=== PATIENT | female | born 1990 | race Caucasian/White ===

== ENCOUNTER 2022-10-14 07:41 | Outpatient (OUT) | payer MEDICAID, SELFPAY ==
--- NOTE | 2022-10-14 | US_ITS ---
Patient: TABITHA PAPPAS Exam Date: 10/14/2022 : 1990 Gender:F Ordering : KAVON Menjivar . Admission #: [id number] Family : Non-Staff Physician Order #: [id number] CLICK HERE TO VIEW EXAM RADIOLOGY REPORT PROCEDURE: MM TOMOSYNTHESIS DIAGNOSTIC BI, 10/14/2022, 07:43 US BREAST RT LIMITED, 10/14/2022, 08:24 COMPARISON: MG MAMM SCREEN 3D CHANEL CAD, 01/03/2022. INDICATIONS: Right Breast Pain Calculator Name NCI Breast Cancer Risk Assessment Tool 5 Year Breast Cancer Risk Not Applicable. Lifetime Breast Cancer Risk Not Applicable. Personal Breast Cancer No Personal Ovarian Cancer No Treatments None Family Cancers Grandmother-paternal with breast cancer at age 65. LOCATION: [facility] BREAST COMPOSITION: Extremely dense, which lowers the sensitivity of mammography. FINDINGS: DIAGNOSTIC CATEGORY 1--NEGATIVE. Extremely dense parenchymal pattern limits diagnostic sensitivity. No focal mass, architectural distortion or suspicious calcifications. No mammographic or ultrasound abnormality to correspond to the patient's palpable abnormality upper-outer quadrant, right mid breast. RECOMMENDATIONS: CLINICAL EVALUATION. PLEASE NOTE: A NORMAL MAMMOGRAM DOES NOT EXCLUDE THE POSSIBILITY OF BREAST CANCER. A CLINICALLY SUSPICIOUS PALPABLE LUMP SHOULD BE BIOPSIED. Dictated by: Moy Cespedes MD on 10/14/2022 at 08:36 Approved by: Moy Cespedes MD on 10/14/2022 at 08:38
--- NOTE | 2022-10-14 08:30 | MM_ITS ---
Patient: TABITHA PAPPAS Exam Date: 10/14/2022 : 1990 Gender:F Ordering : KAVON Menjivar . Admission #: [id number] Family : Non-Staff Physician Order #: [id number] CLICK HERE TO VIEW EXAM RADIOLOGY REPORT PROCEDURE: MM TOMOSYNTHESIS DIAGNOSTIC BI, 10/14/2022, 07:43 US BREAST RT LIMITED, 10/14/2022, 08:24 COMPARISON: MG MAMM SCREEN 3D CHANEL CAD, 01/03/2022. INDICATIONS: Right Breast Pain Calculator Name NCI Breast Cancer Risk Assessment Tool 5 Year Breast Cancer Risk Not Applicable. Lifetime Breast Cancer Risk Not Applicable. Personal Breast Cancer No Personal Ovarian Cancer No Treatments None Family Cancers Grandmother-paternal with breast cancer at age 65. LOCATION: The [facility] BREAST COMPOSITION: Extremely dense, which lowers the sensitivity of mammography. FINDINGS: DIAGNOSTIC CATEGORY 1--NEGATIVE. Extremely dense parenchymal pattern limits diagnostic sensitivity. No focal mass, architectural distortion or suspicious calcifications. No mammographic or ultrasound abnormality to correspond to the patient's palpable abnormality upper-outer quadrant, right mid breast. RECOMMENDATIONS: CLINICAL EVALUATION. PLEASE NOTE: A NORMAL MAMMOGRAM DOES NOT EXCLUDE THE POSSIBILITY OF BREAST CANCER. A CLINICALLY SUSPICIOUS PALPABLE LUMP SHOULD BE BIOPSIED. Dictated by: Moy Cespedes MD on 10/14/2022 at 08:36 Approved by: Moy Cespedes MD on 10/14/2022 at 08:38
== END 2022-10-14 07:42 | disposition home or self-care (01) ==
LOC: MAMMO 07:44
PROVIDERS: Visit Provider Physician Assistant
DX: N64.4 Mastodynia (principal); N63.11 Unspecified lump in the right breast, upper outer quadrant
CPT/HCPCS: 76642; 77066; G0279

== ENCOUNTER 2022-11-21 20:31 | Outpatient (REF) | payer MEDICAID, SELFPAY ==
[2022-11-24 15:10] LABS: Age Gdln ACOG Testing Note (.); HPV Aptima Negative (Negative); IGP, Aptima HPV, rfx 16/18,45 Note (.)
== END 2022-11-21 20:32 | disposition home or self-care (01) ==
LOC: LAB 20:31
PROVIDERS: Visit Provider Physician Assistant
DX: Z12.4 Encounter for screening for malignant neoplasm of cervix (principal)
CPT/HCPCS: 87624; G0145

== ENCOUNTER 2022-11-24 08:00 | Outpatient (OUT) | payer MEDICAID, SELFPAY ==
--- NOTE | 2022-11-24 08:03 | US_ITS ---
The [address] [address] Patient Name: TABITHA PAPPAS MRN: [id number] date: 1990 Sex: F Assigned Patient Location: US Current Patient Location: US Accession/Order Number: [id number] Exam Date: 11/24/2022 08:10 Report Date: 11/24/2022 09:15 At the request of: SHEFALI VNECES Procedure: US pelvis w/ transvaginal EXAMINATION: US pelvis w/ transvaginal HISTORY: RLQ PAIN , chronic; possibly cystic ovarian syndrome COMPARISON: No relevant comparison available. TECHNIQUE: Transabdominal and/or transvaginal sonographic examination was performed as indicated by examination type. FINDINGS: UTERUS: Prior hysterectomy. RIGHT OVARY: Normal size and appearance. Duplex Doppler demonstrates normal waveform and flow; resistive index 0.7. Ovary size: 2.7 x 1.6 x 1.5 cm LEFT OVARY: Contains a 2.5 x 1.9 x 1.8 cm complex cyst versus mass. Duplex Doppler demonstrates normal waveform and flow; resistive index 0.6. Ovary size: 3.6 x 2.5 x 3.8 cm CUL-DE-SAC: Unremarkable. No significant free fluid. BLADDER: Unremarkable. OTHER: None. US/US pelvis w/ transvaginal IMPRESSION: 1. The left ovary contains a 2.5 cm complex cyst versus mass. Follow-up ultrasound evaluation in 6 weeks is recommended to document regression. 2. No abnormal or suspicious findings on the right to account for patient's symptoms. Electronically authenticated by: ARIEL HERNANDEZ Date: 11/24/2022 09:15
== END 2022-11-24 08:01 | disposition home or self-care (01) ==
LOC: US 08:01
PROVIDERS: Visit Provider Obstetrics & Gynecology
DX: R10.13 Epigastric pain (principal); N83.202 Unspecified ovarian cyst, left side
CPT/HCPCS: 76830; 76856

== ENCOUNTER 2023-01-09 07:57 | Outpatient (OUT) | payer MEDICAID, SELFPAY ==
--- NOTE | 2023-01-09 | US_ITS ---
The [address] [address] Patient Name: TABTIHA PAPPAS MRN: [id number] date: 1990 Sex: F Assigned Patient Location: Current Patient Location: US Accession/Order Number: [id number] Exam Date: 01/09/2023 08:10 Report Date: 01/09/2023 09:13 At the request of: SHEFALI VENCES Procedure: US pelvis w/ transvaginal EXAM: Pelvic ultrasound HISTORY: . RLQ abdominal pain . COMPARISON: None. TECHNIQUE: Transabdominal and transvaginal scanning was performed FINDINGS: Scanning of the pelvis demonstrates uterus to be absent. Right ovary measures 3.7 x 1.6 x 1.4 cm. Color-flow is noted. Resistive index was 0.4. No masses were noted. Follicles were noted. Left ovary was difficult to image due to overlying bowel gas. AP portion of the left ovary was visualized and measured approximately 1.6 x 1.2 x 0.9 cm. No masses were noted. No fluid was noted in the cul-de-sac. US/US pelvis w/ transvaginal IMPRESSION: 1 Limited exam due to multiple bowel loops within the pelvis. 2. Uterus is absent. 3. Right ovary appears normal. 4. Left ovary was difficult to image due to bowel loops. Left ovary was partially visualized and appears grossly unremarkable. Electronically authenticated by: DARNELL RAMOS Date: 01/09/2023 09:13
--- OUTSIDE RECORDS SUMMARY | 2023-02-14 17:42 | XMS_ITS | CCD ---
Author Name Unknown Address [address] [place] [address] Organization [facility] Care Team Providers Care Button Maker And Installer Name Role Phone RU, DR MEEHAN Attending Unavailable RU, DR MEEHAN Admitting Unavailable RU, DR MEEHAN Procedure Practitioner Unavailab le MISC, DR HASKINS Primary Care Unavailable RUSSELK, DR LANDEROS Consulting Unavailable RU, DR MEEHAN Consulting Unavailable NATEPAULINA Coronado Consulting Unavailable RU, DR MEEHAN Attending Unavailable RU, DR MEEHAN Admitting Unavailable RU, DR MEEHAN Attending Unavailable RU, DR MEEHAN Consulting Unavailable RU, DR MEEHAN Admitting Unavailable RU, DR MEEHAN Admitting Unavailable RU, DR MEEHAN Consulting Unavailable RU, DR MEEHAN Attending Unavailable RU, DR MEEHAN Consulting Unavailable RU, DR MEEHAN Admitting Unavailable RU, DR MEEHAN Attending Unavailable RU, DR MEEHAN Attending Unavailable RU, DR MEEHAN Consulting Unavailable RU, DR MEEHAN Admitting Unavailable MISC, DR HASKINS Consulting Unavailable RU, DR MEEHAN Attending Unavailable RU, DR MEEHAN Admitting Unavailable RU, DR MEEHAN Consulting Unavailable RU, DR MEEHAN Admitting Unavailable RU, DR MEEHAN Attending Unavailable AGUBOSIM, HAYLEY Consulting Unavailable GRZEGORZ LINO Consulting Unavailable KITA Cespedes Primary Care Provider KITA Cespedes Attending Provider [phone] MD Rodger Malagon Emergency Provider Unavailable Primary Care Provider UnavailJM Mejias Referring Unavailable PROVIDER, UNKNOWN Attending Unavailable PROVIDER, UNKNOWN Admitting Unavailable KTIA Cespedes Primary Care Provider KITA Ryan Emergency Provider [phone] Alireza Noland Unavailable DO Jose Perez Attending Provider [phone] DO Lavinia Flores Emergency Provider [phone] [place], MICA PARTS SPRAYER Venus S Primary Care Provider DO Jose Perez Attending Provider [phone] [place], MICA PARTS SPRAYER Venus S Attending Provider West, MICA PARTS SPRAYER Venus S Primary Care Provider [phone] SCOTT MCINTOSH Attending Unavailable [place], MICA PARTS SPRAYER Venus S Primary Care Provider West, MICA PARTS SPRAYER Venus S Attending Provider MD Kane Crouch Emergency Provider [phone] [place], Venus S Primary Care Unavailable Lavinia Flores Admitting Unavailable Lavinia Flores Attending Unavailable Kane Crouch Admitting Unavailable Kane Crouch Attending Unavailable West, Venus S Primary Care Unavailable Rodger Malagon Admitting Unavailable Manas, Rodger Noriega Attending Unavailable West, Venus S Primary Care Unavailable Turner Hendrickson Admitting Unavailable Turner Hendrickson Attending Unavailable West, Venus S Primary Care Unavailable Gerald Ryan Attending Unavailable Shelby, Gerald Admitting Unavailable West, Venus S Primary Care Unavailable Jose Perez Admitting Unavailable Jose Perez Attending Unavailable West, Venus S Primary Care Unavailable West, Venus S Attending Unavailable West, Venus S Admitting Unavailable West, Venus S Primary Care Unavailable West, Venus S Attending Unavailable West, Venus S Admitting Unavailable West, Venus S Primary Care Unavailable Gerald Ryan Admitting Unavailable Gerald Ryan Attending Unavailable West, Venus S Primary Care Unavailable West DONKEY RIDE OPERATOR, Venus Primary Care Provider WEST, VENUS Primary Care Unavailable ABHYANKAR, IZAIAH Attending Unavailable WEST, VENUS Primary Care Unavailable ABHYANKAR, IZAIAH Referring Unavailable WEST, VENUS Primary Care Unavailable ABHYANKAR, IZAIAH Attending Unavailable WEST, VENUS Referring Unavailable VENUS CESPEDES Primary Care Unavailable Allergies Allergy Classification Reported Allergen(s) Allergy Type Date of Onset Reaction(s) Facility (1 source) Povidone-Iodine Drug Allergy 01-03-2020 [facility] Repository Medications Current Medications Medication Drug Class(es) Dates Sig (Normalized) Sig (Original) 0.4 ml adalimumab 100 mg/ml auto-injector (6 sources) Tumor Necrosis Factor Leatha Start: 06-25-2022 Adalimumab (Humira(Cf) Pen) 40 mg/0.4 mL pen injector kit Active MG SUBCUT June 24, 2022 11:00pm [id number] 200 actuat albuterol 0.09 mg/actuat metered dose inhaler (6 sources) beta2-Adrenergic Agonist Start: 06-25-2022 Albuterol Sulfate Active 2 INH INHALATION Q6H 8 June 24, 2022 11:00pm administer with spacer benzonatate 200 mg oral capsule (14 sources) Non-narcotic Antitussive Start: 06-25-2022 take 200 mg by mouth three times daily Benzonatate Active 200 MG PO Three times daily June 24, 2022 11:00pm Start: 01-24-2017 End: 09-12-2017 take 2 capsules by mouth three times daily Benzonatate (Tessalon Perles) 100 mg capsule Discontinued 200 MG PO Three times daily January 24, 2017 12:00am September 12, 2017 1:17pm cholecalciferol 0.05 mg oral tablet (2 sources) Vitamin D Start: 01-24-2022 Cholecalciferol (Vitamin D3) 50 MCG (1999 UT) TABS cyclobenzaprine hydrochloride 10 mg oral tablet (6 sources) Muscle Relaxant Start: 08-05-2022 take 10 mg by mouth three times daily Cyclobenzaprine Active 10 MG PO Three times daily August 04, 2022 11:00pm doxycycline hyclate 100 mg oral tablet (6 sources) Tetracycline-class Drug Start: 06-25-2022 take 100 mg by mouth twice daily Doxycycline Hyclate Active 100 MG PO Twice daily June 24, 2022 11:00pm hydrOXYzine hydrochloride 25 mg oral tablet (2 sources) Antihistamine Start: 02-10-2022 hydrOXYzine (ATARAX) 25 MG tablet lidocaine 0.05 mg/mg medicated patch (6 sources) Antiarrhythmic, Amide Local Anesthetic Start: 08-05-2022 apply 1 dose topically once daily Lidocaine (Lidoderm) 5 % adhesive patch,medicated Active 2 PATCH TOPICAL Daily August 04, 2022 11:00pm leave on most painful area for up to 12 hrs methylPREDNISolone 4 mg oral tablet (3 sources) Corticosteroid Start: 08-12-2022 Start: 02-11-2022 methylPREDNISo lone (MEDROL) 4 MG tablet naproxen 500 mg oral tablet (20 sources) Nonsteroidal Anti-inflammatory Drug Start: 08-05-2022 take 1 tablet by mouth twice daily Naproxen (Naprosyn) 500 mg tablet Active 500 MG PO Twice daily August 04, 2022 11:00pm Start: 09-12-2017 End: 05-11-2018 take 500 mg by mouth twice daily at mealtime Naproxen Discontinued 500 MG PO Twice daily September 11, 2017 11:00pm May 11, 2018 11:08am administer with food or milk Start: 01-04-2017 End: 01-24-2017 take 1 tablet by mouth every twelve hours at mealtime Naproxen (Naprosyn) 500 mg tablet Discontinued 500 MG PO Q12H January 04, 2017 12:00am January 24, 2017 3:03pm administer with food or milk Completed/Discontinued Medications Medication Drug Class(es) Dates Sig (Normalized) Sig (Original) amoxicillin 500 mg oral tablet (15 sources) Penicillin-class Antibacterial Start: 01-25-2022 End: 06-25-2022 take 500 mg by mouth three times daily Amoxicillin Discontinued 500 MG PO Three times daily January 25, 2022 12:00am June 25, 2022 2:40pm Start: 05-11-2018 End: 05-21-2018 take 500 mg by mouth three times daily Amoxicillin Discontinued 500 MG PO Three times daily 26 12May 10, 2018 11:00pm May 20, 2018 11:02pm azithromycin 250 mg oral tablet (8 sources) Macrolide Antimicrobial Start: 01-24-2017 End: 09-12-2017 take 2 tablets by mouth once daily, then take 1 tablet by mouth once daily Azithromycin (Zithromax) 250 mg tablet Discontinued 500 MG PO Daily January 24, 2017 12:00am September 12, 2017 1:17pm 500mg on first day, 250mg daily for four days. enteric contrast (will be provided with radiology test) (3 sources) Start: 01-12-2023 enteric contrast (will be provided with radiology test) Indications: Lymphadenopathy For CT CHESTABD/PEL W IVCON Routine order Administer, As Directed One Time Only, via Oral, Rectal, both Oral and Rectal, Enteric Tube, Stoma or Indwelling Catheter, Enteric Contrast as designated per enteric contrast guidelines 1 Each 0 01/12/2023 Active Comment on above: For CT CHESTABD/PEL W IVCON Routine order Administer, As Directed One Time Only, via Oral, Rectal, both Oral and Rectal, Enteric Tube, Stoma or Indwelling Catheter, Enteric Contrast as designated per enteric contrast guidelines fluconazole 150 mg oral tablet (6 sources) Azole Antifungal Start: 02-05-2022 End: 06-25-2022 take 1 tablet by mouth once Fluconazole (Diflucan) 150 mg tablet Discontinued 150 MG PO Once February 05, 2022 12:00am June 25, 2022 2:40pm ibuprofen 600 mg oral tablet (15 sources) Nonsteroidal Anti-inflammatory Drug Start: 01-25-2022 End: 06-25-2022 Ibuprofen Discontinued 600 MG PO Every 6 hours January 25, 2022 12:00am June 25, 2022 2:40pm do not exceed 4 doses in a 24 hour period Start: 05-11-2018 End: 05-21-2018 take 600 mg by mouth every eight hours Ibuprofen Discontinued 600 MG PO Q8H 16 12May 10, 2018 11:00pm May 20, 2018 11:02pm iv contrast (will be provide d with radiology test) (3 sources) Start: 01-12-2023 iv contrast (w ill be provided with radiology test) Indications: Lymphadenopathy CT Chest ABD/PEL-Inject, intravenously, once for 1 dose.No IV access, insert saline lock prior to the beginning of sedation, infusion, injection of imaging exam. Discontinue saline lock post exam. If Pt. has a central line or IVAD, may access for administration according to line specific nursing protocol. Once exam is complete flush line and de-access according to line specific nursing protocol in the CT contrast administration guidelines link. 1 Each 0 01/12/2023 Active Comment on above: CT Chest ABD/PEL-Inj ect, intravenously, once for 1 dose.No IV access, insert saline lock prior to the beginning of sedation, infusion, injection of imaging exam. Discontinue saline lock post exam. If Pt. has a central line or IVAD, may access for administration according to line specific nursing protocol. Once exam is complete flush line and de-access according to line specific nursing protocol in the CT contrast administration guidelines link. 1 ml ixekizumab 80 mg/ml auto-injector (4 sources) Interleukin-17A Antagonist Start: 01-05-2023 TALTZ AUTOINJECTOR 80 mg/mL pen LORazepam 1 mg oral tablet (2 sources) Benzodiazepine Start: 02-11-2022 End: 02-11-2022 take 1 tablet by mouth once, then take 1 tablet by mouth every hour LORazepam (Ativan) 1 MG tablet Indications: Caries Take 1 Tablet by mouth 1 (one) time for 1 dose. Take one tablet one hour prior to oral surgery procedure 1 Tablet 0 02/11/2022 02/11/2022 methocarbamol 750 mg oral tablet (8 sources) Muscle Relaxant Start: 09-12-2017 End: 05-11-2018 take 1 tablet by mouth four times daily Methocarbamol (Robaxin-750) 750 mg Tablet Discontinued 750 MG PO Four times daily September 11, 2017 11:00pm May 11, 2018 11:08am predniSONE 20 mg oral tablet (16 sources) Start: 01-31-2017 End: 02-05-2017 take 40 mg by mouth once daily at mealtime Prednisone Discontinued 40 MG PO Daily 10 January 31, 2017 12:00am February 05, 2017 12:03am administer with food or milk Start: 01-04-2017 End: 01-09-2017 take 60 mg by mouth once daily at mealtime Prednisone Discontinued 60 MG PO daily 15 January 04, 2017 12:00am January 09, 2017 12:03am administer with food or milk tiZANidine 4 mg oral capsule (8 sources) Central alpha-2 Adrenergic Agonist Start: 09-12-2017 End: 05-11-2018 Tizanidine (Zanaflex) 4 mg capsule Discontinued 4 MG PO every 6 to 8 hours September 11, 2017 11:00pm May 11, 2018 11:08am do not exceed 3 doses per 24 hrs Problems Active Problems Problem Classification Problem Date Documented Da te Episodic/Chronic Abdominal pain (8 sources) Pelvic and perineal pain; Translations: [Nonspecific abdominal pain] Onset: 01-03-2020 Episodic Acute bronchitis (8 sources) Acute bronchitis; Translations: [Acute bronchitis, unspecified] 01-31-2017 Episodic Cancer of cervix (4 sources) High grade squamous intraepithelial lesion on cytologic smear of cervix (HGSIL); Translations: [HGSIL ON CYTOLOGIC SMEAR OF CERVIX] Onset: 10-21-2020 Episodic Chronic obstructive pulmonary disease and bronchiectasis (2 sources) Pulmonary emphysema; Translations: [Emphysema, unspecified] 02-02-2023 Chronic Disorders of teeth and jaw (3 sources) Dental caries; Translations: [Dental caries, unspecified] Onset: 02-11-2022 Episodic Endometriosis (1 source) Endometriosis of uterus; Translations: [ENDOMETRIOSIS OF UTERUS] Onset: 04-27-2020 Chronic Gastrointestinal hemorrhage (1 source) Hemorrhage of rectum and anus; Translations: [Hemorrhage of rectum and anus] Episodic Headache; including migraine (1 source) Migraine; Translations: [Migraine] Chronic Lymphadenitis (2 sources) Generalized enlarged lymph nodes; Translations: [Localized enlarged lymph nodes] Onset: 01-26-2023 Episodic Menstrual disorders (8 sources) Excessive and frequent menstruation with regular cycle; Translations: [Dysmenorrhea] Onset: 03-20-2020 Chronic Mycoses (6 sources) Mycosis; Translations: [Candidiasis, unspecified] 02-05-2022 Episodic Nonspecific chest pain (7 sources) Atypical chest pain; Translations: [Other chest pain] Onset: 09-18-2022 09-18-2022 Episodic Other endocrine disorders (1 source) Polycystic ovarian syndrome; Translations: [POLYCYSTIC OVARIAN SYNDROME] Onset: 04-27-2020 Chronic Other female genital disorders (1 source) Dyspareunia; Translations: [Dyspareunia] Chronic Other female genital disorders (1 source) Leukorrhea; Translations: [leukorrhea] Episodic Other gastrointestinal disorders (1 source) Slow transit constipation; Translations: [Constipation, slow transit] Episodic Other upper respiratory infections (7 sources) Pharyngitis; Translations: [Acute pharyngitis, unspecified] 01-25-2022 Episodic Otitis media and related conditions (8 sources) Otitis media; Translations: [Otitis media, unspecified, unspecified ear] 01-24-2017 Episodic Residual codes; unclassified (1 source) Body mass index 20-24 - normal; Translations: [Body mass index (BMI) 22.0-22.9, adult] Episodic Residual codes; unclassified (1 source) Body mass index (BMI) 22.0-22.9, adult; Translations: [Body mass index (BMI) 22.0-22.9, adult] Onset: 02-11-2022 Episodic Sprains and strains (14 sources) Shoulder strain; Translations: [Strain of unspecified muscle, fascia and tendon at shoulder and upper arm level, left arm, initial encounter] 01-04-2017 Episodic Substance-related disorders (1 source) Nicotine dependence, cigarettes, uncomplicated; Translations: [NICOTINE DEPEND CIGARETTES UNCOMP] Onset: 04-27-2020 Chronic Unclassified (1 source) CONTACT W/AND (SUSP) EXPOS COVID-19; Translations: [CONTACT W/AND (SUSP) EXPOS COVID-19] Onset: 04-27-2020 Unclassified (1 source) Strain of muscle, fascia and tendon at neck level, initial encounter; Translations: [Strain of muscle, fascia and tendon at neck level, initial encounter] Onset: 09-27-2022 Unclassified (1 source) Cough, unspecified; Translations: [Cough, unspecified] Onset: 01-26-2022 Viral infection (6 sources) Viral exanthem; Translations: [Unspecified viral infection characterized by skin and mucous membrane lesions] 02-05-2022 Episodic Past or Other Problems Problem Classification Problem Date Documented Date Episodic/Chronic Contraceptive and procreative management (1 source) Tubal ligation status; Translations: [TUBAL LIGATION STATUS] Onset: 04-27-2020 Episodic Immunizations and screening for infectious disease (4 sources) Contact with and (suspected) exposure to other viral communicable diseases; Translations: [CONTCT EXPS OTH VIRL COMMUNICABL DZ] Onset: 12-28-2019 Episodic Other and delivery including normal (3 sources) Vaginal delivery; Translations: [Encounter for full-term uncomplicated delivery] Onset: 05-06-2011 05-06-2011 Episodic Other skin disorders (1 source) Rash and other nonspecific skin eruption; Translations: [Rash and other nonspecific skin eruption] Onset: 02-05-2022 Episodic Residual codes; unclassified (3 sources) History of laparoscopy; Translations: [Other specified postprocedural states] Onset: 05-06-2011 05-06-2011 Episodic Spondylosis; intervertebral disc disorders; other back problems (1 source) Cervicalgia; Translations: [Cervicalgia] Onset: 08-05-2022 Episodic Unclassified (1 source) Contraception care management; Translations: [Contraceptive management, other specified] Results Test Name Value Interpretation Reference Range Facil ity CNOVSPon 02-02-2023 CNOVSP Visit (SP) Office ([facility]) AYANA GILL ([id number]) 1990 F Date Time Provider Department 02/02/23 9:30 AM IZAIAH PINTO During your visit today, we recorded the following information about you: Temperature Pulse Respiration Blood pressure 97.5 degrees 76/minute 16/minute 113/66 Weight 57.4 kg Izaiah Pinto MD 02/02/2023 7:05 PM Signed NAME: Ayana Gill CLINIC NO.: [id number] DATE OF SERVICE: February 02, 2023 (Gavin) Some elements in this clinic note that are critical to medical decision making have been carefully reviewed and included from a prior clinic note dated: January 12, 2023 (Gavin). Referring Provider: Venus Cespedes DONKEY RIDE OPERATOR Consultation requested by Venus Cespedes for an opinion regarding Ms. Ayana Gill, and my final recommendations will be communicated back to the requesting physician by way of shared medical record or letter via US mail. Additional Clinicians involved in Ayana Gill's care: DIAGNOSIS: Lymphadenopthy ASSESSMENT: 32 year old woman with mild lymphadenopathy but has been having early satiety as well as soaking night sweats. CT scans unremarkable for lymphadenopathy. Other symptoms may be related to tobacco use and emphysema with chronic inflammation. PLAN: Refer to pulmonary for emphysema at early age. Return PRN - HPI: CASE HISTORY: Reverse Chronological Order 01/26/2023 - CT Neck CAP: Neck: scattered subcentimeter lymph nodes, none significantly enlarged by imaging size criteria. Elongation of the styloid processes, a finding which can be seen in the setting of [place] Syndrome. Minimal Emphysema involving the imaged lung apices. Otherwise, unremarkable CT Neck with contrast. Chest: 4 mm noncalcified nodule along the left major fissure, likely related to a benign intrafissural lymph node. No substantial intrathoracic adenopathy is appreciated. Abd/Pelvis: Essentially unremarkable CT examination of the abdomen and pelvis. 01/02/2023 US HANDN soft tissue: There are multiple small lobular lesions at the areas of lump, which appear to represent small lymph nodes, all measuring less than 1 cm short axis with the largest on the right measuring 3 mm short axis and the largest on the left measuring 0.5 cm short axis. These are overall nonspecific. 12/29/2022 - XR Left Humerus (NOMS) : No acute or aggressive abnormality of the humerus. Soft tissues appear within normal limits; no soft tissue mass identified by radiography. 12/27/2022 - noticed a bump on left arm 03/2020 at [facility] - hysterectomy - found cervical cancer. Updated Visit, February 02, 2023: Ayana returns today accompanied by her Papo and 14 yo son Ivan. She has been doing okay lately. Has still been having sweats. I encouraged her to stop smoking in efforts to limit her early emphysema.We reviewed her imaging, she has a small pulmonary nodule that is likely an inflammatory lymph node. I think it would be jameson for her to consider seeing a audiology assistant so she can be evaluated for Alpha 1 Antitrypsin Deficiency. She reports having low energy and becoming SOB easily over the last few days, giving her a difficult time breathing. I encouraged her to stop smoking inhaling any substance. Initial Visit, January 12, 2023: Ayana Gill presents today Hematology and Oncology evaluation. She is a 32 year old female who has no other medical issues except for an ovarian cyst on the left. Has some upper abdominal pain. Doesn't have an appetite and gets full quickly for ~ 1 month. Has had 3 soaking sweats at night in the last month Left upper arm has a knot in it. Labs are normal. Has psoriasis controled by Della - used to take Humira for 4-5 months Smokes 1 ppd No Alcohol Also had cervical cancer was noted after her hysterectomy. 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 Has 3 children - REVIEW OF SYSTEMS Per HPI and otherwise negative by full review of organ systems. - ECOG PERFORMANCE STATUS: 0 PHYSICAL EXAMINATION: Vitals: BP 113/66 Pulse 76 Temp (Src) 97.5 (Temporal) Resp 16 Wt 126 lb 9.6 oz (57.4kg) SpO2 100% LMP 04/28/2011 Body surface area is 1.6 meters squared. Exam limited to gross visualization where appropriate. Gen.: This is an age-appropriate patient in no acute distress. Has slightly edgar appearance. Head: Appears atraumatic with no visible lesions. Eyes: Pupils equally round and reactive to light, extraocular muscles are intact. Neck: Supple. Respiratory: Appears to be respiring comfortably. (more content not included)... Normal [facility] Traci 02-02-2023 [facility] AYANA GILL ([id number]) 1990 F Date Time Provider Department 02/02/23 IZAIAH PINTO During your visit today, we recorded the following information about you: Albert Piper 02/02/2023 10:05 AM Signed Refer to pulmonary Dx: Pumonary emphysema Alfreda/Chandrakant: Patient would prefer to stay locally within [place]. Can you please refer patient and follow up? Thanks! Yuki Marte 02/02/2023 12:20 PM Signed Alfreda: Information ready for you. Venus Kuhn 02/03/2023 12:32 PM Signed Records faxed. Yuki Sneed 02/09/2023 10:06 AM Signed Called Pulmonary office spoke with Leeanna. Patient is scheduled 07/25/23 @ 9:30 with WASTEWATER TREATMENT ENGINEER Ghada Munson. Izaiah Lima MD 02/09/2023 1:13 PM Signed Man - that is 6 months out!!! We should really send her to [place] or [place]! Yuki Sneed 02/09/2023 2:02 PM Signed Issa Davey, I called and spoke with patient she was willing to go to [place]. I called and got her scheduled with Dr Fam Mcnair on 04/18/23. That was their first available appointment. Patient will have Spirometry and Lung Function testing done same day just prior to seeing provider. I called and spoke with patient gave her all information regarding this appointment and she was very appreciative of getting in sooner. She is aware of the testing that will be done that day prior to seeing provider. I also let patient know I would be calling and cancelling her 07/24 appt with Ghada Munson. I called Pulm office spoke with Leeanna and cancelled patient appointment on 07/24 with Ghada Munson. Thank You- Yuki Junior Allergies As of Date: 02/02/2023 (No Known Allergies) Date Reviewed: 02/02/2023 Reviewed by: Marlene Meadows - Fully Assessed Reason for Visit: Referral Information [[id number]] Cmt: Pulmonary Prescriptions as of 02/09/2023 - TALTZ AUTOINJECTOR 80 mg/mL pen - iv contrast (will be provided with radiology test) CT Chest ABD/PEL-Inject, intravenously, once for 1 dose.No IV access, insert saline lock prior to the beginning of sedation, infusion, injection of imaging exam. Discontinue saline lock post exam. If Pt. has a central line or IVAD, may access for administration according to line specific nursing protocol. Once exam is complete flush line and de-access according to line specific nursing protocol in the CT contrast administration guidelines link. - enteric contrast (will be provided with radiology test) For CT CHESTABD/PEL W IVCON Routine order Administer, As Directed One Time Only, via Oral, Rectal, both Oral and Rectal, Enteric Tube, Stoma or Indwelling Catheter, Enteric Contrast as designated per enteric contrast guidelines Problem List As Of Date 02/02/2023 Noted Resolved (spontaneous vaginal delivery) x1 [O80] 05/06/2011 H/O laparoscopy, diagnostic in [place], 02/2011*05/06/2011 Encounter Status:Closed by ALBERT PIPER on 02/09/23 Normal [facility] CREATININE BLDon 01-26-2023 Creatinine [Mass/Vol] 0.75 mg/dL Normal 0.58-0.96 [facility] Comment on above: Order Comment: Speci men Type: BLOOD SPECIMEN Ordering Facility: [facility] Address: [address] [place] [address] Performed By: #### C RET1 #### [facility] CLIA [id number] [address] [place] [id number] Creatinine and Glomerular filtration rate.predicted panel (S/P/Bld) 107 mL/min/1.73m??? Normal >=60 [facility] Comment on above: Order Comment: Speci men Type: BLOOD SPECIMEN Ordering Facility: [facility] Address: [address] [place] [address] Result Comment: Dawn mated Glomerular Filtration Rate (eGFR) is calculated using the 2020 CKD-EPI creatinine equation. This equation utilizes serum creatinine, sex, and age as parameters. The creatinine assay has traceable calibration to isotope dilution-mass spectrometry. Refer to KDIGO guidelines for clinical interpretation. In patients with unstable renal function, e.g. those with acute kidney injury, the eGFR may not accurately reflect actual GFR. Performed By: #### C RET1 #### [facility] CLIA [id number] [address] [place] [address] CT ABD/PEL W IVCONon 023 CT ABD/PEL W IVCON * * *Final Report* * * DATE OF EXAM: Jan 26 2023 3:05PM [facility] 0530 - CT ABD/PEL W IVCON / PROCEDURE REASON: multiple diagnoses * * * * Physician Interpretation * * * * RESULT: EXAMINATION: CT ABDOMEN AND PELVIS WITH IV CONTRAST CLINICAL HISTORY: Abdominal pain, lymphadenopathy. TECHNIQUE: CT of the abdomen and pelvis was performed using standard technique, scanning from just above the dome of the diaphragm to the symphysis pubis. MQ: CTAP_3 Contrast: IV: 115 ml of Omnipaque 300 Oral: 500 ml of Omni 240 10-25ml diluted with water CT Radiation dose: Integrated Dose-length product (DLP) for this visit = 1150 mGy*cm. CT Dose Reduction Employed: Automated exposure control (AEC) COMPARISON: None. RESULT: Liver: Subcentimeter bilobar hypodensities are identified, difficult to fully characterize, likely related to cysts, largest measuring 5 mm. Biliary Tract: No bile duct dilation. The gallbladder appears unremarkable. Spleen: No splenomegaly. No mass. Pancreas: No mass or ductal dilatation. Adrenal glands: No mass. Kidneys: No enhancing mass or hydronephrosis. GI Tract: No bowel wall thickening or dilation. Lymph nodes: No substantial abdominal or pelvic lymphadenopathy. Mesentery/Peritoneum: No ascites or mass. Retroperitoneum: No mass. Vasculature: - Abdominal aorta and iliac arteries: No aneurysm - Celiac and SMA: Patent. - Portal venous system (SMV, splenic vein, portal vein and branches): Patent. - Hepatic veins: Patent. Pelvis: Small bilateral adnexal cysts. The uterus is not identified, likely surgically absent. Trace free fluid within the posterior pelvis is noted. No substantial inguinal adenopathy. Bones/Soft Tissues: No osseous destructive process. Lower Thorax: A CT examination of the chest has been performed concurrently and will be dictated. Food And Nutrition Services Assistant (topogram) images: No additional findings. IMPRESSION: Essentially unremarkable CT examination of the abdomen and pelvis, as detailed above. Transcribe Date/Time: Jan 27 2023 12:57P Dictated by: ROBERTA DENNIS MD This examination was interpreted and the report reviewed and electronically signed by: ROBERTA DENNIS MD on Jan 30 2023 8:49AM EST Thank you for allowing us to participate in the care of your patient. Should there be any questions regarding this interpretation, please call [phone]. If you are unable to reach us at the number above, please feel free to contact [facility] at [phone]. [id number] Normal [facility] CT CHEST W IVCONon 3 CT CHEST W IVCON * * *Final Report* * * DATE OF EXAM: Jan 26 2023 3:05PM [facility] 0539 - CT CHEST W IVCON / PROCEDURE REASON: multiple diagnoses * * * * Physician Interpretation * * * * RESULT: EXAMINATION: CHEST CT WITH CONTRAST CLINICAL HISTORY: Lymphadenopathy Technique: Spiral CT acquisition of the chest from the thoracic inlet to the upper abdomen following IV contrast. MQ: CTCW_6 Contrast: 115 mL Omnipaque [address] Radiation dose: Integrated Dose-length product (DLP) for this visit = 1150 mGy*cm CT Dose Reduction Employed: Automated exposure control (AEC) Comparison: None RESULT: Limitations: None. Lines, tubes, and devices: None. Lung parenchyma , airways, and pleural space: No consolidative process or pleural effusion. The trachea and major airways appear patent. Scattered punctate calcified right are noted bilaterally. Mild upper lobe paraseptal emphysematous changes are noted. Subsegmental atelectasis/scarring at the left lung base. 4 mm noncalcified nodule along the left major fissure likely relates to a benign intrafissural lymph node. Lower neck, lymph nodes, and mediastinum: A CT examination of the neck has been performed concurrently and will be dictated separately. No substantial axillary, mediastinal, or hilar adenopathy is identified. Heart, pericardium, and thoracic vessels: The thoracic aorta is normal in caliber. No substantial pericardial effusion is identified. Bones/Soft Tissues: No osseous destructive process. Upper Abdomen: A CT examination of the abdomen has been performed concurrently and will be dictated separately. Food And Nutrition Services Assistant (topogram) images: No additional findings. IMPRESSION: 1. 4 mm noncalcified nodule along the left major fissure, likely related to a benign intrafissural lymph node. See detailed follow-up recommendations below. 2. No substantial intrathoracic adenopathy is appreciated. Incidental Finding: Follow-up Acuity: Incidental Finding: Solid: <6 mm (solitary or multiple) Routing Code: N/A Recommendation: No imaging follow-up is recommended Time Frame: N/A Comments: If there are risk factors for lung malignancy, a follow-up chest CT exam could be obtained in 12 months --END OF FINDING-- Transcribe Date/Time: Jan 27 2023 1:09P Dictated by: ROBERTA DENNIS MD This examination was interpreted and the report reviewed and electronically signed by: ROBERTA DENNIS MD on Jan 30 2023 8:49AM EST Thank you for allowing us to participate in the care of your patient. Should there be any questions regarding this interpretation, please call [phone]. If you are unable to reach us at the number above, please feel free to contact [facility]Radiology at [phone]. [id number] ACTIONABLE Invalid Interpretation Code [facility] CT NECK SOFT TISSUE W IVCONo n 01-26-2023 CT NECK SOFT TISSUE W IVCON * * *Final Report* * * DATE OF EXAM: Jan 26 2023 3:05PM [facility] 0013 - CT NECK SOFT TISSUE W IVCON / PROCEDURE REASON: multiple diagnoses * * * * Physician Interpretation * * * * RESULT: CT of the neck with contrast. HISTORY: Lymphadenopathy, localized enlarged lymph nodes. TECHNIQUE: Multiple postcontrast axial CT images were obtained through the soft tissues of the neck. In addition, sagittal and coronal reformats were obtained. Contrast dose: 115 mL Omnipaque [address] Dose-Length Product (DLP): [address] Dose Reduction Employed: Automated exposure control (AEC) COMPARISON: Outside ultrasound dated 12/30/2022 was referenced. RESULT: Scattered subcentimeter lymph nodes are seen, none significantly enlarged by imaging size criteria, largest on the right at level 2 measuring 8 mm in maximal short axis. Imaged portions of the brain parenchyma are unremarkable. Parotid and submandibular glands demonstrate normal size and density characteristics. Nasopharyngeal tissues demonstrate normal configuration. There is elongation of the ossified styloid processes bilaterally, findings which can be seen in the setting of [place] syndrome. Aryepiglottic folds and piriform sinuses are symmetric. Thyroid gland is unremarkable. Major vascular structures demonstrate normal course. Minimal emphysema involves the imaged lung apices. No significant degenerative changes involve the cervical spine. IMPRESSION: SCATTERED SUBCENTIMETER LYMPH NODES, NONE SIGNIFICANTLY ENLARGED BY IMAGING SIZE CRITERIA. ELONGATION OF THE STYLOID PROCESSES, A FINDING WHICH CAN BE SEEN IN THE SETTING OF [place] SYNDROME. MINIMAL EMPHYSEMA INVOLVING THE IMAGED LUNG APICES. OTHERWISE, UNREMARKABLE CT NECK WITH CONTRAST. Transcribe Date/Time: Jan 26 2023 3:32P Dictated by: YOSELIN POTTER MD This examination was interpreted and the report reviewed and electronically signed by: YOSELIN POTTER MD on Jan 26 2023 3:41PM EST Thank you for allowing us to participate in the care of your patient. Should there be any questions regarding this interpretation, please call [phone]. If you are unable to reach us at the number above, please feel free to contact [facility]iology at [phone]. [id number] Normal [facility] Basic Metabolic Panelon 11-2 Anion gap [Moles/Vol] 9.7 mmol/L Normal 6.0-15.0 [facility] Comment on above: Performed By: #### D DIMER, HEPATIC #### [place] [address] [place] Calcium [Mass/Vol] 9.8 mg/dL Normal 8.6-10.3 [facility] Comment on above: Performed By: #### D DIMER, HEPATIC #### [facility] [address] [place] [id number] [place] Chloride [Moles/Vol] 106 mmol/L Normal 98-107 [facility] Comment on above: Performed By: #### D DIMER, HEPATIC #### [facility] [address] [place] [id number] [place] CO2 [Moles/Vol] 26.0 mmol/L Normal 21.0-31.0 [facility] Comment on above: Performed By: #### D DIMER, HEPATIC #### [facility] [address] [place] [address] [place] Creatinine [Mass/Vol] 0.67 mg/dL Normal 0.60-1.20 [facility] Comment on above: Performed By: #### D DIMER, HEPATIC #### [facility] [address] [place] [address] [place] Creatinine Clr Calc Pharmacy 97.87 Normal [facility] Comment on above: Result Comment: PERF ORMED BY: [place] [address] PATHOLOGIST [employer] LEAD KVNG FAM M.D. Performed By: #### D DIMER, HEPATIC #### [place] [address] [place] GFR/1.73 sq M.predicted MDRD (S/P/Bld) [Vol rate/Area] mL/min/{1.73_m2} Normal [facility] Comment on above: Performed By: #### D DIMER, HEPATIC #### [place] [address] [place] Glucose [Mass/Vol] 100 mg/dL Normal 70-100 [facility] Comment on above: Result Comment: [place] Glucose Reference Range is dependent on time and content of last meal. Glucose of more than 200 mg/dL in a nonstressed, ambulatory subject supports the diagnosis of Diabetes Mellitus. ADA recommended reference range Performed By: #### D DIMER, HEPATIC #### [place] [address] [place] Potassium [Moles/Vol] 3.7 mmol/L Normal 3.5-5.1 [facility] Comment on above: Performed By: #### D DIMER, HEPATIC #### [place] [address] [place] Sodium [Moles/Vol] 138 mmol/L Normal 136-145 [facility] Comment on above: Performed By: #### D DIMER, HEPATIC #### [facility] [address] [place] [id number] [facility] Urea nitrogen [Mass/Vol] 13 mg/dL Normal 7-25 [facility] Comment on above: Performed By: #### D DIMER, HEPATIC #### [facility] [address] [place], [place] [id number] [facility] CT abdomen pelvis w conon CT abdomen pelvis w con [facility] [address] [place] [address] CT Scan Report Signed Patient: Ayana Gill MR#: [id number] : 1990 Acct:[id number] Age/Sex: 32 / F ADM Date: 01/15/23 Loc: ER Room: Type: [facility] ER Attending Dr: Copies to: Kane Crouch MD Ordering Provider: Kane Crouch MD Date of Service: 01/16/23 CT/CT abdomen pelvis w con: Abdominal pain CT abdomen pelvis w con 01/16/2023 12:09 AM SIGNS AND SYMPTOMS: Right flank pain radiating to right lower quadrant TECHNIQUE: Multidetector ct axial images of the abdomen and pelvis were obtained with IV contrast. Multiplanar reformats were performed and reviewed to further define anatomy and possible pathology. CT was performed with one or more of the following dose reduction techniques: Automated exposure control, adjustment of the mA and/or kV according to patient size, or use of iterative reconstruction technique. COMPARISON: 11/02/2012 FINDINGS: Lower Chest: There is a 2 mm noncalcified nodule in the left lung base which is unchanged. ABDOMEN: Liver: There is a 5 mm focus of hypoattenuation in the left hepatic lobe. Bile Ducts: Normal caliber. Gallbladder: No calcified gallstones. Normal caliber wall. Pancreas: Within normal limits. Spleen: Within normal limits. Adrenals: Within normal limits. Kidneys: Within normal limits. Pelvis: Reproductive Organs: No pelvic masses. Ureters: Within normal limits. Bladder: Within normal limits. Bowel: Normal caliber. There is a normal appendix in the right lower quadrant. Mesenteric Lymph Nodes: No enlarged mesenteric lymph nodes. Peritoneum: No ascites or free air, no fluid collection. Vessels: within normal limits Retroperitoneum: Within normal limits. Abdominal Wall: Within normal limits. Bones: Within normal limits. CT/CT abdomen pelvis w con IMPRESSION: No acute intra-abdominal pathology. Impression dictated by: Samuel Mcfadden M.D.01/16/2023 9:32 AM Dictation Location: [place] [address] Transcribed By: [facility] 01/16/23931 Dictated By: Samuel Mcfadden II, MD 01/16/23923 Signed By: 01/16/23931 Normal [facility] Complete Blood Count Auto Di ffon 01-16-2023 Basophils (Bld) [#/Vol] 0.1 10*3/uL Normal 0.0-0.2 [facility] Comment on above: Result Comment: PERF ORMED BY: [place] [address] PATHOLOGIST [employer] KV[employer] FAM M.D. Performed By: #### H EPATIC, CBC, BMP #### [facility] [address] [place] [address] Basophils/100 WBC (Bld) 0.8 % Normal . [facility] Comment on above: Performed By: #### H EPATIC, CBC, BMP #### [facility] [address] [place] [address] Eosinophils (Bld) [#/Vol] 0.2 10*3/uL Normal 0.0-0.45 [facility] Comment on above: Performed By: #### H EPATIC, CBC, BMP #### [facility] [address] [place] [address] Eosinophils/100 WBC (Bld) 2.2 % Normal . [facility] Comment on above: Performed By: #### H EPATIC, CBC, BMP #### [facility] [address] [place] [address] Erythrocyte distribution wid th (RBC) [Ratio] 13.3 % Normal 11.9-15.3 [facility] Comment on above: Performed By: #### H EPATIC, CBC, BMP #### [facility] [address] [place] [address] Hematocrit (Bld) [Volume fraction] 40.8 % Normal 34.0-46.4 [facility] Comment on above: Performed By: #### H EPALYNNETTE, CBC, BMP #### [address] Hemoglobin (Bld) [Mass/Vol] 14.1 g/dL Normal 11.8-15. 4 [facility] Comment on above: Performed By: #### H EPALYNNETTE, CBC, BMP #### [address] Lymphocytes (Bld) [#/Vol] 2.1 10*3/uL Normal 1.00-4.8 [facility] Comment on above: Performed By: #### H EPALYNNETTE, CBC, BMP #### [address] Lymphocytes/100 WBC (Bld) 28.5 % Normal . [facility] Comment on above: Performed By: #### H EPATIC, CBC, BMP #### [address] MCH (RBC) [Entitic mass] 32.3 pg Normal 24.7-34.3 [facility] Comment on above: Performed By: #### H EPALYNNETTE, CBC, BMP #### [address] MCV (RBC) [Entitic vol] 93.6 fL Normal 80-100 [facility] Comment on above: Performed By: #### H EPATIC, CBC, BMP #### [address] Mean Corpuscular HGB Conc 34.6 g/dL Normal 32.0-35.0 [facility] Comment on above: Performed By: #### H EPATIC, CBC, BMP #### [address] Monocytes (Bld) [#/Vol] 0.4 10*3/uL Normal 0.0-0.8 [facility] Comment on above: Performed By: #### H EPATIC, CBC, BMP #### [address] [place] [address] [place] Monocytes/100 WBC (Bld) 19.69 % Normal 0.00-20.00 [facility] Comment on above: Performed By: #### H EPALYNNETTE, CBC, BMP #### [facility] [address] [place] [address] [place] Monocytes/100 WBC (Bld) 5.6 % Normal . [facility] Comment on above: Performed By: #### H PRUDENCIO, CBC, BMP #### [facility] [address] Neutrophils (Bld) [#/Vol] 4.7 10*3/uL Normal 1.8-7.7 [facility] Comment on above: Performed By: #### H EPALYNNETTE, CBC, BMP #### [address] Neutrophils/100 WBC (Bld) 62.9 % Normal . [facility] Comment on above: Performed By: #### H EPALYNNETTE, CBC, BMP #### [facility] [address] NRBC% 0.1 /100{WBC} Normal 0-0.5 [facility] Comment on above: Performed By: #### H PRUDENCIO, CBC, BMP #### [address] Platelet mean volume (Bld) [Entitic vol] 7.8 fL Normal 6.3-10.7 [facility] Comment on above: Performed By: #### H EPATIC, CBC, BMP #### [facility] [address] [place] [address] [place] Platelets (Bld) [#/Vol] 203 10*3/uL Normal 150-450 [facility] Comment on above: Performed By: #### H EPATIC, CBC, BMP #### [facility] [address] [place] [address] [place] RBC (Bld) [#/Vol] 4.36 10*6/uL Normal 3.60-5.00 [facility] Comment on above: Performed By: #### H EPATIC, CBC, BMP #### [facility] [address] [place] [address] [place] WBC (Bld) [#/Vol] 7.5 10*3/uL Normal 3.8-11.6 [facility] Comment on above: Performed By: #### H EPATIC, CBC, BMP #### [facility] [address] [place] [address] [place] Dipstick and Microscopicon 1 03-18-2022 Appearance (U) Slightly Cloudy Critically abnormal Clear [facility] Comment on above: Order Comment: Name Collection Type:: Clean-Voided Midstream Performed By: #### D DIMER, HEPATIC #### [address] Bacteria,Urine None Seen Normal None Seen [facility] Comment on above: Order Comment: Name Collection Type:: Clean-Voided Midstream Performed By: #### D DIMER, HEPATIC #### [address] Bilirubin,Urine Negative Normal Negative [facility] Comment on above: Order Comment: Name Collection Type:: Clean-Voided Midstream Performed By: #### D DIMER, HEPATIC #### [address] Color (U) Yellow Normal Yellow [facility] Comment on above: Order Comment: Name Collection Type:: Clean-Voided Midstream Performed By: #### D DIMER, HEPATIC #### [facility] [address] [place] [address] [place] Glucose Ql (U) Normal Normal Normal [facility] Comment on above: Order Comment: Name Collection Type:: Clean-Voided Midstream Performed By: #### D DIMER, HEPATIC #### [place] [address] [place] Hyaline Casts,Urine 0-8 Normal 0-8 [facility] Comment on above: Order Comment: Name Collection Type:: Clean-Voided Midstream Performed By: #### D DIMER, HEPATIC #### [address] Ketones Ql (U) Negative Normal Negative [facility] Comment on above: Order Comment: Name Collection Type:: Clean-Voided Midstream Performed By: #### D DIMER, HEPATIC #### [address] Leukocyte esterase Test stri p Ql (U) Negative Normal Negative [facility] Comment on above: Order Comment: Name Collection Type:: Clean-Voided Midstream Performed By: #### D DIMER, HEPATIC #### [place] [address] [place] Nitrite,Urine Negative Normal Negative [facility] Comment on above: Order Comment: Name Collection Type:: Clean-Voided Midstream Performed By: #### D DIMER, HEPATIC #### [address] Occult Blood,Urine Negative Normal Negative [facility] Comment on above: Order Comment: Name Collection Type:: Clean-Voided Midstream Performed By: #### D DIMER, HEPATIC #### [address] pH (U) 7.5 [pH] Normal 5.0-9.0 [facility] Comment on above: Order Comment: Name Collection Type:: Clean-Voided Midstream Performed By: #### D DIMER, HEPATIC #### [address] Protein,Urine Negative Normal Negative [facility] Comment on above: Order Comment: Name Collection Type:: Clean-Voided Midstream Performed By: #### D DIMER, HEPATIC #### [place] [id number] [place] RBC,Urine 3-4 Normal 0-4 [facility] Comment on above: Order Comment: Name Collection Type:: Clean-Voided Midstream Performed By: #### D DIMER, HEPATIC #### [place] [address] [place] Specificy [place],Urine 1.015 Normal 1.001-1.030 [facility] Comment on above: Order Comment: Name Collection Type:: Clean-Voided Midstream Performed By: #### D DIMER, HEPATIC #### [address] Squamous Epithelial Cell,Urine 3-4 High 0-2 [facility] Comment on above: Order Comment: Name Collection Type:: Clean-Voided Midstream Performed By: #### D DIMER, HEPATIC #### [address] Urobilinogen,Urine Normal Normal Normal [facility] Comment on above: Order Comment: Name Collection Type:: Clean-Voided Midstream Performed By: #### D DIMER, HEPATIC #### [address] WBC,Urine None Seen Normal 0-4 [facility] Comment on above: Order Comment: Name Collection Type:: Clean-Voided Midstream Performed By: #### D DIMER, HEPATIC #### [address] HCG,Urineon 01-16-2023 Beta HCG ( test) Ql (U) Negative Normal [facility] Comment on above: Order Comment: Name Collection Type:: Clean-Voided Midstream Result Comment: PERF ORMED BY: [place] [address] PATHOLOGIST [employer] KVNG FAM M.D. Performed By: #### D DIMER, HEPATIC #### [address] Hepatic Panelon 01-16-2023 Albumin [Mass/Vol] 4.5 g/dL Normal 3.5-5.7 [facility] Comment on above: Performed By: #### H EPATIC, CBC, BMP #### [address] Albumin/Globulin [Mass ratio] 1.6 {ratio} Normal [facility] Comment on above: Performed By: #### H EPATIC, CBC, BMP #### [address] ALP [Catalytic activity/Vol] 46 U/L Normal 34-104 [facility] Comment on above: Performed By: #### H EPATIC, CBC, BMP #### [facility] [address] ALT [Catalytic activity/Vol] 35 U/L Normal 7-52 [facility] Comment on above: Performed By: #### H EPATIC, CBC, BMP #### [facility] [address] AST [Catalytic activity/Vol] 29 U/L Normal 13-39 [facility] Comment on above: Performed By: #### H EPATIC, CBC, BMP #### [facility] [address] Bilirubin [Mass/Vol] 0.3 mg/dL Normal 0.3-1.0 [facility] Comment on above: Performed By: #### H EPATIC, CBC, BMP #### [facility] [address] Bilirubin,Indirect 0.2 mg/dL Normal [facility] Comment on above: Performed By: #### H EPATIC, CBC, BMP #### [facility] [address] [place] [address] [place] Bilirubin.indirect [Mass/Vol] 0.10 mg/dL Normal 0.03-0 .18 [facility] Comment on above: Performed By: #### H EPATIC, CBC, BMP #### [facility] [address] [place] [address] [place] Globulin (S) [Mass/Vol] 2.8 g/dL Normal [facility] Comment on above: Performed By: #### H EPATIC, CBC, BMP #### [facility] [address] [place] [address] [place] Protein [Mass/Vol] 7.3 g/dL Normal 6.4-8.9 [facility] Comment on above: Performed By: #### H EPATIC, CBC, BMP #### [facility] [address] [place] [address] [place] Alanine aminotransferase [En zymatic activity/volume] in Serum or PlasmaOrdered By: Kane Crouch on 01-15-2023 ALT [Catalytic activity/Vol] 35 U/L 7-52 [facility] Albumin [Mass/volume] in Ser um or Plasma by Bromocresol green (BCG) dye binding methoOrdered By: Kane Crouch on 01-15-2023 Albumin BCG dye [Mass/Vol] 4.5 g/dL 3.5-5.7 [facility] Alkaline phosphatase [Enzyma tic activity/volume] in Serum or PlasmaOrdered By: Kane Crouch on 01-15-2023 ALP [Catalytic activity/Vol] 46 U/L 34-104 [facility] Aspartate aminotransferase [ Enzymatic activity/volume] in Serum or PlasmaOrdered By: Kane Crouch on 01-15-2023 AST [Catalytic activity/Vol] 29 U/L 13-39 [facility] Automated erythrocytes count in urine sediment (number/area)Ordered By: Kane Crouch on 01-15-2023 RBC Auto (Urine sed) [#/Area] 3-4 [HPF] 0-4 [facility] Automated leukocytes count i n urine sediment (number/area)Ordered By: Kane Crouch on 01-15-2023 WBC Auto (Urine sed) [#/Area] None seen [HPF] 0 -4 [facility] Basophils Auto (Bld) [#/Vol] Ordered By: Kane Crouch on 01-15-2023 Basophils (Bld) [#/Vol] 0.1 10*3/uL 0.0-0.2 [facility] Basophils/100 WBC Auto (Bld) Ordered By: Kane Crouch on 01-15-2023 Basophils/100 WBC (Bld) 0.8 % . [facility] Bilirubin Auto test strip Ql (U)Ordered By: Kane Crouch on 01-15-2023 Bilirubin Ql (U) Negative Negative [facility] Bilirubin.direct [Mass/volum e] in Serum or PlasmaOrdered By: Kane Crouch on 01-15-2023 Bilirubin.direct [Mass/Vol] 0.10 mg/dL 0.03-0.1 8 [facility] Bilirubin.total [Mass/volume ] in Serum or PlasmaOrdered By: Kane Crouch on 01-15-2023 Bilirubin [Mass/Vol] 0.3 mg/dL 0.3-1.0 [facility] Calcium [Mass/volume] in Ser um or PlasmaOrdered By: Kane Crouch on 01-15-2023 Calcium [Mass/Vol] 9.8 mg/dL 8.6-10.3 [facility] Carbon dioxide, total [Moles /volume] in Serum or PlasmaOrdered By: Kane Crouch on 01-15-2023 CO2 [Moles/Vol] 26.0 mmol/L 21.0-31.0 [facility] Chloride [Moles/volume] in S bulmaro or PlasmaOrdered By: Kane Crouch on 01-15-2023 Chloride [Moles/Vol] 106 mmol/L 98-107 [facility] Creatinine [Mass/volume] in Serum or PlasmaOrdered By: Kane Crouch on 01-15-2023 Creatinine [Mass/Vol] 0.67 mg/dL 0.60-1.20 [facility] Eosinophils Auto (Bld) [#/Vo l]Ordered By: Kane Crouch on 01-15-2023 Eosinophils (Bld) [#/Vol] 0.2 10*3/uL 0.0-0.45 [facility] Eosinophils/100 WBC Auto (Bl d)Ordered By: Kane Crouch on 01-15-2023 Eosinophils/100 WBC (Bld) 2.2 % . [facility] Erythrocyte distribution wid th Auto (RBC) [Ratio]Ordered By: Kane Crouch on 01-15-2023 Erythrocyte distribution wid th (RBC) [Ratio] 13.3 % 11.9-15.3 [facility] Globulin Calc (S) [Mass/Vol] Ordered By: Kane Crouch on 01-15-2023 Globulin (S) [Mass/Vol] 2.8 g/dL [facility] Glucose [Mass/volume] in Ser um or PlasmaOrdered By: Kane Crouch on 01-15-2023 Glucose [Mass/Vol] 100 mg/dL 70-100 [facility] Comment on above: ADA recommended refe rence rangeRandom Glucose Reference Range is dependent on time and content of last meal. Glucose of more than 200 mg/dL in a nonstressed, ambulatory subject supports the diagnosis of Diabetes Mellitus. HCG ( test) IA.teagan d Ql (U)Ordered By: Kane Crouch on 01-15-2023 HCG ( test) Ql (U) Negative [facility] Hematocrit Auto (Bld) [Volum e fraction]Ordered By: Kane Crouch on 01-15-2023 Hematocrit (Bld) [Volume fraction] 40.8 % 3 4.0-46.4 [facility] Hemoglobin [Mass/volume] in BloodOrdered By: Kane Crouch on 01-15-2023 Hemoglobin (Bld) [Mass/Vol] 14.1 g/dL 11.8-15. 4 [facility] Ketones Auto test strip (U) [Mass/Vol]Ordered By: Kane Crouch on 01-15-2023 Ketones (U) [Mass/Vol] Negative Negative [facility] - UrinalysisOrder ed By: Kane Crouch on 01-15-2023 Hyaline casts LM Ql (Urine sed) 0-8 [LPF] 0-8 [facility] Leukocytes [#/volume] correc cici for nucleated erythrocytes in Blood by Automated counOrdered By: Kane Crouch on 01-15-2023 WBC corrected for nucl RBC A uto (Bld) [#/Vol] 7.5 10*3/uL 3.8-11.6 [facility] Lymphocytes Auto (Bld) [#/Vo l]Ordered By: Kane Crouch on 01-15-2023 Lymphocytes (Bld) [#/Vol] 2.1 10*3/uL 1.00-4.8 [facility] Lymphocytes/100 WBC Auto (Bl d)Ordered By: Kane Crouch on 01-15-2023 Lymphocytes/100 WBC (Bld) 28.5 % . [facility] MCH Auto (RBC) [Entitic mass ]Ordered By: Kane Crouch on 01-15-2023 MCH (RBC) [Entitic mass] 32.3 pg 24.7-34.3 [facility] MCHC Auto (RBC) [Mass/Vol]Or dered By: Kane Crouch on 01-15-2023 MCHC (RBC) [Mass/Vol] 34.6 g/dL 32.0-35.0 [facility] MCV Auto (RBC) [Entitic vol] Ordered By: Kane Crouch on 01-15-2023 MCV (RBC) [Entitic vol] 93.6 fL 80-100 [facility] Monocyte distribution width [Entitic volume] in Blood by AutomatedOrdered By: Kane Crouch on 01-15-2023 Monocyte distribution width Auto (Bld) [Entitic vol] 19.69 % 0.00-20.00 [facility] Monocytes Auto (Bld) [#/Vol] Ordered By: Kane Crouch on 01-15-2023 Monocytes (Bld) [#/Vol] 0.4 10*3/uL 0.0-0.8 [facility] Monocytes/100 WBC Auto (Bld) Ordered By: Kane Crouch on 01-15-2023 Monocytes/100 WBC (Bld) 5.6 % . [facility] Neutrophils Auto (Bld) [#/Vo l]Ordered By: Kane Crouch on 01-15-2023 Neutrophils (Bld) [#/Vol] 4.7 10*3/uL 1.8-7.7 [facility] Neutrophils/100 WBC Auto (Bl d)Ordered By: Kane Crouch on 01-15-2023 Neutrophils/100 WBC (Bld) 62.9 % . [facility] No Panel InformationOrdered By: Kane Crouch on 01-15-2023 Estimated GFR (CKD-EPI) > 60.0 mL/Min [facility] Creatinine Clearanc e (Chem 97.87 [facility] Nucleated erythrocytes [Pres ence] in Blood by Automated countOrdered By: Kane Crouch on 01-15-2023 Nucleated RBC Auto Ql (Bld) 0.1 /100{WBC} 0-0.5 [facility] Platelet mean volume Auto (B ld) [Entitic vol]Ordered By: Kane Crouch on 01-15-2023 Platelet mean volume (Bld) [Entitic vol] 7.8 fL 6.3-10.7 [facility] Platelets Auto (Bld) [#/Vol] Ordered By: Kane Crouch on 01-15-2023 Platelets (Bld) [#/Vol] 203 10*3/uL 150-450 [facility] Potassium [Moles/volume] in Serum or PlasmaOrdered By: Kane Crouch on 01-15-2023 Potassium [Moles/Vol] 3.7 mmol/L 3.5-5.1 [facility] Protein Auto test strip (U) [Mass/Vol]Ordered By: Kane Crouch on 01-15-2023 Protein (U) [Mass/Vol] Negative Negative [facility] Protein [Mass/volume] in Ser um or PlasmaOrdered By: Kaen Crouch on 01-15-2023 Protein [Mass/Vol] 7.3 g/dL 6.4-8.9 [facility] RBC Auto (Bld) [#/Vol]Ordere d By: Kane Crouch on 01-15-2023 RBC (Bld) [#/Vol] 4.36 10*6/uL 3.60-5.00 [facility] Serum or plasma albumin/glob ulin mass ratioOrdered By: Kane Crouch on 01-15-2023 Albumin/Globulin [Mass ratio] 1.6 {ratio} [facility] Serum or plasma anion gap de terminationOrdered By: Kane Crouch on 01-15-2023 Anion gap [Moles/Vol] 9.7 mmol/L 6.0-15.0 [facility] Serum or plasma non-glucuron idated bilirubin measurement (mass/volume)Ordered By: Kane Crouch on 01-15-2023 Bilirubin.indirect [Mass/Vol] 0.2 mg/dL [facility] Sodium [Moles/volume] in Ser um or PlasmaOrdered By: Kane Crouch on 01-15-2023 Sodium [Moles/Vol] 138 mmol/L 136-145 [facility] Squamous epithelial cells de tection in urine sediment by light microscopyOrdered By: Kane Crouch on 01-15-2023 Epithelial cells.squamous LM Ql (Urine sed) 3-4 [HPF] 0-2 [facility] Urea nitrogen [Mass/volume] in Serum or PlasmaOrdered By: Kane Crouch on 01-15-2023 Urea nitrogen [Mass/Vol] 13 mg/dL 7-25 [facility] Urine appearanceOrdered By: Kane Crouch on 01-15-2023 Appearance (U) Slightly cloudy Clear [facility] Urine bacteria detection by automated methodOrdered By: Kane Crouch on 01-15-2023 Bacteria Auto Ql (U) None seen None Seen [facility] Urine colorOrdered By: Jun Crouch on 01-15-2023 Color (U) Yellow Yellow [facility] Urine glucose measurement by automated test strip (mass/volume)Ordered By: Kane Crouch on 01-15-2023 Glucose Auto test strip (U) [Mass/Vol] Normal mg/dL Normal [facility] Urine hemoglobin detection b y automated test stripOrdered By: Kane Crouch on 01-15-2023 Hemoglobin Auto test strip Ql (U) Negative Ne gative [facility] Urine leukocyte esterase det ection by automated test stripOrdered By: Kane Crouch on 01-15-2023 Leukocyte esterase Auto test strip Ql (U) Negative Negative [facility] Urine nitrite detection by a utomated test stripOrdered By: Kane Crouch on 01-15-2023 Nitrite Auto test strip Ql (U) Negative Negat bennie [facility] Urobilinogen Auto test strip (U) [Mass/Vol]Ordered By: Kane Crouch on 01-15-2023 Urobilinogen (U) [Mass/Vol] Normal mg/dL Normal [facility] WBC Auto (Bld) [#/Vol]Ordere d By: Kane Crouch on 01-15-2023 WBC (Bld) [#/Vol] 7.5 10*3/uL 3.8-11.6 [facility] pH Auto test strip (U)Ordere d By: Kane Crouch on 01-15-2023 pH (U) 1.015 [pH] 1.001-1.030 [facility] pH (U) 7.5 [pH] 5.0-9.0 [facility] CBC W Auto Differential pane l (Bld)on 01-12-2023 Basophils (Bld) [#/Vol] 0.03 10*3/uL Normal <0.11 [facility] Comment on above: Order Comment: Speci men Type: BLOOD SPECIMEN Ordering Facility: [facility] Address: [address] [place] [address] Performed By: #### 5 7021-8 #### [facility] CLIA [id number] [address] [place] [address]30 Basophils/100 WBC (Bld) 0.5 % Normal [facility] Comment on above: Order Comment: Speci men Type: BLOOD SPECIMEN Ordering Facility: [facility] Address: [address] [place] [address] Performed By: #### 5 7021-8 #### [facility] CLIA [id number] [address] [place] [address] 99770 Differential cell count method Nom (Bld) Auto Normal [facility] Comment on above: Order Comment: Speci men Type: BLOOD SPECIMEN Ordering Facility: [facility] Address: [address] [place] [address] Performed By: #### 5 7021-8 #### [facility] CLIA [id number] [address] [place] [address] Eosinophils (Bld) [#/Vol] 0.14 10*3/uL Normal <0.46 [facility] Comment on above: Order Comment: Speci men Type: BLOOD SPECIMEN Ordering Facility: [facility] Address: [address] [place] [address] Performed By: #### 5 7021-8 #### [facility] CLIA [id number] [address] [place] [address]137 Eosinophils/100 WBC (Bld) 2.4 % Normal [facility] Comment on above: Order Comment: Speci men Type: BLOOD SPECIMEN Ordering Facility: [facility] Address: [address] [place] [address] Performed By: #### 5 7021-8 #### [facility] CLIA [id number] [address] [place] [address]60 Erythrocyte distribution wid th (RBC) [Ratio] 12.9 % Normal 11.5-15.0 [facility] Comment on above: Order Comment: Speci men Type: BLOOD SPECIMEN Ordering Facility: [facility] Address: [address] [place] [address] Performed By: #### 5 7021-8 #### [facility] CLIA [id number] [address] [place] [address] Hematocrit (Bld) [Volume fraction] 40.8 % Normal 3 6.0-46.0 [facility] Comment on above: Order Comment: Speci men Type: BLOOD SPECIMEN Ordering Facility: [facility] Address: [address] [place] [address] Performed By: #### 5 7021-8 #### [facility] CLIA [id number] [address] [place] [address] 68779 Hemoglobin (Bld) [Mass/Vol] 14.1 g/dL Normal 11.5-15. 5 [facility] Comment on above: Order Comment: Speci men Type: BLOOD SPECIMEN Ordering Facility: [facility] Address: [address] [place] [address] Performed By: #### 5 7021-8 #### [facility] CLIA [id number] [address] [place] [address]382 Immature granulocytes (Bld) [#/Vol] 10*3/uL Normal <0.10 [facility] Comment on above: Order Comment: Speci men Type: BLOOD SPECIMEN Ordering Facility: [facility] Address: [address] [place] [address] Performed By: #### 5 7021-8 #### [facility] CLIA [id number] [address] [place] [address] 23767 Immature granulocytes/100 WBC (Bld) 0.2 % Normal [facility] Comment on above: Order Comment: Speci men Type: BLOOD SPECIMEN Ordering Facility: [facility] Address: [address] [place] [address] Performed By: #### 5 7021-8 #### [facility] CLIA [id number] [address] [place] [address]88 Lymphocytes (Bld) [#/Vol] 1.87 10*3/uL Normal 1.00-4.0 0 [facility] Comment on above: Order Comment: Speci men Type: BLOOD SPECIMEN Ordering Facility: [facility] Address: [address] [place] [address] Performed By: #### 5 7021-8 #### [facility] CLIA [id number] [address] [place] [address] 08152 Lymphocytes/100 WBC (Bld) 32.5 % Normal [facility] Comment on above: Order Comment: Speci men Type: BLOOD SPECIMEN Ordering Facility: [facility] Address: [address] [place] [address] Performed By: #### 5 7021-8 #### [facility] CLIA [id number] [address] [place] [address] 46565 MCH (RBC) [Entitic mass] 32.1 pg Normal 26.0-34.0 [facility] Comment on above: Order Comment: Speci men Type: BLOOD SPECIMEN Ordering Facility: [facility] Address: [address] [place] [address] Performed By: #### 5 7021-8 #### [facility] CLIA [id number] [address] [place] [address] 81179 MCHC (RBC) [Mass/Vol] 34.6 g/dL Normal 30.5-36.0 [facility] Comment on above: Order Comment: Speci men Type: BLOOD SPECIMEN Ordering Facility: [facility] Address: [address] [place] [address] Performed By: #### 5 7021-8 #### [facility] CLIA [id number] [address] [place] [address] 86413 MCV (RBC) [Entitic vol] 92.9 fL Normal 80.0-100.0 C [facility] Comment on above: Order Comment: Speci men Type: BLOOD SPECIMEN Ordering Facility: [facility] Address: [address] [place] [address] Performed By: #### 5 7021-8 #### [facility] CLIA [id number] [address] [place] [address] 37976 Monocytes (Bld) [#/Vol] 0.35 10*3/uL Normal <0.87 [facility] Comment on above: Order Comment: Speci men Type: BLOOD SPECIMEN Ordering Facility: [facility] Address: [address] [place] [id number] Performed By: #### 5 7021-8 #### [facility] CLIA [id number] [address] [place] [address] Monocytes/100 WBC (Bld) 6.1 % Normal [facility] Comment on above: Order Comment: Speci men Type: BLOOD SPECIMEN Ordering Facility: [facility] Address: [address] [place] [address] Performed By: #### 5 7021-8 #### [facility] CLIA [id number] [address] [place] [address] Neutrophils (Bld) [#/Vol] 3.36 10*3/uL Normal 1.45-7.5 0 [facility] Comment on above: Order Comment: Speci men Type: BLOOD SPECIMEN Ordering Facility: [facility] Address: [address] [place] [address] Performed By: #### 5 7021-8 #### [facility] CLIA [id number] [address] [place] [address] 56470 Neutrophils/100 WBC (Bld) 58.3 % Normal [facility] Comment on above: Order Comment: Speci men Type: BLOOD SPECIMEN Ordering Facility: [facility] Address: [address] [place] [address] Performed By: #### 5 7021-8 #### [facility] CLIA [id number] [address] [place] [address] 39759 Nucleated RBC (Bld) [#/Vol] 10*3/uL Normal <0.01 [facility] Comment on above: Order Comment: Speci men Type: BLOOD SPECIMEN Ordering Facility: [facility] Address: [address] [place] [address] Performed By: #### 5 7021-8 #### [facility] CLIA [id number] [address] [place] [address] 00415 Nucleated RBC/100 WBC (Bld) [Ratio] 0.0 /100 WBC Normal [facility] Comment on above: Order Comment: Speci men Type: BLOOD SPECIMEN Ordering Facility: [facility] Address: [address] [place] [address] Performed By: #### 5 7021-8 #### [facility] CLIA [id number] [address] [place] [address] 09064 Platelet mean volume (Bld) [ Entitic vol] 9.8 fL Normal 9.0-12.7 [facility] Comment on above: Order Comment: Speci men Type: BLOOD SPECIMEN Ordering Facility: [facility] Address: [address] [place] [address] Performed By: #### 5 7021-8 #### [facility] CLIA [id number] [address] [place] [address] 41247 Platelets (Bld) [#/Vol] 185 10*3/uL Normal 150-400 [facility] Comment on above: Order Comment: Speci men Type: BLOOD SPECIMEN Ordering Facility: [facility] Address: [address] [place] [address] Performed By: #### 5 7021-8 #### [facility] CLIA [id number] [address] [place] [address] 82218 RBC (Bld) [#/Vol] 4.39 10*6/uL Normal 3.90-5.20 [facility] Comment on above: Order Comment: Speci men Type: BLOOD SPECIMEN Ordering Facility: [facility] Address: [address] [place] [address] Performed By: #### 5 7021-8 #### [facility] CLIA [id number] [address] [place] [address] 80776 WBC (Bld) [#/Vol] 5.76 10*3/uL Normal 3.70-11.00 [facility] Comment on above: Order Comment: Speci men Type: BLOOD SPECIMEN Ordering Facility: [facility] Address: [address] [place] [address] Performed By: #### 5 7021-8 #### [facility] CLIA [id number] [address] [place] [address] 74196 CNOVSPon 01-12-2023 CNOVSP Visit (SP) Office (Randi TERAN) AYANA GILL ([id number]) 1990 F Date Time Provider Department 01/12/23 11:15 AM IZAIAH PINTO During your visit today, we recorded the following information about you: Temperature Pulse Respiration Blood pressure 97.7 degrees 61/minute 16/minute 116/71 Weight 57 kg Izaiah Pinto MD 01/15/2023 9:16 AM Signed NAME: Ayana Gill CLINIC NO.: [id number] DATE OF SERVICE: January 12, 2023 (Gavin) Referring Provider: Venus Cespedes DONKEY RIDE OPERATOR Consultation requested by Venus Cespedes for an opinion regarding Ms. Ayana Gill, and my final recommendations will be communicated back to the requesting physician by way of shared medical record or letter via US mail. Additional Clinicians involved in Ayana Gill's care: DIAGNOSIS: Lymphadenopthy ASSESSMENT: 32 year old woman with mild lymphadenopathy but has been having early satiety as well as soaking night sweats. Will obtain scans. PLAN: CT Neck CAP with creatinine and return 1 week after to review. - HPI: CASE HISTORY: Reverse Chronological Order 01/02/2023 US HANDN soft tissue: There are multiple small lobular lesions at the areas of lump, which appear to represent small lymph nodes, all measuring less than 1 cm short axis with the largest on the right measuring 3 mm short axis and the largest on the left measuring 0.5 cm short axis. These are overall nonspecific. 12/29/2022 - XR Left Humerus (NOMS) : No acute or aggressive abnormality of the humerus. Soft tissues appear within normal limits; no soft tissue mass identified by radiography. 12/27/2022 - noticed a bump on left arm 03/2020 at [facility] - hysterectomy - found cervical cancer. Initial Visit, January 12, 2023: Ayana Gill presents today Hematology and Oncology evaluation. She is a 32 year old female who has no other medical issues except for an ovarian cyst on the left. Has some upper abdominal pain. Doesn't have an appetite and gets full quickly for ~ 1 month. Has had 3 soaking sweats at night in the last month Left upper arm has a knot in it. Labs are normal. Has psoriasis controled by Della - used to take Humira for 4-5 months Smokes 1 ppd No Alcohol Also had cervical cancer was noted after her hysterectomy. 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 Has 3 children - REVIEW OF SYSTEMS Per HPI and otherwise negative by full review of organ systems. - ECOG PERFORMANCE STATUS: 0 PHYSICAL EXAMINATION: Vitals: BP 116/71 Pulse 61 Temp (Src) 97.7 (Temporal) Resp 16 Wt 125 lb 9.6 oz (57.0kg) SpO2 99% LMP 04/28/2011 Body surface area is 1.59 meters squared. Exam limited to gross visualization where appropriate. Gen.: This is an age-appropriate patient in no acute distress. Head: Appears atraumatic with no visible lesions. Eyes: Pupils equally round and reactive to light, extraocular muscles are intact. Neck: Supple. Respiratory: Appears to be respiring comfortably. Neurologic: Nonfocal to gross visualization. Alert and oriented ?3. Psychiatric: No evidence of inappropriate anxiety or depression. Skin: Visible areas of skin without rash, lesions, wounds or petechiae. Left occipatl LN -5mm soft, right axilla LN 1.5 cm No splenomegaly on palpation No inguinal LN. - ALLERGIES: ALLERGIES No Known Allergies MEDICATIONS: TALTZ AUTOINJECTOR 80 mg/mL pen - LABORATORY VALUES: WBC (k/uL) Date Value 01/12/2023 5.76 RBC (m/uL) Date Value 01/12/2023 4.39 Hemoglobin (g/dL) Date Value 01/12/2023 14.1 Hematocrit (%) Date Value 01/12/2023 40.8 MCV (fL) Date Value 01/12/2023 92.9 MCH (pg) Date Value 01/12/2023 32.1 MCHC (g/dL) Date Value 01/12/2023 34.6 RDW-CV (%) Date Value 01/12/2023 12.9 Platelet Count (k/uL) Date Value 01/12/2023 185 MPV (fL) Date Value 01/12/2023 9.8 Glucose (mg/dL) Date Value 01/12/2023 106 (H) BUN (mg/dL) Date Value 01/12/2023 11 Creatinine (mg/dL) Date Value 01/12/2023 0.71 Sodium (mmol/L) Date Value 01/12/2023 139 Potassium (mmol/L) Date Value 01/12/2023 4.4 Chloride (mmol/L) Date Value 01/12/2023 104 CO2 (mmol/L) Date Value 01/12/2023 27 Protein, Total (g/dL) Date Value 01/12/2023 7.3 Albumin (g/dL) Date Value 01/12/2023 4.7 Calcium, Total (mg/dL) Date Value 01/12/2023 10.0 Alkaline Phos (more content not included)... Normal [facility] Comprehensive metabolic 2000 panelon 01-12-2023 Albumin [Mass/Vol] 4.7 g/dL Normal 3.9-4.9 [facility] Comment on above: Order Comment: Speci men Type: BLOOD SPECIMEN Ordering Facility: [facility] Address: [address] [place] [address] Performed By: #### 2 532-0, #### [facility] CLIA [id number] [address] [place] [address] 13141 ALP [Catalytic activity/Vol] 59 U/L Normal 34-123 [facility] Comment on above: Order Comment: Speci men Type: BLOOD SPECIMEN Ordering Facility: [facility] Address: [address] [place] [address] Performed By: #### 2 532-0, 14433-0 #### [facility] CLIA [id number] [address] [place] [address] 09421 ALT [Catalytic activity/Vol] 27 U/L Normal 7-38 [facility] Comment on above: Order Comment: Speci men Type: BLOOD SPECIMEN Ordering Facility: [facility] Address: [address] [place] [address] Performed By: #### 2 532-0, 25882-2 #### [facility] CLIA [id number] [address] [place] [address] 92840 Anion gap [Moles/Vol] 8 mmol/L Low 9-18 [facility] Comment on above: Order Comment: Speci men Type: BLOOD SPECIMEN Ordering Facility: [facility] Address: [address] [place] [address] Performed By: #### 2 532-0, #### [facility] CLIA [id number] [address] [place] [address] 55835 AST [Catalytic activity/Vol] 28 U/L Normal 13-35 [facility] Comment on above: Order Comment: Speci men Type: BLOOD SPECIMEN Ordering Facility: [facility] Address: [address] [place] [address] Performed By: #### 2 532-0, #### [facility] CLIA [id number] [address] [place] [address] 43006 Bilirubin [Mass/Vol] 0.2 mg/dL Normal 0.2-1.3 [facility] Comment on above: Order Comment: Speci men Type: BLOOD SPECIMEN Ordering Facility: [facility] Address: [address] [place] [address] Performed By: #### 2 532-0, #### [facility] CLIA [id number] [address] [place] [address] 16868 Calcium [Mass/Vol] 10.0 mg/dL Normal 8.5-10.2 [facility] Comment on above: Order Comment: Speci men Type: BLOOD SPECIMEN Ordering Facility: [facility] Address: [address] [place] [address] Performed By: #### 2 532-0, #### [facility] CLIA [id number] [address] [place] [address] Chloride [Moles/Vol] 104 mmol/L Normal 97-105 [facility] Comment on above: Order Comment: Speci men Type: BLOOD SPECIMEN Ordering Facility: [facility] Address: [address] [place] [address] Performed By: #### 2 532-0, 25705-7 #### [facility] CLIA [id number] [address] [place] [address] CO2 [Moles/Vol] 27 mmol/L Normal 22-30 [facility] Comment on above: Order Comment: Speci men Type: BLOOD SPECIMEN Ordering Facility: [facility] Address: [address] [place] [address] Performed By: #### 2 532-0, 19024-6 #### [facility] CLIA [id number] [address] [place] [address] Creatinine [Mass/Vol] 0.71 mg/dL Normal 0.58-0.96 [facility] Comment on above: Order Comment: Speci men Type: BLOOD SPECIMEN Ordering Facility: [facility] Address: [address] [place] [address] Performed By: #### 2 532-0, 45066-4 #### [facility] CLIA [id number] [address] [place] [address] Creatinine and Glomerular filtration rate.predicted panel (S/P/Bld) 115 mL/min/1.73m??? Normal >=60 [facility] Comment on above: Order Comment: Speci men Type: BLOOD SPECIMEN Ordering Facility: [facility] Address: [address] [place] [address] Result Comment: Dawn mated Glomerular Filtration Rate (eGFR) is calculated using the 2020 CKD-EPI creatinine equation. This equation utilizes serum creatinine, sex, and age as parameters. The creatinine assay has traceable calibration to isotope dilution-mass spectrometry. Refer to KDIGO guidelines for clinical interpretation. In patients with unstable renal function, e.g. those with acute kidney injury, the eGFR may not accurately reflect actual GFR. Performed By: #### 2 532-0, 05599-1 #### [facility] CLIA [id number] [address] [place] [address] Glucose [Mass/Vol] 106 mg/dL High 74-99 [facility] Comment on above: Order Comment: Speci men Type: BLOOD SPECIMEN Ordering Facility: [facility] Address: [address] [place] [address] Result Comment: The [place] Diabetes Association (ADA) provides guidance for cutoff values for fasting glucose and random glucose. The ADA defines fasting as no caloric intake for at least 8 hours. Fasting plasma glucose results between 100 to 125 mg/dL indicate increased risk for diabetes (prediabetes). Fasting plasma glucose results greater than or equal to 126 mg/dL meet the criteria for diagnosis of diabetes. In the absence of unequivocal hyperglycemia, results should be confirmed by repeat testing. In a patient with classic symptoms of hyperglycemia or hyperglycemic crisis, random plasma glucose results greater than or equal to 200 mg/dL meet the criteria for diagnosis of diabetes. Reference: Standards of Medical Care in Diabetes 2016, [place] Diabetes Association. Diabetes Care. 2016.39(Suppl 1). Performed By: #### 2 532-0, 68161-0 #### [facility] CLIA [id number] [address] [place] [address] Potassium [Moles/Vol] 4.4 mmol/L Normal 3.7-5.1 [facility] Comment on above: Order Comment: Speci men Type: BLOOD SPECIMEN Ordering Facility: [facility] Address: [address] [place] [address] Performed By: #### 2 532-0, #### [facility] CLIA [id number] [address] [place] [address] Protein [Mass/Vol] 7.3 g/dL Normal 6.3-8.0 [facility] Comment on above: Order Comment: Speci men Type: BLOOD SPECIMEN Ordering Facility: [facility] Address: [address] [place] [address] Performed By: #### 2 532-0, #### [facility] CLIA [id number] [address] [place] [address] Sodium [Moles/Vol] 139 mmol/L Normal 136-144 [facility] Comment on above: Order Comment: Speci men Type: BLOOD SPECIMEN Ordering Facility: [facility] Address: [address] [place] [address] Performed By: #### 2 532-0, 55869-4 #### [facility] CLIA [id number] [address] [place] [address] Urea nitrogen [Mass/Vol] 11 mg/dL Normal 7-21 [facility] Comment on above: Order Comment: Speci men Type: BLOOD SPECIMEN Ordering Facility: [facility] Address: [address] [place] [id number] Performed By: #### 2 532-0, 15874-9 #### [facility] CLIA [id number] [address] [place] [address] LDH SerPl-cCncon 01-12-2023 LDH [Catalytic activity/Vol] 158 U/L Normal 135-214 [facility] Comment on above: Order Comment: Speci men Type: BLOOD SPECIMEN Ordering Facility: [facility] Address: [address] [place], [place] [address] Performed By: #### 2 532-0, 48548-7 #### [facility] CLIA [id number] [address] [place] [address] US HEAD NECK SOFT TISSUEon 1 02-28-2022 US HEAD NECK SOFT TISSUE US HEAD NECK SO FT TISSUE History: Lump of the occipital scalp. Technique: Sonography of the soft tissue head neck at the area of concern was performed. Comparison: None. Result: There are multiple small lobular lesions at the areas of lump, which appear to represent small lymph nodes, all measuring less than 1 cm short axis with the largest on the right measuring 3 mm short axis and the largest on the left measuring 0.5 cm short axis. These are overall nonspecific. IMPRESSION: Impression: Multiple small lymph nodes at the areas of concern, nonspecific. If not resolving, consider follow-up CT of the neck with contrast. ELECTRONICALLY SIGNED BY: Khalif Bailon MD Normal Not Available XR HUMERUS LEFTon 12-29-2022 XR HUMERUS LEFT EXAMINATION: XR MEG VY LEFT HISTORY: lump left upper arm COMPARISON: None available TECHNIQUE: AP and lateral views of the humerus FINDINGS: No acute or aggressive abnormality of the humerus. Soft tissues appear within normal limits; no soft tissue mass identified by radiography. IMPRESSION: No acute osseous abnormality. ELECTRONICALLY SIGNED BY: Papo Bertrand, Normal Not Available [facility] echo transthoracicon [facility] echo transthoracic [facility] [address] [place] [address] Echocardiogram Signed Patient: Ayana Gill MR#: [id number] : 1990 Acct:[id number] Age/Sex: 32 / F ADM Date: 11/15/22 Loc: Room: Type: [facility] Attending Dr: Venus Cespedes APRN Ordering Provider: Venus Cespedes APRN Date of Service: 11/15/22/ [facility] echo transthoracic: CP.. Copies to: Heidi Bahena MD, [facility] Venus Cespedes APRN Weight: 127 lb Performed By: Rosy Hicks RDCS BSA: 1.6 m2 BP: 100/67 mmHg HR: 65 Reason For Study: CP.. History: Smoker. Family history: Grandfather-CHF. Sister-LVAD. Interpretation Summary The left ventricular size, thickness and function are normal The left ventricular wall motion is normal. Ejection Fraction = 60-65%. There is no prior echocardiogram noted for this patient. Normal transthoracic echocardiogram. Procedure/Quality: A two-dimensional transthoracic echocardiogram with color flow and Doppler was performed. The study was technically good in quality. There is no prior echocardiogram noted for this patient. Left Ventricle: The left ventricular size, thickness and function are normal. Ejection Fraction = 60-65%. The left ventricular wall motion is normal. Left Atrium: The left atrium appears normal in size. The atrial septum appears normal. Right Atrium: The right atrium appears normal in size. Right Ventricle: The right ventricular size, thickness and function are normal. Aortic Valve: The aortic valve is normal in structure and function. No aortic regurgitation is present. Mitral Valve: The mitral valve is normal in structure and function. There is no mitral regurgitation noted. Tricuspid Valve: The tricuspid valve is normal in structure and function. No tricuspid regurgitation. Pulmonic Valve: The pulmonic valve is normal in structure and function. Arteries: The aortic root is normal size. Pericardium/Pleura: No pericardial effusion seen. There is no pleural effusion. IVC/Hepatic Viens: The inferior vena cava is normal in size, with a normal collapsibility index. Miscellaneous: No thrombus, vegetation or mass is seen. Measurements with Normals IVSd: 0.74 cm (0.7-1.1 cm)LVIDd: 4.5 cm (3.7-5.4 cm) LVPWd: 0.79 cm (0.7-1.1 cm)LVIDs: 3.1 cm (2.3-3.6 cm) LA dimension: 2.8 cm (2.3-4.0 cm)Ao root diam: 2.8 cm(2.0-3.6 cm) asc Aorta Diam: 3.1 cm(2.1-3.4cm) Doppler with Normals LV V1 max: 91.0 cm/sec (0.7-1.7m/s)MV E max shabbir: 106.0 cm/sec(0.8-1.3m/s) MV A max shabbir: 42.8 cm/sec(0.0-0.0m/s) MV E/A: 2.5 (<1.5) MMode/2D Measurements Calculations TAPSE: 1.9 cm FS: 29.8 % Ao root area: LVOT diam: 2.0 cm RV S Shabbir: EDV(Teich): 6.2 cm2 LVOT area: 3.2 cm2 11.2 cm/sec 90.9 ml ESV(Teich): 39.0 ml EF(Teich): 57.1 % __ LVLd ap4: 7.7 cm SV(MOD-sp4): LAV(MOD-sp4): LA A2 area: 9.1 cm2 EDV(MOD-sp4): 41.4 ml 22.4 ml 70.8 ml LAV(MOD-sp2): LA A4 area: 12.5 cm2 LVLs ap4: 6.4 cm 17.0 ml LA length (vol): ESV(MOD-sp4): 5.2 cm 29.4 ml LA vol: 18.6 ml EF(MOD-sp4): 58.5 % LA vol index: 11.7 ml/m2 Doppler Measurements Calculations MV dec time: E/E' lat: 5.3 MV dec slope: Ao V2 max: 0.19 sec E/E' med: 8.9 104.7 cm/sec 551.2 cm/sec2 Ao max P.4 mmHg Ao mean P.6 mmHg Ao V2 mean: 75.8 cm/sec Ao V2 VTI: 18.6 cm MARIA FERNANDA(I,D): 3.1 cm2 MARIA FERNANDA(V,D): 2.8 cm2 __ LV V1 max PG: RAP systole: 3.3 mmHg 8.0 mmHg LV V1 mean P.0 mmHg LV V1 mean: 69.0 cm/sec LV V1 VTI: 17.9 cm Measurements from QLAB BSA (): 1.6 m2 CI (): ED Mass (): LAEF (): 59.0 % 2.7 l/min/m2 122.0 grams __ GILLIAN (): LAVmax (): LAVmin (): 42.0 mlPat Height (): 102.0 ml 160.0 cm 64.0 ml/m2 __ Pat Weight (): 57.6 kg QLAB Heart Model EDV ()_phl: 126.0 ml EF ()_phl: 55.0 % ED Current ()_phl: 60.0 % ESV ()_phl: 56.0 ml HR ()_phl: 61.0 BPMES Current ()_phl: 30.0 % LV Length ED ()_phl: 81.0 mmSV ()_phl: 69.0 ml ED Default ()_phl: 60.0 % LV Length ES ()_phl: 63.0 mm ES Default ()_phl: 30.0 % Transcribed By: SCV Performed At: 11/15/22 0800 Signed By: Heidi Bahena MD, FACC 11/16/22 0821 [facility] XR chest 2V*on 11-11-2022 XR chest 2V* [address] [address] XRay Report Signed Patient: Ayana Gill MR#: [id number] : 1990 Acct:[id number] Age/Sex: 32 / F ADM Date: 11/11/22 Loc: XD Room: Type: [facility] Attending Dr: Venus Cespedes APRN Copies to: Venus Cespedes APRN Ordering Provider: Venus Cespedes APRN Date of Service: 11/11/22 XR/XR chest 2V*: R07.89 Chest 2 views CLINICAL HISTORY: Right-sided anterior chest pain for one week. COMPARISON: Chest 09/18/2022 FINDINGS: Heart normal size. Lungs are clear. No free air. XR/XR chest 2V* IMPRESSION: NO ACUTE CARDIOPULMONARY ABNORMALITY. Impression dictated by: Jm Phipps Jr., D.OKat11/11/2022 2:55 PM Dictation Location: [place] [address] Transcribed By: [facility] 11/11/22 1455 Dictated By: Jm Phipps Jr, DO 11/11/22 1454 Signed By: 11/11/22 1455 Normal [facility] XR chest 2V*on 09-19-2022 XR chest 2V* [address] [address] XRay Report Signed Patient: Ayana Gill MR#: [id number] : 1990 Acct:[id number] Age/Sex: 32 / F ADM Date: 09/18/22 Loc: ER Room: Type: [facility] ER Attending Dr: Copies to: Lavinia Flores DO Ordering Provider: Lavinia Flores DO Date of Service: 09/18/22 XR/XR chest 2V*: Chest Pain Chest 2 views CLINICAL HISTORY: Right-sided chest pain today. COMPARISON: Chest 01/31/2017 FINDINGS: Heart normal in size. Lungs are clear. No free air. XR/XR chest 2V* IMPRESSION: NO ACUTE CARDIOPULMONARY ABNORMALITY. Impression dictated by: Jm Phipps Jr., DKatOKat09/19/2022 8:29 AM Dictation Location: [place] [address] Transcribed By: [facility] 09/19/22828 Dictated By: Jm Phipps Jr, DO 09/19/22828 Signed By: 09/19/22828 Normal [facility] Activated partial thrombopla stin time (aPTT) in platelet poor plasma by coagulation aOrdered By: Lavinia Flores on 09-18-2022 aPTT Coag (PPP) [Time] 30.9 s 25.1-36.5 [facility] Alanine aminotransferase [En zymatic activity/volume] in Serum or PlasmaOrdered By: Lavinia Flores on 09-18-2022 ALT [Catalytic activity/Vol] 20 U/L 7-52 [facility] Albumin [Mass/volume] in Ser um or Plasma by Bromocresol green (BCG) dye binding methoOrdered By: Lavinia Flores on 09-18-2022 Albumin BCG dye [Mass/Vol] 4.4 g/dL 3.5-5.7 [facility] Alkaline phosphatase [Enzyma tic activity/volume] in Serum or PlasmaOrdered By: Lavinia Flores on 09-18-2022 ALP [Catalytic activity/Vol] 44 U/L 34-104 [facility] Aspartate aminotransferase [ Enzymatic activity/volume] in Serum or PlasmaOrdered By: Lavinia Flores on 09-18-2022 AST [Catalytic activity/Vol] 25 U/L 13-39 [facility] B-Type Natriuretic Peptideon 09-18-2022 Natriuretic peptide B (Bld) [Mass/Vol] 19.0 pg/mL Normal 5-100 [facility] Comment on above: Result Comment: PERF ORMED BY: [place] [address] PATHOLOGIST [employer] KVNG FAM M.D. Performed By: #### D DIMER, HEPATIC #### [address] Basic Metabolic Panelon 08-28 Anion gap [Moles/Vol] 8.6 mmol/L Normal 6.0-15.0 [facility] Comment on above: Performed By: #### D DIMER, HEPATIC #### [facility] [address] [place] [address] [place] Calcium [Mass/Vol] 9.7 mg/dL Normal 8.6-10.3 [facility] Comment on above: Performed By: #### D DIMER, HEPATIC #### [facility] [address] [place] [address] [place] Chloride [Moles/Vol] 107 mmol/L Normal 98-107 [facility] Comment on above: Performed By: #### D DIMER, HEPATIC #### [facility] [address] [place] [address] [place] CO2 [Moles/Vol] 28.4 mmol/L Normal 21.0-31.0 [facility] Comment on above: Performed By: #### D DIMER, HEPATIC #### [facility] [address] [place] [address] [place] Creatinine [Mass/Vol] 0.79 mg/dL Normal 0.60-1.20 [facility] Comment on above: Performed By: #### D DIMER, HEPATIC #### [facility] [address] [place] [address] [place] Creatinine Clr Calc Pharmacy 83.00 Normal [facility] Comment on above: Result Comment: PERF ORMED BY: [place] [address] PATHOLOGIST [employer] KVNG FAM M.D. Performed By: #### D DIMER, HEPATIC #### [facility] [address] [place] [address] [place] GFR/1.73 sq M.predicted MDRD (S/P/Bld) [Vol rate/Area] mL/min/{1.73_m2} Normal [facility] Comment on above: Performed By: #### D DIMER, HEPATIC #### [facility] [address] [place] [address] [place] Glucose [Mass/Vol] 88 mg/dL Normal 70-100 [facility] Comment on above: Result Comment: [place] Glucose Reference Range is dependent on time and content of last meal. Glucose of more than 200 mg/dL in a nonstressed, ambulatory subject supports the diagnosis of Diabetes Mellitus. ADA recommended reference range Performed By: #### D DIMER, HEPATIC #### [facility] [address] Potassium [Moles/Vol] 4.0 mmol/L Normal 3.5-5.1 [facility] Comment on above: Result Comment: Hemo lysis is present at a level that could interfere with the result. Performed By: #### D DIMER, HEPATIC #### [facility] [address] Sodium [Moles/Vol] 140 mmol/L Normal 136-145 [facility] Comment on above: Performed By: #### D DIMER, HEPATIC #### [facility] [address] [place] [address] Urea nitrogen [Mass/Vol] 14 mg/dL Normal 7-25 [facility] Comment on above: Performed By: #### D DIMER, HEPATIC #### [facility] [address] [place] [address] Basophils Auto (Bld) [#/Vol] Ordered By: Lavinia Flores on 09-18-2022 Basophils (Bld) [#/Vol] 0.1 10*3/uL 0.0-0.2 [facility] Basophils/100 WBC Auto (Bld) Ordered By: Lavinia Flores on 09-18-2022 Basophils/100 WBC (Bld) 1.3 % . [facility] Bilirubin.direct [Mass/volum e] in Serum or PlasmaOrdered By: Lavinia Flores on 09-18-2022 Bilirubin.direct [Mass/Vol] 0.10 mg/dL 0.03-0.1 8 [facility] Bilirubin.total [Mass/volume ] in Serum or PlasmaOrdered By: Lavinia Flores on 09-18-2022 Bilirubin [Mass/Vol] 0.2 mg/dL 0.3-1.0 [facility] Calcium [Mass/volume] in Ser um or PlasmaOrdered By: Lavinia Flores on 09-18-2022 Calcium [Mass/Vol] 9.7 mg/dL 8.6-10.3 [facility] Carbon dioxide, total [Moles /volume] in Serum or PlasmaOrdered By: Lavinia Flores on 09-18-2022 CO2 [Moles/Vol] 28.4 mmol/L 21.0-31.0 [facility] Chloride [Moles/volume] in S bulmaro or PlasmaOrdered By: Lavinia Flores on 09-18-2022 Chloride [Moles/Vol] 107 mmol/L 98-107 [facility] Complete Blood Count Auto Di ffon 09-18-2022 Basophils (Bld) [#/Vol] 0.1 10*3/uL Normal 0.0-0.2 [facility] Comment on above: Result Comment: PERF ORMED BY: [place] [address] PATHOLOGIST [employer] KVNG FAM M.D. Performed By: #### D DIMER, HEPATIC #### [address] Basophils/100 WBC (Bld) 1.3 % Normal . [facility] Comment on above: Performed By: #### D DIMER, HEPATIC #### [address] Eosinophils (Bld) [#/Vol] 0.2 10*3/uL Normal 0.0-0.45 [facility] Comment on above: Performed By: #### D DIMER, HEPATIC #### [address] Eosinophils/100 WBC (Bld) 3.0 % Normal . [facility] Comment on above: Performed By: #### D DIMER, HEPATIC #### [address] Erythrocyte distribution wid th (RBC) [Ratio] 13.3 % Normal 11.9-15.3 [facility] Comment on above: Performed By: #### D DIMER, HEPATIC #### [address] Hematocrit (Bld) [Volume fraction] 39.2 % Normal 34.0-46.4 [facility] Comment on above: Performed By: #### D DIMER, HEPATIC #### [facility] [address] Hemoglobin (Bld) [Mass/Vol] 13.5 g/dL Normal 11.8-15. 4 [facility] Comment on above: Performed By: #### D DIMER, HEPATIC #### [facility] [address] Lymphocytes (Bld) [#/Vol] 2.4 10*3/uL Normal 1.00-4.8 [facility] Comment on above: Performed By: #### D DIMER, HEPATIC #### [address] Lymphocytes/100 WBC (Bld) 30.3 % Normal . [facility] Comment on above: Performed By: #### D DIMER, HEPATIC #### [address] MCH (RBC) [Entitic mass] 32.6 pg Normal 24.7-34.3 [facility] Comment on above: Performed By: #### D DIMER, HEPATIC #### [address] MCV (RBC) [Entitic vol] 94.8 fL Normal 80-100 [facility] Comment on above: Performed By: #### D DIMER, HEPATIC #### [address] Mean Corpuscular HGB Conc 34.4 g/dL Normal 32.0-35.0 [facility] Comment on above: Performed By: #### D DIMER, HEPATIC #### [address] Monocytes (Bld) [#/Vol] 0.5 10*3/uL Normal 0.0-0.8 [facility] Comment on above: Performed By: #### D DIMER, HEPATIC #### [address] Monocytes/100 WBC (Bld) 17.51 % Normal 0.00-20.00 [facility] Comment on above: Performed By: #### D DIMER, HEPATIC #### [facility] [address] [place] [address] [place] Monocytes/100 WBC (Bld) 6.7 % Normal . [facility] Comment on above: Performed By: #### D DIMER, HEPATIC #### [facility] [address] [place] [address] [place] Neutrophils (Bld) [#/Vol] 4.6 10*3/uL Normal 1.8-7.7 [facility] Comment on above: Performed By: #### D DIMER, HEPATIC #### [facility] [address] Neutrophils/100 WBC (Bld) 58.7 % Normal . [facility] Comment on above: Performed By: #### D DIMER, HEPATIC #### [facility] [address] NRBC% 0.0 /100{WBC} Normal 0-0.5 [facility] Comment on above: Performed By: #### D DIMER, HEPATIC #### [facility] [address] Platelet mean volume (Bld) [Entitic vol] 8.2 fL Normal 6.3-10.7 [facility] Comment on above: Performed By: #### D DIMER, HEPATIC #### [facility] [address] [place] [address] [place] Platelets (Bld) [#/Vol] 174 10*3/uL Normal 150-450 [facility] Comment on above: Performed By: #### D DIMER, HEPATIC #### [facility] [address] [place] [address] [place] RBC (Bld) [#/Vol] 4.14 10*6/uL Normal 3.60-5.00 [facility] Comment on above: Performed By: #### D DIMER, HEPATIC #### [facility] [address] [place] [address] [place] WBC (Bld) [#/Vol] 7.8 10*3/uL Normal 3.8-11.6 [facility] Comment on above: Performed By: #### D DIMER, HEPATIC #### [facility] [address] [place] [address] [place] Creatine Kinaseon 09-18-2022 CK [Catalytic activity/Vol] 86 U/L Normal 30-223 [facility] Comment on above: Performed By: #### D DIMER, HEPATIC #### [address] [address] [place] Creatine kinase [Enzymatic a ctivity/volume] in Serum or PlasmaOrdered By: Lavinia Flores on 09-18-2022 CK [Catalytic activity/Vol] 86 U/L 30-223 [facility] Creatinine [Mass/volume] in Serum or PlasmaOrdered By: Lavinia Flores on 09-18-2022 Creatinine [Mass/Vol] 0.79 mg/dL 0.60-1.20 [facility] D-Dimer High Sensitivityon 0 09-18-2022 D-Dimer High Sensitivity < 200 Normal 0-243 [facility] Comment on above: Result Comment: The reference range for D-dimer is <243 ng/mL D-dimer units. D-dimer results must be used in conjunction with a clinical pretest probability (PTP) assessment model for deep vein thrombosis (DVT) and pulmonary embolism (PE). Results <230 ng/mL d-dimer units can be used as a negative predictor in patients with low or moderate probability for DVT/PE. Results above the exclusion threshold of 230 ng/ml D-dimer units for DVT/PE may indicate the need for further diagnostic testing. D-Dimer can be increased in hospitalized patients due to co-morbid conditions. PERFORMED BY: [place] [address] PATHOLOGIST [employer] KVNG FAM M.D. Performed By: #### D DIMER, HEPATIC #### [address] [address] [place] ECG 12 lead ECGon 09-18-20[address] [facility] [address] [place] [address] Electrocardiograph Report Signed Patient: Ayana Gill MR#: [id number] : 1990 Acct:[id number] Age/Sex: 32 / F ADM Date: 09/18/22 Loc: ER Room: Type: [facility] ER Attending Dr: Ordering Provider: Lavinia Flores DO Date of Service: 09/18/22 ECG/ECG 12 lead ECG: Chest Pain Copies to: Test Reason : Blood Pressure : 136/061 mmHG Vent. Rate : 078 BPM Atrial Rate : 078 BPM P-R Int : 154 ms QRS Dur : 072 ms QT Int : 376 ms P-R-T Axes : 078 092 069 degrees QTc Int : 428 ms Normal sinus rhythm Rightward axis Borderline ECG When compared with ECG of 31-JAN-2017 15:44, No significant change was found Confirmed by LAVINIA FLORES DO ([id number]) on 09/20/2022 7:25:13 AM Referred By: Electronically Signed By:LAVINIA FLORES DO Transcribed By: MUS Signed By Lavinia Flores DO 0725 Normal [facility] Eosinophils Auto (Bld) [#/Vo l]Ordered By: Laivnia Flores on 09-18-2022 Eosinophils (Bld) [#/Vol] 0.2 10*3/uL 0.0-0.45 [facility] Eosinophils/100 WBC Auto (Bl d)Ordered By: Lavinia Flores on 09-18-2022 Eosinophils/100 WBC (Bld) 3.0 % . [facility] Erythrocyte distribution wid th Auto (RBC) [Ratio]Ordered By: Lavinia Flores on 09-18-2022 Erythrocyte distribution wid th (RBC) [Ratio] 13.3 % 11.9-15.3 [facility] Globulin Calc (S) [Mass/Vol] Ordered By: Lavinia Flores on 09-18-2022 Globulin (S) [Mass/Vol] 2.9 g/dL [facility] Glucose [Mass/volume] in Ser um or PlasmaOrdered By: Lavinia Flores on 09-18-2022 Glucose [Mass/Vol] 88 mg/dL 70-100 [facility] Comment on above: ADA recommended refe rence rangeRandom Glucose Reference Range is dependent on time and content of last meal. Glucose of more than 200 mg/dL in a nonstressed, ambulatory subject supports the diagnosis of Diabetes Mellitus. Hematocrit Auto (Bld) [Volum e fraction]Ordered By: Lavinia Flores on 09-18-2022 Hematocrit (Bld) [Volume fraction] 39.2 % 3 4.0-46.4 [facility] Hemoglobin [Mass/volume] in BloodOrdered By: Lavinia Flores on 09-18-2022 Hemoglobin (Bld) [Mass/Vol] 13.5 g/dL 11.8-15. 4 [facility] Hepatic Panelon 09-18-2022 Albumin [Mass/Vol] 4.4 g/dL Normal 3.5-5.7 [facility] Comment on above: Performed By: #### D DIMER, HEPATIC #### [address] Albumin/Globulin [Mass ratio] 1.5 {ratio} Normal [facility] Comment on above: Performed By: #### D DIMER, HEPATIC #### [address] ALP [Catalytic activity/Vol] 44 U/L Normal 34-104 [facility] Comment on above: Result Comment: PERF ORMED BY: [place] [address] PATHOLOGIST DISTRIBUTION LEAD KVNG FAM M.D. Performed By: #### D DIMER, HEPATIC #### [place] [address] [place] ALT [Catalytic activity/Vol] 20 U/L Normal 7-52 [facility] Comment on above: Performed By: #### D DIMER, HEPATIC #### [facility] [address] [place] [id number] [place] AST [Catalytic activity/Vol] 25 U/L Normal 13-39 [facility] Comment on above: Performed By: #### D DIMER, HEPATIC #### [place] [id number] [place] Bilirubin [Mass/Vol] 0.2 mg/dL Low 0.3-1.0 [facility] Comment on above: Performed By: #### D DIMER, HEPATIC #### [facility] [address] Bilirubin,Indirect 0.1 mg/dL Normal [facility] Comment on above: Performed By: #### D DIMER, HEPATIC #### [facility] [address] Bilirubin.indirect [Mass/Vol] 0.10 mg/dL Normal 0.03-0 .18 [facility] Comment on above: Performed By: #### D DIMER, HEPATIC #### [facility] [address] Globulin (S) [Mass/Vol] 2.9 g/dL Normal [facility] Comment on above: Performed By: #### D DIMER, HEPATIC #### [facility] [address] Protein [Mass/Vol] 7.3 g/dL Normal 6.4-8.9 [facility] Comment on above: Performed By: #### D DIMER, HEPATIC #### [facility] [address] [place] [address] Laboratory - CoagulationOrde red By: Lavinia Flores on 09-18-2022 PT Coag (PPP) [Time] 11.8 s 9.0-12.9 [facility] Leukocytes [#/volume] correc cici for nucleated erythrocytes in Blood by Automated counOrdered By: Lavinia Flores on 09-18-2022 WBC corrected for nucl RBC A uto (Bld) [#/Vol] 7.8 10*3/uL 3.8-11.6 [facility] Lymphocytes Auto (Bld) [#/Vo l]Ordered By: Lavinia Flores on 09-18-2022 Lymphocytes (Bld) [#/Vol] 2.4 10*3/uL 1.00-4.8 [facility] Lymphocytes/100 WBC Auto (Bl d)Ordered By: Lavinia Flores on 09-18-2022 Lymphocytes/100 WBC (Bld) 30.3 % . [facility] MCH Auto (RBC) [Entitic mass ]Ordered By: Lavinia Flores on 09-18-2022 MCH (RBC) [Entitic mass] 32.6 pg 24.7-34.3 [facility] MCHC Auto (RBC) [Mass/Vol]Or dered By: Lavinia Flores on 09-18-2022 MCHC (RBC) [Mass/Vol] 34.4 g/dL 32.0-35.0 [facility] MCV Auto (RBC) [Entitic vol] Ordered By: Lavinia Flores on 09-18-2022 MCV (RBC) [Entitic vol] 94.8 fL 80-100 [facility] Monocyte distribution width [Entitic volume] in Blood by AutomatedOrdered By: Lavinia Flores on 09-18-2022 Monocyte distribution width Auto (Bld) [Entitic vol] 17.51 % 0.00-20.00 [facility] Monocytes Auto (Bld) [#/Vol] Ordered By: Lavinia Flores on 09-18-2022 Monocytes (Bld) [#/Vol] 0.5 10*3/uL 0.0-0.8 [facility] Monocytes/100 WBC Auto (Bld) Ordered By: Lavinia Flores on 09-18-2022 Monocytes/100 WBC (Bld) 6.7 % . [facility] Natriuretic peptide B [Mass/ Vol]Ordered By: Lavinia Flores on 09-18-2022 Natriuretic peptide B (Bld) [Mass/Vol] 19.0 pg/mL 5-100 [facility] Neutrophils Auto (Bld) [#/Vo l]Ordered By: Lavinia Flores on 09-18-2022 Neutrophils (Bld) [#/Vol] 4.6 10*3/uL 1.8-7.7 [facility] Neutrophils/100 WBC Auto (Bl d)Ordered By: Lavinia Flores on 09-18-2022 Neutrophils/100 WBC (Bld) 58.7 % . [facility] No Panel InformationOrdered By: Lavinia Flores on 09-18-2022 D-Dimer Quantitative (PE/DVT) < 200 ng/mL 0-243 [facility] Comment on above: The reference range for D-dimer is <243 ng/mL D-dimer units.D- dimer results must be used in conjunction with a clinicalpretest probability (PTP) assessment model for deep veinthrombosis (DVT) and pulmonary embolism (PE). Results <230ng/mL d-dimer units can be used as a negative predictor inpatients with low or moderate probability for DVT/PE.Results above the exclusion threshold of 230 ng/ml D- dimerunits for DVT/PE may indicate the need for furtherdiagnostic testing.D-Dimer can be increased in hospitalized patients due toco-morbid conditions. Estimated GFR (CKD-EPI) > 60.0 mL/Min [facility] Creatinine Clearanc e (Chem 83.00 [facility] Nucleated erythrocytes [Pres ence] in Blood by Automated countOrdered By: Lavinia Flores on 09-18-2022 Nucleated RBC Auto Ql (Bld) 0.0 /100{WBC} 0-0.5 [facility] Partial Thromboplastin Timeo n 09-18-2022 aPTT Coag (Bld) [Time] 30.9 s Normal 25.1-36.5 [facility] Comment on above: Result Comment: PERF ORMED BY: [place] [address] PATHOLOGIST DISTRIBUTION LEAD KVNG FAM M.D. Performed By: #### D DIMER, HEPATIC #### [address] Platelet mean volume Auto (B ld) [Entitic vol]Ordered By: Lavinia Flores on 09-18-2022 Platelet mean volume (Bld) [Entitic vol] 8.2 fL 6.3-10.7 [facility] Platelet poor plasma interna tional normalized ratio (INR) by coagulation assay (relatOrdered By: Lavinia Flores on 09-18-2022 INR Coag (PPP) [Relative time] 1.0 {INR} [facility] Comment on above: INR Therapeutic Rang e A) Pre- and Peroperative OAT started two weeks before surgery. NOT HIP SURGERY: 1.5 - 2.5 HIP SURGERY: 2 - 3B) Primary and secondary prevention of venous THROMBOSIS: 2 - 3C) Active venous thrombosis, pulmonary embolismand prevention of recurrent venous thrombosis: 2 - 3D) Prevention of arterial thromboembolismincluding patients with mechanical heart valves: 3 - 4.5 Platelets Auto (Bld) [#/Vol] Ordered By: Lavinia Flores on 09-18-2022 Platelets (Bld) [#/Vol] 174 10*3/uL 150-450 [facility] Potassium [Moles/volume] in Serum or PlasmaOrdered By: Lavinia Flores on 09-18-2022 Potassium [Moles/Vol] 4.0 mmol/L 3.5-5.1 [facility] Comment on above: Hemolysis is present at a level that could interfere with the result. Protein [Mass/volume] in Ser um or PlasmaOrdered By: Lavinia Flores on 09-18-2022 Protein [Mass/Vol] 7.3 g/dL 6.4-8.9 [facility] Prothrombin Time INRon 09-18 INR Coag (PPP) [Relative time] 1.0 {INR} Normal [facility] Comment on above: Result Comment: INR Therapeutic Range A) Pre- and Peroperative OAT started two weeks before surgery. NOT HIP SURGERY: 1.5 - 2.5 HIP SURGERY: 2 - 3 B) Primary and secondary prevention of venous THROMBOSIS: 2 - 3 C) Active venous thrombosis, pulmonary embolism and prevention of recurrent venous thrombosis: 2 - 3 D) Prevention of arterial thromboembolism including patients with mechanical heart valves: 3 - 4.5 Performed By: #### D DIMER, HEPATIC #### [facility] [address] PT Coag (PPP) [Time] 11.8 s Normal 9.0-12.9 [facility] Comment on above: Performed By: #### D DIMER, HEPATIC #### [facility] [address] RBC Auto (Bld) [#/Vol]Ordere d By: Lavinia Flores on 09-18-2022 RBC (Bld) [#/Vol] 4.14 10*6/uL 3.60-5.00 [facility] Serum or plasma albumin/glob ulin mass ratioOrdered By: Lavinia Flores on 09-18-2022 Albumin/Globulin [Mass ratio] 1.5 {ratio} [facility] Serum or plasma anion gap de terminationOrdered By: Lavinia Flores on 09-18-2022 Anion gap [Moles/Vol] 8.6 mmol/L 6.0-15.0 [facility] Serum or plasma non-glucuron idated bilirubin measurement (mass/volume)Ordered By: Lavinia Flores on 09-18-2022 Bilirubin.indirect [Mass/Vol] 0.1 mg/dL [facility] Sodium [Moles/volume] in Ser um or PlasmaOrdered By: Lavinia Flores on 09-18-2022 Sodium [Moles/Vol] 140 mmol/L 136-145 [facility] Troponin I High Sensitivityo n 09-18-2022 Troponin I High Sensitivity 2.4 pg/mL Normal 0.0-15.0 [facility] Comment on above: Result Comment: PERF ORMED BY: [place] [address] PATHOLOGIST DISTRIBUTION LEAD KVNG FAM M.D. Performed By: #### D DIMER, HEPATIC #### [address] Troponin I.cardiac [Mass/vol ume] in Serum or Plasma by Detection limit <= 0.01 ng/Ordered By: Lavinia Flores on 09-18-2022 Troponin I.cardiac DL <= 0.0 1 ng/mL [Mass/Vol] 2.4 pg/mL 0.0-15.0 [facility] Urea nitrogen [Mass/volume] in Serum or PlasmaOrdered By: Lavinia Flores on 09-18-2022 Urea nitrogen [Mass/Vol] 14 mg/dL 7 [facility] WBC Auto (Bld) [#/Vol]Ordere d By: Lavinia Flores on 09-18-2022 WBC (Bld) [#/Vol] 7.8 10*3/uL 3.8-11.6 [facility] XR cervical spine 5V*on XR cervical spine 5V* [facility] [address] [place] [address] XRay Report Signed Patient: Ayana Gill MR#: [id number] : 1990 Acct:[id number] Age/Sex: 32 / F ADM Date: 08/05/22 Loc: ER Room: Type: [facility] ER Attending Dr: Copies to: Gerald Ryan APRN Ordering Provider: Gerald Ryan APRN Date of Service: 08/05/22 XR/XR cervical spine 5V*: Neck Pain/Injury 5 views of thecervical spine HISTORY: Right-sided neck pain with radiation into the shoulder COMPARISON: None POSTOPERATIVE CHANGES: None BONY ALIGNMENT: Adequate FRACTURE: None DISC DEGENERATION: Disc spaces are adequate. FACETS: Unremarkable FORAMEN: Unremarkable DENS: Intact CRANIOCERVICAL JUNCTION: Unremarkable SOFT TISSUES: Unremarkable XR/XR cervical spine 5V* IMPRESSION: No acute cervical spine process. Impression dictated by: Charles Monaco M.D.08/05/2022 2:57 PM Dictation Location: [place] [address] Transcribed By: [facility] 08/05/22 1457 Dictated By: Charles Monaco DO 08/05/22 145 Signed By: 08/05/22 1457 [facility] Patient Instructionson 02-11 [employer] Apprent[employer] Authentication Interface Message Text Oral Surgery IV sedation / General anesthesia instructions You have chosen conscious sedation or general anesthesia for your treatment. You have the right to be informed about this so that you can decide whether to have it or not after knowing the risks and benefits. These common procedures are considered quite safe. Nevertheless, all procedures have some risks. They include the following and others: 1. Discomfort, swelling or bruising where the drugs are placed into a vein. 2. Vein irritation, called phlebitis, where the drugs are placed into a vein. Sometimes this may grow to a level of discomfort or disability where it may be difficult to move your arm or hand. Sometimes medication or other treatment may be needed. 3. Nerves travel next to the blood vessels where the drugs are placed into a vein. If the needle hits a nerve or if drugs or fluid leaks out of the vessel around a nerve, I may have numbness or pain in the nerve where it runs along the arm. Usually the numbness or pain goes away, but in some cases, it may be permanent 4. Allergic reactions (previously unknown) to any of the medications used. 5. Nausea and vomiting, although not common, are possible unfortunate side effects. Bed rest, and sometimes medications, may be required for relief. 6. Conscious sedation and general anesthesia are serious medical procedures and, whether given in a hospital or office, carry the risk of brain damage, stroke, heart attack or . YOUR OBLIGATIONS: 7. Because anesthetic or sedative medications (including oral premedication) causes drowsiness that lasts for some time, I MUST be accompanied by a responsible adult to drive me to and from surgery, and stay with me for several hours until you are recovered sufficiently to care for myself. Sometimes the effects of the drugs do not wear off for 24 hours. 8. During recovery time (normally 24 hours), I should not drive, operate complicated machinery or devices or make important decisions such as signing documents, etc. 9. I must have a completely empty stomach. It is vital that I have NOTHING TO EAT OR DRINK for eight (8) hours prior to your treatment. TO DO OTHERWISE MAY BE LIFE-THREATENING. 10. Unless instructed otherwise, it is important that I take any regular medications (high blood pressure, antibiotics, etc.) or any medicines given to me by my surgeon using only a small sip of water. 11. You must bring a responsible Adult with you who is willing to stay in the clinic waiting room while you are being treated, and who will take you home. Do not bring small children on day of procedure. Your escort must drive you to and from the hospital. Do not ride the bus. 12. If you are under 18 years of age, your mother, father, or legal guardian must come to the clinic with you. Female patients must have a negative test result from our lab in the system. 13. Do not wear: nail danish, lipstick, heavy makeup, contact lenses, jewelry, wigs. Do wear: loose clothes with short sleeves, long pants, shoes (no high heals). 14. Please call our office to cancel your appointment if you feel sick. Normal [facility] [employer] Progress Noteson 02-11-2022 [employer]rentice Authentication Interface Message Text Normal [facility] [employer] App[employer] Authentication Interface Message Text ----- Attestation signed by Marci Reyes DMD, MD at 02/16/2022 9:35 AM Teaching Physician Note: I saw and evaluated the patient. I personally obtained the esparza and critical portions of the history and physical exam. I reviewed the resident's documentation and discussed the patient with the resident. I agree with the resident's medical decision making as documented in the resident's note. Marci Reyes DMD, MD ----- OMFS PATIENT VISIT CHIEF COMPLAINT: Pain HISTORY OF PRESENT ILLNESS: 31 year old female with no significant PMH presents to [facility] clinic as a referral from an outside provider for the evaluation and extraction of teeth #2, 3, 15, 17, 19, 31. Pt reports that many of her teeth have broken off and started to cause pain. Pt endorses waxing and waning pain originating from the teeth listed on the referral that limits her ability to chew, function normally, and perform oral hygiene. PAST MEDICAL HISTORY: 31 yrs old White female No past medical history on file. There is no problem list on file for this patient. MEDICATIONS: Current Outpatient Medications Medication Sig Dispense Refill Cholecalciferol (Vitamin D3) 50 MCG (1999 [place]) TABS hydrOXYzine (ATARAX) 25 MG tablet methylPREDNISolone (MEDROL) 4 MG tablet No current facility-administered medications for this visit. ALLERGIES: Patient has no allergy information on record. SURGICAL HX: Hsyterectomy Hernia repair Post anesthesia nausea SOCIAL HX: Tobacco: Yes Other types: Cigarettes 1 ppd for 15 years Denies EtOH CLINICAL EXAMINATION Extraoral examination: No significant findings No s/s of infection, redness or tenderness to palpation No facial asymmetry or swelling No appreciable LAD No popping/clicking/crepitus of TMJ b/l No tenderness to palpation of temporalis or masseter asymptomatic function Range of motion WNL CN V and VII intact Intraoral examination: No s/s of infection Erythematous mucosa around dentition with plaque accumulation Oropharynx clear No pathological soft lesions appreciated Oral cancer screen negative Occlusion stable Oral hygiene fair Retained root tips #3, 17, 19 Generalized decay LL quad TTP RADIOGRAPHIC INTERPRETATION: [employer] Film taken on 02/11/2022, and Retained in our clinic files Caries # 2, # 3, # 15, # 17, # 19, and # 31 Fractured # 3, # 17, and # 19 DIAGNOSIS: Caries and Retained dental roots TREATMENT: Exam, [employer] evaluated, Informed consent obtained and all patient questions regarding procedure answered, and Awaiting Insurance authorization. PLAN: 31 yof with no significant PMH presents with painful, grossly decayed teeth and retained root tips #2, 3, 15, 17, 19, 31 that require extraction to prevent the spread of future infection. The pt is anxious for the procedure, so the extractions will be performed with oral sedation. Informed consent was obtained at appointment. Extractions # 2, # 3, # 15, # 17, # 19, and # 31 and with local anesthesia and oral sedation Khalif Jackson, MARA Normal [facility] [place] 02-06-2022 Monotest Negative Normal Negative [facility] Comment on above: Result Comment: PERF ORMED BY: [place] [address] PATHOLOGIST DISTRIBUTION LEAD KVNG FAM M.D. Performed By: #### M ONOTEST #### [place] [address] [place] Pap IG,rfx Aptima HPV all pt hon 10-27-2020 . . Normal [facility] Comment on above: Performed By: #### P [id number] #### [facility] [address] [place] [address] Prieto Medrano DIAGNOSIS: Comment Normal [facility] Comment on above: Result Comment: NEGA TIVE FOR INTRAEPITHELIAL LESION OR MALIGNANCY. THIS SPECIMEN WAS RESCREENED PART OF OUR AUTOMATION AND CONTROLS SUPERVISOR PROGRAM. Performed By: #### P [id number] #### [facility] [address] [place] [address] Prieto Medrano Methodology: Comment Normal [facility] Comment on above: Result Comment: This liquid based ThinPrep(R) pap test was screened with the use of an image guided system. Performed By: #### P [id number] #### [facility] [address] [place] [address] Prieto Medrano Note: Comment Normal [facility] Comment on above: Result Comment: The Pap smear is a screening test designed to aid in the detection of premalignant and malignant conditions of the uterine cervix. It is not a diagnostic procedure and should not be used as the sole means of detecting cervical cancer. Both false-positive and false-negative reports do occur. . Performed By: #### P [id number] #### [facility] [address] [place] [address] Prieto Medrano Performed by: Comment Normal [facility] Comment on above: Result Comment: Thelma Harper, Booking Agent (ASCP) Performed By: #### P [id number] #### [facility] [address] [place] [address] Prieto Medrano QC reviewed by: Comment Normal [facility] Comment on above: Result Comment: Ananth Wang, Booking Agent Performed By: #### P [id number] #### [facility] [address] [place] [address] Prieto Medrano Reflex Criteria: Comment Normal [facility] Comment on above: Result Comment: The HPV DNA reflex criteria were not met with this specimen result therefore, no HPV testing was performed. . Performed By: #### P [id number] #### [facility] [address] [place] [address] Prieto Medrano Specimen adequacy: Comment Normal [facility] Comment on above: Result Comment: Sati sfactory for evaluation. No endocervical cells are present. This is consistent with a history of hysterectomy. Performed By: #### P [id number] #### [facility] [address] [place] [address] Prieto Medrano BUNon 04-11-2020 Urea nitrogen [Mass/Vol] 10.0 mg/dL Normal 7.0-17.0 [facility] Comment on above: Performed By: #### C GHAZAL, BUN #### [facility] [address] [place], [place] [id number] Prieto Medrano CBC AUTO DIFFon 04-11-2020 BASO # 0.0 103/ul Normal 0.0-0.1 [facility] Comment on above: Performed By: #### C BC #### [facility] [address] [place], [place] [id number] Prieto Medrano Basophils/100 WBC (Bld) 0.1 % Critically low 0.2-2.0 [facility] Comment on above: Performed By: #### C BC #### [facility] [address] [place] [address] Prietowendy Montezen EO # 0.0 103/ul Normal 0.0-0.7 [facility] Comment on above: Performed By: #### C BC #### [facility] [address] [place] [address] Prieto Medrano Eosinophils/100 WBC (Bld) 0.0 % Critically low 0.9-7. 0 [facility] Comment on above: Performed By: #### C BC #### [facility] [address] [place], [place] [id number] Prieto Medrano Erythrocyte distribution wid th (RBC) [Ratio] 13.1 % Normal 11.0-15.0 [facility] Comment on above: Performed By: #### C BC #### [facility] [address] [place], [place] [id number] Prieto Medrano Hematocrit (Bld) [Volume fraction] 29.6 % Critically low 36.0-48.0 [facility] Comment on above: Performed By: #### C BC #### [facility] [address] [place], [place] [id number] Prieto Medrano Hemoglobin (Bld) [Mass/Vol] 10.2 g/dL Critically low 12.0 -16.0 [facility] Comment on above: Performed By: #### C BC #### [facility] [address] [place] [address] Prieto Marcela IG # 0.02 10e3/ul Normal 0.00-0.03 [facility] Comment on above: Performed By: #### C BC #### [facility] [address] [place] [address] Prieto Marcela IG % 0.2 % Normal 0.0-0.5 [facility] Comment on above: Performed By: #### C BC #### [facility] [address] [place] [address] Prieto Marcela LYMPH # 1.2 103/ul Normal 1.2-3.8 [facility] Comment on above: Performed By: #### C BC #### [facility] [address] [place] [address] Prietowendy Medrano Lymphocytes/100 WBC (Bld) 14.2 % Critically low 20.5-6 0.0 [facility] Comment on above: Performed By: #### C BC #### [facility] [address] [place] [address] Prieto Marcela MANUAL DIFF REQ NO Normal [facility] Comment on above: Performed By: #### C BC #### [facility] [address] [place] [address] Prieto Marcela MCH (RBC) [Entitic mass] 32.3 pg Normal 26.7-34.0 [facility] Comment on above: Performed By: #### C BC #### [facility] [address] [place] [address] Prietowendy Medrano MCHC (RBC) [Mass/Vol] 34.5 g/dL Normal 29.9-35.2 [facility] Comment on above: Performed By: #### C BC #### [facility] [address] [place] [address] Prieto Marcela MCV (RBC) [Entitic vol] 93.7 fL Normal 81.0-99.0 [facility] Comment on above: Performed By: #### C BC #### [facility] [address] [place] [address] Prieto Marcela MONO # 0.5 103/ul Normal 0.3-0.8 [facility] Comment on above: Performed By: #### C BC #### [facility] [address] [place] [address] Prieto Montezen Monocytes/100 WBC (Bld) 5.9 % Normal 1.7-12.0 [facility] Comment on above: Performed By: #### C BC #### [facility] [address] [place], [place] [id number] Prieto Marcela NEUT # 6.4 103/ul Normal 1.4-6.5 [facility] Comment on above: Performed By: #### C BC #### [facility] [address] [place], [place] [id number] Prieto Marcela Neutrophils/100 WBC (Bld) 79.6 % Critically high 43.0- 75.0 [facility] Comment on above: Performed By: #### C BC #### [facility] [address] [place], [place] [phone] Prieto Medrano Platelet mean volume (Bld) [ Entitic vol] 10.2 fL Normal 9.5-13.5 [facility] Comment on above: Performed By: #### C BC #### [facility] [address] [place], [place] [phone] Prieto Marcela PLT 132 103/ul Critically low 150-450 [facility] Comment on above: Performed By: #### C BC #### [facility] [address] [place], [place] [id number] Prieto Marcela RBC 3.16 106/ul Critically low 4.20-5.40 [facility] Comment on above: Performed By: #### C BC #### [facility] [address] [place] [address] Prieto Marcela WBC 8.1 103/ul Normal 4.0-11.0 [facility] Comment on above: Performed By: #### C BC #### [facility] [address] [place] [address] Prieto Medrano CREATININEon 04-11-2020 Creatinine [Mass/Vol] 0.65 mg/dL Normal 0.52-1.04 [facility] Comment on above: Performed By: #### C GHAZAL, BUN #### [facility] [address] [place], [place] [id number] Prieto Marcela EGFR-AF [place]I >60 Normal >=60 [facility] Comment on above: Performed By: #### C GHAZAL, BUN #### [facility] [address] [place], [place] [id number] Prieto Marcela EGFR-NON AF [place] >60 Normal >=60 [facility] Comment on above: Performed By: #### C GHAZAL, BUN #### [facility] [address] [place], [place] [id number] Prieto Marcela CBC AUTO DIFFon 04-10-2020 BASO # 0.0 103/ul Normal 0.0-0.1 [facility] Comment on above: Performed By: #### C BC #### [facility] [address] [place] [address] Prieto Medrano Basophils/100 WBC (Bld) 0.7 % Normal 0.2-2.0 [facility] Comment on above: Performed By: #### C BC #### [facility] [address] [place], [place] [id number] Prietowendy Medrano EO # 0.2 103/ul Normal 0.0-0.7 [facility] Comment on above: Performed By: #### C BC #### [facility] [address] [place], [place] [phone] Prieto Medrano Eosinophils/100 WBC (Bld) 3.8 % Normal 0.9-7.0 [facility] Comment on above: Performed By: #### C BC #### [facility] [address] [place], [place] [phone] Prieto Medrano Erythrocyte distribution wid th (RBC) [Ratio] 13.2 % Normal 11.0-15.0 [facility] Comment on above: Performed By: #### C BC #### [facility] [address] [place], [place] [phone] Prieto Medrano Hematocrit (Bld) [Volume fraction] 40.0 % Normal 3 6.0-48.0 [facility] Comment on above: Performed By: #### C BC #### [facility] [address] [id number] Prieto Marcela Hemoglobin (Bld) [Mass/Vol] 13.3 g/dL Normal 12.0-16. 0 [facility] Comment on above: Performed By: #### C BC #### [facility] [address] [place], [place] [phone] Prietowendy Medrano IG # 0.00 10e3/ul Normal 0.00-0.03 [facility] Comment on above: Performed By: #### C BC #### [facility] [address] [place] [address] Prieto Marcela IG % 0.0 % Normal 0.0-0.5 [facility] Comment on above: Performed By: #### C BC #### [facility] [address] [place] [address] Prieto Marcela LYMPH # 1.8 103/ul Normal 1.2-3.8 [facility] Comment on above: Performed By: #### C BC #### [facility] [address] [place], [place] [phone] Prieto Medrano Lymphocytes/100 WBC (Bld) 43.5 % Normal 20.5-60.0 [facility] Comment on above: Performed By: #### C BC #### [facility] [address] [place], [place] [phone] Prieto Medrano MANUAL DIFF REQ NO Normal [facility] Comment on above: Performed By: #### C BC #### [facility] [address] [place], [place] [phone] Prietowendy Medrano MCH (RBC) [Entitic mass] 31.4 pg Normal 26.7-34.0 [facility] Comment on above: Performed By: #### C BC #### [facility] [address] [place], [place] [phone] Prietowendy Medrano MCHC (RBC) [Mass/Vol] 33.3 g/dL Normal 29.9-35.2 [facility] Comment on above: Performed By: #### C BC #### [facility] [address] [place], [place] [address] Prietowendy Montezen MCV (RBC) [Entitic vol] 94.6 fL Normal 81.0-99.0 [facility] Comment on above: Performed By: #### C BC #### [facility] [address] [place], [place] [address] Prieto Marcela MONO # 0.4 103/ul Normal 0.3-0.8 [facility] Comment on above: Performed By: #### C BC #### [facility] [address] [id number] Prieto Marcela Monocytes/100 WBC (Bld) 8.8 % Normal 1.7-12.0 [facility] Comment on above: Performed By: #### C BC #### [facility] [address] [place], [place] [phone] Prieto Marcela NEUT # 1.8 103/ul Normal 1.4-6.5 [facility] Comment on above: Performed By: #### C BC #### [facility] [address] [place], [place] [phone] Prieto Marcela Neutrophils/100 WBC (Bld) 43.2 % Normal 43.0-75.0 [facility] Comment on above: Performed By: #### C BC #### [facility] [address] [place], [place] [phone] Prietowendy Montezen Platelet mean volume (Bld) [Entitic vol] 9.9 fL Normal 9.5-13.5 [facility] Comment on above: Performed By: #### C BC #### [facility] [address] [place], [place] [phone] Prieto Marcela PLT 175 103/ul Normal 150-450 [facility] Comment on above: Performed By: #### C BC #### [facility] [address] [id number] Prieto Marcela RBC 4.23 106/ul Normal 4.20-5.40 [facility] Comment on above: Performed By: #### C BC #### [facility] [address] [place], [place] [address] Prieto Medrano WBC 4.2 103/ul Normal 4.0-11.0 [facility] Comment on above: Performed By: #### C BC #### [facility] [address] [place], [place] [address] Prieto Medrano PREG QUANT HCGon 04-10-2020 HCG QUANT <1 Normal [facility] Comment on above: Performed By: #### P REGQNT #### [facility] [address] [address] Prieto Medrano HCG RANGE SEE BELOW Normal [facility] Comment on above: Result Comment: 5-50 0-1 WEEK 40-300 1-2 WEEKS 100-1,000 2-3 WEEKS 500-6,000 3-4 WEEKS 5,000-200,000 1-2 MONTHS 10,000-100,000 2-3 MONTHS 3,000-50,000 2ND TRIMESTER 1,000-50,000 3RD TRIMESTER Performed By: #### P REGQNT #### [facility] [address] [place] [address] Prieto Medrano Covid-19 PCR (CVDTBH)on EUA Statement SEE BELOW Normal [facility] Comment on above: Result Comment: This test is not yet approved or cleared by the [place] FDA. When there are no FDA-approved or cleared tests available, and other criteria are met, FDA can make tests available under an emergency access mechanism called an Emergency Use Authorization (EUA). The EUA for this test is supported by the [place] of Health and Human Service?s (HHS?s) declaration that circumstances exist to justify the emergency use of in vitro diagnostics for the detection and/or diagnosis of the virus that causes COVID-19. This EUA will remain in effect (meaning this test can be used) for the duration of the COVID-19 declaration justifying emergency of IVDs, unless it is terminated or revoked by FDA (after which the test may no longer be used). When diagnostic testing is negative, the possibility of a false negative should be considered in the context of a patients recent exposures and the presence of clinical signs and symptoms consistent with SARS-CoV-2. Performed By: #### C BC #### [facility] [address] [place], [place] [phone] Prieto Medrano SARS-CoV-2 (COVID-19) RNA RANJEET+probe Ql (Unsp spec) Not detected Normal NOT DETECTED [facility] Comment on above: Result Comment: This test is not yet approved or cleared by the [place] FDA. When there are no FDA-approved or cleared tests available, and other criteria are met, FDA can make tests available under an emergency access mechanism called an Emergency Use Authorization (EUA). The EUA for this test is supported by the [employer] of Health and Human Service's (HHS's) declaration that circumstances exist to justify the emergency use of in vitro diagnostics for the detection and/or diagnosis of the virus that causes COVID-19. This EUA will remain in effect (meaning this test can be used) for the duration of the COVID-19 declaration justifying emergency of IVDs, unless it is terminated or revoked by FDA (after which the test may no longer be used). When diagnostic testing is negative, the possibility of a false negative should be considered in the context of a patient's recent exposures and the presence of clinical signs and symptoms consistent with SARS-CoV-2. Performed By: #### C BC #### [facility] [address] [place] [address] Prieto Medrano TYPE AND SCREENon 04-07-2020 TYPE AND SCREEN Negative Normal [facility] Comment on above: Performed By: #### C BC #### [facility] [address] [place], [place] [phone] Prieto Medrano CBC AUTO DIFFon 03-16-2020 BASO # 0.1 103/ul Normal 0.0-0.1 [facility] Comment on above: Performed By: #### C BC #### [facility] [address] [place], [place] [phone] Prieto Medrano Basophils/100 WBC (Bld) 0.8 % Normal 0.2-2.0 [facility] Comment on above: Performed By: #### C BC #### [facility] [address] [place], [place] [phone] Prieto Marcela EO # 0.2 103/ul Normal 0.0-0.7 [facility] Comment on above: Performed By: #### C BC #### [facility] [address] [place], [place] [phone] Prieto Marcela Eosinophils/100 WBC (Bld) 2.4 % Normal 0.9-7.0 [facility] Comment on above: Performed By: #### C BC #### [facility] [address] [place] [address] Prieto Marcela Erythrocyte distribution wid th (RBC) [Ratio] 13.1 % Normal 11.0-15.0 [facility] Comment on above: Performed By: #### C BC #### [facility] [address] [place] [address] Prieto Marcela Hematocrit (Bld) [Volume fraction] 39.9 % Normal 3 6.0-48.0 [facility] Comment on above: Performed By: #### C BC #### [facility] [address] [place] [address] Prieto Marcela Hemoglobin (Bld) [Mass/Vol] 13.4 g/dL Normal 12.0-16. 0 [facility] Comment on above: Performed By: #### C BC #### [facility] [address] [place] [address] Prieto Marcela IG # 0.01 10e3/ul Normal 0.00-0.03 [facility] Comment on above: Performed By: #### C BC #### [facility] [address] [place] [address] Prieto Marcela IG % 0.2 % Normal 0.0-0.5 [facility] Comment on above: Performed By: #### C BC #### [facility] [address] [place] [address] Prieto Marcela LYMPH # 2.2 103/ul Normal 1.2-3.8 [facility] Comment on above: Performed By: #### C BC #### [facility] [address] [place], [place] [phone] Prieto Marcela Lymphocytes/100 WBC (Bld) 34.3 % Normal 20.5-60.0 [facility] Comment on above: Performed By: #### C BC #### [facility] [address] [place], [place] [phone] Prieto Medrano MANUAL DIFF REQ NO Normal [facility] Comment on above: Performed By: #### C BC #### [facility] [address] [place], [place] [phone] Prietowendy Medrano MCH (RBC) [Entitic mass] 31.8 pg Normal 26.7-34.0 [facility] Comment on above: Performed By: #### C BC #### [facility] [address] [place] [address] Prieto Medrano MCHC (RBC) [Mass/Vol] 33.6 g/dL Normal 29.9-35.2 [facility] Comment on above: Performed By: #### C BC #### [facility] [address] [place] [address] Prietowendy Medrano MCV (RBC) [Entitic vol] 94.5 fL Normal 81.0-99.0 [facility] Comment on above: Performed By: #### C BC #### [facility] [address] [place], [place] [phone] Prietowendy Medrano MONO # 0.3 103/ul Normal 0.3-0.8 [facility] Comment on above: Performed By: #### C BC #### [facility] [address] [place] [address] Prietowendy Montezen Monocytes/100 WBC (Bld) 5.1 % Normal 1.7-12.0 [facility] Comment on above: Performed By: #### C BC #### [facility] [address] [place] [address] Prieto Marcela NEUT # 3.6 103/ul Normal 1.4-6.5 [facility] Comment on above: Performed By: #### C BC #### [facility] [address] [place], [place] [phone] Prieto Marcela Neutrophils/100 WBC (Bld) 57.2 % Normal 43.0-75.0 [facility] Comment on above: Performed By: #### C BC #### [facility] [address] [place] [address] Prieto Medrano Platelet mean volume (Bld) [Entitic vol] 9.5 fL Normal 9.5-13.5 [facility] Comment on above: Performed By: #### C BC #### [facility] [address] [place] [address] Prieto Medrano PLT 200 103/ul Normal 150-450 [facility] Comment on above: Performed By: #### C BC #### [facility] [address] [place] [address] Prieto Medrano RBC 4.22 106/ul Normal 4.20-5.40 [facility] Comment on above: Performed By: #### C BC #### [facility] [address] [place] [address] Prieto Medrano WBC 6.3 103/ul Normal 4.0-11.0 [facility] Comment on above: Performed By: #### C BC #### [facility] [address] [place] [address] Prieto Medrano TSHon 03-16-2020 TSH 0.926 uIU/mL Normal 0.470-4.680 [facility] Comment on above: Performed By: #### C BC #### [facility] [address] [place] [address] Prieto Medrano TSH RANGE SEE BELOW Normal [facility] Comment on above: Result Comment: <0.3 4 UIU/ml HYPERTHYROID 0.34-5.60 UIU/ml EUTHYROID >5.60 UIU/ml HYPOTHYROID Performed By: #### C BC #### [facility] [address] [place] [address] Prieto Medrano CBC AUTO DIFFon 01-03-2020 BASO # 0.0 103/ul Normal 0.0-0.1 [facility] Comment on above: Performed By: #### C BC #### [facility] [address] [place], [place] [address] Prieto Marcela Basophils/100 WBC (Bld) 0.7 % Normal 0.2-2.0 [facility] Comment on above: Performed By: #### C BC #### [facility] [address] [place], [place] [phone] Prieto Marcela EO # 0.2 103/ul Normal 0.0-0.7 [facility] Comment on above: Performed By: #### C BC #### [facility] [address] [place], [place] [phone] Prieto Marcela Eosinophils/100 WBC (Bld) 2.8 % Normal 0.9-7.0 [facility] Comment on above: Performed By: #### C BC #### [facility] [address] [place], [place] [phone] Prieto Marcela Erythrocyte distribution wid th (RBC) [Ratio] 13.6 % Normal 11.0-15.0 [facility] Comment on above: Performed By: #### C BC #### [facility] [address] [place], [place] [phone] Prieto Marcela Hematocrit (Bld) [Volume fraction] 38.7 % Normal 3 6.0-48.0 [facility] Comment on above: Performed By: #### C BC #### [facility] [address] [place], [place] [phone] Prieto Marcela Hemoglobin (Bld) [Mass/Vol] 12.9 g/dL Normal 12.0-16. 0 [facility] Comment on above: Performed By: #### C BC #### [facility] [address] [place] [address] Prieto Marcela IG # 0.00 10e3/ul Normal 0.00-0.03 [facility] Comment on above: Performed By: #### C BC #### [facility] [address] [place], [place] [phone] Prieto Marcela IG % 0.0 % Normal 0.0-0.5 [facility] Comment on above: Performed By: #### C BC #### [facility] [address] [place], [place] [phone] Prieto Marcela LYMPH # 1.5 103/ul Normal 1.2-3.8 [facility] Comment on above: Performed By: #### C BC #### [facility] [address] [place], [place] [phone] Prieto Marcela Lymphocytes/100 WBC (Bld) 28.4 % Normal 20.5-60.0 [facility] Comment on above: Performed By: #### C BC #### [facility] [address] [place], [place] [phone] Prieto Marcela MANUAL DIFF REQ NO Normal [facility] Comment on above: Performed By: #### C BC #### [facility] [address] [place], [place] [phone] Prietowendy Montezen MCH (RBC) [Entitic mass] 31.5 pg Normal 26.7-34.0 [facility] Comment on above: Performed By: #### C BC #### [facility] [address] [place] [address] Prietowendy Medrano MCHC (RBC) [Mass/Vol] 33.3 g/dL Normal 29.9-35.2 [facility] Comment on above: Performed By: #### C BC #### [facility] [address] [place] [address] Prietowendy Medrano MCV (RBC) [Entitic vol] 94.4 fL Normal 81.0-99.0 [facility] Comment on above: Performed By: #### C BC #### [facility] [address] [place] [address] Prieto Marcela MONO # 0.4 103/ul Normal 0.3-0.8 [facility] Comment on above: Performed By: #### C BC #### [facility] [address] [place], [place] [phone] Prieto Marcela Monocytes/100 WBC (Bld) 6.8 % Normal 1.7-12.0 [facility] Comment on above: Performed By: #### C BC #### [facility] [address] [place] [address] Prieto Medrano NEUT # 3.3 103/ul Normal 1.4-6.5 [facility] Comment on above: Performed By: #### C BC #### [facility] [address] [place] [address] Prieto Medrano Neutrophils/100 WBC (Bld) 61.3 % Normal 43.0-75.0 [facility] Comment on above: Performed By: #### C BC #### [facility] [address] [place] [address] Prieto Medrano Platelet mean volume (Bld) [Entitic vol] 9.4 fL Critically low 9.5-13.5 [facility] Comment on above: Performed By: #### C BC #### [facility] [address] [place] [address] Prieto Medrano PLT 186 103/ul Normal 150-450 [facility] Comment on above: Performed By: #### C BC #### [facility] [address] [place] [address] Prieto Medrano RBC 4.10 106/ul Critically low 4.20-5.40 [facility] Comment on above: Performed By: #### C BC #### [facility] [address] [place] [address] Prieto Medrano WBC 5.4 103/ul Normal 4.0-11.0 [facility] Comment on above: Performed By: #### C BC #### [facility] [address] [place] [address] Preito Medrano CYTOLOGYon 01-03-2020 SENT TO REF LAB 01/03/20 Normal [facility] Comment on above: Performed By: #### C YTO #### [facility] [address] [place] [address] Prieto Medrano PREG QUANT HCGon 01-03-2020 HCG QUANT 2.00 mIU/mL Normal [facility] Comment on above: Performed By: #### P REGQNT #### [facility] [address] [place], [place] [phone] Prieto Marcela HCG RANGE SEE BELOW Normal [facility] Comment on above: Result Comment: 5-50 0-1 WEEK 40-300 1-2 WEEKS 100-1,000 2-3 WEEKS 500-6,000 3-4 WEEKS 5,000-200,000 1-2 MONTHS 10,000-100,000 2-3 MONTHS 3,000-50,000 2ND TRIMESTER 1,000-50,000 3RD TRIMESTER Performed By: #### P REGQNT #### [facility] [address] [place] [address] Prieto Medrano COVID-19 PCRon 12-29-2019 SARS-CoV-2 (COVID-19) RNA RANJEET+probe Ql (Unsp spec) Not detected Normal Not Detected [facility] Comment on above: Result Comment: This nucleic acid amplification test was developed and its performance characteristics determined by [employer]. Nucleic acid amplification tests include PCR and TMA. This test has not been FDA cleared or approved. This test has been authorized by FDA under an Emergency Use Authorization (EUA). This test is only authorized for the duration of time the declaration that circumstances exist justifying the authorization of the emergency use of in vitro diagnostic tests for detection of SARS-CoV-2 virus and/or diagnosis of COVID-19 infection under section 564(b)(1) of the Act, 21 U.S.C. 360bbb-3(b) (1), unless the authorization is terminated or revoked sooner. When diagnostic testing is negative, the possibility of a false negative result should be considered in the context of a patient's recent exposures and the presence of clinical signs and symptoms consistent with COVID-19. An individual without symptoms of COVID-19 and who is not shedding SARS-CoV-2 virus would expect to have a negative (not detected) result in this assay. Performed By: #### C VDPCR, CVDSTAT #### [facility] [address] [place], [place] [phone] Prieto Medrano PRIORITY COVID PROCESSINGon 12-29-2019 Comment Comment Normal [facility] Comment on above: Result Comment: Rece ived Performed By: #### C VDPCR, CVDSTAT #### [facility] [address] [place], [place] [phone] Prieto Medrano Vital Signs Date Time Vital Sign Value Performing Clinician Facility 02-02-2023 09:25-0500 Body temperature 97.5 [degF] Izaiah Pinto MD Work Phone: [facility] 02-02-2023 09:25-0500 Body weight 57.42 kg Izaiah Pinto MD Work Phone: [facility] 02-02-2023 09:25-0500 Diastolic blood pressure 66 mm[Hg] Izaiah Pinto MD Work Phone: [facility] 02-02-2023 09:25-0500 Heart rate 76 /min Izaiah Pinto MD Work Phone: [facility] 02-02-2023 09:25-0500 Respiratory rate 16 /min Izaiah Pinto MD Work Phone: [facility] 02-02-2023 09:25-0500 SaO2% (BldA) [Mass fraction] 100 % Izaiah Pinto MD Work Phone: [facility] 02-02-2023 09:25-0500 Systolic blood pressure 113 mm[Hg] Izaiah Pinto MD Work Phone: [facility] 01-16-2023 01:55-0500 Diastolic blood pressure 67 mm[Hg] KITA Cespedes Work Phone: [facility] 01-16-2023 01:55-0500 Heart rate 64 /min KITA Cespedes Work Phone: [facility] 01-16-2023 01:55-0500 Respiratory rate 16 /min KITA Cespedes Work Phone: [facility] 01-16-2023 01:55-0500 SaO2% (BldA) [Mass fraction] 97 % KITA Cespedes Work Phone: [facility] 01-16-2023 01:55-0500 Systolic blood pressure 105 mm[Hg] KITA Cespedes Work Phone: [facility] 01-15-2023 22:35-0500 Body height 161.29 cm KITA Cespedes Work Phone: [facility] 01-15-2023 22:35-0500 Body temperature 98.5 [degF] KITA Cespedes Work Phone: [facility] 01-15-2023 22:35-0500 Body weight 57 kg KITA Cespedes Work Phone: [facility] 09-18-2022 22:10-0400 Diastolic blood pressure 69 mm[Hg] KITA Cespedes Work Phone: [facility] 09-18-2022 22:10-0400 Heart rate 64 /min KITA Cespedes Work Phone: [facility] 09-18-2022 22:10-0400 Respiratory rate 18 /min KITA Cespedes Work Phone: [facility] 09-18-2022 22:10-0400 SaO2% (BldA) [Mass fraction] 98 % KITA Cespedes Work Phone: [facility] 09-18-2022 22:10-0400 Systolic blood pressure 113 mm[Hg] KITA Cespedes Work Phone: [facility] 09-18-2022 19:44-0400 Body height 160.02 cm KITA Cespedes Work Phone: [facility] 09-18-2022 19:44-0400 Body temperature 98.3 [degF] KITA Cespedes Work Phone: [facility] 09-18-2022 19:44-0400 Body weight 55.9 kg KITA Cespedes Work Phone: [facility] 08-12-2022 11:30-0400 Body height 160.02 cm Alireza Noland Other [employer] Other 08-12-2022 11:30-0400 Body mass index (BMI) [Ratio] 22.14 kg/m2 Alireza Noland Other [employer] Other 08-12-2022 11:30-0400 Body temperature 98.2 [degF] Alireza Noland Other [employer] Other 08-12-2022 11:30-0400 Body weight 56.7 kg Alireza Noland Other [employer] Other 08-12-2022 11:30-0400 Diastolic blood pressure 72 mm[Hg] Alireza Noland Other [employer] Other 08-12-2022 11:30-0400 SaO2% (BldA) [Mass fraction] 96 % Alireza Noland Other [employer] Other 08-12-2022 11:30-0400 Systolic blood pressure 110 mm[Hg] Alireza Noland Other [employer] Other 08-05-2022 14:24-0400 Body height 167.64 cm KITA Donovan Coy Work Phone: [facility] 08-05-2022 14:24-0400 Body temperature 98.3 [degF] KITA Cespedes Work Phone: [facility] 08-05-2022 14:24-0400 Body weight 56.9 kg KITA Donovan [place] Work Phone: [facility] 08-05-2022 14:24-0400 Diastolic blood pressure 75 mm[Hg] KITA Donovan [place] Work Phone: [facility] 08-05-2022 14:24-0400 Heart rate 77 /min KITA Cespedes Work Phone: [facility] 08-05-2022 14:24-0400 Respiratory rate 14 /min KITA Cespedes Work Phone: [facility] 08-05-2022 14:24-0400 SaO2% (BldA) [Mass fraction] 98 % KITA Cespedes Work Phone: [facility] 08-05-2022 14:24-0400 Systolic blood pressure 124 mm[Hg] MICA PARTS SPRAYERCliff Cespedes Work Phone: [facility] 06-25-2022 15:38-0400 Body height 160.02 cm MICA PARTS SPRAYERCliff Cespedes Work Phone: [facility] 06-25-2022 15:38-0400 Body temperature 98.1 [degF] KITA Cespedes Work Phone: [facility] 06-25-2022 15:38-0400 Body weight 56.35 kg KITA Cespedes Work Phone: [facility] 06-25-2022 15:38-0400 Diastolic blood pressure 72 mm[Hg] KITA Cespedes Work Phone: [facility] 06-25-2022 15:38-0400 Heart rate 79 /min KITA Cespedes Work Phone: [facility] 06-25-2022 15:38-0400 Respiratory rate 18 /min KITA Cespedes Work Phone: [facility] 06-25-2022 15:38-0400 SaO2% (BldA) [Mass fraction] 98 % KITA Cespedes Work Phone: [facility] 06-25-2022 15:38-0400 Systolic blood pressure 131 mm[Hg] KITA Cespedes Work Phone: [facility] 02-11-2022 12:11-0500 Body height 160 cm Marci Reyes DMD, MD Work Phone: [facility] 02-11-2022 12:11-0500 Body mass index (BMI) [Ratio] 22.14 kg/m2 Marci Reyes DMD, MD Work Phone: [facility] 02-11-2022 12:11-0500 Body weight 56.7 kg Marci Reyes DMD, MD Work Phone: [facility] 02-11-2022 12:11-0500 Diastolic blood pressure 63 mm[Hg] Marci Reyes DMD, MD Work Phone: [facility] 02-11-2022 12:11-0500 Heart rate 76 /min Marci Reyes DMD, MD Work Phone: [facility] 02-11-2022 12:11-0500 Systolic blood pressure 120 mm[Hg] Marci Reyes DMD, MD Work Phone: [facility] 01-25-2022 22:54-0500 Body height 162.56 cm KITA Cespedes Work Phone: [facility] 01-25-2022 22:54-0500 Body temperature 98.1 [degF] KITA Cespedes Work Phone: [facility] 01-25-2022 22:54-0500 Body weight 58 kg KITA Cespedes Work Phone: [facility] 01-25-2022 22:54-0500 Diastolic blood pressure 62 mm[Hg] KITA Cespedes Work Phone: [facility] 01-25-2022 22:54-0500 Heart rate 82 /min KITA Cespedes Work Phone: [facility] 01-25-2022 22:54-0500 Respiratory rate 18 /min KITA Cespedes Work Phone: [facility] 01-25-2022 22:54-0500 SaO2% (BldA) [Mass fraction] 100 % KITA Cespedes Work Phone: [facility] 01-25-2022 22:54-0500 Systolic blood pressure 113 mm[Hg] KITA Cespedes Work Phone: [facility] Encounters Encounter Date Encounter Type Care Provider Facility Start: 02-10-2023 Orders Only Fam Mcnair MD Work Phone: Pulmonary Medicine Comment on above: Pulmonary emphysema, unspecified emphysema type (HCC) (Primary Dx) Start: 02-02-2023 Telephone encounter Izaiah espinosa MD Work Phone: [facility] Comment on above: Referral Information (Pulmonary) Start: 02-02-2023 End: 02-02-2023 ambulatory [facility] Facility:[facility] Start: 02-02-2023 End: 02-02-2023 Office outpatient visit 15 minutes Izaiah Pinto MD Work Phone: Hematology/Oncology Comment on above: Pulmonary emphysema, unspecified emphysema type (HCC) (Primary Dx) Start: 01-26-2023 End: 01-26-2023 ambulatory [facility] Facility:[facility] Start: 01-16-2023 End: 01-16-2023 Emergency department patient visit Kane Crouch Facility:[facility] Start: 01-15-2023 End: 01-16-2023 Emergency department patient visit KITA Cespedes Work Phone: [facility] Work Phone: Start: 01-12-2023 End: 01-12-2023 ambulatory [facility] Facility:[facility] Start: 01-12-2023 End: 01-12-2023 ambulatory [facility] Facility:[facility] Start: 01-09-2023 End: 01-09-2023 ambulatory SCOTT MCINTOSH Not Available Start: 11-16-2022 ambulatory Facility:[facility] Start: 11-15-2022 End: 11-15-2022 ambulatory Venus Cespedes Facility:[facility] Start: 11-15-2022 End: 11-15-2022 ambulatory KITA Cespedes Work Phone: [facility] Work Phone: Start: 11-15-2022 End: 11-15-2022 Patient encounter procedure KITA Cespedes Work Phone: [facility]Electrodiagnostics Work Phone: Start: 11-15-2022 ambulatory Facility:[facility] Start: 11-11-2022 End: 11-11-2022 ambulatory Venus Cespedes Facility:[facility] Start: 11-11-2022 End: 11-11-2022 Patient encounter procedure KITA Cespedes Work Phone: [facility]XRay [facility] Work Phone: Start: 09-27-2022 End: 09-27-2022 ambulatory Jose Perez Facility:[facility] Start: 09-27-2022 Registered Recurring KITA Dorcas Cespedes Work Phone: [facility]-Physical Therapy [facility] Start: 09-18-2022 End: 09-19-2022 Emergency department patient visit Venus Cespedes Facility:[facility] Start: 09-18-2022 End: 09-18-2022 Emergency department patient visit KITA Cespedes Work Phone: [facility]Emergency Room Work Phone: Start: 09-14-2022 Registered Recurring KITA Dorcas lewis [place] Work Phone: [facility]-Physical Therapy [address] Start: 08-12-2022 End: 08-12-2022 ambulatory Alireza Noland Other [employer] Other Start: 08-12-2022 Office outpatient visit 15 minutes Alireza Noland [facility] [address] Start: 08-05-2022 End: 08-05-2022 Emergency department patient visit Gerald Ryan Facility:[facility] Start: 08-05-2022 End: 08-05-2022 Emergency department patient visit KITA Venus Cespedes Work Phone: [facility] Work Phone: Start: 06-25-2022 End: 06-25-2022 Emergency department patient visit Gerald Ryan Facility:[facility] Start: 06-25-2022 End: 06-25-2022 Emergency department patient visit MICA PARTS SPRAYERCliff Cespedes Work Phone: [facility] Work Phone: Start: 02-11-2022 ambulatory JM JOHN Facility:[place] Start: 02-11-2022 End: 02-11-2022 Patient encounter procedure Marci Reyes DMD, MD Work Phone: [facility] Oral Surgery Comment on above: Caries (Primary Dx) Caries (Primary Dx); Body mass index (BMI) 22.0-22.9, adult Start: 02-05-2022 End: 02-06-2022 Emergency department patient visit Turner Hendrickson Facility:[facility] Start: 01-26-2022 End: 01-26-2022 Emergency department patient visit Rodger Malagon Facility:[facility] Start: 01-25-2022 End: 01-25-2022 Emergency department patient visit KITA Murphyfer Coy Work Phone: [facility]Emergency Room Start: 01-03-2022 End: 01-03-2022 ambulatory KITA Cespedes Work Phone: [facility] Work Phone: Start: 01-03-2022 End: 01-03-2022 Patient encounter procedure KITA Cespedes Work Phone: [facility] Start: 10-28-2020 Encounter for cervic al smear to confirm findings of recent normal smear following initial abnormal smear DR SCOTT MCINTOSH [facility] Start: 10-21-2020 End: 10-21-[address] SCOTT MCINTOSH Facility:[facility] Start: 04-27-2020 Encounter for preprocedural laboratory examination DR SCOTT MCINTOSH [facility] Start: 04-14-2020 Encounter for preprocedural laboratory examination DR SCOTT MCINTOSH [facility] Start: 04-10-2020 End: 04-12-2020 Evaluation and management of inpatient DR SCOTT MCINTOSH Facility:[facility] Start: 04-07-2020 End: 04-08-[address] SCOTT MCINTOSH Facility:[facility] Start: 04-07-2020 End: 04-08-2020 Encounter for preprocedural laboratory examination DR SCOTT MCINTOSH Facility:[facility] Start: 04-03-2020 Encounter for other preprocedural examination DR SCOTT MCINTOSH [facility] Start: 03-27-2020 End: 03-28-[address] DOCTOR FOX Facility:[facility] Start: 03-27-2020 End: 03-28-2020 Encounter for other preprocedural examination DR DOCTOR FOX Facility:[facility] Start: 03-16-2020 End: 03-17-[address] SCOTT MCINTOSH Facility:[facility] Start: 01-03-2020 End: 01-03-[address] SCOTT MCINTOSH Facility:[facility] Start: 12-28-2019 End: 12-29-[address] SCOTT MCINTOSH Facility:[facility] Start: 12-20-2019 End: 12-21-[address] SCOTT MCINTOSH Facility:[facility] Procedures Date Procedure Procedure Detail Performing Clinician Start: 11-11-2022 Plain chest X-ray KITA Cespedes Work Phone: Start: 09-18-2022 Plain chest X-ray KITA Cespedes Work Phone: Start: 08-05-2022 X-ray of cervical spine KITA Cespedes Work Phone: Start: 01-03-2022 Screening mammograph y of bilateral breasts MICA PARTS SPRAYERCliff Cespedes Work Phone: Start: 04-10-2020 Resection of Uterus, Open Approach DR SCOTT MCINTOSH Plan of Treatment Date Care Activity Detail Author Start: 2038 Shingles (RZV) Vaccine (1 of 2) Shingles (RZV) Vaccine (1 of 2) [facility] Start: 10-25-2025 Tetanus vaccination Tetanus (Td or Tdap) [facility] Start: 10-25-2025 Urine microalbumin profile DTaP,Tdap,Td Vaccine (2 - Td or Tdap) [facility] Start: 01-16-2023 Computed tomography of abdomen and pelvis with contrast CT abdomen pelvis w con [facility] Start: 01-16-2023 CT Abdomen and Pelvis W contrast IV [facility] Start: 10-28-2022 Covid-19 Vaccine () Covid-19 Vaccine () [facility] Start: 10-28-2022 Influenza vaccination Influenza Vaccine (#1) [facility] Start: 09-18-2022 Plain chest X-ray XR chest 2V* [facility] Start: 09-18-2022 XR Chest 2 Views [facility] Start: 02-27-2022 Depression Assessment Depression Assessment [facility] Start: 10-26-2021 COVID-19 Vaccine (4 - Booster for Pfizer series) COVID-19 Vaccine (4 - Booster for Pfizer series) [facility] Start: 10-15-2021 Hepatitis B Vaccine (3 of 3 - 19+ 3-dose series) Hepatitis B Vaccine (3 of 3 - 19+ 3-dose series) [facility] Start: 2018 HPV Testing HPV Testing [facility] Start: 2018 Screening for malignant neoplasm of cervix HPV Testing [facility] Start: 2009 Pap Testing Pap Testing [facility] Start: 2009 Screening for malignant neoplasm of cervix [facility] Start: 2006 Hepatitis C screening [facility] Start: 2006 Hepatitis C Screening Hepatitis C Screening [facility] Start: 2006 HIV Screening HIV Screening [facility] Start: 2006 HIV screening HIV Screening [facility] Start: 06-21-2003 HIV screening HIV Test [facility] Start: 1994 Pneumococcal vaccination [facility] End: 03-11-2024 LUNG DIFFUSION CAPACITY (DLCO) LUNG DIFFUSION CAPACITY (DLCO) PFT Routine Pulmonary emphysema, unspecified emphysema type (HCC) 1 Occurrences starting 02/12/2023 until 03/11/2024 [facility] Work Phone: Comment on above: 1 Occurrences starti ng 02/12/2023 until 03/11/2024 Patient Education [facility] Work Phone: Patient referral [facility] Work Phone: End: 03-11-2024 SPIROMETRY WITH DILATOR IF OBSTRUCTED SPIROMETRY WITH DILATOR IF OBSTRUCTED PFT Routine Pulmonary emphysema, unspecified emphysema type (HCC) 1 Occurrences starting 02/12/2023 until 03/11/2024 [facility] Work Phone: Comment on above: 1 Occurrences starti ng 02/12/2023 until 03/11/2024 [facility] Immunizations Immunization Date Immunization Notes Care Provider [facility] 11-29-2021 Seasonal, quadrivale nt, recombinant, injectable influenza vaccine, preservative free Marci Reyes DMD, MD Work Phone: [facility] 11-29-2021 influenza virus vacc ine, unspecified formulation Izaiah Pinto MD Work Phone: [facility] 08-20-2021 hepatitis B vaccine, adult dosage Marci Reyes DMD, MD Work Phone: [facility] 10-26-2015 tetanus toxoid, redu andreina diphtheria toxoid, and acellular pertussis vaccine, adsorbed Marci Reyes DMD, MD Work Phone: [facility] 12-11-2014 influenza, seasonal, injectable, preservative free Marci Reyes DMD, MD Work Phone: [facility] 07-16-2013 hepatitis B vaccine, adult dosage Marci Reyes DMD, MD Work Phone: [facility] Payers Date Payer Category Payer Worker's Compensation [id number] 2022 Medicaid [id number] 2022 Medicaid [id number] 2022 Medicaid [id number] 2022 Self-pay [id number] 1988 Unknown [id number] 2.16.84 [id number] 1988 Unknown [id number] 2.16.84 0.1.925229.3.579.2.593 1988 Unknown [id number] 2.16.84 0.1.708420.3.579.2.593 1988 Unknown [id number] 2.16.84 0.1.920614.3.579.2.593 1988 Unknown [id number] 2.16.84 0.1.359351.3.579.2.593 1988 Unknown [id number] 2.16.84 0.1.998519.3.579.2.593 1988 Unknown [id number] 2.16.84 0.1.987268.3.579.2.593 1988 Unknown [id number] 2.16.84 0.1.647792.3.579.2.593 1988 Unknown [id number] 2.16. 840.1.430771.3.579.2.732 1988 Unknown [id number] 2.16. 840.1.982694.3.579.2.356 1988 Unknown [id number] 2.16.840. 1.248164.3.579.2.1259 1959 Unknown [id number] Unknown [id number] 2.16.8 40.1.022698.3.579.2.531 Unknown [id number] 2.16.8 40.1.252879.3.579.2.531 Unknown [id number] 2.16.8 40.1.524920.3.579.2.531 Unknown [id number] 2.16.8 40.1.299730.3.579.2.531 Unknown [id number] 2.16.8 40.1.595162.3.579.2.531 Unknown [id number] 2.16.8 40.1.352430.3.579.2.531 Unknown [id number] 2.16.8 40.1.042319.3.579.2.531 Unknown [id number] 2.16.8 40.1.194235.3.579.2.531 Unknown [id number] 2.16.8 40.1.619210.3.579.2.531 Social History Date Type Detail Facility Start: 05-11-2018 End: 01-15-2023 Tobacco smoking status VAIS Smoker (finding) [facility] Start: 1990 Sex Assigned At Female [facility] Start: 01-12-2023 End: 02-02-2023 History of tobacco use [facility] Start: 05-06-2011 End: 02-11-2022 Tobacco smoking status [facility] Smokes tobacco daily [facility] History of tobacco use [facility] Start: 02-11-2022 Tobacco use and exposure Smokeless tobacco non-user [facility] Start: 1988 Sex Assigned At Not on file [facility] Start: 05-06-2011 End: 01-12-2023 Cigarettes smoked current (pack per day) - Reported 1 [facility] Start: 02-02-2023 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 Author Type: ? Type: Progress Notes Filed: 02/12/2023 10:02 AM Note Text: Orders pended [facility] 02-10-2023 History of Presen t illness Narrative Orders pended documented in this encounter [facility] 02-09-[address] Davey, I called and spoke with patient she was willing to go to [place]. I called and got her scheduled with Dr Fam Mcnair on 04/18/23. That was their first available appointment. Patient will have Spirometry and Lung Function testing done same day just prior to seeing provider. I called and spoke with patient gave her all information regarding this appointment and she was very appreciative of getting in sooner. She is aware of the testing that will be done that day prior to seeing provider. I also let patient know I would be calling and cancelling her 07/24 appt with Ghada Munson. I called Pulm office spoke with Leeanna and cancelled patient appointment on 07/24 with Ghada Munson. Thank You- Yuki Junior Man - that is 6 months out!!! We should really send her to [place] or [place]! Called Pulmonary office spoke with Leeanna. Patient is scheduled 07/25/23 @ 9:30 with WASTEWATER TREATMENT ENGINEER Ghada Munson. Yuki [place] Pss Records faxed. Alfreda: Information ready for you. Yuki Junior Refer to pulmonary Dx: Pumonary emphysema Alfreda/Chandrakant: Patient would prefer to stay locally within [place]. Can you please refer patient and follow up? Thanks! Albert Piper documented in this encounter [facility] 02-02-2023 Note HNO ID: [id number] Author: Izaiah Pinto MD Service: ? Author Type: Physician Type: Progress Notes Filed: 02/02/2023 7:05 PM Note Text: NAME: Ayana Gill CLINIC NO.: [id number] DATE OF SERVICE: February 02, 2023 (Gavin) Some elements in this clinic note that are critical to medical decision making have been carefully reviewed and included from a prior clinic note dated: January 12, 2023 (Gavin). Referring Provider: Venus Cespedes CNP Consultation requested by Venus Cespedes for an opinion regarding Ms. Ayana Gill, and my final recommendations will be communicated back to the requesting physician by way of shared medical record or letter via [place] mail. Additional Clinicians involved in Ayana Gill's care: DIAGNOSIS: Lymphadenopthy ASSESSMENT: 32 year old woman with mild lymphadenopathy but has been having early satiety as well as soaking night sweats. CT scans unremarkable for lymphadenopathy. Other symptoms may be related to tobacco use and emphysema with chronic inflammation. PLAN: Refer to pulmonary for emphysema at early age. Return PRN HPI: CASE HISTORY: Reverse Chronological Order 01/26/2023 - CT Neck CAP: Neck: scattered subcentimeter lymph nodes, none significantly enlarged by imaging size criteria. Elongation of the styloid processes, a finding which can be seen in the setting of [place] Syndrome. Minimal Emphysema involving the imaged lung apices. Otherwise, unremarkable CT Neck with contrast. Chest: 4 mm noncalcified nodule along the left major fissure, likely related to a benign intrafissural lymph node. No substantial intrathoracic adenopathy is appreciated. Abd/Pelvis: Essentially unremarkable CT examination of the abdomen and pelvis. 01/02/2023 US HANDN soft tissue: There are multiple small lobular lesions at the areas of lump, which appear to represent small lymph nodes, all measuring less than 1 cm short axis with the largest on the right measuring 3 mm short axis and the largest on the left measuring 0.5 cm short axis. These are overall nonspecific. 12/29/2022 - XR Left Humerus (NOMS) : No acute or aggressive abnormality of the humerus. Soft tissues appear within normal limits; no soft tissue mass identified by radiography. 12/27/2022 - noticed a bump on left arm 03/2020 at [facility] - hysterectomy - found cervical cancer. Updated Visit, February 02, 2023: Ayana returns today accompanied by her Papo and 14 yo son Ivan. She has been doing okay lately. Has still been having sweats. I encouraged her to stop smoking in efforts to limit her early emphysema.We reviewed her imaging, she has a small pulmonary nodule that is likely an inflammatory lymph node. I think it would be jameson for her to consider seeing a audiology assistant so she can be evaluated for Alpha 1 Antitrypsin Deficiency. She reports having low energy and becoming SOB easily over the last few days, giving her a difficult time breathing. I encouraged her to stop smoking inhaling any substance. Initial Visit, January 12, 2023: Ayana Gill presents today Hematology and Oncology evaluation. She is a 32 year old female who has no other medical issues except for an ovarian cyst on the left. Has some upper abdominal pain. Doesn't have an appetite and gets full quickly for ~ 1 month. Has had 3 soaking sweats at night in the last month Left upper arm has a knot in it. Labs are normal. Has psoriasis controled by [facility] - used to take Humira for 4-5 months Smokes 1 ppd No Alcohol Also had cervical cancer was noted after her hysterectomy. 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 Has 3 children REVIEW OF SYSTEMS Per HPI and otherwise negative by full review of organ systems. ECOG PERFORMANCE STATUS: 0 PHYSICAL EXAMINATION: Vitals: BP 113/66 Pulse 76 Temp (Src) 97.5 (Temporal) Resp 16 Wt 126 lb 9.6 oz (57.4kg) SpO2 100% LMP 04/28/2011 Body surface area is 1.6 meters squared. Exam limited to gross visualization where appropriate. Gen.: This is an age-appropriate patient in no acute distress. Has slightly edgar appearance. Head: Appears atraumatic with no visible lesions. Eyes: Pupils equally round and reactive to light, extraocular muscles are intact. Neck: Supple. Respiratory: Appears to be respiring comfortably. Neurologic: Nonfocal to gross visualization. Alert and oriented ?3. Psychiatric: No evidence of inappropriate anxiety or depression. Skin: Visible areas of skin without rash, lesions, wounds or petechiae. (more content not included)... [facility] 02-02-2023 Instructions Mary Hathaway - 02/02/2023 9:57 AM EST Refer to pulmonary Return PRN documented in this encounter [facility] 02-02-2023 History of Presen t illness Narrative Images from the original note were not included. NAME: Ayana Gill CLINIC NO.: [id number] DATE OF SERVICE: February 02, 2023 (Gavin) Some elements in this clinic note that are critical to medical decision making have been carefully reviewed and included from a prior clinic note dated: January 12, 2023 (Gavin). Referring Provider: Venus Cespedes DONKEY RIDE OPERATOR Consultation requested by Venus Cespedes for an opinion regarding Ms. Ayana Gill, and my final recommendations will be communicated back to the requesting physician by way of shared medical record or letter via [place] mail. Additional Clinicians involved in Ayana Gill's care: DIAGNOSIS: Lymphadenopthy ASSESSMENT: 32 year old woman with mild lymphadenopathy but has been having early satiety as well as soaking night sweats. CT scans unremarkable for lymphadenopathy. Other symptoms may be related to tobacco use and emphysema with chronic inflammation. PLAN: Refer to pulmonary for emphysema at early age. Return PRN HPI: CASE HISTORY: Reverse Chronological Order 01/26/2023 - CT Neck CAP: Neck: scattered subcentimeter lymph nodes, none significantly enlarged by imaging size criteria. Elongation of the styloid processes, a finding which can be seen in the setting of [place] Syndrome. Minimal Emphysema involving the imaged lung apices. Otherwise, unremarkable CT Neck with contrast. Chest: 4 mm noncalcified nodule along the left major fissure, likely related to a benign intrafissural lymph node. No substantial intrathoracic adenopathy is appreciated. Abd/Pelvis: Essentially unremarkable CT examination of the abdomen and pelvis. 01/02/2023 US H&N soft tissue: There are multiple small lobular lesions at the areas of lump, which appear to represent small lymph nodes, all measuring less than 1 cm short axis with the largest on the right measuring 3 mm short axis and the largest on the left measuring 0.5 cm short axis. These are overall nonspecific. 12/29/2022 - XR Left Humerus (NOMS) : No acute or aggressive abnormality of the humerus. Soft tissues appear within normal limits; no soft tissue mass identified by radiography. 12/27/2022 - noticed a bump on left arm 03/2020 at [facility] - hysterectomy - found cervical cancer. Updated Visit, February 02, 2023: Ayana returns today accompanied by her Papo and 14 yo son Ivan. She has been doing okay lately. Has still been having sweats. I encouraged her to stop smoking in efforts to limit her early emphysema.We reviewed her imaging, she has a small pulmonary nodule that is likely an inflammatory lymph node. I think it would be jameson for her to consider seeing a audiology assistant so she can be evaluated for Alpha 1 Antitrypsin Deficiency. She reports having low energy and becoming SOB easily over the last few days, giving her a difficult time breathing. I encouraged her to stop smoking inhaling any substance. Initial Visit, January 12, 2023: Ayana Gill presents today Hematology and Oncology evaluation. She is a 32 year old female who has no other medical issues except for an ovarian cyst on the left. Has some upper abdominal pain. Doesn't have an appetite and gets full quickly for ~ 1 month. Has had 3 soaking sweats at night in the last month Left upper arm has a knot in it. Labs are normal. Has psoriasis controled by Taltz - used to take Humira for 4-5 months Smokes 1 ppd No Alcohol Also had cervical cancer was noted after her hysterectomy. 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 Has 3 children REVIEW OF SYSTEMS Per HPI and otherwise negative by full review of organ systems. ECOG PERFORMANCE STATUS: 0 PHYSICAL EXAMINATION: Vitals: BP 113/66 Pulse 76 Temp (Src) 97.5 (Temporal) Resp 16 Wt 126 lb 9.6 oz (57.4kg) SpO2 100% LMP 04/28/2011 Body surface area is 1.6 meters squared. Exam limited to gross visualization where appropriate. Gen.: This is an age-appropriate patient in no acute distress. Has slightly edgar appearance. Head: Appears atraumatic with no visible lesions. Eyes: Pupils equally round and reactive to light, extraocular muscles are intact. Neck: Supple. Respiratory: Appears to be respiring comfortably. Neurologic: Nonfocal to gross visualization. Alert and oriented 3. Psychiatric: No evidence of inappropriate anxiety or depression. Skin: Visible areas of skin without rash, lesions, wounds or petechiae. ALLERGIES: ALLERGIES No Known Allergies MEDICATIONS: TALTZ AUTOINJECTOR 80 mg/mL pen iv contrast (will be provided with radiology test) CT Chest ABD/PEL-Inject, intravenously, once for 1 dose.No IV access, insert saline lock prior to the beginning of sedation, infusion, injection of imaging exam. Discontinue saline lock post exam. If Pt. has a central line or IVAD, may access for administration according to line specific nursing protocol. Once exam is complete flush line and de-access according to line specific nursing protocol in the CT contrast administration guidelines link. enteric contrast (will be provided with radiology test) For CT CHESTABD/PEL W IVCON Routine order Administer, As Directed One Time Only, via Oral, Rectal, both Oral and Rectal, Enteric Tube, Stoma or Indwelling Catheter, Enteric Contrast as designated per enteric contrast guidelines LABORATORY VALUES: WBC (k/uL) Date Value 01/12/2023 5.76 RBC (m/uL) Date Value 01/12/2023 4.39 Hemoglobin (g/dL) Date Value 01/12/2023 14.1 Hematocrit (%) Date Value 01/12/2023 40.8 MCV (fL) Date Value 01/12/2023 92.9 MCH (pg) Date Value 01/12/2023 32.1 MCHC (g/dL) Date Value 01/12/2023 34.6 RDW-CV (%) Date Value 01/12/2023 12.9 Platelet Count (k/uL) Date Value 01/12/2023 185 MPV (fL) Date Value 01/12/2023 9.8 Glucose (mg/dL) Date Value 01/12/2023 106 (H) BUN (mg/dL) Date Value 01/12/2023 11 Creatinine (mg/dL) Date Value 01/26/2023 0.75 Sodium (mmol/L) Date Value 01/12/2023 139 Potassium (mmol/L) Date Value 01/12/2023 4.4 Chloride (mmol/L) Date Value 01/12/2023 104 CO2 (mmol/L) Date Value 01/12/2023 27 Protein, Total (g/dL) Date Value 01/12/2023 7.3 Albumin (g/dL) Date Value 01/12/2023 4.7 Calcium, Total (mg/dL) Date Value 01/12/2023 10.0 Alkaline Phosphatase (U/L) Date Value 01/12/2023 59 Bilirubin, Total (mg/dL) Date Value 01/12/2023 0.2 AST (U/L) Date Value 01/12/2023 28 ALT (U/L) Date Value 01/12/2023 27 DIAGNOSIS: (J43.9) Pulmonary emphysema, unspecified emphysema type (HCC) (primary encounter diagnosis) Plan: CONSULT TO PULMONARY MEDICINE PAST MEDICAL HISTORY Diagnosis Date Cirrhosis (HCC) NEGATIVE MEDICAL HISTORY No CA, DM, Heart dis, pnuemonia, DM Polycystic ovary syndrome PAST SURGICAL HISTORY Procedure Laterality Date PAST SURGICAL HISTORY OF 02/27/2011 laparascopy x2 PAST SURGICAL HISTORY OF 2008, 2001 umbilical hernia and inguinal TOTAL ABDOM HYSTERECTOMY 03/2020 Social History Tobacco Use Smoking status: Every Day Packs/day: 1 Types: Cigarettes Vaping Use Vaping Use: Never used Substance Use Topics Alcohol use: No Drug use: No FAMILY HISTORY Problem Relation Age of Onset Asthma Mother COPD Mother Emphysema Father Stroke Sister Heart Attack Sister Asthma Maternal Grandmother Cancer Paternal Grandmother cervical Lymphoma Paternal Grandmother Ischemic Heart Disease Paternal Grandfather I spent a total of 20 minutes on the date of the service which included preparing to see the patient, [id number] patient care, completing clinical documentation, obtaining and/or reviewing separately obtained history, performing a medically appropriate examination, counseling and educating the patient/family/caregiver, ordering medications, tests, or procedures, independently interpreting results (not separately reported), communicating results to the patient/family/caregiver, and care coordination (not separately reported). Izaiah Pinto MD, CPE Hematology and Oncology Services Provided at: [facility], [place], [place] Scribe Attestation: This note was scribed by Mary Hathaway on February 02, 2023 under the direction and supervision of Dr. Izaiah Pinto. I attest that all of the information documented is correct to the best of my knowledge. Provider Attestation: I, Izaiah Pinto MD, attest that all information documented by the above scribe is correct, and was supervised by me and under my direction. CC: Venus [address] [address] Phoebe Mcintosh documented in this encounter [facility] 01-26-2023 Note HNO ID: [id number] Author: Leeanna June RN Service: ? Author Type: Registered Nurse Type: Progress Notes Filed: 01/26/2023 2:06 PM Note Text: Radiology Service Progress Note DATE OF SERVICE: January 26, 2023 TIME: 2:05 PM PATIENT WEIGHT: 125LBS PATIENT IDENTITY VERIFICATION COMPLETED USING TWO (2) STANDARD IDENTIFIERS: Name and Date of confirmed by patient verbally. FALL SCREENING: Has the patient had 2 falls in the last year or 1 fall with injury or currently using an Ambulatory Assistive Device (Walker, Cane, Wheelchair, Crutches, etc.)? No PATIENT GENDER DATA: Female. status: : No status: NO. ALLERGIES: Reviewed and unchanged CONTRAST ALLERGY: No EXAM: CT -CONTRAST INDUCED NEPHROPATHY RISK FACTORS: Not applicable CREATININE: Creatinine Date Value Ref Range Status 01/12/2023 0.71 0.58 - 0.96 mg/dL Final Estimated Glomerular Filtration Rate Date Value Ref Range Status 01/12/2023 115 >=60 mL/min/1.73m? Final Comment: Estimated Glomerular Filtration Rate (eGFR) is calculated using the 2020 CKD-EPI creatinine equation. This equation utilizes serum creatinine, sex, and age as parameters. The creatinine assay has traceable calibration to isotope dilution-mass spectrometry. Refer to KDIGO guidelines for clinical interpretation. In patients with unstable renal function, e.g. those with acute kidney injury, the eGFR may not accurately reflect actual GFR. P.O.C.T. RESULTS: N/A January 26, 2023 TREATMENT: N/A IV SITE: Ambulatory: A peripheral IV was started in the Right antecubital site with a Angio cath: 20 gauge. IV SITE APPEARANCE: Clean,Dry and Intact SIGNATURE: Leeanna June RN PATIENT NAME: Ayana Gill DATE: January 26, 2023 TIME: 2:05 PM [facility] 01-26-2023 Note HNO ID: [id number] Author: Zuleima Tran RT(R) Service: ? Author Type: Technologist Type: Progress Notes Filed: 01/26/2023 2:59 PM Note Text: Radiology Service Progress Note PATIENT NAME: Ayana Gill DATE OF SERVICE: January 26, 2023 TIME: 2:59 PM PATIENT IDENTITY VERIFICATION COMPLETED USING TWO (2) IDENTIFIERS: Name and Date of confirmed by patient verbally. FALL SCREENING: Has the patient had 2 falls in the last year or 1 fall with injury or currently using an Ambulatory Assistive Device (Walker, Cane, Wheelchair, Crutches, etc.)? No PATIENT GENDER DATA: Female. status: : No status: NO. PATIENT RELEVANT IMPLANT DATA REVIEWED: Not Applicable RADIOLOGY DEPARTMENT: CT; Exam(s) Completed: Chest Abdomen Pelvis and Neck PERIPHERAL IV DATA: Site assessment: Clean,Dry and Intact, Site disposition Discontinued SIGNED BY: RT William(R) January 26, 2023 2:59 PM [facility] 01-12-2023 Note HNO ID: [id number] Author: Izaiah Pinto MD Service: ? Author Type: Physician Type: Progress Notes Filed: 01/15/2023 9:16 AM Note Text: NAME: Ayana Gill CLINIC NO.: [id number] DATE OF SERVICE: January 12, 2023 (Gavin) Referring Provider: Venus Cespedes DONKEY RIDE OPERATOR Consultation requested by Venus Cespedes for an opinion regarding Ms. Ayana Gill, and my final recommendations will be communicated back to the requesting physician by way of shared medical record or letter via US mail. Additional Clinicians involved in Ayana Gill's care: DIAGNOSIS: Lymphadenopthy ASSESSMENT: 32 year old woman with mild lymphadenopathy but has been having early satiety as well as soaking night sweats. Will obtain scans. PLAN: CT Neck CAP with creatinine and return 1 week after to review. HPI: CASE HISTORY: Reverse Chronological Order 01/02/2023 US HANDN soft tissue: There are multiple small lobular lesions at the areas of lump, which appear to represent small lymph nodes, all measuring less than 1 cm short axis with the largest on the right measuring 3 mm short axis and the largest on the left measuring 0.5 cm short axis. These are overall nonspecific. 12/29/2022 - XR Left Humerus (NOMS) : No acute or aggressive abnormality of the humerus. Soft tissues appear within normal limits; no soft tissue mass identified by radiography. 12/27/2022 - noticed a bump on left arm 03/2020 at [facility] - hysterectomy - found cervical cancer. Initial Visit, January 12, 2023: Ayana Gill presents today Hematology and Oncology evaluation. She is a 32 year old female who has no other medical issues except for an ovarian cyst on the left. Has some upper abdominal pain. Doesn't have an appetite and gets full quickly for ~ 1 month. Has had 3 soaking sweats at night in the last month Left upper arm has a knot in it. Labs are normal. Has psoriasis controled by Della - used to take Humira for 4-5 months Smokes 1 ppd No Alcohol Also had cervical cancer was noted after her hysterectomy. 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 Has 3 children REVIEW OF SYSTEMS Per HPI and otherwise negative by full review of organ systems. ECOG PERFORMANCE STATUS: 0 PHYSICAL EXAMINATION: Vitals: BP 116/71 Pulse 61 Temp (Src) 97.7 (Temporal) Resp 16 Wt 125 lb 9.6 oz (57.0kg) SpO2 99% LMP 04/28/2011 Body surface area is 1.59 meters squared. Exam limited to gross visualization where appropriate. Gen.: This is an age-appropriate patient in no acute distress. Head: Appears atraumatic with no visible lesions. Eyes: Pupils equally round and reactive to light, extraocular muscles are intact. Neck: Supple. Respiratory: Appears to be respiring comfortably. Neurologic: Nonfocal to gross visualization. Alert and oriented ?3. Psychiatric: No evidence of inappropriate anxiety or depression. Skin: Visible areas of skin without rash, lesions, wounds or petechiae. Left occipatl LN -5mm soft, right axilla LN 1.5 cm No splenomegaly on palpation No inguinal LN. ALLERGIES: ALLERGIES No Known Allergies MEDICATIONS: TALTZ AUTOINJECTOR 80 mg/mL pen LABORATORY VALUES: WBC (k/uL) Date Value 01/12/2023 5.76 RBC (m/uL) Date Value 01/12/2023 4.39 Hemoglobin (g/dL) Date Value 01/12/2023 14.1 Hematocrit (%) Date Value 01/12/2023 40.8 MCV (fL) Date Value 01/12/2023 92.9 MCH (pg) Date Value 01/12/2023 32.1 MCHC (g/dL) Date Value 01/12/2023 34.6 RDW-CV (%) Date Value 01/12/2023 12.9 Platelet Count (k/uL) Date Value 01/12/2023 185 MPV (fL) Date Value 01/12/2023 9.8 Glucose (mg/dL) Date Value 01/12/2023 106 (H) BUN (mg/dL) Date Value 01/12/2023 11 Creatinine (mg/dL) Date Value 01/12/2023 0.71 Sodium (mmol/L) Date Value 01/12/2023 139 Potassium (mmol/L) Date Value 01/12/2023 4.4 Chloride (mmol/L) Date Value 01/12/2023 104 CO2 (mmol/L) Date Value 01/12/2023 27 Protein, Total (g/dL) Date Value 01/12/2023 7.3 Albumin (g/dL) Date Value 01/12/2023 4.7 Calcium, Total (mg/dL) Date Value 01/12/2023 10.0 Alkaline Phosphatase (U/L) Date Value 01/12/2023 59 Bilirubin, Total (mg/dL) Date Value 01/12/2023 0.2 AST (U/L) Date Value 01/12/2023 28 ALT (U/L) Date Value 01/12/2023 27 DIAGNOSIS: (R59.1) Lymphadenop (more content not included)... [facility] 02-11-2022 Instructions Khalif Jackson DMD - 02/11/2022 12:29 PM EST Oral Surgery IV sedation / General anesthesia instructions You have chosen conscious sedation or general anesthesia for your treatment. You have the right to be informed about this so that you can decide whether to have it or not after knowing the risks and benefits. These common procedures are considered quite safe. Nevertheless, all procedures have some risks. They include the following and others: 1. Discomfort, swelling or bruising where the drugs are placed into a vein. 2. Vein irritation, called phlebitis, where the drugs are placed into a vein. Sometimes this may grow to a level of discomfort or disability where it may be difficult to move your arm or hand. Sometimes medication or other treatment may be needed. 3. Nerves travel next to the blood vessels where the drugs are placed into a vein. If the needle hits a nerve or if drugs or fluid leaks out of the vessel around a nerve, I may have numbness or pain in the nerve where it runs along the arm. Usually the numbness or pain goes away, but in some cases, it may be permanent 4. Allergic reactions (previously unknown) to any of the medications used. 5. Nausea and vomiting, although not common, are possible unfortunate side effects. Bed rest, and sometimes medications, may be required for relief. 6. Conscious sedation and general anesthesia are serious medical procedures and, whether given in a hospital or office, carry the risk of brain damage, stroke, heart attack or . YOUR OBLIGATIONS: 7. Because anesthetic or sedative medications (including oral premedication) causes drowsiness that lasts for some time, I MUST be accompanied by a responsible adult to drive me to and from surgery, and stay with me for several hours until you are recovered sufficiently to care for myself. Sometimes the effects of the drugs do not wear off for 24 hours. 8. During recovery time (normally 24 hours), I should not drive, operate complicated machinery or devices or make important decisions such as signing documents, etc. 9. I must have a completely empty stomach. It is vital that I have NOTHING TO EAT OR DRINK for eight (8) hours prior to your treatment. TO DO OTHERWISE MAY BE LIFE-THREATENING. 10. Unless instructed otherwise, it is important that I take any regular medications (high blood pressure, antibiotics, etc.) or any medicines given to me by my surgeon using only a small sip of water. 11. You must bring a responsible Adult with you who is willing to stay in the clinic waiting room while you are being treated, and who will take you home. Do not bring small children on day of procedure. Your escort must drive you to and from the hospital. Do not ride the bus. 12. If you are under 18 years of age, your mother, father, or legal guardian must come to the clinic with you. Female patients must have a negative test result from our lab in the system. 13. Do not wear: nail danish, lipstick, heavy makeup, contact lenses, jewelry, wigs. Do wear: loose clothes with short sleeves, long pants, shoes (no high heals). 14. Please call our office to cancel your appointment if you feel sick. documented in this encounter [facility] 02-11-2022 Instructions Khalif Jackson DMD - 02/11/2022 12:29 PM EST Oral Surgery IV sedation / General anesthesia instructions You have chosen conscious sedation or general anesthesia for your treatment. You have the right to be informed about this so that you can decide whether to have it or not after knowing the risks and benefits. These common procedures are considered quite safe. Nevertheless, all procedures have some risks. They include the following and others: 1. Discomfort, swelling or bruising where the drugs are placed into a vein. 2. Vein irritation, called phlebitis, where the drugs are placed into a vein. Sometimes this may grow to a level of discomfort or disability where it may be difficult to move your arm or hand. Sometimes medication or other treatment may be needed. 3. Nerves travel next to the blood vessels where the drugs are placed into a vein. If the needle hits a nerve or if drugs or fluid leaks out of the vessel around a nerve, I may have numbness or pain in the nerve where it runs along the arm. Usually the numbness or pain goes away, but in some cases, it may be permanent 4. Allergic reactions (previously unknown) to any of the medications used. 5. Nausea and vomiting, although not common, are possible unfortunate side effects. Bed rest, and sometimes medications, may be required for relief. 6. Conscious sedation and general anesthesia are serious medical procedures and, whether given in a hospital or office, carry the risk of brain damage, stroke, heart attack or . YOUR OBLIGATIONS: 7. Because anesthetic or sedative medications (including oral premedication) causes drowsiness that lasts for some time, I MUST be accompanied by a responsible adult to drive me to and from surgery, and stay with me for several hours until you are recovered sufficiently to care for myself. Sometimes the effects of the drugs do not wear off for 24 hours. 8. During recovery time (normally 24 hours), I should not drive, operate complicated machinery or devices or make important decisions such as signing documents, etc. 9. I must have a completely empty stomach. It is vital that I have NOTHING TO EAT OR DRINK for eight (8) hours prior to your treatment. TO DO OTHERWISE MAY BE LIFE-THREATENING. 10. Unless instructed otherwise, it is important that I take any regular medications (high blood pressure, antibiotics, etc.) or any medicines given to me by my surgeon using only a small sip of water. 11. You must bring a responsible Adult with you who is willing to stay in the clinic waiting room while you are being treated, and who will take you home. Do not bring small children on day of procedure. Your escort must drive you to and from the hospital. Do not ride the bus. 12. If you are under 18 years of age, your mother, father, or legal guardian must come to the clinic with you. Female patients must have a negative test result from our lab in the system. 13. Do not wear: nail danish, lipstick, heavy makeup, contact lenses, jewelry, wigs. Do wear: loose clothes with short sleeves, long pants, shoes (no high heals). 14. Please call our office to cancel your appointment if you feel sick. documented in this encounter [facility] 02-11-2022 History of Presen t illness Narrative Images from the original note were not included. FS PATIENT VISIT CHIEF COMPLAINT: Pain HISTORY OF PRESENT ILLNESS: 31 year old female with no significant PMH presents to [facility] clinic as a referral from an outside provider for the evaluation and extraction of teeth #2, 3, 15, 17, 19, 31. Pt reports that many of her teeth have broken off and started to cause pain. Pt endorses waxing and waning pain originating from the teeth listed on the referral that limits her ability to chew, function normally, and perform oral hygiene. PAST MEDICAL HISTORY: 31 yrs old White female No past medical history on file. There is no problem list on file for this patient. MEDICATIONS: Current Outpatient Medications Medication Sig Dispense Refill Cholecalciferol (Vitamin D3) 50 MCG (1999 UT) TABS hydrOXYzine (ATARAX) 25 MG tablet methylPREDNISolone (MEDROL) 4 MG tablet No current facility-administered medications for this visit. ALLERGIES: Patient has no allergy information on record. SURGICAL HX: Hsyterectomy Hernia repair Post anesthesia nausea SOCIAL HX: Tobacco: Yes Other types: Cigarettes 1 ppd for 15 years Denies EtOH CLINICAL EXAMINATION Extraoral examination: No significant findings No s/s of infection, redness or tenderness to palpation No facial asymmetry or swelling No appreciable LAD No popping/clicking/crepitus of TMJ b/l No tenderness to palpation of temporalis or masseter asymptomatic function Range of motion WNL CN V and VII intact Intraoral examination: No s/s of infection Erythematous mucosa around dentition with plaque accumulation Oropharynx clear No pathological soft lesions appreciated Oral cancer screen negative Occlusion stable Oral hygiene fair Retained root tips #3, 17, 19 Generalized decay LL quad TTP RADIOGRAPHIC INTERPRETATION: [employer] Film taken on 02/11/2022, and Retained in our clinic files Caries # 2, # 3, # 15, # 17, # 19, and # 31 Fractured # 3, # 17, and # 19 DIAGNOSIS: Caries and Retained dental roots TREATMENT: Exam, [employer] evaluated, Informed consent obtained and all patient questions regarding procedure answered, and Awaiting Insurance authorization. PLAN: 31 yof with no significant PMH presents with painful, grossly decayed teeth and retained root tips #2, 3, 15, 17, 19, 31 that require extraction to prevent the spread of future infection. The pt is anxious for the procedure, so the extractions will be performed with oral sedation. Informed consent was obtained at appointment. Extractions # 2, # 3, # 15, # 17, # 19, and # 31 and with local anesthesia and oral sedation Khalif Jackson DMD documented in this encounter [facility] 02-11-2022 History of Presen t illness Narrative Images from the original note were not included. OMFS PATIENT VISIT CHIEF COMPLAINT: Pain HISTORY OF PRESENT ILLNESS: 31 year old female with no significant PMH presents to [facility] clinic as a referral from an outside provider for the evaluation and extraction of teeth #2, 3, 15, 17, 19, 31. Pt reports that many of her teeth have broken off and started to cause pain. Pt endorses waxing and waning pain originating from the teeth listed on the referral that limits her ability to chew, function normally, and perform oral hygiene. PAST MEDICAL HISTORY: 31 yrs old White female No past medical history on file. There is no problem list on file for this patient. MEDICATIONS: Current Outpatient Medications Medication Sig Dispense Refill Cholecalciferol (Vitamin D3) 50 MCG (1999 UT) TABS hydrOXYzine (ATARAX) 25 MG tablet methylPREDNISolone (MEDROL) 4 MG tablet No current facility-administered medications for this visit. ALLERGIES: Patient has no allergy information on record. SURGICAL HX: Hsyterectomy Hernia repair Post anesthesia nausea SOCIAL HX: Tobacco: Yes Other types: Cigarettes 1 ppd for 15 years Denies EtOH CLINICAL EXAMINATION Extraoral examination: No significant findings No s/s of infection, redness or tenderness to palpation No facial asymmetry or swelling No appreciable LAD No popping/clicking/crepitus of TMJ b/l No tenderness to palpation of temporalis or masseter asymptomatic function Range of motion WNL CN V and VII intact Intraoral examination: No s/s of infection Erythematous mucosa around dentition with plaque accumulation Oropharynx clear No pathological soft lesions appreciated Oral cancer screen negative Occlusion stable Oral hygiene fair Retained root tips #3, 17, 19 Generalized decay LL quad TTP RADIOGRAPHIC INTERPRETATION: Panorex Film taken on 02/11/2022, and Retained in our clinic files Caries # 2, # 3, # 15, # 17, # 19, and # 31 Fractured # 3, # 17, and # 19 DIAGNOSIS: Caries and Retained dental roots TREATMENT: Exam, Panorex evaluated, Informed consent obtained and all patient questions regarding procedure answered, and Awaiting Insurance authorization. PLAN: 31 yof with no significant PMH presents with painful, grossly decayed teeth and retained root tips #2, 3, 15, 17, 19, 31 that require extraction to prevent the spread of future infection. The pt is anxious for the procedure, so the extractions will be performed with oral sedation. Informed consent was obtained at appointment. Extractions # 2, # 3, # 15, # 17, # 19, and # 31 and with local anesthesia and oral sedation Khalif Jackson DMD Associated attestation - Marci Reyes DMD, MD - 02/16/2022 9:35 AM EST Teaching Physician Note: I saw and evaluated the patient. I personally obtained the esparza and critical portions of the history and physical exam. I reviewed the resident's documentation and discussed the patient with the resident. I agree with the resident's medical decision making as documented in the resident's note. Marci Reyes DMD, MD documented in this encounter [facility] 04-10-2020 Note The [place], [place] NAME: AYANA GILL DATE OF : MEDICAL REC#: [id number] STUDIO TECHNICIAN: 1421 LUCAS MARTIN ADMIT DATE: 04/10/2020 07:36:00 FOOTBALL PAD REPAIRER DATE: 04/14/2020 08:00 DICTATING PHYSICIAN: SCOTT MCINTOSH DICTATION DATE: 04/10/2020 11:00 OPERATIVE NOTE OPERATION DATE: 04-10-20 ANESTHETIC: ANIMAL NURSE:FINESES Maldonado PREOPERATIVE DIAGNOSIS: 1. Menorrhagia. 2. Pelvic pain. 3. Suspected adenomyosis. POSTOPERATIVE DIAGNOSIS: Same as above. PROCEDURE NAME:Total abdominal hysterectomy without bilateral salpingectomy with cystoscopy. URINE OUTPUT:Yellow and clear. BLOOD LOSS:200 mL. SPECIMENS:Uterus. FINDINGS: Normal appearing ovaries. Bilateral salpingectomy already performed in prior procedure. Slightly enlarged uterus. PROCEDURE: The patient was taken back to the Operating Room where she was given general anesthesia without difficulty after being placed in the supine position. She was then prepped and draped in the normal sterile fashion. A Pfannenstiel skin incision was then made 2 cm above the symphysis pubis and carried down through the underlying rectus fascia using a Bovie. The fascia was incised in the midline and extended laterally using Motley scissors. Two Nura clamps were placed on the superior aspect of the fascia and dissected down through the underlying rectus muscle. The same was performed on the inferior aspect as well. The muscle was in the midline, and the peritoneum was identified and entered bluntly. After the peritoneum was extended superiorly and inferiorly with good visualization of the bladder, the O'Jones-O'Corky retractor was placed into the patient's abdomen, and the bowel was packed away with moist laparotomy sponges. The bladder blade was also inserted. A Leahey tenaculum was placed on the fundal region of the patient's uterus and used for retraction. On the patient's right side, the uteroovarian ligament was transected and coagulated using a LigaSure apparatus. This was carried down through the broad ligament and across the round ligament. This was performed on the contralateral side as well. The bladder flap was then created using Metzenbaum scissors and dissected off the lower uterine segment. A curved Swetha clamp was placed on the patient's right uterine artery which was then clamped, transected, and suture ligated using 0 Monocryl. This was performed on the contralateral side as well. The patient then also had on the right side also serial clamps using Z-clamps placed across the cardinal and uterosacral ligaments. These were clamped, transected, and suture ligated using 0 Monocryl. The same was performed on the contralateral side as well. The uterus was amputated using the Annette scissors. The vaginal cuff was closed using 0 PDS in a running lock fashion. The cuff angles were then transfixed to the ipsilateral uterosacral and cardinal ligaments. Excellent hemostasis was assured. The patient's abdomen was then copiously irrigated with warm saline. Again, excellent hemostasis was assured. All instruments were removed from the patient's abdomen. Sponge, lap, and needle counts were correct. The patient's fascia was closed using 0 Vicryl in a running fashion. The patient's skin was closed using tete. Cystoscopy was performed. Bladder was intact. Efflux was noted from both ostia. Cystoscope was removed. The patient tolerated the procedure well. Sponge, lap, and needle counts were correct x 2. The patient was taken to the Recovery Room in stable condition Electronically Authenticated and Edited by: Scott Mcintosh DO on 04/14/2020 07:07 PM EST [facility] Signed and Approved by: DR SCOTT MCINTOSH . 04/14/2020 19:07:00 [facility] 04-10-2020 Note DISCHARGE SUMMARY Discharge Date: 04/12/2020 PRIMARY DIAGNOSES: 1. Menorrhagia. 2. Pelvic pain. 3. Suspect adenomyosis. PROCEDURE: Total abdominal hysterectomy without bilateral salpingectomy, with cystoscopy. HOSPITAL COURSE: As expected. Please see chart for full details. LABORATORY DATA: Please see chart. DISCHARGE CONDITION: Stable. CONSULTATION: Anesthesia. DISCHARGE INSTRUCTIONS: 1. Diet: Regular. 2. Medications: a. Percocet 5/325 one to two p.o. every 4-6 hours p.r.n. pain. b. Motrin 800 one p.o. every 8 hours p.r.n. pain. 3. Followup in 1 week. Restrictions: Pelvic rest for 6 weeks. No heavy lifting. May drive when pain free and no longer on narcotics.. [facility] Signed and Approved by: DR SCOTT MCINTOSH . 05/04/2020 07:37:00 [facility] 01-03-2020 Note The [place], [place] NAME: AYANA GILL DATE OF : MEDICAL REC#: [id number] STUDIO TECHNICIAN: 1421 LUCAS MARTIN ADMIT DATE: 01/03/2020 07:44:00 FOOTBALL PAD REPAIRER DATE: 01/03/2020 10:00 DICTATING PHYSICIAN: SCOTT MCINTOSH DICTATION DATE: 01/03/2020 10:00 OPERATIVE NOTE OPERATION DATE: 01-03-20 ANESTHETIC: General. ANIMAL NURSE:FINESSE Shields PREOPERATIVE DIAGNOSIS:Pelvic pain. POSTOPERATIVE DIAGNOSIS:Pelvic pain. PROCEDURE NAME:Diagnostic laparoscopy. URINE OUTPUT:Yellow and clear. SPECIMEN:Free pelvic fluid which was sent off for Cytology. BLOOD LOSS:5 mL. FINDINGS: Adenomyotic appearing uterus with significant amount of free pelvic fluid. Absent tubes, normal appearing ovaries. Normal appearing appendix. PROCEDURE: The patient was taken back to the Operating Room where she was placed in dorsal lithotomy position after given general anesthesia. The patient was prepped and draped in normal sterile fashion. A sponge stick was placed into the patient's vagina. Attention was turned to the patient's abdomen, where a small umbilical incision was made. The fascia was tented using Nura clamps and the fascia was entered sharply. Confirmation of intraabdominal placement of the 10 mm port was confirmed under direct visualization using a laparoscope. The patient's abdomen was then insufflated using CO2 gas with approximately 4 liters. A second port was placed lt laterally this was done under direct visualization with a 5 mm port. Survey of the patient's abdomen demonstrated normal liver and gallbladder. Survey of the patient's pelvic anatomy demonstrated normal appearing ovaries and tubes as well as normal appearing uterus. No endometrial implants could be noted, no evidence of any pelvic disease was seen, normal appearing pelvic cavity. All instruments were removed from the patient's abdomen. The patient's abdomen was insufflated using CO2 gas. The patient tolerated the procedure well. Sponge stick was removed from the patient's vagina. The patient's infraumbilical fascia was closed using #0 Vicryl on a GI needle. The patient's skin was closed suprapubically and infraumbilically using 4-0 Vicryl. The patient tolerated the procedure well. Sponge, lap and needle counts were correct x 2. The patient taken to Recovery Room in stable condition Electronically Authenticated and Edited by: Scott Mcintosh DO on 01/06/2020 08:56 AM [facility] Signed and Approved by: DR SCOTT MCINTOSH . 01/06/2020 08:56:00 [facility] Evaluation note No assessment inform ation available [facility] Work Phone: Evaluation note Diagnosis Caries- Primary Unspecified dental caries [facility] Caries- Primary Unspecified dental caries Body mass index (BMI) 22.0-22.9, adult [facility] note[facility] [employer] Other Evaluation note* Diagnosis Pulmonary emphysema, unspecified emphysema type (HCC)- Primary [facility] Pulmonary emphysema, unspecified emphysema type (HCC)- Primary documented in this encounter [facility] general [facility] - [facility] Other [facility] Discharge instructions Additional Instructions [facility] Phone: Reason for referral (narrative)* Outpatient Procedure (Routine) - Pending Review Specialty Diagnoses / Procedures Referred By Contac t Referred To Contact [facility] Diagnoses Pulmonary emphysema, unspecified emphysema type (HCC) Procedures SPIROMETRY WITH DILATOR IF OBSTRUCTED BRNCDILAT RSPSE SPMTRY PRE&POST-BRNCDILAT ADMN Fam Mcnair MD [address] [place] [address] [address] Referral ID Status Reason Start Date Expiration Date Visits Requested Visits Authorized [id number] Pending Review Auto-Generat ed Referral 3 03/11/2024 1 1 * Outpatient Procedure (Routine) - Pending Review Specialty Diagnoses / Procedures Referred By Contac t Referred To [facility] [place] Diagnoses Pulmonary emphysema, unspecified emphysema type (HCC) Procedures LUNG DIFFUSION CAPACITY (DLCO) DIFFUSING CAPACITY Fam Mcnair MD [address] [place] [address] [address] Referral ID Status Reason Start Date Expiration Date Visits Requested Visits Authorized [id number] Pending Review Auto-Generat ed Referral 3 03/11/2024 1 1 [facility] Summary Purpose Family History No Family History Records Found Relationship Condition Age at Onset Recorded Date/T ray Not Specified No pertinent family history Unknown Advance Directives No Advanced Directives Records Found Advance Directive Response Recorded Date/ Time Advance Directives No January 04, 2017 4:30pm Advance Directive Response Recorded Date/ Time Advance Directives No January 04, 2017 5:30pm Chief Complaint and Reason for Visit Chief Complaint Screening Chief Complaint Screening sore throat/fever/body aches Chief Complaint Cough rib pain Chief Complaint Cough rib pain neck injury, [place] parts authority [facility];neck strain chest pains Chief Complaint chest pains [facility];neck strain R07.89 r07.89 Chief Complaint R07.89 r07.89 Chief Complaint R07.89 r07.89 Right side abd pain Reason for Referral Specialty Diagnoses / Procedures Referred By Lisy lopez Referred To Contact Oral Surgery Diagnoses Caries Procedures EXTRACTION ERUPTED TOOTH/EXR Marci Reyes DMD, MD [address] [place] [address] Referral ID Status Reason Start Date Expiration Date V isits Requested Visits Authorized [id number] Pending Review 02/13/2022 02/13/2023 1 1 Scheduling Instructions If your in-clinic procedure was not scheduled for you today, please call (option 2) during normal business hours (8 am to 5 pm) on to schedule. Please allow 4 weeks time between the day of your consult to scheduling your procedure to allow the system time to process the order and receive insurance authorization. If your insurance denies all or part of your procedure, you will be contacted with [id number] costs or next steps. All self-pay payments will need to be collected in full prior to having the procedure. Please arrive 30 minutes prior to your procedure. If you are having a local anesthesia procedure: No diet restrictions the day before or day of the procedure. You may take your normal medications as instructed. No covid testing needed. You may drive yourself home afterward. If you are prescribed anxiety reducing medications for the procedure: You also MUST have a hazmat cdl driver/escort >18yrs old present to take you home after. If your provider has proposed an IV sedation procedure: Please refer to the instructions given to you at your consult appointment. You will receive a call from a nurse roughly 1 week prior to your procedure to go over any/all instructions. Question Answer What is the procedure for? Dental Please specify: Extractions Please specify: Routine Extraction Routine Extraction--please list tooth number(s): 2, 3, 15, 17, 19, 31 Is Sedation Needed? Local Anesthesia Procedure Length: 60 Which area is this procedure for? Clinic Additional Source Comments INFORMATION SOURCE (unrecogn ized section and content) DATE CREATED AUTHOR 10/29/2020 [facility] DATE CREATED AUTHOR AUTHOR'S ORGANIZ ATION 02/18/2022 [facility] DATE CREATED AUTHOR AUTHOR'S ORGANIZ ATION 11/18/2022 [facility] DATE CREATED AUTHOR AUTHOR'S ORGANIZ ATION 01/09/2023 [facility] DATE CREATED AUTHOR AUTHOR'S ORGANIZ ATION 01/25/2023 [facility] DATE CREATED AUTHOR AUTHOR'S ORGANIZ ATION 02/13/2023 [facility] Care Teams (unrecognized sec tion and content) Team Status: Inactive Member Role Status Dates Venus Cespedes APRN Primary Care Provider, Attendin g Provider Active Team Status: Active Member Role Status Dates Venus Cespedes APRN Primary Care Provider Active Team Status: Inactive Member Role Status Dates Venus Cespedes APRN Primary Care Provider Active Rodger Malagon MD Emergency Provider Active Team Status: Inactive Member Role Status Dates Venus Cespedes APRN Primary Care Provider Active Gerald Ryan APRN Emergency Provider Active Team Status: Active Member Role Status Dates Venus Cespedes APRN Primary Care Provider Active Jose Perez DO [facility] Attending Provider Active Team Status: Inactive Member Role Status Dates Venus Cespedes APRN Primary Care Provider Active Lavinia Flores DO Emergency Provider Active Team Status: Inactive Member Role Status Dates Venus Cespedes APRN Primary Care Provider Active Kane Crouch MD Emergency Provider Active Button Maker [employer] Installer Relationship Specialty Start Date End Date Venus Cespedes CNP [address] [place] [id number] PCP - General Family Medicine 01/12/23 [employer] Installer Relationship Specialty Start Date End Date Venus Cespedes CNP [address] [place] [id number] PCP - General Family Medicine 01/12/23 [employer] Maker [employer] Installer Relationship Specialty Start Date End Date Venus Cespedes CNP [address] [place] [id number] PCP - General Family Medicine 01/12/23 Goals (unrecognized section and content) Goals may be documented in a n alternate sectionGoals may be documented in an alternate sectionGoals may be documented in an alternate sectionGoals may be documented in an alternate sectionGoals may be documented in an alternate sectionGoals may be documented in an alternate sectionGoals may be documented in an alternate sectionGoals may be documented in an alternate section Reason for Visit (unrecogniz ed section and content) Specialty Diagnoses / Procedures Referred By Contac t Referred To Contact Diagnoses Dental caries EXT 2,3,15,17,19,31 Jm Buenrostro, MARA [address] [place] [address] ORAL SURGERY [address] [place] [address] Referral ID Status Reason Start Date Expiration Date Visits Requested Visits Authorized [id number] Authorized Transfer of Care-[facility] 09/23/2021 09/23/2022 3 3 Reason Comments Lymphadenopathy Reason Comments Referral Information Pulmonary Source Comments (unrecognize d section and content) In the event this informatio n is protected by the Federal Confidentiality of Alcohol and Drug Abuse Patient Records regulations: The Federal rules restrict any use of the information to criminally investigate or prosecute any alcohol or drug abuse patient.[facility] the event this information is protected by the Federal Confidentiality of Alcohol and Drug Abuse Patient Records regulations: The Federal rules restrict any use of the information to criminally investigate or prosecute any alcohol or drug abuse patient.[facility] the event this information is protected by the Federal Confidentiality of Alcohol and Drug Abuse Patient Records regulations: The Federal rules restrict any use of the information to criminally investigate or prosecute any alcohol or drug abuse patient.[facility] FOR RECORDS PERTAINING TO PATIENTS WHO ARE OR HAVE BEEN ENROLLED IN A CHEMICAL DEPENDENCY/SUBSTANCEABUSE PROGRAM, SOME INFORMATION MAY BE OMITTED. This clinical summary was aggregated from multiple sources. Caution should be exercised in using it in the provision of clinical care. This summary normalizes information from multiple sources, and as a consequence, information in this document may materially change the coding, format and clinical context of patient data. In addition, data may be omitted in some cases. CLINICAL DECISIONS SHOULD BE BASED ON THE PRIMARY CLINICAL RECORDS. [facility] [employer] [facility]. provides no warranty or guarantee of the accuracy or completeness of information in this document.
== END 2023-01-09 07:58 | disposition home or self-care (01) ==
LOC: US 07:57
PROVIDERS: Visit Provider Obstetrics & Gynecology
DX: R10.31 Right lower quadrant pain (principal)
CPT/HCPCS: 76830; 76856

== ENCOUNTER 2023-01-23 11:00 | Outpatient (OUT) | payer MEDICAID, SELFPAY | END 2023-01-23 11:01 | disposition home or self-care (01) | LOC: PST 11:01 | PROVIDERS: Visit Provider Obstetrics & Gynecology | DX: Z01.818 Encounter for other preprocedural examination (principal); R10.2 Pelvic and perineal pain; N83.202 Unspecified ovarian cyst, left side ==

== ENCOUNTER 2023-02-03 07:57 | Day surgery (SDC) | payer MEDICAID, SELFPAY ==
[2023-01-23 11:37] VITALS: BP 109/74; PULSE 69; RESP 16; TEMP 36.5; O2SAT 99; BMI 21.8
[2023-02-03] VITALS (13 sets, daily range): BP systolic 96–115; BP diastolic 57–63; PULSE 57–70; RESP 9–22; TEMP 35.8–36.6; O2SAT 94–100; BMI 21.7
[2023-02-03 08:05] LABS: Basophils Absolute Auto 0.1 10^3/uL (0.0-0.1); Basophils Percent Auto 0.9 % (0.2-2.0); Eosinophils Absolute Auto 0.3 10^3/uL (0.0-0.7); Eosinophils Percent Auto 4.6 % (0.9-7.0); Hematocrit 41.4 % (36.0-48.0); Hemoglobin 13.8 g/dL (12.0-16.0); Lymphocytes Absolute Auto 1.7 10^3/uL (1.2-3.8); Lymphocytes Percent Auto 29.8 % (20.5-60.0); Mean Corpuscular HGB Conc 33.3 g/dL (29.9-35.2); Mean Corpuscular Hemoglobin 31.9 pg (26.7-34.0); Mean Corpuscular Volume 95.8 fL (81.0-99.0); Mean Platelet Volume 9.8 fL (9.5-13.5); Monocytes Absolute Auto 0.4 10^3/uL (0.3-0.8); Monocytes Percent Auto 7.7 % (1.7-12.0); Neutrophils Absolute Auto 3.3 10^3/uL (1.4-6.5); Platelet Count 181 10^3/uL (150-450); Red Blood Count 4.32 10^6/uL (4.20-5.40); Red Cell Distribution Width 12.7 % (11.0-15.0); White Blood Count 5.7 10^3/uL (4.0-11.0)
[2023-02-03] MEDS: LACTATED RINGER'S SOLUTION 1,000 ML 50 ML IV (08:30)
--- NOTE | 2023-02-03 10:35 | PM.ONB ---
Brief Operative Note Date of procedure: 02/03/23 Pre-op diagnosis: pelvic pain Post-op diagnosis: same as pre-op Procedure: NAME OF PROCEDURE: [diagnostic laparoscopy lysis of omental adhesions] PROCEDURE: The patient was taken back to the Operating Room where she was placed in dorsal lithotomy position after given general anesthesia. The patient was prepped and draped in normal sterile fashion. A sponge stick was placed into the patient's vagina. Attention was turned to the patient's abdomen, where a small umbilical incision was made. The fascia was tented using Nura clamps and the fascia was entered sharply. Confirmation of intraabdominal placement of the 10 mm port was confirmed under direct visualization using a laparoscope. The patient's abdomen was then insufflated using CO2 gas with approximately 4 liters. A second port was placed left laterally, this was done under direct visualization with a 5 mm port. Survey of the patient's abdomen demonstrated normal liver and gallbladder. Survey of the patient's pelvic anatomy demonstrated normal appearing rt and lt ovary and absent tubes and uterus. No endometrial implants could be noted, no evidence of any pelvic disease was seen, normal appearing pelvic cavity. All instruments were removed from the patient's abdomen. The patient's abdomen was deinsufflated of CO2 gas. The patient tolerated the procedure well. Sponge stick was removed from the patient's vagina. The patient's infraumbilical fascia was closed using #0 Vicryl on a GI needle. The patient's skin was closed laterally and infraumbilically using 4-0 Vicryl. The patient tolerated the procedure well. Sponge, lap and needle counts were correct x 2. The patient was taken to Recovery Room in stable condition. ligasure was used to removed omental adhesions from the anterior abdominal wall Anesthesia: LILLIE Surgeon: Scott Mcintosh President [place]: Andreina Chou Estimated blood loss (mL): 5 Pathology: none sent Condition: stable Disposition: PACU
--- NOTE | 2023-02-03 11:19 | PC.NURSE ---
PATIENT DENIES ANY PAIN THROUGH OUT RECOVERY HEAT PAD PLACED ON ABDOMEN . PATIENT STATES PAIN IS TOLERABLE
[2023-02-03] MEDS: HYDROCODONE/ACET 5-325 MG TABLET 1 TAB PO (12:20)
--- NOTE | 2023-02-03 12:23 | PC.NURSE ---
PAIN MEDS GIVEN
--- NOTE | 2023-02-03 12:58 | PC.NURSE ---
Patient voided yellow urine 150ml
== END 2023-02-03 13:25 | disposition home or self-care (01) ==
PROVIDERS: Visit Provider Obstetrics & Gynecology
PROC: (CPT 840; principal; 2023-02-03 09:10)
DX: R10.2 Pelvic and perineal pain (principal); N83.202 Unspecified ovarian cyst, left side; N73.6 Female pelvic peritoneal adhesions (postinfective); F17.210 Nicotine dependence, cigarettes, uncomplicated; Z90.710 Acquired absence of both cervix and uterus; Z98.51 Tubal ligation status
CPT/HCPCS: 49329; 36415; 85025; J2704

== ENCOUNTER 2024-01-18 12:54 | Outpatient (OUT) | payer MEDICAID, SELFPAY ==
--- NOTE | 2024-01-18 12:58 | MM_ITS ---
Patient Name: TABITHA PAPPAS MR#: [id number] : 1990 Exam Date: 01/18/2024 Ordering Doctor: KAVON Menjivar . RADIOLOGY REPORT PROCEDURE: MM TOMOSYNTHESIS DIAGNOSTIC BI, 01/18/2024, 13:01 US BREAST RT LIMITED, 01/18/2024, 13:52 COMPARISON: MM TOMOSYNTHESIS DIAGNOSTIC BI, 10/14/2022. MG MAMM SCREEN 3D CHANEL CAD, 01/03/2022. INDICATIONS: Right Breast Pain Calculator Name NCI Breast Cancer Risk Assessment Tool 5 Year Breast Cancer Risk 0.20% Lifetime Breast Cancer Risk 6.90% Personal Breast Cancer No Personal Ovarian Cancer No Treatments None Family Cancers Grandmother-paternal with breast cancer at age 65. LOCATION: [facility] BREAST COMPOSITION: The breasts are extremely dense, which lowers the sensitivity of mammography. FINDINGS: DIAGNOSTIC CATEGORY 3--PROBABLY BENIGN FINDING. THE FOLLOWING FINDING(S) HAS A HIGH PROBABILITY OF A BENIGN ETIOLOGY: RIGHT BREAST: Skin surface marker localizes patient's palpable lump to the posterior upper-outer quadrant. No mammographic abnormality. Ultrasound evaluation demonstrates normal appearing dense fibroglandular tissue accounting for patient's palpable area. No suspicious findings. Patient mentions tenderness within axilla; ultrasound evaluation demonstrates and 8 x 5 x 4 mm hypoechoic area within the dermal/subdermal layer which also demonstrates posterior acoustic enhancement suggesting this is fluid-filled. Possible sebaceous gland cyst. Consider follow-up ultrasound evaluation of the axilla of findings in 6 months or as clinically indicated. LEFT BREAST: No significant suspicious finding. No significant change has occurred. RECOMMENDATIONS: SHORT TERM FOLLOW-UP ULTRASOUND RIGHT BREAST IN 6 MONTHS. PLEASE NOTE: A NORMAL MAMMOGRAM DOES NOT EXCLUDE THE POSSIBILITY OF BREAST CANCER. A CLINICALLY SUSPICIOUS PALPABLE LUMP SHOULD BE BIOPSIED. Dictated by: Meek Lira M.D. on 01/18/2024 at 15:47 Approved by: Meek Lira M.D. on 01/18/2024 at 15:53
--- OUTSIDE RECORDS SUMMARY | 2024-01-18 13:12 | XMS_ITS | CCD ---
Author Organization [facility] CliniSywy Care Team Providers Care Floor Assembler Name Role Phone ARNALDO, DR MEEHAN Attending Unavailable ARNALDO, DR MEEHAN Admitting Unavailable ARNALDO, DR MEEHAN Procedure Practitioner Unavailab le MISC, DR HASKINS Primary Care Unavailable KARASIK, DR LANDEROS Consulting Unavailable ARNALDO, DR MEEHAN Consulting Unavailable NATEPAULINA Consulting Unavailable ARNALDO, DR MEEHAN Attending Unavailable ARNALDO, DR MEEHAN Admitting Unavailable ARNALDO, DR MEEHAN Attending Unavailable ARNALDO, DR MEEHAN Consulting Unavailable ARNALDO, DR MEEHAN Admitting Unavailable ARNALDO, DR MEEHAN Admitting Unavailable ARNALDO, DR MEEHAN Consulting Unavailable ARNALDO, DR MEEHAN Attending Unavailable ARNALDO, DR MEEHAN Consulting Unavailable ARNALDO, DR MEEHAN Admitting Unavailable ARNALDO, DR MEEHAN Attending Unavailable ARNALDO, DR MEEHAN Attending Unavailable ARNALDO, DR MEEHAN Consulting Unavailable ARNALDO, DR MEEHAN Admitting Unavailable MISC, DR HASKINS Consulting Unavailable ARNALDO, DR MEEHAN Attending Unavailable ARNALDO, DR MEEHAN Admitting Unavailable ARNALDO, DR MEEHAN Consulting Unavailable ARNALDO, DR MEEHAN Admitting Unavailable ARNALDO, DR MEEHAN Attending Unavailable AGUBOSIM, HAYLEY Consulting Unavailable ALMAZ LINOREN Consulting Unavailable KITA Cespedes Primary Care Provider KITA Cespedes Attending Provider MD Rodger Malagon Emergency Provider Unavailable Primary Care Provider UnavailJM Mejias Referring Unavailable PROVIDER, UNKNOWN Attending Unavailable PROVIDER, UNKNOWN Admitting Unavailable KITA Cespedes Primary Care Provider [phone] KITA Ryan Emergency Provider Alireza Noland Unavailable DO Jose Perez Attending Provider [phone] DO Abelino Arevalo Emergency Provider [place], FIRE POT OPERATORCliff MurphyVenus S Primary Care Provider DO Jose Perez Attending Provider [place], FIRE POT OPERATORCliff MurphyVenus S Attending Provider [place], FIRE POT OPERATOR Venus S Primary Care Provider [phone] [place], FIRE POT OPERATOR Venus S Primary Care Provider [phone] [place], FIRE POT OPERATORCliff MurphyVenus S Attending Provider [phone] MD Kane Crouch Emergency Provider [facility], Venus Primary Care Provider [phone] THELMA GARCIA Attending Unavailable ARNALDO, SCOTT Referring Unavailable ARNALDO, SCOTT Referring Unavailable ARNALDO, SCOTT Attending Unavailable [place], [facility] S Primary Care Provider [phone] DO Jose Perez Attending Provider [place] PATIENT CONSUMER MARKETER, Venus Primary Care Provider WEST, VENUS Primary Care Unavailable ABHYANKAR, IZAIAH Referring Unavailable WEST, VENUS Primary Care Unavailable ABHYANKAR, IZAIAH Attending Unavailable WEST, VENUS Primary Care Unavailable ABHYANKAR, IZAIAH Referring Unavailable ABHYANKAR, IZAIAH Attending Unavailable WEST, VENUS Referring Unavailable WEST, VENUS Primary Care Unavailable WEST, VENUS Primary Care Unavailable WEST, VENUS Primary Care Unavailable LETA FUENTES Attending Unavailable ABHYANKAR, IZAIAH Referring Unavailable WEST, VENUS Primary Care Unavailable ABHYANKAR, IZAIAH Attending Unavailable WEST, VENUS Primary Care Unavailable ABHYANKAR, IZAIAH Referring Unavailable FAM LAUREN Attending Unavailable WEST, VENUS Primary Care Unavailable WEST, VENUS Primary Care Unavailable ABHYANKAR, IZAIAH Referring Unavailable [place], FIRE POT OPERATOR Venus S [facility] Attending Provider KITA Ryan Emergency Provider DO Abelino Arevalo Emergency Provider KITA Cespedes Attending Provider Kane Crouch Admitting Unavailable Kane Crouch Attending Unavailable [place], Venus S Primary Care Unavailable West, Venus S Primary Care Unavailable Abelino Arevalo Admitting Unavailable Abelino Arevalo Attending Unavailable Kuns - [facility], Jose P Admitting Unavailable Kuns - [facility], Jose P Attending Unavailable West, Venus S Primary Care Unavailable Kuns, Jose Admitting Unavailable Kuns, Jose Attending Unavailable [place], Venus S Primary Care Unavailable Kuns - [facility], Jose P Admitting Unavailable Kuns - [facility], Jose P Attending Unavailable West, Venus S Primary Care Unavailable West, Venus S Attending Unavailable West, Venus S Admitting Unavailable West, Venus S Primary Care Unavailable West, Venus S Admitting Unavailable West, Venus S Primary Care Unavailable West, Venus S Attending Unavailable West, Venus S Attending Unavailable West, Venus S Admitting Unavailable West, Venus S Primary Care Unavailable Gerald Ryan Attending Unavailable Gerald Ryan Admitting Unavailable [place], Venus S Primary Care Unavailable Allergies Allergy Classification Reported Allergen(s) Allergy Type Date of Onset Reaction(s) Facility (1 source) Povidone-Iodine Drug Allergy 01-03-2020 [facility] Repository Medications Current Medications Medication Drug Class(es) Dates Sig (Normalized) Sig (Original) 0.4 ml adalimumab 100 mg/ml auto-injector (9 sources) Tumor Necrosis Factor Leatha Start: 06-25-2022 Adalimumab (Humira(Cf) Pen) 40 mg/0.4 mL pen injector kit Active MG SUBCUT June 25, 2022 12:00am [id number] 200 actuat albuterol 0.09 mg/actuat metered dose inhaler (11 sources) beta2-Adrenergic Agonist Start: 06-25-2022 Albuterol Sulfate (Proair Hfa) 90 mcg/actuation HFA aerosol inhaler Active 1 INH INHALATION Every 6 hours 8.5 July 12, 2023 9:29am cefdinir 300 mg oral capsule (1 source) Cephalosporin Antibacterial Start: 08-21-2023 End: 08-26-2023 take 1 capsule by mouth twice daily cefdinir (OMNICEF) 300 mg capsule Indications: Upper respiratory tract infection, unspecified type Take 1 capsule by mouth two times a day for 5 days. 10 capsule 0 08/21/2023 08/26/2023 Active cholecalciferol 0.05 mg oral tablet (2 sources) Vitamin D Start: 01-24-2022 Cholecalciferol (Vitamin D3) 50 MCG (1999 UT) TABS enteric contrast (will be provided with radiology test) (11 sources) Start: 01-12-2023 enteric contrast (will be provided with radiology test) Indications: Lymphadenopathy For CT CHESTABD/PEL W IVCON Routine order Administer, As Directed One Time Only, via Oral, Rectal, both Oral and Rectal, Enteric Tube, Stoma or Indwelling Catheter, Enteric Contrast as designated per enteric contrast guidelines 1 Each 01/12/2023 Active Start: 01-12-[address] (will be provided with radiology test) Indications: [...] Contrast as designated per enteric contrast guidelines hydrOXYzine hydrochloride 25 mg oral tablet (2 sources) Antihistamine Start: 02-10-2022 hydrOXYzine (ATARAX) 25 MG tablet iv contrast (will be provided with radiology test) (11 sources) Start: 01-12-2023 iv contrast (will be provided with radiology [...] CT contrast administration guidelines link. 1 Each 01/12/2023 Active Start: 01-12-2023 iv contrast (w ill be [...] link. 1 ml ixekizumab 80 mg/ml auto-injector (12 sources) Interleukin-17A Antagonist Start: 01-05-2023 TALTZ AUTOINJECTOR 80 mg/mL pen 01/05/2023 Active methylPREDNISolone 4 mg oral tablet (3 sources) Corticosteroid Start: 08-12-2022 Start: 02-11-2022 methylPREDNISo lone (MEDROL) 4 MG tablet predniSONE 10 mg oral tablet (20 sources) Start: 08-21-2023 End: 09-01-2023 take 4 tablets by mouth once daily, then take 3 tablets by mouth once daily, then take 2 tablets by mouth once daily, then take 1 tablet by mouth once daily predniSONE (DELTASONE) 10 mg tablet Indications: Upper respiratory tract infection, unspecified type Take 4 tablets by mouth once daily for 3 days, THEN 3 tablets once daily for 3 days, THEN 2 tablets once daily for 3 days, THEN 1 tablet once daily for 3 days. 30 tablet 0 08/21/2023 09/01/2023 Active Start: 01-31-2017 End: 02-05-2017 take 40 mg by mouth once daily at mealtime Prednisone Discontinued 40 MG PO Daily 10 January 31, 2017 1:00am February 05, 2017 1:03am administer with food or milk Start: 01-04-2017 End: 01-09-2017 take 60 mg by mouth once daily at mealtime Prednisone Discontinued 60 MG PO daily 11 07January 04, 2017 1:00am January 09, 2017 1:03am administer with food or milk Completed/Discontinued Medications Medication Drug Class(es) Dates Sig (Normalized) Sig (Original) amoxicillin 500 mg oral tablet (20 sources) Penicillin-class Antibacterial Start: 01-25-2022 End: 06-25-2022 take 500 mg by mouth three times daily Amoxicillin Discontinued 500 MG PO Three times daily January 25, 2022 1:00am June 25, 2022 3:40pm Start: 05-11-2018 End: 05-21-2018 take 500 mg by mouth three times daily Amoxicillin Discontinued 500 MG PO Three times daily 26 12May 11, 2018 12:00am May 21, 2018 12:02am azithromycin 250 mg oral tablet (11 sources) Macrolide Antimicrobial Start: 01-24-2017 End: 09-12-2017 take 2 tablets by mouth once daily, then take 1 tablet by mouth once daily Azithromycin (Zithromax) 250 mg tablet Discontinued 500 MG PO Daily January 24, 2017 1:00am September 12, 2017 2:17pm 500mg on first day, 250mg daily for four days. benzonatate 200 mg oral capsule (20 sources) Non-narcotic Antitussive Start: 06-25-2022 End: 07-12-2023 take 200 mg by mouth three times daily Benzonatate Discontinued 200 MG PO Three times daily June 25, 2022 12:00am July 12, 2023 9:26am Start: 01-24-2017 End: 09-12-2017 take 2 capsules by mouth three times daily Benzonatate (Tessalon Perles) 100 mg capsule Discontinued 200 MG PO Three times daily January 24, 2017 1:00am September 12, 2017 2:17pm cyclobenzaprine hydrochloride 10 mg oral tablet (9 sources) Muscle Relaxant Start: 08-05-2022 End: 07-12-2023 take 10 mg by mouth three times daily Cyclobenzaprine Discontinued 10 MG PO Three times daily August 05, 2022 12:00am July 12, 2023 9:26am doxycycline hyclate 100 mg oral tablet (9 sources) Tetracycline-class Drug Start: 06-25-2022 End: 07-12-2023 take 100 mg by mouth twice daily Doxycycline Hyclate Discontinued 100 MG PO Twice daily June 25, 2022 12:00am July 12, 2023 9:26am fluconazole 150 mg oral tablet (9 sources) Azole Antifungal Start: 02-05-2022 End: 06-25-2022 take 1 tablet by mouth once Fluconazole (Diflucan) 150 mg tablet Discontinued 150 MG PO Once February 05, 2022 1:00am June 25, 2022 3:40pm ibuprofen 600 mg oral tablet (20 sources) Nonsteroidal Anti-inflammatory Drug Start: 01-25-2022 End: 06-25-2022 Ibuprofen Discontinued 600 MG PO Every 6 hours January 25, 2022 1:00am June 25, 2022 3:40pm do not exceed 4 doses in a 24 hour period Start: 05-11-2018 End: 05-21-2018 take 600 mg by mouth every eight hours Ibuprofen Discontinued 600 MG PO Q8H 16 12May 11, 2018 12:00am May 21, 2018 12:02am lidocaine 0.05 mg/mg medicated patch (9 sources) Antiarrhythmic, Amide Local Anesthetic Start: 08-05-2022 End: 07-12-2023 apply 1 dose topically once daily Lidocaine (Lidoderm) 5 % adhesive patch,medicated Discontinued 2 PATCH TOPICAL Daily August 05, 2022 12:00am July 12, 2023 9:26am leave on most painful area for up to 12 hrs LORazepam 1 mg oral tablet (2 sources) [...] 02/11/2022 02/11/2022 methocarbamol 750 mg oral tablet (11 sources) Muscle Relaxant Start: 09-12-2017 End: 05-11-2018 take 1 tablet by mouth four times daily Methocarbamol (Robaxin-750) 750 mg Tablet Discontinued 750 MG PO Four times daily September 12, 2017 12:00am May 11, 2018 12:08pm naproxen 500 mg oral tablet (20 sources) Nonsteroidal Anti-inflammatory Drug Start: 08-05-2022 End: 07-12-2023 take 1 tablet by mouth twice daily Naproxen (Naprosyn) 500 mg tablet Discontinued 500 MG PO Twice daily August 05, 2022 12:00am July 12, 2023 9:26am Start: 09-12-2017 End: 05-11-2018 take 500 mg by mouth twice daily at mealtime Naproxen Discontinued 500 MG PO Twice daily September 12, 2017 12:00am May 11, 2018 12:08pm administer with food or milk Start: 01-04-2017 End: 01-24-2017 take 1 tablet by mouth every twelve hours at mealtime Naproxen (Naprosyn) 500 mg tablet Discontinued 500 MG PO Q12H January 04, 2017 1:00am January 24, 2017 4:03pm administer with food or milk tiZANidine 4 mg oral capsule (11 sources) Central alpha-2 Adrenergic Agonist Start: 09-12-2017 End: 05-11-2018 Tizanidine (Zanaflex) 4 mg capsule Discontinued 4 MG PO every 6 to 8 hours September 12, 2017 12:00am May 11, 2018 12:08pm do not exceed 3 doses per 24 hrs Problems Active Problems Problem Classification Problem Date Documented Da te Episodic/Chronic Abdominal pain (12 sources) Pelvic and perineal pain; Translations: [Nonspecific abdominal pain] Onset: 01-03-2020 Episodic Acute bronchitis (11 sources) Acute bronchitis; Translations: [Acute bronchitis, unspecified] 01-31-2017 Episodic Cancer of cervix (4 sources) High grade squamous intraepithelial lesion on cytologic smear of cervix (HGSIL); Translations: [HGSIL ON CYTOLOGIC SMEAR OF CERVIX] Onset: 10-21-2020 Episodic Chronic obstructive pulmonary disease and bronchiectasis (8 sources) Pulmonary emphysema; Translations: [Emphysema, unspecified] Onset: 04-18-2023 02-02-2023 Chronic Disorders of teeth and jaw (3 sources) Dental caries; Translations: [Dental caries, unspecified] Onset: 02-11-2022 Episodic Endometriosis (1 source) Endometriosis of uterus; Translations: [ENDOMETRIOSIS OF UTERUS] Onset: 04-27-2020 Chronic Gastrointestinal hemorrhage (1 source) Hemorrhage of rectum and anus; Translations: [Hemorrhage of rectum and anus] Episodic Headache; including migraine (1 source) Migraine; Translations: [Migraine] Chronic Lymphadenitis (5 sources) Lymphadenopathy; Translations: [Generalized enlarged lymph nodes] Onset: 01-26-2023 06-22-2023 Episodic Menstrual disorders (8 sources) Excessive and frequent menstruation with regular cycle; Translations: [Dysmenorrhea] Onset: 03-20-2020 Chronic Mycoses (9 sources) Mycosis; Translations: [Candidiasis, unspecified] 02-05-2022 Episodic Nonspecific chest pain (10 sources) Atypical chest pain; Translations: [Other chest pain] Onset: 11-15-2022 09-18-2022 Episodic Other endocrine disorders (1 source) Polycystic ovarian syndrome; Translations: [POLYCYSTIC OVARIAN SYNDROME] Onset: 04-27-2020 Chronic Other female genital disorders (1 source) Dyspareunia; Translations: [Dyspareunia] Chronic Other female genital disorders (1 source) Leukorrhea; Translations: [leukorrhea] Episodic Other gastrointestinal disorders (1 source) Slow transit constipation; Translations: [Constipation, slow transit] Episodic Other lower respiratory disease (1 source) Multiple nodules of lung; Translations: [Other nonspecific abnormal finding of lung field] 04-18-2023 Episodic Other lower respiratory disease (1 source) Shortness of breath; Translations: [Shortness of breath] Onset: 09-06-2023 Episodic Other upper respiratory infections (11 sources) Pharyngitis; Translations: [Acute pharyngitis, unspecified] 01-25-2022 Episodic Otitis media and related conditions (12 sources) Otitis media; Translations: [Otitis media, unspecified, unspecified ear] 01-24-2017 Episodic Residual codes; unclassified (1 source) Body mass index 20-24 - normal; Translations: [Body mass index (BMI) 22.0-22.9, adult] Episodic Residual codes; unclassified (1 source) Body mass index (BMI) 22.0-22.9, adult; Translations: [Body mass index (BMI) 22.0-22.9, adult] Onset: 02-11-2022 Episodic Spondylosis; intervertebral disc disorders; other back problems (1 source) Dorsalgia, unspecified; Translations: [Dorsalgia, unspecified] Onset: 09-06-2023 Episodic Substance-related disorders (1 source) Nicotine dependence, cigarettes, uncomplicated; Translations: [NICOTINE DEPEND CIGARETTES UNCOMP] Onset: 04-27-2020 Chronic Unclassified (1 source) CONTACT W/AND (SUSP) EXPOS COVID-19; Translations: [CONTACT W/AND (SUSP) EXPOS COVID-19] Onset: 04-27-2020 Unclassified (1 source) Cough, unspecified; Translations: [Cough, unspecified] Onset: 07-12-2023 Unclassified (1 source) Strain of muscle, fascia and tendon at neck level, initial encounter; Translations: [Strain of muscle, fascia and tendon at neck level, initial encounter] Onset: 09-27-2022 Viral infection (9 sources) Viral exanthem; Translations: [Unspecified viral infection [...] 12-28-2019 Episodic Other and delivery including normal (11 sources) Vaginal delivery; Translations: [Encounter for full-term uncomplicated delivery] Onset: 05-06-2011 05-06-2011 Episodic Residual codes; unclassified (11 sources) History of laparoscopy; Translations: [Other specified postprocedural states] Onset: 05-06-2011 05-06-2011 Episodic Sprains and strains (20 sources) Shoulder strain; Translations: [Strain of unspecified muscle, fascia and tendon at shoulder and upper arm level, left arm, initial encounter] Onset: 06-23-2023 01-04-2017 Episodic Unclassified (1 source) Contraception care management; Translations: [Contraceptive management, other specified] Results Test Name Value Interpretation Reference Range Facility US abdomen completeon 2023 US abdomen complete [facility] Main [address] [address] Ultrasound Report Signed Patient: Ayana Gill MR#: [id number] : 1990 Acct:[id number] Age/Sex: 33 / F ADM Date: 09/15/23 Loc: UL Room: Type: [facility] CLI Attending Dr: Venus Cespedes APRN Ordering Provider: Venus Cespedes APRN Date of Service: 09/15/23 US/US abdomen complete: R10.10 Copies to: Venus Cespedes APRN COMPLETE ABDOMINAL ULTRASOUND CLINICAL HISTORY: Upper abdominal pain for the past few weeks radiating to the chest and back. History of tobacco use. COMPARISON: CT 01/26/2023 The gallbladder is physiologically distended without shadowing calculi, wall thickening or pericholecystic fluid. No intra- or extrahepatic biliary dilatation is evident. The common duct measures 2 - 3 mm. The liver is slightly echogenic with respect to the right kidney and fatty infiltration is possible. No focal intrahepatic masses are seen. There is appropriate hepatopetal flow within the main portal vein. The pancreas shows no significant sonographic abnormality. The spleen measures 8 cm in craniocaudal dimension. There is normal echogenicity. The right kidney measures 10.5 cm and the left 11.6 cm in craniocaudal dimension. No shadowing calculi or hydronephrosis are identified. There is no perinephric fluid. There is no ascites. The abdominal aorta is normal caliber and there is minor plaque. The IVC is patent. US/US abdomen complete IMPRESSION: POSSIBLE FATTY LIVER. NO GALLBLADDER PATHOLOGY. NO ACUTE ABDOMINAL FINDINGS. Impression dictated by: Marcela Valentin M.D.09/15/2023 2:27 PM Dictation Location: [place] [address] Tech: Gwendolyn Du Transcribed By: CRISTOFER 09/15/23 1427 Dictated By: Marcela Valentin MD 09/15/23 1423 Signed By: 09/15/23 1427 Normal [facility] ECG 12 lead ECGon 09-06-2023 ECG 12 lead ECG [facility] [place] [address] Electrocardiograph Report Signed Patient: Ayana Gill MR#: [id number] : 1990 Acct:[id number] Age/Sex: 33 / F ADM Date: 09/06/23 Loc: ER Room: Type: [facility] ER Attending Dr: Ordering Provider: Abelino Arevalo DO Date of Service: 09/06/2312/20/1304 ECG/ECG 12 lead ECG: Chest Pain Copies to: Test Reason : Blood Pressure : */* mmHG Vent. Rate : 71 BPM Atrial Rate : 71 BPM P-R Int : 156 ms QRS Dur : 70 ms QT Int : 388 ms P-R-T Axes : 75 88 61 degrees QTcB Int : 421 ms Normal sinus rhythm Normal ECG When compared with ECG of 18-Sep-2022 19:52, No significant change was found Confirmed by JOSEF BANKS [facility] ([id number]) on 09/08/2023 4:10:01 PM Referred By: Electronically Signed By: HEIDI BAHENA MD [facility] Transcribed By: MUS Signed By Heidi Bahena MD, [facility] 09/08/23 1610 Normal [facility] CNOVon 08-21-2023 CNOV Office Visit (PULMLO ) -- AYANA GILL ([id number]) 1990 F Date Time Provider Department 08/21/23 9:00 AM LETA FUENTES PULRUBY During your visit today, we recorded the following information about you: Pulse Blood pressure Weight Height 72/minute 103/59 59.4 kg 1.626 m Leta Fuentes, KITA.PATIENT CONSUMER MARKETER 08/24/2023 11:19 AM Signed . [facility] PULMONARY DEPARTMENT Follow-Up Clinic Note Ms. Gill is a 33 year old female who presents to the [facility] [place] for follow up of pulmonary emphysema and lung nodules. Patient's primary para machine operator is Dr. Lauren. Last office visit was 04/18/23. INTERVAL HPI/ROS Today Ayana Gill is here regarding cough. Cough started at the end of May, dx as acute bronchitis. She gets chest/back pain with cough. Dyspnea at rest and with exertion. No wheezing. Cough is worst in AM and HS, and when exposed to cold air in walk-in cooler at work. Also had recurrent right ear infection. She was evaluated in ED at [facility] 07/12/23. Treatment notes not available in Care Everywhere. She was treated with Zpak and albuterol inhaler. Promethazine DM not helpful. She initially improved two weeks ago, then cough started to return again. She was referred to ENT on 07/28/23 by her PCP. Treatment notes not available in Care Everywhere. Continues to smoke 1 PPD. Current Treatment Plan Albuterol HFA PRN - no help No OTC medications Review of systems completed and is negative except as noted above. Social History Tobacco Use Smoking status: Every Day Packs/day: 1 Types: Cigarettes Vaping Use Vaping Use: Never used Substance Use Topics Alcohol use: No Drug use: No PAST MEDICAL HISTORY Diagnosis Date Cirrhosis (HCC) NEGATIVE MEDICAL HISTORY No CA, DM, Heart dis, pnuemonia, DM Polycystic ovary syndrome PAST SURGICAL HISTORY Procedure Laterality Date PAST SURGICAL HISTORY OF 02/27/2011 laparascopy x2 PAST SURGICAL HISTORY OF 2008, 2001 umbilical hernia and inguinal TOTAL ABDOM HYSTERECTOMY 03/2020 Allergies Patient has no known allergies. Home Medications TALTZ AUTOINJECTOR 80 mg/mL pen iv contrast [...] in the CT contrast administration guidelines link. (Patient not taking: Reported on 04/18/2023) enteric contrast (will be provided with radiology test) For CT CHESTABD/PEL W IVCON Routine order Administer, As Directed One Time Only, via Oral, Rectal, both Oral and Rectal, Enteric Tube, Stoma or Indwelling Catheter, Enteric Contrast as designated per enteric contrast guidelines (Patient not taking: Reported on 04/18/2023) PHYSICAL EXAM BP 103/59 Pulse 72 Ht 5' 4.016 (1.63m) Wt 130 lb 15.3 oz (59.4kg) SpO2 100[RA]% LMP 04/28/2011 BMI 22.47 kg/(m2). Physical Exam Vitals reviewed. Constitutional: General: She is awake. She is not in acute distress. Appearance: Normal appearance. She is well-developed. She is not ill-appearing. HENT: Head: Normocephalic and atraumatic. Right Ear: Ear canal and external ear normal. No decreased hearing noted. No drainage, swelling or tenderness. A middle ear effusion is present. There is no impacted cerumen. No foreign body. No mastoid tenderness. Tympanic membrane is not injected, perforated, erythematous, retracted or bulging. Left Ear: Ear canal and external ear normal. No decreased hearing noted. No drainage, swelling or tenderness. No middle ear effusion. There is no impacted cerumen. No foreign body. No mastoid tenderness. Tympanic membrane is not injected, perforated, erythematous, retracted or bulging. Nose: Nose normal. No congestion or rhinorrhea. Right Nostril: No epistaxis. Left Nostril: No epistaxis. Mouth/Throat: Lips: No lesions. Mouth: Mucous membranes are moist. No oral lesions. Tongue: No lesions. Tongue does not deviate from midline. Palate: No lesions. Pharynx: Oropharynx is clear. Eyes: General: No scleral icterus. Right eye: No discharge. Left eye: No discharge. Extraocular Movements: Extraocular movements intact. Conjunctiva/sclera: Conjunctivae normal. Cardiovascular: Rate and Rhythm: Normal rate and regular rhythm. Heart sounds: Normal heart sounds. No murmur heard. No gallop. Pulmonary: Effort: Pulmonary effort is normal. No tachypnea, bradypnea, accessory muscle usage, prolonged expiration, respiratory distress or retractions. Breath sounds: Normal breath sounds. (more content not included)... Normal [facility] 08-10-2023 CNPN Telephone ([id number]) -- AYANA GILL ([id number]) 1990 F Date Time Provider Department 08/10/23 FAM LAUREN During your visit today, we recorded the following information about you: Georgina Nina 08/10/2023 9:16 AM Signed Patient called indicating she has had a cough that she cannot rid. She has seen PCP and they advised possibly having a CT chest and to contact Dr. Lauren's office to request. Patient indicated chest xray recently at [facility]. Patient can be reached at [phone]. Please contact, triage and advise. Anson Evans MA 08/11/2023 9:[address] Lauren has responded to patient via [employer] message. Please see 08/11/23 [employer] message. August 11, 2023 Fam Lauren MD to Ayana Gill 08/11/23 8:49 AM Corrie Piña, I have received notice of your telephone call. There are many different reasons to be coughing and I dont see an immediate need for a CT chest given you just recently had one. I do recommend that you make an appointment with either myself or the nurse practitioner that I work with, Leta to discuss your symptoms. If you can, it would be very helpful to bring the results of the recent chest x ray you had. Dr. Lauren -- Last read by Ayana Gill at 9:01 AM on 08/11/2023. Anson Evans MA 08/14/2023 11:47 AM Addendum I called [facility] radiology department, I spoke with Bailey and requested recent CXR images- 07/12/23 to be pushed Bailey states she is sending images now. Anson Evans MA 08/15/2023 11:26 AM Addendum 2nd attempt I called [facility] radiology department, I spoke with Spike and requested recent CXR images- 07/12/23 to be pushed Spike states she is sending images now. Also faxed ROBERT form. Confirmation received Anson Evans MA 08/16/2023 9:36 AM Signed CXR imaging from 07/12/23 is now available to view in [employer]. Allergies As of Date: 08/10/2023 (No Known Allergies) Date Reviewed: 06/22/2023 Reviewed by: Caren Parikh MA - Fully Assessed Reason for Visit: current cough [Other] Cmt: Patient called indicating she has had a cough that she cannot rid. She has seen PCP and they advised possibly having a CT chest and to contact Dr. Lauren's office to request. Patient indicated chest xray recently at [facility]. Patient can be reached at [phone]. Please contact, triage and advise. Prescriptions as of 08/16/2023 - TALTZ AUTOINJECTOR 80 mg/mL pen - [...] contrast guidelines Problem List As Of Date 08/10/2023 Noted Resolved (spontaneous vaginal delivery) x1 [O80] 05/06/2011 H/O laparoscopy, diagnostic in [place], 02/2011*05/06/2011 Encounter Status:Closed by ANSON EVANS on 08/16/23 Normal [facility] XR chest 2V*on 07-12-2023 XR chest 2V* [facility] Main [place] [id number] XRay Report Signed Patient: Ayana Gill MR#: [id number] : 1990 Acct:[id number] Age/Sex: 33 / F ADM Date: 07/12/23 Loc: ER Room: Type: [facility] ER Attending Dr: Copies to: Gerald Ryan APRN Ordering Provider: Gerald Ryan APRN Date of Service: 07/12/23 XR/XR chest 2V*: Upper Respiratory Infection XR chest 2V* 07/12/2023 8:53 AM SIGNS AND SYMPTOMS: Cough, congestion, shortness of breath PROTOCOL: Frontal and lateral radiographs of the chest COMPARISON: 11/11/2022 FINDINGS: The trachea is midline. The heart and mediastinal structures are within normal limits. The lung parenchyma is clear. The bony thorax is intact. XR/XR chest 2V* IMPRESSION: No acute cardiopulmonary pathology. Impression dictated by: Samuel Mcfadden M.D.07/12/2023 9:21 AM Dictation Location: [place] [address] Transcribed By: [facility] 07/12/23920 Dictated By: Samuel Mcfadden II, MD 07/12/23919 Signed By: 07/12/23 09 Normal [facility] CNOVSPon 06-22-2023 CNOVSP Visit (SP) Office (H EMASA) -- AYANA GILL ([id number]) 1990 F Date Time Provider Department 06/22/23 11:15 AM IZAIAH PINTO During your visit today, we recorded the following information about you: Temperature Pulse Respiration Blood pressure 97.4 degrees 68/minute 16/minute 122/72 Weight Height 59.1 kg 1.626 m Izaiah Pinto MD 06/22/2023 7:38 PM Signed NAME: Ayana Gill CLINIC NO.: [id number] DATE OF SERVICE: June 22, 2023 (Gavin) Some elements in this clinic note that are critical to medical decision making have been carefully reviewed and included from a prior clinic note dated: February 02, 2023 (Gavin) Referring Provider: Venus Cespedes CNP Additional Clinicians involved in Ayana Gill's care: DIAGNOSIS: Lymphadenopthy ASSESSMENT: 33 year old woman with mild lymphadenopathy but has been having early satiety as well as soaking night sweats. CT scans unremarkable for lymphadenopathy. Other symptoms may be related to tobacco use and emphysema with chronic inflammation. All prior symptoms had resolved but she comes in today concerned with a right breast/axillary tail mass. I reassured her that there was no palpable lymphadenopathy and as she had preserved ovaries, she still has hormonal cycles that could cause changes in her breasts. PLAN: RTC in 1 year No labs Clinician to evaluate for additional lymphadenopathy Continue follow up with pulmonology _- HPI: CASE HISTORY: Reverse Chronological Order 03/02/2023 - Diagnostic Mammogram AND US Breast: BIRADS 1 - Negative 01/26/2023 - CT Neck CAP: Neck: Scattered subcentimeter lymph nodes, none significantly enlarged by imaging size criteria. 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 Minimal Emphysema involving the imaged lung apices. Otherwise, unremarkable CT Neck with contrast. Chest: 4 mm noncalcified nodule along the left major fissure, likely related to a benign intrafissural lymph node. No substantial intrathoracic adenopathy is appreciated. Abd/Pelvis: Essentially unremarkable CT examination of the abdomen and pelvis. 01/02/2023 - US HANDN soft tissue: There are multiple [...] tissue mass identified by radiography. 12/27/2022 - Noticed a bump on left arm 03/2020 - Hysterectomy at [facility] - found cervical cancer. Updated Visit, June 22, 2023: Ayana returns today to discuss a new problem - a painful lump in her right armpit. I explained to her that this lump is likely a result of her menstrual cycle, despite hysterectomy as she still has intact ovaries. Night sweats have improved, she notes she now gets cold chills more frequently. She is continuing follow up with pulmonology, next appointment in November. Chaperoned Breast Exam June 22, 2023 (Tangela Parikh) : Right breast is normal, Left breast is normal. Sondra exam is negative. 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 Worked at [employer] Has 3 children _- REVIEW OF SYSTEMS Per HPI (more content not included)... Normal [facility] CNOVon 04-18-2023 CNOV Office Visit (PULMLO ) -- AYANA GILL ([id number]) 1990 F Date Time Provider Department 04/18/23 8:45 AM FAM LAUREN During your visit today, we recorded the following information about you: Temperature Pulse Blood pressure Weight 98.2 degrees 84/minute 113/62 60 kg Height 1.626 m Fam Lauren MD 04/18/2023 9:05 AM Signed . Respiratory [place] Note Ms. Gill is a 32 year old female who presents to the [facility] [place]. Consultation requested by Dr. Izaiah iPnto for an opinion regarding emphysema. My final recommendations/evaluation will be communicated back to the requesting physician by way of shared medical record or letter via US mail. HPI: 32 year old female with a PMH of Ovarian cyst that presents for an eval of emphysema. Never diagnosed with lung problems in the past, had a previous albuterol inhaler when she had bronchitis. She feels like her breathing is not the greatest. She gets short of breath with activities and randomly hap to take a deep breath. She does cough, sporadic. No Wheezing. No activity recently. Never admitted to the hospital for breathing issues. Was having some chest pain. Past Medical History: PAST MEDICAL HISTORY Diagnosis Date Cirrhosis (HCC) NEGATIVE MEDICAL HISTORY No CA, DM, Heart dis, pnuemonia, DM Polycystic ovary syndrome Past Surgical History: PAST SURGICAL HISTORY Procedure Laterality Date PAST SURGICAL HISTORY OF 02/27/2011 laparascopy x2 PAST SURGICAL HISTORY OF 2008, 2001 umbilical hernia and inguinal TOTAL ABDOM HYSTERECTOMY 03/2020 Work and Social Histories: Social History Tobacco Use Smoking status: Every Day Packs/day: 1 Types: Cigarettes Vaping Use Vaping Use: Never used Substance Use Topics Alcohol use: No Drug use: No Tobacco: 1PPD x 18 yrs NO vaping or E ciagrettes use Occupation/Exposures: 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 Outpatient Medications: TALTZ AUTOINJECTOR 80 mg/mL pen iv contrast [...] Contrast as designated per enteric contrast guidelines PHYSICAL EXAM: BP 113/62 Pulse 84 Temp 98.2 Ht 5' 4 (1.63m) Wt 132 lb 4.5 oz (60.0kg) SpO2 97[RA]% LMP 04/28/2011 BMI 22.69 kg/(m2). GEN: Alert, comfortable, sitting up in chair, no distress CV: RRR PULM: CTAB, no wheezing or crackles ABD: soft EXT: No LE edema Labs / Imaging / Diagnostic Studies: All radiography listed below personally reviewed by me [facility] (in addition to that noted in HPI, and Past histories above): CMP, CBC, PFT: 04/18/23: Slightly reduced ration but excellent lung function, mid flows normal, normal DLCO, no BD response CT Chest 01/26/23: Lung parenchyma , airways, and pleural space: [...] identified. Bones/Soft Tissues: No osseous destructive process. Assessment: Ms. Gill is a 32 year old female who presents to the [facility] [place] for evaluation of emphysema Problems: Emphysema Tobacco Abuse (more content not included)... Normal [facility] HISTORY PHYSICALon HISTORY PHYSICAL HNO ID: [id number] Author: FAM LAUREN MD Service: ? Author Type: Physician Type: H&P Filed: 04/18/2023 09:05 Note Text: . Respiratory [place] Note Ms. Gill is a 32 year old female who presents to the [facility] [place]. Consultation requested by Dr. Izaiah Pinto for an opinion regarding emphysema. My final recommendations/evaluation will be communicated back to the requesting physician by way of shared medical record or letter via US mail. HPI: 32 year old female with a PMH of Ovarian cyst that presents for an eval of emphysema. Never diagnosed with lung problems in the past, had a previous albuterol inhaler when she had bronchitis. She feels like her breathing is not the greatest. She gets short of breath with activities and randomly hap to take a deep breath. She does cough, sporadic. No Wheezing. No activity recently. Never admitted to the hospital for breathing issues. Was having some chest pain. Past Medical History: PAST MEDICAL HISTORY Diagnosis Date Cirrhosis (HCC) NEGATIVE MEDICAL HISTORY No CA, DM, Heart dis, pnuemonia, DM Polycystic ovary syndrome Past Surgical History: PAST SURGICAL HISTORY Procedure Laterality Date PAST SURGICAL HISTORY OF 02/27/2011 laparascopy x2 PAST SURGICAL HISTORY OF 2008, 2001 umbilical hernia and inguinal TOTAL ABDOM HYSTERECTOMY 03/2020 Work and Social Histories: Social History Tobacco Use Smoking status: Every Day Packs/day: 1 Types: Cigarettes Vaping Use Vaping Use: Never used Substance Use Topics Alcohol use: No Drug use: No Tobacco: 1PPD x 18 yrs NO vaping or E ciagrettes use Occupation/Exposures: 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 Outpatient Medications: TALTZ AUTOINJECTOR 80 mg/mL pen iv contrast [...] Contrast as designated per enteric contrast guidelines PHYSICAL EXAM: BP 113/62 Pulse 84 Temp 98.2 Ht 5' 4 (1.63m) Wt 132 lb 4.5 oz (60.0kg) SpO2 97[RA]% LMP 04/28/2011 BMI 22.69 kg/(m2). GEN: Alert, comfortable, sitting up in chair, no distress CV: RRR PULM: CTAB, no wheezing or crackles ABD: soft EXT: No LE edema Labs / Imaging / Diagnostic Studies: All radiography listed below personally reviewed by me [facility] (in addition to that noted in HPI, and Past histories above): CMP, CBC, PFT: 04/18/23: Slightly reduced ration but excellent lung function, mid flows normal, normal DLCO, no BD response CT Chest 01/26/23: Lung parenchyma , airways, and pleural space: [...] identified. Bones/Soft Tissues: No osseous destructive process. Assessment: Ms. Gill is a 32 year old female who presents to the [facility] [place] for evaluation of emphysema Problems: Emphysema Tobacco Abuse Lung nodules [place] with excellent lung function, does not qualify for a diagnosis of COPD. No Need for inhalers. Counseled extensively to quit smoking. Given her lung nodule and smoking history, discussed repeating a CT chest in one year and she is agreable-ordered. Follow up in 1 year w (more content not included)... Normal [facility] LUNG DIFFUSION CAPACITY (MELODIE O)on 04-18-2023 DLCO (ml/min/mmHg) 19.01 ml/min/mmHg [facility] DLCO/VA (ml/min/mmHg/L) 3.74 ml/min/mmHg/L [facility] QKH34-04% POST (L/S) 2.71 L/S [facility] JQP16-72% PRE (L/S) 2.21 L/S [facility] FEV1 PRE (L) 3.00 L [facility] FEV1/FVC POST (%) 77 % [facility] FEV1/FVC PRE (%) 72 % [facility] FEV1_POST (L) 3.20 L [facility] FVC POST (L) 4.17 L [facility] FVC PRE (L) 4.16 L [facility] PEF POST (L/S) 6.82 L/S [facility] PEF PRE (L/S) 6.63 L/S [facility] VA (L) 5.09 L [facility] SPIROMETRY WITH DILATOR IF O BSTRUCTEDon 04-18-2023 [facility] MAMMOGRAM DIAGNOSTIC LEROY SYNTHESIS BILATERALon 03-02-2023 BI MAMMOGRAM DIAGNOSTIC TOMOSYNTHESIS BILATERAL This is a summary report. The complete report is available in the patient's medical record. If you cannot access the medical record, please contact the sending organization for a detailed fax or copy. EXAMINATION: BI MAMMOGRAM DIAGNOSTIC TOMOSYNTHESIS BILATERAL, BI US BREAST LIMITED RIGHT CLINICAL HISTORY: right breast pain, lump between 11 & 12 o'clock COMPARISON: Screening mammogram 01/03/2022. RESULT: 3-D tomosynthesis imaging of the bilateral breasts was performed. Limited ultrasound of the right breast was performed. Density: Extremely dense [4] There are no suspicious masses or asymmetries, areas of architectural distortion or suspicious areas of microcalcifications. No significant change compared to the prior mammogram. Ultrasound recommended to evaluate the area of lump in the right breast upper outer quadrant. On the right breast ultrasound, there are no suspicious findings. No focal mass or lesion. Dense appearing breast tissue, similar to the mammogram. IMPRESSION: BIRADS 1 - Negative Recommended follow-up: Routine Screening Mammogram at Age 40, or sooner as clinically indicated. Board Certified Radiologists. Accredited by the ACR and FDA. MAMMOGRAPHY IS VERY IMPORTANT TO YOUR HEALTH. THE [place] [employer] GUIDELINES RECOMMEND THAT WOMEN 40 YEARS OF AGE AND OLDER SHOULD HAVE A MAMMOGRAM EVERY YEAR. A REMINDER LETTER WILL BE SENT AT THE APPROPRIATE TIME. THIS FACILITY UTILIZES A REMINDER SYSTEM TO ENSURE ALL PATIENTS RECEIVE REMINDER NOTIFICATIONS AT THE APPROPRIATE TIME BASED ON THE RECOMMENDATIONS OF THIS EXAM. THIS INCLUDES REMINDERS FOR ROUTINE SCREENING MAMMOGRAMS, DIAGNOSTIC MAMMOGRAMS IN WHICH THE PATIENT IS ASKED TO RETURN FOR ADDITIONAL VIEWS, OR OTHER BREAST IMAGING INTERVENTIONS WHEN APPROPRIATE. THE PATIENT WILL BE PLACED IN THE APPROPRIATE REMINDER SYSTEM INCLUDING A REMINDER AT THE APPROPRIATE TIME FOR ANY PENDING ADDITIONAL VIEWS. ELECTRONICALLY SIGNED BY: Khalif Bailon MD Normal Not Available BI US BREAST LIMITED RIGHTon 03-02-2023 BI US BREAST LIMITED RIGHT This is a summary report. The complete report is available in the patient's medical record. If you cannot access the medical record, please contact the sending organization for a detailed fax or copy. EXAMINATION: BI MAMMOGRAM DIAGNOSTIC TOMOSYNTHESIS BILATERAL, BI US BREAST LIMITED RIGHT CLINICAL HISTORY: right breast pain, lump between 11 & 12 o'clock COMPARISON: Screening mammogram 01/03/2022. RESULT: 3-D tomosynthesis imaging of the bilateral breasts was performed. Limited ultrasound of the right breast was performed. Density: Extremely dense [4] There are no suspicious masses or asymmetries, areas of architectural distortion or suspicious areas of microcalcifications. No significant change compared to the prior mammogram. Ultrasound recommended to evaluate the area of lump in the right breast upper outer quadrant. On the right breast ultrasound, there are no suspicious findings. No focal mass or lesion. Dense appearing breast tissue, similar to the mammogram. IMPRESSION: BIRADS 1 - Negative Recommended follow-up: Routine Screening Mammogram at Age 40, or sooner as clinically indicated. Board Certified Radiologists. Accredited by the ACR and FDA. MAMMOGRAPHY IS VERY IMPORTANT TO YOUR HEALTH. THE [place] [employer] GUIDELINES RECOMMEND THAT WOMEN 40 YEARS OF AGE AND OLDER SHOULD HAVE A MAMMOGRAM EVERY YEAR. A REMINDER LETTER WILL BE SENT AT THE APPROPRIATE TIME. THIS FACILITY UTILIZES A REMINDER SYSTEM TO ENSURE ALL PATIENTS RECEIVE REMINDER NOTIFICATIONS AT THE APPROPRIATE TIME BASED ON THE RECOMMENDATIONS OF THIS EXAM. THIS INCLUDES REMINDERS FOR ROUTINE SCREENING MAMMOGRAMS, DIAGNOSTIC MAMMOGRAMS IN WHICH THE PATIENT IS ASKED TO RETURN FOR ADDITIONAL VIEWS, OR OTHER BREAST IMAGING INTERVENTIONS WHEN APPROPRIATE. THE PATIENT WILL BE PLACED IN THE APPROPRIATE REMINDER SYSTEM INCLUDING A REMINDER AT THE APPROPRIATE TIME FOR ANY PENDING ADDITIONAL VIEWS. ELECTRONICALLY SIGNED BY: Khalif Bailon MD Normal Not Available CNOVSPon 02-02-2023 CNOVSP Visit (SP) Office ([facility]) -- AYANA GILL ([id number]) 1990 F Date Time Provider Department 02/02/23 9:30 AM IZAIAH PINTO During your visit today, we recorded the following information about you: Temperature Pulse Respiration Blood pressure 97.5 degrees 76/minute 16/minute 113/66 Weight 57.4 kg Izaiah Pinto MD 02/02/2023 7:05 PM Signed NAME: Ayana Gill CLINIC NO.: [id number] DATE OF SERVICE: February 02, 2023 (Gavin) Some elements in this clinic note that are critical to medical decision making have been carefully reviewed and included from a prior clinic note dated: January 12, 2023 (Monyfrancisca). 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 Return PRN _- HPI: CASE HISTORY: Reverse Chronological Order 01/26/2023 - CT Neck CAP: Neck: scattered subcentimeter lymph nodes, none significantly enlarged by imaging size criteria. 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 Minimal Emphysema involving the imaged lung [...] a bump on left arm 03/2020 at [facility] - hysterectomy - found cervical cancer. 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 Worked at [employer]. Has 3 children _- REVIEW OF SYSTEMS Per HPI and otherwise negative by full review of organ systems. _- ECOG PERFORMANCE STATUS: 0 PHYSICAL EXAMINATION: Vitals: [...] respiring comfortably. (more content not included)... Normal [facility] 02-02-2023 CNPN Telephone (NCCAP) -- AYANA GILL ([id number]) 1990 F Date Time Provider Department 02/02/23 IZAIAH PINTO [facility] During your visit today, we recorded the following information about you: Albert Piper 02/02/2023 10:05 AM Signed Refer to pulmonary Dx: Pumonary emphysema Alfreda/Chandrakant: Patient would prefer to stay locally within [place]. Can you please refer patient and follow up? Thanks! Yuki Marte 02/02/2023 12:20 PM Signed Alfreda: Information ready for you. Venus Kuhn 02/03/2023 12:32 PM Signed Records faxed. Yuki Sneed 02/09/2023 10:06 AM Signed Called Pulmonary office spoke with Leeanna. Patient is scheduled 07/25/23 @ 9:30 with CLINICAL PHARMACY MANAGER Ghada Munson. Izaiah Lima MD 02/09/2023 1:13 PM Signed Man - that is 6 months out!!! We should really send her to [facility] or [place]! Yuki Sneed 02/09/2023 2:02 PM Signed Issa Davey, I called and spoke with patient she was willing to go to [facility]. I called and got her scheduled with Dr Fam Lauren on 04/18/23. That was their first available [...] 07/24 with Ghada Munson. Thank You- Yuki Mansfield Pss Allergies As of Date: 02/02/2023 (No Known Allergies) Date Reviewed: 02/02/2023 Reviewed by: Marlene Meadows - Fully Assessed Reason for Visit: Referral Information [[id number]] Cmt: Pulmonary Prescriptions as of 02/09/2023 - [...] x1 [O80] 05/06/2011 H/O laparoscopy, diagnostic in [place], 02/2011*05/06/2011 Encounter Status:Closed by ALBERT PIPER on 02/09/23 Normal [facility] CT Abdomen and Pelvis W cont rast Osiris 01-30-2023 IMPRESSION: Essentially unremarkable CT examination of the abdomen and pelvis, as detailed above. Transcribe Date/Time: Dec 1 2023 12:57P Dictated by: ROBERTA DENNIS MD This examination was interpreted and the report reviewed and electronically signed by: ROBERTA DENNIS MD on Jan 30 2023 8:49AM EST Thank you for allowing us to participate in the care of your patient. Should there be any questions regarding this interpretation, please call [phone]. If you are unable to reach us at the number above, please feel free to contact [facility] at [phone]. DIVISION OF RADIOLOGY * * *Final Report* * * DATE OF EXAM: Jan 26 2023 3:05PM [facility] 0530 - CT ABD/PEL W [...] been performed concurrently and will be dictated. Catechist (topogram) images: No additional findings. DIVISION OF RADIOLOGY Provider, [facility] - 01/30/2023 * * *Final Report* * * DATE OF EXAM: Jan 26 2023 3:05PM [facility] 0530 - CT ABD/PEL W [...] been performed concurrently and will be dictated. Catechist (topogram) images: No additional findings. IMPRESSION IMPRESSION: Essentially unremarkable CT examination of the [...] any questions regarding this interpretation, please call [phone]. If you are unable to reach us at the number above, please feel free to contact [facility] eRadiology at [phone]. [facility] CT Chest W contrast Osiris Interpretation and review of laboratory results Abnormal [facility] Radiology Result ACTIONABLE Abnormal [facility] Comment on above: This report contains an incidental or actionable finding. This finding may be a new finding separate from the reason your provider ordered the imaging test or it may be an already known finding that needs additional or continued follow-up. Because of this incidental or actionable finding, you may need another test (imaging or a different type of test). Please contact your provider for the next steps. IMPRESSION: 1. 4 mm noncalcified nodule along [...] any questions regarding this interpretation, please call [phone]. If you are unable to reach us at the number above, please feel free to contact [facility]Radiology at [phone]. DIVISION OF RADIOLOGY * * *Final Report* * * DATE OF EXAM: Jan 26 2023 3:05PM [facility] 0539 - CT CHEST W [...] performed concurrently and will be dictated separately. Catechist (topogram) images: No additional findings. DIVISION OF RADIOLOGY Provider, [facility] - 01/30/2023 * * *Final Report* * * DATE OF EXAM: Jan 26 2023 3:05PM [facility] 0539 - CT CHEST W [...] performed concurrently and will be dictated separately. Catechist (topogram) images: No additional findings. IMPRESSION IMPRESSION: 1. 4 mm noncalcified nodule along [...] any questions regarding this interpretation, please call [phone]. If you are unable to reach us at the number above, please feel free to contact [facility] at [phone]. [facility] No Panel InformationOrdered By: [facility]cf Provider on 01-30-2023 [facility] CREATININE BLDOrdered By: Antoine Renae on 01-26-2023 Creatinine [Mass/Vol] 0.75 mg/dL 0.58 - 0.96 mg/dL [facility] GFR/1.73 sq M.predicted among non-blacks MDRD (S/P/Bld) [Vol rate/Area] 107 mL/min/{1.73_m2} - PINF [facility] Comment on above: Estimated Glomerular Filtration Rate (eGFR) is calculated using the 2020 CKD-EPI creatinine equation. This equation utilizes serum creatinine, sex, and age as parameters. The creatinine assay has traceable calibration to isotope dilution-mass spectrometry. Refer to KDIGO guidelines for clinical interpretation. In patients with unstable renal function, e.g. those with acute kidney injury, the eGFR may not accurately reflect actual GFR. Interpretation and review of laboratory results Normal [facility] CREATININE [facility] 01-26-2023 Creatinine [Mass/Vol] 0.75 mg/dL Normal 0.58-0.96 [facility] Comment on above: Order Comment: Елена hansen Type: BLOOD SPECIMENOrdering Facility: [facility] Address: [address] [place] [address] Performed By: #### C RET1 ####[facility] LABCLIA [id number] [place] [address] Creatinine and Glomerular filtration rate.predicted panel (S/P/Bld) 107 mL/min/1.73m??? Normal >=60 [facility] Comment on above: Order Comment: Елена hansen Type: BLOOD SPECIMENOrdering Facility: [facility] Address: [address] [place] [address] Result Comment: Dawn mated Glomerular Filtration Rate [...] actual GFR. Performed By: #### C RET1 ####[facility] LABCLIA [id number] [place] [address] CT ABD/PEL W IVCONon 023 CT ABD/PEL W IVCON * * *Final Report* * * DATE OF EXAM: Jan 26 2023 3:05PM [facility] 0530 - CT ABD/PEL W [...] been performed concurrently and will be dictated. Catechist (topogram) images: No additional findings. IMPRESSION: Essentially [...] any questions regarding this interpretation, please call [phone]. If you are unable to reach us at the number above, please feel [facility] [phone]. [id number] Normal [facility] CT CHEST W IVCONon 3 CT CHEST W IVCON * * *Final Report* * * DATE OF EXAM: Jan 26 2023 3:05PM [facility] 0539 - CT CHEST W [...] performed concurrently and will be dictated separately. Catechist (topogram) images: No additional findings. IMPRESSION: 1. [...] any questions regarding this interpretation, please call [phone]. If you are unable to reach us at the number above, please feel free to contact [facility]Radiology at [phone]. [id number] ACTIONABLE Invalid Interpretation Code [facility] CT NECK SOFT TISSUE W IVCONo n 01-26-2023 CT NECK SOFT TISSUE W IVCON * * *Final Report* * * DATE OF EXAM: Jan 26 2023 3:05PM [facility] 0013 - CT NECK SOFT [...] can be seen in the setting of Sioux syndrome. Aryepiglottic folds and piriform sinuses are symmetric. Thyroid gland is unremarkable. Major vascular structures demonstrate normal course. Minimal emphysema involves the imaged lung apices. No significant degenerative changes involve the cervical spine. IMPRESSION: SCATTERED SUBCENTIMETER LYMPH NODES, NONE SIGNIFICANTLY ENLARGED BY IMAGING SIZE CRITERIA. ELONGATION OF THE STYLOID PROCESSES, A FINDING WHICH CAN BE SEEN IN THE SETTING OF [place] SYNDROME. MINIMAL EMPHYSEMA INVOLVING THE IMAGED LUNG [...] any questions regarding this interpretation, please call [phone]. If you are unable to reach us at the number above, please feel free to contact [facility]Radiology at [phone]. [id number] Normal [facility] CT Neck W contrast Osiris 11-3 IMPRESSION: SCATTERED SUBCENTIMETER LYMPH NODES, NONE SIGNIFICANTLY ENLARGED BY IMAGING SIZE CRITERIA. ELONGATION OF THE STYLOID PROCESSES, A FINDING WHICH CAN BE SEEN IN THE SETTING OF [place] SYNDROME. MINIMAL EMPHYSEMA INVOLVING THE IMAGED LUNG APICES. OTHERWISE, UNREMARKABLE CT NECK WITH CONTRAST. Transcribe Date/Time: Jan 26 2023 3:32P Dictated by: YOSELIN POTTER MD This examination was interpreted and the report reviewed and electronically signed by: YOSELIN POTTRE MD on Jan 26 2023 3:41PM EST Thank you for allowing us to participate in the care of your patient. Should there be any questions regarding this interpretation, please call [phone]. If you are unable to reach us at the number above, please feel free to contact [facility]iology at [phone]. DIVISION OF RADIOLOGY * * *Final Report* * * DATE OF EXAM: Jan 26 2023 3:05PM [facility] 0013 - CT NECK SOFT [...] can be seen in the setting of Sioux syndrome. Aryepiglottic folds and piriform sinuses are symmetric. Thyroid gland is unremarkable. Major vascular structures demonstrate normal course. Minimal emphysema involves the imaged lung apices. No significant degenerative changes involve the cervical spine. DIVISION OF RADIOLOGY Provider, [facility] - 01/26/2023 * * *Final Report* * * DATE OF EXAM: Jan 26 2023 3:05PM [facility] 0013 - CT NECK SOFT [...] can be seen in the setting of [place]oux syndrome. Aryepiglottic folds and piriform sinuses are symmetric. Thyroid gland is unremarkable. Major vascular structures demonstrate normal course. Minimal emphysema involves the imaged lung apices. No significant degenerative changes involve the cervical spine. IMPRESSION IMPRESSION: SCATTERED SUBCENTIMETER LYMPH NODES, NONE SIGNIFICANTLY ENLARGED BY IMAGING SIZE CRITERIA. ELONGATION OF THE STYLOID PROCESSES, A FINDING WHICH CAN BE SEEN IN THE SETTING OF [place] SYNDROME. MINIMAL EMPHYSEMA INVOLVING THE IMAGED LUNG [...] any questions regarding this interpretation, please call [phone]. If you are unable to reach us at the number above, please feel free to contact [facility]Radiology at [phone]. [facility] No Panel Informationon 01-26 Radiology Study observation (narrative) [facility] CT abdomen pelvis w conon CT abdomen pelvis w con [facility] [place] [address] [place] [address] CT Scan Report Signed Patient: Ayana Gill MR#: [id number] : 1990 Acct:[id number] Age/Sex: 32 / F ADM Date: 01/15/23 Loc: ER Room: Type: [facility] ER Attending Dr: Copies to: Kane Crouch [...] Samuel Mcfadden M.D.01/16/2023 9:32 AM Dictation Location: [place] [address] Transcribed By: [facility] 01/16/23931 Dictated By: Samuel Mcfadden II, MD 01/16/23923 Signed By: 01/16/23931 Normal [facility] Alanine aminotransferase [En zymatic activity/volume] in Serum or PlasmaOrdered By: Kane Crouch on 01-15-2023 ALT [Catalytic activity/Vol] 35 U/L Normal 7-52 [facility] Comment on above: Performed By: #### C KATLYN COWART, HEPATIC #### [facility] [address] Albumin [Mass/volume] in Ser um or Plasma by Bromocresol green (BCG) dye binding methoOrdered By: Kane Crouch on 01-15-2023 Albumin BCG dye [Mass/Vol] 4.5 g/dL 3.5-5.7 [facility] Alkaline phosphatase [Enzyma tic activity/volume] in Serum or PlasmaOrdered By: Kane Crouch on 01-15-2023 ALP [Catalytic activity/Vol] 46 U/L Normal 34-104 [facility] Comment on above: Performed By: #### C KATLYN COWART, HEPATIC #### [facility] [address] [place] [id number] [place] Aspartate aminotransferase [ Enzymatic activity/volume] in Serum or PlasmaOrdered By: Kane Crouch on 01-15-2023 AST [Catalytic activity/Vol] 29 U/L Normal 13-39 [facility] Comment on above: Performed By: #### C KATLYN COWART, HEPATIC #### [facility] [address] [place] [id number] [place] Automated basophil %Ordered By: Kane Crouch on 01-15-2023 Basophils/100 WBC (Bld) 0.8 % Normal . [facility] Comment on above: Performed By: #### C BC BMP, HEPATIC #### [facility] [address] [place] [address] Automated basophil countOrde red By: Kane Crouch on 01-15-2023 Basophils (Bld) [#/Vol] 0.1 10*3/uL Normal 0.0-0.2 [facility] Comment on above: Result Comment: PERF ORMED BY: [place] [id number] PATHOLOGIST BOX OFFICE ATTENDANT KVNG FAM M.D. Performed By: #### C KATLYN COWART, HEPATIC #### [address] Automated blood monocyte cou ntOrdered By: Kane Crouch on 01-15-2023 Monocytes (Bld) [#/Vol] 0.4 10*3/uL Normal 0.0-0.8 [facility] Comment on above: Performed By: #### C BC BMP, HEPATIC #### [address] Automated eosinophil %Ordere d By: Kane Crouch on 01-15-2023 Eosinophils/100 WBC (Bld) 2.2 % Normal . [facility] Comment on above: Performed By: #### C KATLYN COWART, HEPATIC #### [address] Automated eosinophil countOr dered By: Kane Crouch on 01-15-2023 Eosinophils (Bld) [#/Vol] 0.2 10*3/uL Normal 0.0-0.45 [facility] Comment on above: Performed By: #### C BC BMP, HEPATIC #### [address] Automated erythrocytes count in urine sediment (number/area)Ordered By: Kane Crouch on 01-15-2023 RBC Auto (Urine sed) [#/Area] 3-4 [HPF] 0-4 [facility] Automated leukocytes count i n urine sediment (number/area)Ordered By: Kane Crouch on 01-15-2023 WBC Auto (Urine sed) [#/Area] None seen [HPF] 0-4 [facility] Automated monocyte %Ordered By: Kane Crouch on 01-15-2023 Monocytes/100 WBC (Bld) 5.6 % Normal . [facility] Comment on above: Performed By: #### C BC, BMP, HEPATIC #### [facility] [address] Automated neutrophil %Ordere d By: Kane Crouch on 01-15-2023 Neutrophils/100 WBC (Bld) 62.9 % Normal . [facility] Comment on above: Performed By: #### C BC, BMP, HEPATIC #### [address] Basic Metabolic Panelon 12-28 Creatinine Clr Calc Pharmacy 97.87 Normal [facility] Comment on above: Result Comment: PERF ORMED BY: [place] [address] PATHOLOGIST BOX OFFICE ATTENDANT KVNG FAM M.D. Performed By: #### C BC, BMP, HEPATIC #### [address] GFR/1.73 sq M.predicted MDRD (S/P/Bld) [Vol rate/Area] mL/min/{1.73_m2} Normal [facility] Comment on above: Performed By: #### C BC, BMP, HEPATIC #### [address] Bilirubin Auto test strip Ql (U)Ordered By: Kane Crouch on 01-15-2023 Bilirubin Ql (U) Negative Negative [facility] Bilirubin.direct [Mass/volum e] in Serum or PlasmaOrdered By: Kane Crouch on 01-15-2023 Bilirubin.direct [Mass/Vol] 0.10 mg/dL 0.03-0.18 [facility] Bilirubin.total [Mass/volume ] in Serum or PlasmaOrdered By: Kane Crouch on 01-15-2023 Bilirubin [Mass/Vol] 0.3 mg/dL Normal 0.3-1.0 [facility] Comment on above: Performed By: #### C BC, BMP, HEPATIC #### [address] Calcium [Mass/volume] in Ser um or PlasmaOrdered By: Kane Crouch on 01-15-2023 Calcium [Mass/Vol] 9.8 mg/dL Normal 8.6-10.3 [facility] Comment on above: Performed By: #### C BC, BMP, HEPATIC #### [address] Carbon dioxide, total [Moles /volume] in Serum or PlasmaOrdered By: Kane Crouch on 01-15-2023 CO2 [Moles/Vol] 26.0 mmol/L Normal 21.0-31.0 [facility] Comment on above: Performed By: #### C BC BMP, HEPATIC #### [address] Chloride [Moles/volume] in S bulmaro or PlasmaOrdered By: Kaen Crouch on 01-15-2023 Chloride [Moles/Vol] 106 mmol/L Normal 98-107 [facility] Comment on above: Performed By: #### C BC BMP, HEPATIC #### [address] Complete Blood Count Auto Di ffon 01-15-2023 Mean Corpuscular HGB Conc 34.6 g/dL Normal 32.0-35.0 [facility] Comment on above: Performed By: #### C BC, BMP, HEPATIC #### [address] Monocytes/100 WBC (Bld) 19.69 % Normal 0.00-20.00 [facility] Comment on above: Performed By: #### C BC BMP, HEPATIC #### [address] NRBC% 0.1 /100{WBC} Normal 0-0.5 [facility] Comment on above: Performed By: #### C BC, BMP, HEPATIC #### [address] Creatinine [Mass/volume] in Serum or PlasmaOrdered By: Kane Crouch on 01-15-2023 Creatinine [Mass/Vol] 0.67 mg/dL Normal 0.60-1.[address] [facility] Comment on above: Performed By: #### C BC, BMP, HEPATIC #### [facility] [address] [place] [address] Dipstick and Microscopicon 1 03-17-2022 Bacteria,Urine None Seen Normal None Seen [facility] Comment on above: Order Comment: Name Collection Type:: Clean-Voided Midstream Performed By: #### A DDONUAPLUS, UHCG #### [address] Bilirubin,Urine Negative Normal Negative [facility] Comment on above: Order Comment: Name Collection Type:: Clean-Voided Midstream Performed By: #### A DDONUAPLUS, UHCG #### [address] Glucose Ql (U) Normal Normal Normal [facility] Comment on above: Order Comment: Name Collection Type:: Clean-Voided Midstream Performed By: #### A DDONUAPLUS, UHCG #### [address] Hyaline Casts,Urine 0-8 Normal 0-8 [facility] Comment on above: Order Comment: Name Collection Type:: Clean-Voided Midstream Performed By: #### A DDONUAPLUS, UHCG #### [address] Ketones Ql (U) Negative Normal Negative [facility] Comment on above: Order Comment: Name Collection Type:: Clean-Voided Midstream Performed By: #### A DDONUAPLUS, UHCG #### [address] Leukocyte esterase Test strip Ql (U) Negative Normal Negative [facility] Comment on above: Order Comment: Name Collection Type:: Clean-Voided Midstream Performed By: #### A DDONUAPLUS, UHCG #### [place] [address] [place] Nitrite,Urine Negative Normal Negative [facility] Comment on above: Order Comment: Name Collection Type:: Clean-Voided Midstream Performed By: #### A DDONUAPLUS, UHCG #### [place] [address] [place] Occult Blood,Urine Negative Normal Negative [facility] Comment on above: Order Comment: Name Collection Type:: Clean-Voided Midstream Performed By: #### A DDONUAPLUS, UHCG #### [place] [address] [place] Protein,Urine Negative Normal Negative [facility] Comment on above: Order Comment: Name Collection Type:: Clean-Voided Midstream Performed By: #### A DDONUAPLUS, UHCG #### [place] [address] [place] RBC,Urine 3-4 Normal 0-4 [facility] Comment on above: Order Comment: Name Collection Type:: Clean-Voided Midstream Performed By: #### A DDONUAPLUS, UHCG #### [place] [address] [place] Specificy [place],Urine 1.015 Normal 1.001-1.03 0 [facility] Comment on above: Order Comment: Name Collection Type:: Clean-Voided Midstream Performed By: #### A DDONUAPLUS, UHCG #### [place] [address] [place] Squamous Epithelial Cell,Urine 3-4 High 0-2 [facility] Comment on above: Order Comment: Name Collection Type:: Clean-Voided Midstream Performed By: #### A DDONUAPLUS, UHCG #### [place] [address] [place] Urobilinogen,Urine Normal Normal Normal [facility] Comment on above: Order Comment: Name Collection Type:: Clean-Voided Midstream Performed By: #### A DDONUAPLUS, UHCG #### [place] [address] [place] WBC,Urine None Seen Normal 0-4 [facility] Comment on above: Order Comment: Name Collection Type:: Clean-Voided Midstream Performed By: #### A DDONUAPLUS, UHCG #### [facility] [address] Erythrocyte distribution wid th [Ratio] by Automated countOrdered By: Kane Crouch on 01-15-2023 Erythrocyte distribution width (RBC) [Ratio] 13.3 % Normal 11.9-15.3 [facility] Comment on above: Performed By: #### C BC, BMP, HEPATIC #### [facility] [address] Erythrocytes [#/volume] in B lood by Automated countOrdered By: Kane Crouch on 01-15-2023 RBC (Bld) [#/Vol] 4.36 10*6/uL Normal 3.60-5.00 [facility] Comment on above: Performed By: #### C BC BMP, HEPATIC #### [address] Glucose [Mass/volume] in Ser um or PlasmaOrdered By: Kane Crouch on 01-15-2023 Glucose [Mass/Vol] 100 mg/dL Normal 70-100 [facility] Comment on above: ADA recommended refe rence rangeRandom Glucose Reference Range is dependent on time and content of last meal. Glucose of more than 200 mg/dL in a nonstressed, ambulatory subject supports the diagnosis of Diabetes Mellitus. Result Comment: [place] om Glucose Reference Range is dependent on time and content of last meal. Glucose of more than 200 mg/dL in a nonstressed, ambulatory subject supports the diagnosis of Diabetes Mellitus. ADA recommended reference range Performed By: #### C BC, BMP, HEPATIC #### [address] HCG ( test) IA.rapi d Ql (U)Ordered By: Kane Crouch on 01-15-2023 HCG ( test) Ql (U) Negative [facility] HCG,Urineon 01-15-2023 Beta HCG ( test) Ql (U) Negative Normal [facility] Comment on above: Order Comment: Name Collection Type:: Clean-Voided Midstream Result Comment: PERF ORMED BY: [place] [address] PATHOLOGIST BOX OFFICE ATTENDANT KVNG FAM M.D. Performed By: #### A DDONUAPLUS, CG #### [address] Hematocrit [Volume Fraction] of Blood by Automated countOrdered By: Kane Crouch on 01-15-2023 Hematocrit (Bld) [Volume fraction] 40.8 % Normal 34.0-46.4 [facility] Comment on above: Performed By: #### C BC, BMP, HEPATIC #### [address] Hemoglobin [Mass/volume] in BloodOrdered By: Kane Crouch on 01-15-2023 Hemoglobin (Bld) [Mass/Vol] 14.1 g/dL Normal 11.8-15.4 [facility] Comment on above: Performed By: #### C BC, BMP, HEPATIC #### [address] Hepatic Panelon 01-15-2023 Albumin [Mass/Vol] 4.5 g/dL Normal 3.5-5.7 [facility] Comment on above: Performed By: #### C BC, BMP, HEPATIC #### [address] Bilirubin,Indirect 0.2 mg/dL Normal [facility] Comment on above: Performed By: #### C BC, BMP, HEPATIC #### [address] Bilirubin.indirect [Mass/Vol] 0.10 mg/dL Normal 0.03-0.18 [facility] Comment on above: Performed By: #### C BC, BMP, HEPATIC #### [address] Ketones Auto test strip (U) [Mass/Vol]Ordered By: Kane Crouch on 01-15-2023 Ketones (U) [Mass/Vol] Negative Negative [facility] - UrinalysisOrder ed By: Kane Crouch on 01-15-2023 Hyaline casts LM Ql (Urine sed) 0-8 [LPF] 0-8 [facility] Leukocytes [#/volume] correc cici for nucleated erythrocytes in Blood by Automated counOrdered By: Kane Crouch on 01-15-2023 WBC corrected for nucl RBC Auto (Bld) [#/Vol] 7.5 10*3/uL 3.8-11.6 [facility] Leukocytes [#/volume] in Blo od by Automated countOrdered By: Kane Crouch on 01-15-2023 WBC (Bld) [#/Vol] 7.5 10*3/uL Normal 3.8-11.6 [facility] Comment on above: Performed By: #### C KATLYN COWART, HEPATIC #### [place] [address] [place] Lymphocytes [#/volume] in Bl ood by Automated countOrdered By: Kane Crouch on 01-15-2023 Lymphocytes (Bld) [#/Vol] 2.1 10*3/uL Normal 1.00-4.8 [facility] Comment on above: Performed By: #### C KATLYN COWART, HEPATIC #### [place] [address] [place] Lymphocytes/100 leukocytes i n Blood by Automated countOrdered By: Kane Crouch on 01-15-2023 Lymphocytes/100 WBC (Bld) 28.5 % Normal . [facility] Comment on above: Performed By: #### C KATLYN COWART, HEPATIC #### [place] [address] [place] MCH [Entitic mass] by Automa cici countOrdered By: Kane Crouch on 01-15-2023 MCH (RBC) [Entitic mass] 32.3 pg Normal 24.7-34.3 [facility] Comment on above: Performed By: #### C KATLYN COWART, HEPATIC #### [address] MCHC Auto (RBC) [Mass/Vol]Or dered By: Kane Crouch on 01-15-2023 MCHC (RBC) [Mass/Vol] 34.6 g/dL 32.0-35.[address] [facility] MCV [Entitic volume] by Auto mated countOrdered By: Kane Crouch on 01-15-2023 MCV (RBC) [Entitic vol] 93.6 fL Normal 80-100 [facility] Comment on above: Performed By: #### C BC, BMP, HEPATIC #### [facility] [address] Monocyte distribution width [Entitic volume] in Blood by AutomatedOrdered By: Kane Crouch on 01-15-2023 Monocyte distribution width Auto (Bld) [Entitic vol] 19.69 % 0.00-20.00 [facility] Neutrophils [#/volume] in Bl ood by Automated countOrdered By: Kane Crouch on 01-15-2023 Neutrophils (Bld) [#/Vol] 4.7 10*3/uL Normal 1.8-7.7 [facility] Comment on above: Performed By: #### C SOFYA BMP, HEPATIC #### [facility] [address] [place] [address] No Panel InformationOrdered By: Kane Crouch on 01-15-2023 Estimated GFR (CKD-EPI) > 60.0 mL/Min [facility] Creatinine Clearance (Chem 97.87 [facility] Nucleated erythrocytes [Pres ence] in Blood by Automated countOrdered By: Kane Crouch on 01-15-2023 Nucleated RBC Auto Ql (Bld) 0.1 /100{WBC} 0-0.5 [facility] Platelet mean volume [Entiti c volume] in Blood by Automated countOrdered By: Kane Crouch on 01-15-2023 Platelet mean volume (Bld) [Entitic vol] 7.8 fL Normal 6.3-10.7 [facility] Comment on above: Performed By: #### C BC, BMP, HEPATIC #### [facility] [address] Platelets [#/volume] in Bloo d by Automated countOrdered By: Kane Crouch on 01-15-2023 Platelets (Bld) [#/Vol] 203 10*3/uL Normal 150-450 [facility] Comment on above: Performed By: #### C KATLYN COWART, HEPATIC #### [facility] [address] [place] [address] Potassium [Moles/volume] in Serum or PlasmaOrdered By: Kane Crouch on 01-15-2023 Potassium [Moles/Vol] 3.7 mmol/L Normal 3.5-5.[address] [facility] Comment on above: Performed By: #### C KATLYN COWART, HEPATIC #### [address] Protein Auto test strip (U) [Mass/Vol]Ordered By: Kane Crouch on 01-15-2023 Protein (U) [Mass/Vol] Negative Negative [facility] Protein [Mass/volume] in Ser um or PlasmaOrdered By: Kane Crouch on 01-15-2023 Protein [Mass/Vol] 7.3 g/dL Normal 6.4-8.9 [facility] Comment on above: Performed By: #### C KATLYN COWART, HEPATIC #### [address] Serum globulin measurement b y calculation (mass/volume)Ordered By: Kane Crouch on 01-15-2023 Globulin (S) [Mass/Vol] 2.8 g/dL [facility] Comment on above: Performed By: #### C KATLYN COWART, HEPATIC #### [address] Serum or plasma albumin/glob ulin mass ratioOrdered By: Kane Crouch on 01-15-2023 Albumin/Globulin [Mass ratio] 1.6 {ratio} [facility] Comment on above: Performed By: #### C KATLYN COWART, HEPATIC #### [address] Serum or plasma anion gap de terminationOrdered By: Kane Crouch on 01-15-2023 Anion gap [Moles/Vol] 9.7 mmol/L Normal 6.0-15.[address] [facility] Comment on above: Performed By: #### C KATLYN COWART, HEPATIC #### [address] [address] [place] Serum or plasma non-glucuron idated bilirubin measurement (mass/volume)Ordered By: Kane Crouch on 01-15-2023 Bilirubin.indirect [Mass/Vol] 0.2 mg/dL [facility] Sodium [Moles/volume] in Ser um or PlasmaOrdered By: Kane Crouch on 01-15-2023 Sodium [Moles/Vol] 138 mmol/L Normal 136-145 [facility] Comment on above: Performed By: #### C BC, BMP, HEPATIC #### [facility] [address] [place] [address] Squamous epithelial cells de tection in urine sediment by light microscopyOrdered By: Kane Crouch on 01-15-2023 Epithelial cells.squamous LM Ql (Urine sed) 3-4 [HPF] 0-2 [facility] Urea nitrogen [Mass/volume] in Serum or PlasmaOrdered By: Kane Crouch on 01-15-2023 Urea nitrogen [Mass/Vol] 13 mg/dL Normal 7-25 [facility] Comment on above: Performed By: #### C BC, BMP, HEPATIC #### [facility] [address] [place] [address] Urine appearanceOrdered By: Kane Crouch on 01-15-2023 Appearance (U) Slightly cloudy Critically abnormal Clear [facility] Comment on above: Order Comment: Name Collection Type:: Clean-Voided Midstream Performed By: #### A DDONUAPLUS, UHCG #### [facility] [address] [place] [address] Urine bacteria detection by automated methodOrdered By: Kane Crouch on 01-15-2023 Bacteria Auto Ql (U) None seen None Seen [facility] Urine colorOrdered By: Jun Crouch on 01-15-2023 Color (U) Yellow Normal Yellow [facility] Comment on above: Order Comment: Name Collection Type:: Clean-Voided Midstream Performed By: #### A DDONUAPLUS, UHCG #### [facility] [address] [place] [address] Urine glucose measurement by automated test strip (mass/volume)Ordered By: Kane Crouch on 01-15-2023 Glucose Auto test strip (U) [Mass/Vol] Normal mg/dL Normal [facility] Urine hemoglobin detection b y automated test stripOrdered By: Kane Crouch on 01-15-2023 Hemoglobin Auto test strip Ql (U) Negative Negative [facility] Urine leukocyte esterase det ection by automated test stripOrdered By: Kane Crouch on 01-15-2023 Leukocyte esterase Auto test strip Ql (U) Negative Negative [facility] Urine nitrite detection by a utomated test stripOrdered By: Kane Crouch on 01-15-2023 Nitrite Auto test strip Ql (U) Negative Negative [facility] Urine pH measurement by auto mated test stripOrdered By: Kane Crouch on 01-15-2023 pH (U) 7.5 [pH] Normal 5.0-9.0 [facility] Comment on above: Order Comment: Name Collection Type:: Clean-Voided Midstream Performed By: #### A DDONUAPLUS, CG #### [facility] [address] Urobilinogen Auto test strip (U) [Mass/Vol]Ordered By: Kane Crouch on 01-15-2023 Urobilinogen (U) [Mass/Vol] Normal mg/dL Normal [facility] pH Auto test strip (U)Ordere d By: Kane Crouch on 01-15-2023 pH (U) 1.015 [pH] 1.001-1.03 0 [facility] CBC W Auto Differential pane l (Bld)on 01-12-2023 Basophils (Bld) [#/Vol] 0.03 10*3/uL Normal <0.11 [facility] Comment on above: Order Comment: Speci men Type: BLOOD SPECIMENOrdering Facility: [facility] Address: [address] [place] [address] Performed By: #### 5 7021-8 ####[facility] LABCLIA [id number] [place] [address] Basophils/100 WBC (Bld) 0.5 % Normal [facility] Comment on above: Order Comment: Speci men Type: BLOOD SPECIMENOrdering Facility: [facility] Address: [address] [place] [address] Performed By: #### 5 7021-8 ####[facility] LABCLIA [id number] [place] [address] Differential cell count method Nom (Bld) Auto Normal [facility] Comment on above: Order Comment: Speci men Type: BLOOD SPECIMENOrdering Facility: [facility] Address: [address] [place] [address] Performed By: #### 5 7021-8 ####[facility] LABCLIA [id number] [place] [address] Eosinophils (Bld) [#/Vol] 0.14 10*3/uL Normal <0.46 [facility] Comment on above: Order Comment: Speci men Type: BLOOD SPECIMENOrdering Facility: [facility] Address: [address] [place] [address] Performed By: #### 5 7021-8 ####[facility] LABCLIA [id number] [place] [address] Eosinophils/100 WBC (Bld) 2.4 % Normal [facility] Comment on above: Order Comment: Speci men Type: BLOOD SPECIMENOrdering Facility: [facility] Address: [address] [place] [address] Performed By: #### 5 7021-8 ####[facility] LABCLIA [id number] [place] [address] Erythrocyte distribution width (RBC) [Ratio] 12.9 % Normal 11.5-15.0 [facility] Comment on above: Order Comment: Speci men Type: BLOOD SPECIMENOrdering Facility: [facility] Address: [address] [place] [address] Performed By: #### 5 7021-8 ####[facility] LABCLIA [id number] [place] [address] Hematocrit (Bld) [Volume fraction] 40.8 % Normal 36.0-46.0 [facility] Comment on above: Order Comment: Speci men Type: BLOOD SPECIMENOrdering Facility: [facility] Address: [address] [place] [address] Performed By: #### 5 7021-8 ####[facility] LABCLIA [id number] [place] [address] Hemoglobin (Bld) [Mass/Vol] 14.1 g/dL Normal 11.5-15.5 [facility] Comment on above: Order Comment: Speci men Type: BLOOD SPECIMENOrdering Facility: [facility] Address: [address] [place] [address] Performed By: #### 5 7021-8 ####[facility] LABCLIA [id number] [place] [address] Immature granulocytes (Bld) [#/Vol] 10*3/uL Normal <0.10 [facility] Comment on above: Order Comment: Speci men Type: BLOOD SPECIMENOrdering Facility: [facility] Address: [address] [place] [address] Performed By: #### 5 7021-8 ####[facility] LABCLIA [id number] [place] [address] Immature granulocytes/100 WBC (Bld) 0.2 % Normal [facility] Comment on above: Order Comment: Speci men Type: BLOOD SPECIMENOrdering Facility: [facility] Address: [address] [place] [address] Performed By: #### 5 7021-8 ####[facility] LABCLIA [id number] [place] [address] Lymphocytes (Bld) [#/Vol] 1.87 10*3/uL Normal 1.00-4.00 [facility] Comment on above: Order Comment: Speci men Type: BLOOD SPECIMENOrdering Facility: [facility] Address: [address] [place] [address] Performed By: #### 5 7021-8 ####[facility] LABCLIA [id number] [place] [address] Lymphocytes/100 WBC (Bld) 32.5 % Normal [facility] Comment on above: Order Comment: Speci men Type: BLOOD SPECIMENOrdering Facility: [facility] Address: [address] [place] [address] Performed By: #### 5 7021-8 ####[facility] LABCLIA [id number] [place] [address] MCH (RBC) [Entitic mass] 32.1 pg Normal 26.0-34.0 [facility] Comment on above: Order Comment: Speci men Type: BLOOD SPECIMENOrdering Facility: [facility] Address: [address] [place] [address] Performed By: #### 5 7021-8 ####[facility] LABCLIA [id number] [place] [address] MCHC (RBC) [Mass/Vol] 34.6 g/dL Normal 30.5-36.0 [facility] Comment on above: Order Comment: Speci men Type: BLOOD SPECIMENOrdering Facility: [facility] Address: [address] [place] [address] Performed By: #### 5 7021-8 ####[facility] LABCLIA [id number] [place] [address] MCV (RBC) [Entitic vol] 92.9 fL Normal 80.0-100.0 [facility] Comment on above: Order Comment: Speci men Type: BLOOD SPECIMENOrdering Facility: [facility] Address: [address] [place] [address] Performed By: #### 5 7021-8 ####[facility] LABIA [id number] [place] [address] Monocytes (Bld) [#/Vol] 0.35 10*3/uL Normal <0.87 [facility] Comment on above: Order Comment: Speci men Type: BLOOD SPECIMENOrdering Facility: [facility] Address: [address] [place] [address] Performed By: #### 5 7021-8 ####[facility] LABCLIA [id number] [place] [address] Monocytes/100 WBC (Bld) 6.1 % Normal [facility] Comment on above: Order Comment: Speci men Type: BLOOD SPECIMENOrdering Facility: [facility] Address: [address] [place] [address] Performed By: #### 5 7021-8 ####[facility] LABCLIA [id number] [place] [address] Neutrophils (Bld) [#/Vol] 3.36 10*3/uL Normal 1.45-7.50 [facility] Comment on above: Order Comment: Speci men Type: BLOOD SPECIMENOrdering Facility: [facility] Address: [address] [place] [address] Performed By: #### 5 7021-8 ####[facility] LABCLIA [id number] [place] [address] Neutrophils/100 WBC (Bld) 58.3 % Normal [facility] Comment on above: Order Comment: Speci men Type: BLOOD SPECIMENOrdering Facility: [facility] Address: [address] [place] [address] Performed By: #### 5 7021-8 ####[facility] LABCLIA [id number] [place] [address] Nucleated RBC (Bld) [#/Vol] 10*3/uL Normal <0.01 [facility] Comment on above: Order Comment: Speci men Type: BLOOD SPECIMENOrdering Facility: [facility] Address: [address] [place] [address] Performed By: #### 5 7021-8 ####[facility] LABCLIA [id number] [place] [address] Nucleated RBC/100 WBC (Bld) [Ratio] 0.0 /100 WBC Normal [facility] Comment on above: Order Comment: Speci men Type: BLOOD SPECIMENOrdering Facility: [facility] Address: [address] [place] [address] Performed By: #### 5 7021-8 ####[facility] LABCLIA [id number] [place] [address] Platelet mean volume (Bld) [Entitic vol] 9.8 fL Normal 9.0-12.7 [facility] Comment on above: Order Comment: Speci men Type: BLOOD SPECIMENOrdering Facility: [facility] Address: [address] [place] [address] Performed By: #### 5 7021-8 ####[facility] LABCLIA [id number] [place] [address] Platelets (Bld) [#/Vol] 185 10*3/uL Normal 150-400 [facility] Comment on above: Order Comment: Speci men Type: BLOOD SPECIMENOrdering Facility: [facility] Address: [address] [place] [address] Performed By: #### 5 7021-8 ####[facility] LABCLIA [id number] [place] [address] RBC (Bld) [#/Vol] 4.39 10*6/uL Normal 3.90-5.20 [facility] Comment on above: Order Comment: Speci men Type: BLOOD SPECIMENOrdering Facility: [facility] Address: [address] [place] [address] Performed By: #### 5 7021-8 ####[facility] LABCLIA [id number] [place] [address] WBC (Bld) [#/Vol] 5.76 10*3/uL Normal 3.70-11.00 [facility] Comment on above: Order Comment: Speci men Type: BLOOD SPECIMENOrdering Facility: [facility] Address: [address] [place] [address] Performed By: #### 5 7021-8 ####[facility] LABCLIA [id number] [facility] [place] [address] CNOVSPon 01-12-2023 CNOVSP Visit (SP) Office (Randi PARUL) -- AYANA GILL ([id number]) 1990 F Date Time Provider Department 01/12/23 11:15 AM IZAIAH PINTO During your visit today, we recorded the following information about you: Temperature Pulse Respiration Blood pressure 97.7 degrees 61/minute 16/minute 116/71 Weight 57 kg Izaiah Pinto MD 01/15/2023 9:16 AM Signed NAME: Ayana Gill CLINIC NO.: [id number] DATE OF SERVICE: January 12, 2023 (Gavin) Referring 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 _- HPI: CASE HISTORY: Reverse Chronological Order 01/02/2023 [...] a bump on left arm 03/2020 at [facility] - hysterectomy - found cervical cancer. 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 Worked at [employer] Has 3 children _- REVIEW OF SYSTEMS Per HPI and otherwise negative by full review of organ systems. _- ECOG PERFORMANCE STATUS: 0 PHYSICAL EXAMINATION: Vitals: [...] No splenomegaly on palpation No inguinal LN. _- ALLERGIES: ALLERGIES No Known Allergies MEDICATIONS: TALTZ AUTOINJECTOR 80 mg/mL pen _- LABORATORY VALUES: WBC (k/uL) Date Value 01/12/2023 [...] Alkaline Phos (more content not included)... Normal [facility] Comprehensive metabolic 2000 panelon 01-12-2023 Albumin [Mass/Vol] 4.7 g/dL Normal 3.9-4.9 [facility] Comment on above: Order Comment: Speci men Type: BLOOD SPECIMENOrdering Facility: [facility] Address: [address] [place] [address] Performed By: #### 2 532-0, ####[facility] LABCLIA [id number] [place] [address] ALP [Catalytic activity/Vol] 59 U/L Normal 34-123 [facility] Comment on above: Order Comment: Speci men Type: BLOOD SPECIMENOrdering Facility: [facility] Address: [address] [place] [address] Performed By: #### 2 532-0, ####[facility] LABCLIA [id number] [place] [address] ALT [Catalytic activity/Vol] 27 U/L Normal 7-38 [facility] Comment on above: Order Comment: Speci men Type: BLOOD SPECIMENOrdering Facility: [facility] Address: [address] [place] [address] Performed By: #### 2 532-0, 73448-3 ####[facility] LABCLIA [id number] [place] [address] Anion gap [Moles/Vol] 8 mmol/L Low 9-18 [facility] Comment on above: Order Comment: Speci men Type: BLOOD SPECIMENOrdering Facility: [facility] Address: [address] [place] [address] Performed By: #### 2 532-0, ####[facility] LABCLIA [id number] [place] [address] AST [Catalytic activity/Vol] 28 U/L Normal 13-35 [facility] Comment on above: Order Comment: Speci men Type: BLOOD SPECIMENOrdering Facility: [facility] Address: [address] [place] [address] Performed By: #### 2 532-0, ####[facility] LABCLIA [id number] [place] [address] Bilirubin [Mass/Vol] 0.2 mg/dL Normal 0.2-1.3 [facility] Comment on above: Order Comment: Speci men Type: BLOOD SPECIMENOrdering Facility: [facility] Address: [address] [place] [address] Performed By: #### 2 532-0, ####[facility] LABCLIA [id number] [place] [address] Calcium [Mass/Vol] 10.0 mg/dL Normal 8.5-10.2 [facility] Comment on above: Order Comment: Speci men Type: BLOOD SPECIMENOrdering Facility: [facility] Address: [address] [place] [address] Performed By: #### 2 532-0, ####[facility] LABCLIA [id number] [place] [address] Chloride [Moles/Vol] 104 mmol/L Normal 97-105 [facility] Comment on above: Order Comment: Speci men Type: BLOOD SPECIMENOrdering Facility: [facility] Address: [address] [place] [address] Performed By: #### 2 532-0, ####[facility] LABCLIA [id number] [place] [address] CO2 [Moles/Vol] 27 mmol/L Normal 22-30 [facility] Comment on above: Order Comment: Speci men Type: BLOOD SPECIMENOrdering Facility: [facility] Address: [address] [place] [address] Performed By: #### 2 532-0, ####[facility] LABCLIA [id number] [place] [address] Creatinine [Mass/Vol] 0.71 mg/dL Normal 0.58-0.96 [facility] Comment on above: Order Comment: Speci men Type: BLOOD SPECIMENOrdering Facility: [facility] Address: [address] [place] [address] Performed By: #### 2 532-0, ####[facility] LABCLIA [id number] [place] [address] Creatinine and Glomerular filtration rate.predicted panel (S/P/Bld) 115 mL/min/1.73m??? Normal >=60 [facility] Comment on above: Order Comment: Speci men Type: BLOOD SPECIMENOrdering Facility: [facility] Address: [address] [place] [address] Result Comment: Dawn mated Glomerular Filtration Rate [...] actual GFR. Performed By: #### 2 532-0, ####[facility] LABCLIA [id number] [place] [address] Glucose [Mass/Vol] 106 mg/dL High 74-99 [facility] Comment on above: Order Comment: Speci men Type: BLOOD SPECIMENOrdering Facility: [facility] Address: [address] [place] [address] Result Comment: The [place] Diabetes Association (ADA) provides guidance for cutoff [...] Standards of Medical Care in Diabetes 2016, [place] [employer]. Diabetes Care. 2016.39(Suppl 1). Performed By: #### 2 532-0, 35800-2 ####[facility] LABCLIA [id number] [place] [address] Potassium [Moles/Vol] 4.4 mmol/L Normal 3.7-5.1 [facility] Comment on above: Order Comment: Speci men Type: BLOOD SPECIMENOrdering Facility: [facility] Address: [address] [place] [address] Performed By: #### 2 532-0, ####[facility] LABCLIA [id number] [place] [address] Protein [Mass/Vol] 7.3 g/dL Normal 6.3-8.0 [facility] Comment on above: Order Comment: Speci men Type: BLOOD SPECIMENOrdering Facility: [facility] Address: [address] [place] [address] Performed By: #### 2 532-0, ####[facility] LABCLIA [id number] [place] [address] Sodium [Moles/Vol] 139 mmol/L Normal 136-144 [facility] Comment on above: Order Comment: Speci men Type: BLOOD SPECIMENOrdering Facility: [facility] Address: [place] [address] Performed By: #### 2 532-0, 06560-9 ####[facility] LABCLIA [id number] [place] [address] Urea nitrogen [Mass/Vol] 11 mg/dL Normal 7-21 [facility] Comment on above: Order Comment: Speci men Type: BLOOD SPECIMENOrdering Facility: [facility] Address: [address] [facility] [place] [address] Performed By: #### 2 532-0, 74437-1 ####[facility] LABCLIA [id number] [place] [address] LDH SerPl-cCncon 01-12-2023 LDH [Catalytic activity/Vol] 158 U/L Normal 135-214 [facility] Comment on above: Order Comment: Speci men Type: BLOOD SPECIMENOrdering Facility: [facility] Address: [place] [address] Performed By: #### 2 532-0, 78743-9 ####[facility] LABCLIA [id number] [place] [address] US HEAD NECK SOFT TISSUEon 1 02-28-2022 US HEAD NECK SOFT TISSUE US HEAD NECK SOFT TISSUE History: Lump of the occipital scalp. [...] 12-29-2022 XR HUMERUS LEFT EXAMINATION: XR MEG YV LEFT HISTORY: lump left upper arm COMPARISON: None available TECHNIQUE: AP and lateral views of the humerus FINDINGS: No acute or aggressive abnormality of the humerus. Soft tissues appear within normal limits; no soft tissue mass identified by radiography. IMPRESSION: No acute osseous abnormality. ELECTRONICALLY SIGNED BY: Papo Bertrand, Normal Not Available [facility] echo transthoracicon [facility] echo transthoracic [facility] Main [place] [address] [place] [address] Echocardiogram Signed Patient: Ayana Gill MR#: [id number] : 1990 Acct:[id number] Age/Sex: 32 / F ADM Date: 11/15/22 Loc: Room: Type: [facility] Attending Dr: Venus Cespedes APRN Ordering Provider: Venus Cespedes APRN Date of Service: 11/15/22/ [facility] echo transthoracic: CP.. 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 COMPARISON: Chest 09/18/2022 FINDINGS: Heart normal size. Lungs are clear. No free air. XR/XR chest 2V* IMPRESSION: NO ACUTE CARDIOPULMONARY ABNORMALITY. Impression dictated by: Jm Phipps Jr., D.OKat11/11/2022 2:55 PM Dictation Location: [place] [address] Transcribed By: [facility] 11/11/22 145 Dictated By: Jm Phipps Jr, DO 11/11/22 1454 Signed By: 11/11/22 1455 Normal [facility] Activated partial thrombopla stin time (aPTT) in platelet poor plasma by coagulation aOrdered By: Abelino Arevalo on 09-18-2022 aPTT Coag (PPP) [Time] 30.9 s 25.1-36.5 [facility] Alanine aminotransferase [En zymatic activity/volume] in Serum or PlasmaOrdered By: Abelino Arevalo on 09-18-2022 ALT [Catalytic activity/Vol] 20 U/L 7-52 [facility] Albumin [Mass/volume] in Ser um or Plasma by Bromocresol green (BCG) dye binding methoOrdered By: Abelino Arevalo on 09-18-2022 Albumin BCG dye [Mass/Vol] 4.4 g/dL 3.5-5.7 [facility] Alkaline phosphatase [Enzyma tic activity/volume] in Serum or PlasmaOrdered By: Abelino Arevalo on 09-18-2022 ALP [Catalytic activity/Vol] 44 U/L 34-104 [facility] Aspartate aminotransferase [ Enzymatic activity/volume] in Serum or PlasmaOrdered By: Abelino Arevalo on 09-18-2022 AST [Catalytic activity/Vol] 25 U/L 13-39 [facility] Basophils Auto (Bld) [#/Vol] Ordered By: Abelino Arevalo on 09-18-2022 Basophils (Bld) [#/Vol] 0.1 10*3/uL 0.0-0.2 [facility] Basophils/100 WBC Auto (Bld) Ordered By: Abelino Arevalo on 09-18-2022 Basophils/100 WBC (Bld) 1.3 % . [facility] Bilirubin.direct [Mass/volum e] in Serum or PlasmaOrdered By: Abelino Arevalo on 09-18-2022 Bilirubin.direct [Mass/Vol] 0.10 mg/dL 0.03-0.18 [facility] Bilirubin.total [Mass/volume ] in Serum or PlasmaOrdered By: Abelino Arevalo on 09-18-2022 Bilirubin [Mass/Vol] 0.2 mg/dL 0.3-1.0 [facility] Calcium [Mass/volume] in Ser um or PlasmaOrdered By: Abelino Arevalo on 09-18-2022 Calcium [Mass/Vol] 9.7 mg/dL 8.6-10.3 [facility] Carbon dioxide, total [Moles /volume] in Serum or PlasmaOrdered By: Abelino Arevalo on 09-18-2022 CO2 [Moles/Vol] 28.4 mmol/L 21.0-31.0 [facility] Chloride [Moles/volume] in S bulmaro or PlasmaOrdered By: Abelino Arevalo on 09-18-2022 Chloride [Moles/Vol] 107 mmol/L 98-107 [facility] Creatine kinase [Enzymatic a ctivity/volume] in Serum or PlasmaOrdered By: Abelino Arevalo on 09-18-2022 CK [Catalytic activity/Vol] 86 U/L 30-223 [facility] Creatinine [Mass/volume] in Serum or PlasmaOrdered By: Abelino Arevalo on 09-18-2022 Creatinine [Mass/Vol] 0.79 mg/dL 0.60-1.[address] [facility] Eosinophils Auto (Bld) [#/Vo l]Ordered By: Abelino Arevalo on 09-18-2022 Eosinophils (Bld) [#/Vol] 0.2 10*3/uL 0.0-0.45 [facility] Eosinophils/100 WBC Auto (Bl d)Ordered By: Abelino Arevalo on 09-18-2022 Eosinophils/100 WBC (Bld) 3.0 % . [facility] Erythrocyte distribution wid th Auto (RBC) [Ratio]Ordered By: Abelino Arevalo on 09-18-2022 Erythrocyte distribution width (RBC) [Ratio] 13.3 % 11.9-15.3 [facility] Globulin Calc (S) [Mass/Vol] Ordered By: Abelino Arevalo on 09-18-2022 Globulin (S) [Mass/Vol] 2.9 g/dL [facility] Glucose [Mass/volume] in Ser um or PlasmaOrdered By: Abelino Arevalo on 09-18-2022 Glucose [Mass/Vol] 88 mg/dL 70-100 [facility] Comment on above: ADA recommended refe rence rangeRandom Glucose Reference Range is dependent on time and content of last meal. Glucose of more than 200 mg/dL in a nonstressed, ambulatory subject supports the diagnosis of Diabetes Mellitus. Hematocrit Auto (Bld) [Volum e fraction]Ordered By: Abelino Arevalo on 09-18-2022 Hematocrit (Bld) [Volume fraction] 39.2 % 34.0-46.4 [facility] Hemoglobin [Mass/volume] in BloodOrdered By: Abelino Arevalo 09-18-2022 Hemoglobin (Bld) [Mass/Vol] 13.5 g/dL 11.8-15.4 [facility] Laboratory - CoagulationOrde red By: Abelino Arevalo on 09-18-2022 PT Coag (PPP) [Time] 11.8 s 9.0-12.9 [facility] Leukocytes [#/volume] correc cici for nucleated erythrocytes in Blood by Automated counOrdered By: Abelino Arevalo on 09-18-2022 WBC corrected for nucl RBC Auto (Bld) [#/Vol] 7.8 10*3/uL 3.8-11.6 [facility] Lymphocytes Auto (Bld) [#/Vo l]Ordered By: Abelino Arevalo on 09-18-2022 Lymphocytes (Bld) [#/Vol] 2.4 10*3/uL 1.00-4.8 [facility] Lymphocytes/100 WBC Auto (Bl d)Ordered By: Abelino Arevalo on 09-18-2022 Lymphocytes/100 WBC (Bld) 30.3 % . [facility] MCH Auto (RBC) [Entitic mass ]Ordered By: Abelino Arevalo on 09-18-2022 MCH (RBC) [Entitic mass] 32.6 pg 24.7-34.3 [facility] MCHC Auto (RBC) [Mass/Vol]Or dered By: Abelino Arevalo on 09-18-2022 MCHC (RBC) [Mass/Vol] 34.4 g/dL 32.0-35.[address] [facility] MCV Auto (RBC) [Entitic vol] Ordered By: Abelino Arevalo on 09-18-2022 MCV (RBC) [Entitic vol] 94.8 fL 80-100 [facility] Monocyte distribution width [Entitic volume] in Blood by AutomatedOrdered By: Abelino Arevalo on 09-18-2022 Monocyte distribution width Auto (Bld) [Entitic vol] 17.51 % 0.00-20.00 [facility] Monocytes Auto (Bld) [#/Vol] Ordered By: Abelino Arevalo on 09-18-2022 Monocytes (Bld) [#/Vol] 0.5 10*3/uL 0.0-0.8 [facility] Monocytes/100 WBC Auto (Bld) Ordered By: Abelino Arevalo on 09-18-2022 Monocytes/100 WBC (Bld) 6.7 % . [facility] Natriuretic peptide B [Mass/ Vol]Ordered By: Abelino Arevalo on 09-18-2022 Natriuretic peptide B (Bld) [Mass/Vol] 19.0 pg/mL 5-100 [facility] Neutrophils Auto (Bld) [#/Vo l]Ordered By: Abelino Arevalo on 09-18-2022 Neutrophils (Bld) [#/Vol] 4.6 10*3/uL 1.8-7.7 [facility] Neutrophils/100 WBC Auto (Bl d)Ordered By: Abelino Arevalo on 09-18-2022 Neutrophils/100 WBC (Bld) 58.7 % . [facility] No Panel InformationOrdered By: Abelino Arevalo on 09-18-2022 D-Dimer Quantitative (PE/DVT) < 200 ng/mL 0-243 [facility] Comment on above: The reference range for D-dimer is <243 ng/mL D-dimer units.D-dimer results must be used in conjunction with a clinicalpretest probability (PTP) assessment model for deep veinthrombosis (DVT) and pulmonary embolism (PE). Results <230ng/mL d-dimer units can be used as a negative predictor inpatients with low or moderate probability for DVT/PE.Results above the exclusion threshold of 230 ng/ml D-dimerunits for DVT/PE may indicate the need for furtherdiagnostic testing.D-Dimer can be increased in hospitalized patients due toco-morbid conditions. Estimated GFR (CKD-EPI) > 60.0 mL/Min [facility] Creatinine Clearance (Chem 83.00 [facility] Nucleated erythrocytes [Pres ence] in Blood by Automated countOrdered By: Abelino Arevalo on 09-18-2022 Nucleated RBC Auto Ql (Bld) 0.0 /100{WBC} 0-0.5 [facility] Platelet mean volume Auto (B ld) [Entitic vol]Ordered By: Abelino Arevalo on 09-18-2022 Platelet mean volume (Bld) [Entitic vol] 8.2 fL 6.3-10.7 [facility] Platelet poor plasma interna tional normalized ratio (INR) by coagulation assay (relatOrdered By: Abelino Arevalo on 09-18-2022 INR Coag (PPP) [Relative time] 1.0 {INR} [facility] Comment on above: INR Therapeutic Rang e [...] 4.5 Platelets Auto (Bld) [#/Vol] Ordered By: Abelino Arevalo on 09-18-2022 Platelets (Bld) [#/Vol] 174 10*3/uL 150-450 [facility] Potassium [Moles/volume] in Serum or PlasmaOrdered By: Abelino Arevalo on 09-18-2022 Potassium [Moles/Vol] 4.0 mmol/L 3.5-5.[address] [facility] Comment on above: Hemolysis is present at a level that could interfere with the result. Protein [Mass/volume] in Ser um or PlasmaOrdered By: Abelino Arevalo on 09-18-2022 Protein [Mass/Vol] 7.3 g/dL 6.4-8.9 [facility] RBC Auto (Bld) [#/Vol]Ordere d By: Abelino Arevalo on 09-18-2022 RBC (Bld) [#/Vol] 4.14 10*6/uL 3.60-5.00 [facility] Serum or plasma albumin/glob ulin mass ratioOrdered By: Abelino Arevalo on 09-18-2022 Albumin/Globulin [Mass ratio] 1.5 {ratio} [facility] Serum or plasma anion gap de terminationOrdered By: Abelino Arevalo on 09-18-2022 Anion gap [Moles/Vol] 8.6 mmol/L 6.0-15.[address] [facility] Serum or plasma non-glucuron idated bilirubin measurement (mass/volume)Ordered By: Abelino Arevalo on 09-18-2022 Bilirubin.indirect [Mass/Vol] 0.1 mg/dL [facility] Sodium [Moles/volume] in Ser um or PlasmaOrdered By: Abelino Arevalo on 09-18-2022 Sodium [Moles/Vol] 140 mmol/L 136-145 [facility] Troponin I.cardiac [Mass/vol ume] in Serum or Plasma by Detection limit <= 0.01 ng/Ordered By: Abelino Arevalo on 09-18-2022 Troponin I.cardiac DL <= 0.01 ng/mL [Mass/Vol] 2.4 pg/mL 0.0-15.0 [facility] Urea nitrogen [Mass/volume] in Serum or PlasmaOrdered By: Abelino Arevalo on 09-18-2022 Urea nitrogen [Mass/Vol] 14 mg/dL 7-25 [facility] WBC Auto (Bld) [#/Vol]Ordere d By: Abelino Arevalo on 09-18-2022 WBC (Bld) [#/Vol] 7.8 10*3/uL 3.8-11.6 [facility] Patient Instructionson 02-11 [employer] Interface Message Text Oral Surgery IV [...] the system. 13. Do not wear: nail slovak, lipstick, heavy makeup, contact lenses, jewelry, wigs. Do wear: loose clothes with short sleeves, long pants, shoes (no high heals). 14. Please call our office to cancel your appointment if you feel sick. Normal [facility] Progress Noteson 02-11-2022 [employer] Authentication Interface Message Text Normal [facility] [employer] Interface Message Text -- Attestation signed by Marci Reyes DMD, MD [...] the resident's note. Marci Reyes DMD, MD -- OMFS PATIENT VISIT CHIEF COMPLAINT: Pain HISTORY OF PRESENT ILLNESS: 31 year old female with no significant PMH presents to [facility] [place] as a referral from an outside [...] oral sedation Khalif Jackson, MARA Normal [facility] Pap IG,rfx Aptima HPV all pt hon 10-27-2020 . . Normal [facility] Comment on above: Performed By: #### P [id number] #### [facility] [address] [place] [address] Prieto Medrano DIAGNOSIS: Comment Normal [facility] Comment on above: Result Comment: NEGA TIVE FOR INTRAEPITHELIAL LESION OR MALIGNANCY. THIS SPECIMEN WAS RESCREENED PART OF OUR REGULATORY COMPLIANCE SPECIALIST PROGRAM. Performed By: #### P [id number] #### [facility] [address] [place] [address] Prieto Medrano Methodology: Comment [facility] Comment on above: Result Comment: This liquid based ThinPrep(R) pap test was screened with the use of an image guided system. Performed By: #### P APH11A #### [facility] [address] [place] [address] Prieto Medrano Note: Comment Normal [facility] Comment on above: Result Comment: The Pap smear is a screening test designed to aid in the detection of premalignant and malignant conditions of the uterine cervix. It is not a diagnostic procedure and should not be used as the sole means of detecting cervical cancer. Both false-positive and false-negative reports do occur. . Performed By: #### P APH11A #### [facility] [address] [place] [address] Prieto Medrano Performed by: Comment Normal [facility] Comment on above: Result Comment: Thelma Harper, [employer] (ASCP) Performed By: #### P APH11A #### [facility] [address] [place] [address] Prieto Marcela QC reviewed by: Comment Normal [facility] Comment on above: Result Comment: Ananth Wang, [employer] Performed By: #### P APH11A #### [facility] [address] [place] [address] Prieto Marcela Reflex Criteria: Comment Normal [facility] Comment on above: Result Comment: The HPV DNA reflex criteria were not met with this specimen result therefore, no HPV testing was performed. . Performed By: #### P APH11A #### [facility] [address] [place] [address] Prieto Marcela Specimen adequacy: Comment Normal [facility] Comment on above: Result Comment: Sati sfactory for evaluation. No endocervical cells are present. This is consistent with a history of hysterectomy. Performed By: #### P APH11A #### [facility] [address] [place] [address] Prieto Marcela BUNon 04-11-2020 Urea nitrogen [Mass/Vol] 10.0 mg/dL Normal 7.0-17.0 [facility] Comment on above: Performed By: #### C DAY HARMAN #### [facility] [address] [place] [address] Prieto Marcela CBC AUTO DIFFon 04-11-2020 BASO # 0.0 103/ul Normal 0.0-0.1 [facility] Comment on above: Performed By: #### C BC #### [facility] [address] [place] [address] Prieto Marcela Basophils/100 WBC (Bld) 0.1 % Critically low 0.2-2.0 [facility] Comment on above: Performed By: #### C BC #### [facility] [address] [place] [address] Prieto Marcela EO # 0.0 103/ul Normal 0.0-0.7 [facility] Comment on above: Performed By: #### C BC #### [facility] [address] [place] [address] Prieto Marcela Eosinophils/100 WBC (Bld) 0.0 % Critically low 0.9-7.0 [facility] Comment on above: Performed By: #### C BC #### [facility] [address] [place] [address] Prieto Medrano Erythrocyte distribution width (RBC) [Ratio] 13.1 % Normal 11.0-15.0 [facility] Comment on above: Performed By: #### C BC #### [facility] [address] [place] [address] Prietowendy Medrano Hematocrit (Bld) [Volume fraction] 29.6 % Critically low 36.0-48.0 [facility] Comment on above: Performed By: #### C BC #### [facility] [address] [place] [address] Prieto Medrano Hemoglobin (Bld) [Mass/Vol] 10.2 g/dL Critically low 12.0-16.0 [facility] Comment on above: Performed By: #### C BC #### [facility] [address] [place] [address] Prietowendy Medrano IG # 0.02 10e3/ul Normal 0.00-0.03 [facility] Comment on above: Performed By: #### C BC #### [facility] [address] [place] [address] Prietowendy Medrano IG % 0.2 % Normal 0.0-0.5 [facility] Comment on above: Performed By: #### C BC #### [facility] [address] [place] [address] Prieto Marcela LYMPH # 1.2 103/ul Normal 1.2-3.8 [facility] Comment on above: Performed By: #### C BC #### [facility] [address] [place] [address] Prieto Medrano Lymphocytes/100 WBC (Bld) 14.2 % Critically low 20.5-60.0 [facility] Comment on above: Performed By: #### C BC #### [facility] [address] [place] [address] Prieto Medrano MANUAL DIFF REQ NO Normal [facility] Comment on above: Performed By: #### C BC #### [facility] [address] [id number] Prieto Medrano MCH (RBC) [Entitic mass] 32.3 pg Normal 26.7-34.0 [facility] Comment on above: Performed By: #### C BC #### [facility] [address] [place], [place] [id number] Prietowendy Medrano MCHC (RBC) [Mass/Vol] 34.5 g/dL Normal 29.9-35.2 [facility] Comment on above: Performed By: #### C BC #### [facility] [address] [place], [place] [id number] Prieto Medrano MCV (RBC) [Entitic vol] 93.7 fL Normal 81.0-99.0 [facility] Comment on above: Performed By: #### C BC #### [facility] [address] [place], [place] [id number] Prieto Medrano MONO # 0.5 103/ul Normal 0.3-0.8 [facility] Comment on above: Performed By: #### C BC #### [facility] [address] [place], [place] [id number] Prieto Medrano Monocytes/100 WBC (Bld) 5.9 % Normal 1.7-12.0 [facility] Comment on above: Performed By: #### C BC #### [facility] [address] [place], [place] [id number] Prietowendy Montezen NEUT # 6.4 103/ul Normal 1.4-6.5 [facility] Comment on above: Performed By: #### C BC #### [facility] [address] [place], [place] [id number] Prieto Medrano Neutrophils/100 WBC (Bld) 79.6 % Critically high 43.0-75.0 [facility] Comment on above: Performed By: #### C BC #### [facility] [address] [place], [place] [id number] Prieto Marcela Platelet mean volume (Bld) [Entitic vol] 10.2 fL Normal 9.5-13.5 [facility] Comment on above: Performed By: #### C BC #### [facility] [address] [place], [place] [id number] Prieto Marcela PLT 132 103/ul Critically low 150-450 [facility] Comment on above: Performed By: #### C BC #### [facility] [address] [place] [address] Prieto Marcela RBC 3.16 106/ul Critically low 4.20-5.40 [facility] Comment on above: Performed By: #### C BC #### [facility] [address] [place] [address] Prieto Marcela WBC 8.1 103/ul Normal 4.0-11.0 [facility] Comment on above: Performed By: #### C BC #### [facility] [address] [place] [address] Prieto Marcela CREATININEon 04-11-2020 Creatinine [Mass/Vol] 0.65 mg/dL Normal 0.52-1.04 [facility] Comment on above: Performed By: #### C GHAZAL, BUN #### [facility] [address] [place], [place] [id number] Prieto Marcela EGFR-AF ALBANIAN >60 Normal >=60 [facility] Comment on above: Performed By: #### C GHAZAL, BUN #### [facility] [address] [place] [address] Prieto Marcela EGFR-NON AF ALBANIAN >60 Normal >=60 [facility] Comment on above: Performed By: #### C GHAZAL, BUN #### [facility] [address] [place], [place] [id number] Prieto Marcela CBC AUTO DIFFon 04-10-2020 BASO # 0.0 103/ul Normal 0.0-0.1 [facility] Comment on above: Performed By: #### C BC #### [facility] [address] [place], [place] [id number] Prieto Marcela Basophils/100 WBC (Bld) 0.7 % Normal 0.2-2.0 [facility] Comment on above: Performed By: #### C BC #### [facility] [address] [place] [address] Prieto Marcela EO # 0.2 103/ul Normal 0.0-0.7 [facility] Comment on above: Performed By: #### C BC #### [facility] [address] [place], [place] [id number] Prieto Marcela Eosinophils/100 WBC (Bld) 3.8 % Normal 0.9-7.0 [facility] Comment on above: Performed By: #### C BC #### [facility] [address] [place] [address] Prieto Marcela Erythrocyte distribution width (RBC) [Ratio] 13.2 % Normal 11.0-15.0 [facility] Comment on above: Performed By: #### C BC #### [facility] [address] [place] [address] Prieto Marcela Hematocrit (Bld) [Volume fraction] 40.0 % Normal 36.0-48.0 [facility] Comment on above: Performed By: #### C BC #### [facility] [address] [place] [address] Prieto Marcela Hemoglobin (Bld) [Mass/Vol] 13.3 g/dL Normal 12.0-16.0 [facility] Comment on above: Performed By: #### C BC #### [facility] [address] [place] [address] Prieto Marcela IG # 0.00 10e3/ul Normal 0.00-0.03 [facility] Comment on above: Performed By: #### C BC #### [facility] [address] [place] [address] Prieto Marcela IG % 0.0 % Normal 0.0-0.5 [facility] Comment on above: Performed By: #### C BC #### [facility] [address] [place] [address] Prieto Marcela LYMPH # 1.8 103/ul Normal 1.2-3.8 [facility] Comment on above: Performed By: #### C BC #### [facility] [address] [place], [place] [id number] Prieto Montezen Lymphocytes/100 WBC (Bld) 43.5 % Normal 20.5-60.0 [facility] Comment on above: Performed By: #### C BC #### [facility] [address] [place], [place] [id number] Prieto Medrano MANUAL DIFF REQ NO Normal [facility] Comment on above: Performed By: #### C BC #### [facility] [address] [place], [place] [id number] Prietowendy Medrano MCH (RBC) [Entitic mass] 31.4 pg Normal 26.7-34.0 [facility] Comment on above: Performed By: #### C BC #### [facility] [address] [place], [place] [id number] Prietowendy Medrano MCHC (RBC) [Mass/Vol] 33.3 g/dL Normal 29.9-35.2 [facility] Comment on above: Performed By: #### C BC #### [facility] [address] [place] [address] Prietowendy Medrano MCV (RBC) [Entitic vol] 94.6 fL Normal 81.0-99.0 [facility] Comment on above: Performed By: #### C BC #### [facility] [address] [place], [place] [id number] Prieto Marcela MONO # 0.4 103/ul Normal 0.3-0.8 [facility] Comment on above: Performed By: #### C BC #### [facility] [address] [place], [place] [address] Prieto Marcela Monocytes/100 WBC (Bld) 8.8 % Normal 1.7-12.0 [facility] Comment on above: Performed By: #### C BC #### [facility] [address] [place], [place] [address] Prieto Marcela NEUT # 1.8 103/ul Normal 1.4-6.5 [facility] Comment on above: Performed By: #### C BC #### [facility] [address] [place], [place] [id number] Prieto Marcela Neutrophils/100 WBC (Bld) 43.2 % Normal 43.0-75.0 [facility] Comment on above: Performed By: #### C BC #### [facility] [address] [place] [address] Prieto Medrano Platelet mean volume (Bld) [Entitic vol] 9.9 fL Normal 9.5-13.5 [facility] Comment on above: Performed By: #### C BC #### [facility] [address] [place] [address] Prieto Medrano PLT 175 103/ul Normal 150-450 [facility] Comment on above: Performed By: #### C BC #### [facility] [address] [place] [address] Prietowendy Medrano RBC 4.23 106/ul Normal 4.20-5.40 [facility] Comment on above: Performed By: #### C BC #### [facility] [address] [place] [address] Prieto Medrano WBC 4.2 103/ul Normal 4.0-11.0 [facility] Comment on above: Performed By: #### C BC #### [facility] [address] [place] [address] Prieto Medrano PREG QUANT HCGon 04-10-2020 HCG QUANT <1 Normal [facility] Comment on above: Performed By: #### P REGQNT #### [facility] [address] [place] [address] Prieto Medrano HCG RANGE SEE BELOW Normal [facility] Comment on above: Result Comment: 5-50 0-1 WEEK 40-300 1-2 WEEKS 100-1,000 2-3 WEEKS 500-6,000 3-4 WEEKS 5,000-200,000 1-2 MONTHS 10,000-100,000 2-3 MONTHS 3,000-50,000 2ND TRIMESTER 1,000-50,000 3RD TRIMESTER Performed By: #### P REGQNT #### [facility] [address] [place] [address] Prieto Medrano Covid-19 PCR (CVDTBH)on EUA Statement SEE BELOW Normal [facility] Comment on above: Result Comment: This test is not yet approved or cleared by the [place] FDA. When there are no FDA-approved or cleared tests available, and other criteria are met, FDA can make tests available under an emergency access mechanism called an Emergency Use Authorization (EUA). The EUA for this test is supported by the [place] of Health and Human Service?s (HHS?s) declaration [...] SARS-CoV-2. Performed By: #### C BC #### [facility] [address] [place] [address] Prieto Medrano SARS-CoV-2 (COVID-19) RNA RANJEET+probe Ql (Unsp spec) Not detected Normal NOT DETECTED [facility] Comment on above: Result Comment: This test is not yet approved or cleared by the [place] FDA. When there are no FDA-approved or cleared tests available, and other criteria are met, FDA can make tests available under an emergency access mechanism called an Emergency Use Authorization (EUA). The EUA for this test is supported by the [employer] of Health and Human Service's (HHS's) declaration [...] SARS-CoV-2. Performed By: #### C BC #### [facility] [address] [place], [place] [address] Prieto Marcela TYPE AND SCREENon 04-07-2020 TYPE AND SCREEN Negative Normal [facility] Comment on above: Performed By: #### C BC #### [facility] [address] [place], [place] [address] Prieto Marcela CBC AUTO DIFFon 03-16-2020 BASO # 0.1 103/ul Normal 0.0-0.1 [facility] Comment on above: Performed By: #### C BC #### [facility] [address] [place], [place] [address] Prieto Marcela Basophils/100 WBC (Bld) 0.8 % Normal 0.2-2.0 [facility] Comment on above: Performed By: #### C BC #### [facility] [address] [place], [place] [address] Prieto Marcela EO # 0.2 103/ul Normal 0.0-0.7 [facility] Comment on above: Performed By: #### C BC #### [facility] [address] [place], [place] [address] Prieto Marcela Eosinophils/100 WBC (Bld) 2.4 % Normal 0.9-7.0 [facility] Comment on above: Performed By: #### C BC #### [facility] [address] [place], [place] [address] Prieto Marcela Erythrocyte distribution width (RBC) [Ratio] 13.1 % Normal 11.0-15.0 [facility] Comment on above: Performed By: #### C BC #### [facility] [address] [place], [place] [id number] Prieto Marcela Hematocrit (Bld) [Volume fraction] 39.9 % Normal 36.0-48.0 [facility] Comment on above: Performed By: #### C BC #### [facility] [address] [place], [place] [id number] Prieto Marcela Hemoglobin (Bld) [Mass/Vol] 13.4 g/dL Normal 12.0-16.0 [facility] Comment on above: Performed By: #### C BC #### [facility] [address] [place] [address] Prietowendy Medrano IG # 0.01 10e3/ul Normal 0.00-0.03 [facility] Comment on above: Performed By: #### C BC #### [facility] [address] [place] [address] Prietowendy Medrano IG % 0.2 % Normal 0.0-0.5 [facility] Comment on above: Performed By: #### C BC #### [facility] [address] [place] [address] Prietowendy Medrano LYMPH # 2.2 103/ul Normal 1.2-3.8 [facility] Comment on above: Performed By: #### C BC #### [facility] [address] [place] [address] Prieto Medrano Lymphocytes/100 WBC (Bld) 34.3 % Normal 20.5-60.0 [facility] Comment on above: Performed By: #### C BC #### [facility] [address] [place] [address] Prieto Medrano MANUAL DIFF REQ NO Normal [facility] Comment on above: Performed By: #### C BC #### [facility] [address] [place] [address] Prietowendy Medrano MCH (RBC) [Entitic mass] 31.8 pg Normal 26.7-34.0 [facility] Comment on above: Performed By: #### C BC #### [facility] [address] [place] [address] Prieto Medrano MCHC (RBC) [Mass/Vol] 33.6 g/dL Normal 29.9-35.2 [facility] Comment on above: Performed By: #### C BC #### [facility] [address] [place] [address] Prietowendy Medrano MCV (RBC) [Entitic vol] 94.5 fL Normal 81.0-99.0 [facility] Comment on above: Performed By: #### C BC #### [facility] [address] [place] [address] Prieto Marcela MONO # 0.3 103/ul Normal 0.3-0.8 [facility] Comment on above: Performed By: #### C BC #### [facility] [address] [place], [place] [id number] Prieto Medrano Monocytes/100 WBC (Bld) 5.1 % Normal 1.7-12.0 [facility] Comment on above: Performed By: #### C BC #### [facility] [address] [place], [place] [id number] Prieto Medrano NEUT # 3.6 103/ul Normal 1.4-6.5 [facility] Comment on above: Performed By: #### C BC #### [facility] [address] [place], [place] [id number] Prieto Medrano Neutrophils/100 WBC (Bld) 57.2 % Normal 43.0-75.0 [facility] Comment on above: Performed By: #### C BC #### [facility] [address] [place], [place] [id number] Prieto Medrano Platelet mean volume (Bld) [Entitic vol] 9.5 fL Normal 9.5-13.5 [facility] Comment on above: Performed By: #### C BC #### [facility] [address] [place], [place] [address] Prietowendy Montezen PLT 200 103/ul Normal 150-450 [facility] Comment on above: Performed By: #### C BC #### [facility] [address] [place], [place] [address] Prietowendy Montezen RBC 4.22 106/ul Normal 4.20-5.40 [facility] Comment on above: Performed By: #### C BC #### [facility] [address] [place], [place] [id number] Prietowendy Montezen WBC 6.3 103/ul Normal 4.0-11.0 [facility] Comment on above: Performed By: #### C BC #### [facility] [address] [place], [place] [address] Prieto Medrano TSHon 03-16-2020 TSH 0.926 uIU/mL Normal 0.470-4.68 0 [facility] Comment on above: Performed By: #### C BC #### [facility] [address] [place], [place] [id number] Prieto Marcela TSH RANGE SEE BELOW Normal [facility] Comment on above: Result Comment: <0.3 4 UIU/ml HYPERTHYROID 0.34-5.60 UIU/ml EUTHYROID >5.60 UIU/ml HYPOTHYROID Performed By: #### C BC #### [facility] [address] [place], [place] [id number] Prieto Marcela CBC AUTO DIFFon 01-03-2020 BASO # 0.0 103/ul Normal 0.0-0.1 [facility] Comment on above: Performed By: #### C BC #### [facility] [address] [place] [address] Prieto Marcela Basophils/100 WBC (Bld) 0.7 % Normal 0.2-2.0 [facility] Comment on above: Performed By: #### C BC #### [facility] [address] [place] [address] Prieto Marcela EO # 0.2 103/ul Normal 0.0-0.7 [facility] Comment on above: Performed By: #### C BC #### [facility] [address] [place] [address] Prieto Marcela Eosinophils/100 WBC (Bld) 2.8 % Normal 0.9-7.0 [facility] Comment on above: Performed By: #### C BC #### [facility] [address] [place], [place] [id number] Prietowendy Montezen Erythrocyte distribution width (RBC) [Ratio] 13.6 % Normal 11.0-15.0 [facility] Comment on above: Performed By: #### C BC #### [facility] [address] [place], [place] [address] Prieto Marcela Hematocrit (Bld) [Volume fraction] 38.7 % Normal 36.0-48.0 [facility] Comment on above: Performed By: #### C BC #### [facility] [address] [place], [place] [address] Prieto Marcela Hemoglobin (Bld) [Mass/Vol] 12.9 g/dL Normal 12.0-16.0 [facility] Comment on above: Performed By: #### C BC #### [facility] [address] [place] [address] Prieto Medrano IG # 0.00 10e3/ul Normal 0.00-0.03 [facility] Comment on above: Performed By: #### C BC #### [facility] [address] [place] [address] Prieto Marcela IG % 0.0 % Normal 0.0-0.5 [facility] Comment on above: Performed By: #### C BC #### [facility] [address] [place] [address] Prieto Marcela LYMPH # 1.5 103/ul Normal 1.2-3.8 [facility] Comment on above: Performed By: #### C BC #### [facility] [address] [place] [address] Prieto Medrano Lymphocytes/100 WBC (Bld) 28.4 % Normal 20.5-60.0 [facility] Comment on above: Performed By: #### C BC #### [facility] [address] [place], [place] [address] Prietowendy Medrano MANUAL DIFF REQ NO Normal [facility] Comment on above: Performed By: #### C BC #### [facility] [address] [place], [place] [address] Prieto Marcela MCH (RBC) [Entitic mass] 31.5 pg Normal 26.7-34.0 [facility] Comment on above: Performed By: #### C BC #### [facility] [address] [place] [address] Prietowendy Medrano MCHC (RBC) [Mass/Vol] 33.3 g/dL Normal 29.9-35.2 [facility] Comment on above: Performed By: #### C BC #### [facility] [address] [place], [place] [id number] Prieto Marcela MCV (RBC) [Entitic vol] 94.4 fL Normal 81.0-99.0 [facility] Comment on above: Performed By: #### C BC #### [facility] [address] [place], [place] [address] Prieto Marcela MONO # 0.4 103/ul Normal 0.3-0.8 [facility] Comment on above: Performed By: #### C BC #### [facility] [address], [place] [address] Prieto Marcela Monocytes/100 WBC (Bld) 6.8 % Normal 1.7-12.0 [facility] Comment on above: Performed By: #### C BC #### [facility] [address] [place] [id number] Prieto Marcela NEUT # 3.3 103/ul Normal 1.4-6.5 [facility] Comment on above: Performed By: #### C BC #### [facility] [address] [place], [place] [address] Prieto Marcela Neutrophils/100 WBC (Bld) 61.3 % Normal 43.0-75.0 [facility] Comment on above: Performed By: #### C BC #### [facility] [address] [place], [place] [address] Prieto Marcela Platelet mean volume (Bld) [Entitic vol] 9.4 fL Critically low 9.5-13.5 [facility] Comment on above: Performed By: #### C BC #### [facility] [address] [place], [place] [address] Prieto Marcela PLT 186 103/ul Normal 150-450 [facility] Comment on above: Performed By: #### C BC #### [facility] [address] [place], [place] [address] Prieto Marcela RBC 4.10 106/ul Critically low 4.20-5.40 [facility] Comment on above: Performed By: #### C BC #### [facility] [address] [place], [place] [address] Prieto Marcela WBC 5.4 103/ul Normal 4.0-11.0 [facility] Comment on above: Performed By: #### C BC #### [facility] [address] [place], [place] [address] Prieto Marcela CYTOLOGYon 11-06-2020 SENT TO REF LAB 01/03/20 Normal [facility] Comment on above: Performed By: #### C YTO #### [facility] [address] [place], [place] [address] Prieto Medrano PREG QUANT HCGon 01-03-2020 HCG QUANT 2.00 mIU/mL Normal [facility] Comment on above: Performed By: #### P REGQNT #### [facility] [address] [place] [id number] Prieto Merdano HCG RANGE SEE BELOW Normal [facility] Comment on above: Result Comment: 5-50 0-1 WEEK 40-300 1-2 WEEKS 100-1,000 2-3 WEEKS 500-6,000 3-4 WEEKS 5,000-200,000 1-2 MONTHS 10,000-100,000 2-3 MONTHS 3,000-50,000 2ND TRIMESTER 1,000-50,000 3RD TRIMESTER Performed By: #### P REGQNT #### [facility] [address] [place], [place] [address] Prieto Medrano COVID-19 PCRon 12-29-2019 SARS-CoV-2 (COVID-19) RNA RANJEET+probe Ql (Unsp spec) Not detected Normal Not Detected [facility] Comment on above: Result Comment: This nucleic acid amplification test was developed and its performance characteristics determined by [facility]. Nucleic acid amplification tests include PCR and [...] Performed By: #### C VDPCR, CVDSTAT #### [facility] [address] [place], [place] [address] Prieto Medrano PRIORITY COVID PROCESSINGon 12-29-2019 Comment Comment Normal [facility] Comment on above: Result Comment: Rece ived Performed By: #### C VDPCR, CVDSTAT #### [facility] [address] [place], [place] [address] Prieto Medrano Vital Signs Date Time Vital Sign Value Performing Clinician Facility 09-06-2023 12:50-0400 Body height 162.56 cm FIRE POT OPERATORCliff Cespedes Work Phone: [facility] 09-06-2023 12:50-0400 Body temperature 98.7 [degF] KITA Cespedes Work Phone: [phone] [place] [address] 09-06-2023 12:50-0400 Body weight 58.55 kg KITA Cespedes Work Phone: [facility] 09-06-2023 12:50-0400 Diastolic blood pressure 63 mm[Hg] KITA Cespedes Work Phone: [facility] 09-06-2023 12:50-0400 Heart rate 67 /min KITA Cespedes Work Phone: [facility] 09-06-2023 12:50-0400 Respiratory rate 18 /min KITA Cespedes Work Phone: [facility] 09-06-2023 12:50-0400 SaO2% (BldA) [Mass fraction] 99 % KITA Cespedes Work Phone: [facility] 09-06-2023 12:50-0400 Systolic blood pressure 109 mm[Hg] KITA Cespedes Work Phone: [facility] 08-21-2023 09:13-0400 Body height 162.6 cm Leta Fuentes APRN.CNP Work Phone: [facility] 08-21-2023 09:13-0400 Body mass index (BMI) [Ratio] 22.47 kg/m2 Leta Fuentes FIRE POT OPERATOR.PATIENT CONSUMER MARKETER Work Phone: [facility] 08-21-2023 09:13-0400 Body weight 59.4 kg Leta Fuentes FIRE POT OPERATOR.PATIENT CONSUMER MARKETER Work Phone: [facility] 08-21-2023 09:13-0400 Diastolic blood pressure 59 mm[Hg] Leta Fuentes FIRE POT OPERATOR.PATIENT CONSUMER MARKETER Work Phone: [facility] 08-21-2023 09:13-0400 Heart rate 72 /min Leta Fuentes FIRE POT OPERATOR.PATIENT CONSUMER MARKETER Work Phone: [facility] 08-21-2023 09:13-0400 SaO2% (BldA) [Mass fraction] 100 % Leta Fuentes FIRE POT OPERATOR.PATIENT CONSUMER MARKETER Work Phone: [facility] Comment on above: RA 08-21-2023 09:13-0400 Systolic blood pressure 103 mm[Hg] Leta Fuentes FIRE POT OPERATOR.PATIENT CONSUMER MARKETER Work Phone: [facility] 07-12-2023 08:44-0400 Body height 162.56 cm KITA Cespedes Work Phone: [facility] 07-12-2023 08:44-0400 Body temperature 98 [degF] KITA Cespedes Work Phone: [facility] 07-12-2023 08:44-0400 Body weight 59.5 kg KITA Cespedes Work Phone: [facility] 07-12-2023 08:44-0400 Diastolic blood pressure 72 mm[Hg] KITA Cespedes Work Phone: [facility] 07-12-2023 08:44-0400 Heart rate 83 /min KITA Cespedes Work Phone: [facility] 07-12-2023 08:44-0400 Respiratory rate 20 /min KITA Cespedes Work Phone: [facility] 07-12-2023 08:44-0400 SaO2% (BldA) [Mass fraction] 99 % KITA Cespedes Work Phone: [facility] 07-12-2023 08:44-0400 Systolic blood pressure 114 mm[Hg] KITA Cespedes Work Phone: [facility] 06-22-2023 10:55-0400 Body height 162.6 cm Izaiah Pinto MD Work Phone: [facility] 06-22-2023 10:55-0400 Body mass index (BMI) [Ratio] 22.35 kg/m2 Izaiah Pinto MD Work Phone: [facility] 06-22-2023 10:55-0400 Body temperature 97.39 [degF] Izaiah Pinto MD Work Phone: [facility] 06-22-2023 10:55-0400 Body weight 59.1 kg Izaiah Pinto MD Work Phone: [facility] 06-22-2023 10:55-0400 Diastolic blood pressure 72 mm[Hg] Izaiah Pinto MD Work Phone: [facility] 06-22-2023 10:55-0400 Heart rate 68 /min Izaiah Pinto MD Work Phone: [facility] 06-22-2023 10:55-0400 Respiratory rate 16 /min Izaiah Pinto MD Work Phone: [facility] 06-22-2023 10:55-0400 SaO2% (BldA) [Mass fraction] 99 % Izaiah Pinto MD Work Phone: [facility] 06-22-2023 10:55-0400 Systolic blood pressure 122 mm[Hg] Izaiah Pinto MD Work Phone: [facility] 04-18-2023 08:33-0500 Body height 162.6 cm Fam Lauren MD Work Phone: [facility] 04-18-2023 08:33-0500 Body temperature 98.2 [degF] Fam Lauren MD Work Phone: [facility] 04-18-2023 08:33-0500 Body weight 60 kg Fam Lauren MD Work Phone: [facility] 04-18-2023 08:33-0500 Diastolic blood pressure 62 mm[Hg] Fam Lauren MD Work Phone: [facility] 04-18-2023 08:33-0500 Heart rate 84 /min Fam Lauren MD Work Phone: [facility] 04-18-2023 08:33-0500 SaO2% (BldA) [Mass fraction] 97 % Fam Lauren MD Work Phone: [facility] 04-18-2023 08:33-0500 Systolic blood pressure 113 mm[Hg] Fam Lauren MD Work Phone: [facility] 02-02-2023 09:25-0500 Body temperature 97.5 [degF] Iaziah Pinto MD Work Phone: [facility] 02-02-2023 09:25-0500 Body weight 57.42 kg Izaiah Pinto MD Work Phone: [facility] 02-02-2023 09:25-0500 Diastolic blood pressure 66 mm[Hg] Izaiah Pinto MD Work Phone: [facility] 02-02-2023 09:25-0500 Heart rate 76 /min Izaiah Pinto MD Work Phone: [facility] 02-02-2023 09:25-0500 Respiratory rate 16 /min Izaiah Pinto MD Work Phone: [facility] 02-02-2023 09:25-0500 SaO2% (BldA) [Mass fraction] 100 % Izaiah Pinto MD Work Phone: [facility] 02-02-2023 09:25-0500 Systolic blood pressure 113 mm[Hg] Izaiah Pinto MD Work Phone: [facility] 01-16-2023 01:55-0500 Diastolic blood pressure 67 mm[Hg] KITA Gantramakrishna Cespedes Work Phone: [facility] 01-16-2023 01:55-0500 Heart rate 64 /min FIRE POT OPERATORCliff GantVenusramakrishna Cespedes Work Phone: [facility] 01-16-2023 01:55-0500 Respiratory rate 16 /min FIRE POT OPERATORCliff MurphyVenus West Work Phone: [facility] 01-16-2023 01:55-0500 SaO2% (BldA) [Mass fraction] 97 % FIRE POT OPERATORCliff MurphyVenus West Work Phone: [facility] 01-16-2023 01:55-0500 Systolic blood pressure 105 mm[Hg] KITA Venus Cespedes Work Phone: [facility] 01-15-2023 22:35-0500 Body height 161.29 cm KITA Venus Cespedes Work Phone: [facility] 01-15-2023 22:35-0500 Body temperature 98.5 [degF] KITA Murphylo Cespedes Work Phone: [facility] 01-15-2023 22:35-0500 Body weight 57 kg KITA Murphylo Cespedes Work Phone: [facility] 09-18-2022 22:10-0400 Diastolic blood pressure 69 mm[Hg] KITA Cespedes Work Phone: [facility] 09-18-2022 22:10-0400 Heart rate 64 /min KITA Cespedes Work Phone: [facility] 09-18-2022 22:10-0400 Respiratory rate 18 /min KITA Cespedes Work Phone: [facility] 09-18-2022 22:10-0400 SaO2% (BldA) [Mass fraction] 98 % KITA Cespedes Work Phone: [facility] 09-18-2022 22:10-0400 Systolic blood pressure 113 mm[Hg] KITA Cespedes Work Phone: [facility] 09-18-2022 19:44-0400 Body height 160.02 cm KITA Cespedes Work Phone: [facility] 09-18-2022 19:44-0400 Body temperature 98.3 [degF] KITA Cespedes Work Phone: [facility] 09-18-2022 19:44-0400 Body weight 55.9 kg KITA Cespedes Work Phone: [facility] 08-12-2022 11:30-0400 Body height 160.02 cm Alireza Noland Other [employer] Other 08-12-2022 11:30-0400 Body mass index (BMI) [Ratio] 22.14 kg/m2 Alireza Noland Other [employer] Other 08-12-2022 11:30-0400 Body temperature 98.2 [degF] Alireza Noland Other [employer] Other 08-12-2022 11:30-0400 Body weight 56.7 kg Alireza Noland Other [employer] Other 08-12-2022 11:30-0400 Diastolic blood pressure 72 mm[Hg] Alireza Noland Other [employer] Other 08-12-2022 11:30-0400 SaO2% (BldA) [Mass fraction] 96 % Alireza Noland Other [facility] [employer] Other 08-12-2022 11:30-0400 Systolic blood pressure 110 mm[Hg] Alireza Noland Other [facility] [employer] Other 08-05-2022 14:24-0400 Body height 167.64 cm FIRE POT OPERATOR Venus Cespedes Work Phone: [facility] 08-05-2022 14:24-0400 Body temperature 98.3 [degF] FIRE POT OPERATOR Venus Cespedes Work Phone: [facility] 08-05-2022 14:24-0400 Body weight 56.9 kg FIRE POT OPERATORCliff Cespedes Work Phone: [facility] 08-05-2022 14:24-0400 Diastolic blood pressure 75 mm[Hg] FIRE POT OPERATOR Venus Cespedes Work Phone: [facility] 08-05-2022 14:24-0400 Heart rate 77 /min FIRE POT OPERATORCliff Cespedes Work Phone: [facility] 08-05-2022 14:24-0400 Respiratory rate 14 /min KITA Cespedes Work Phone: [facility] 08-05-2022 14:24-0400 SaO2% (BldA) [Mass fraction] 98 % FIRE POT OPERATOR Venus Cespedes Work Phone: [facility] 08-05-2022 14:24-0400 Systolic blood pressure 124 mm[Hg] FIRE POT OPERATOR Venus Cespedes Work Phone: [facility] 06-25-2022 15:38-0400 Body height 160.02 cm FIRE POT OPERATOR Venus Cespedes Work Phone: [facility] 06-25-2022 15:38-0400 Body temperature 98.1 [degF] KITA Venus Cespedes Work Phone: [facility] 06-25-2022 15:38-0400 Body weight 56.35 kg KITA Cespedes Work Phone: [facility] 06-25-2022 15:38-0400 Diastolic blood pressure 72 mm[Hg] KITA Cespedes Work Phone: [facility] 06-25-2022 15:38-0400 Heart rate 79 /min KITA Cespedes Work Phone: [facility] 06-25-2022 15:38-0400 Respiratory rate 18 /min KITA Cespedes Work Phone: [facility] 06-25-2022 15:38-0400 SaO2% (BldA) [Mass fraction] 98 % KITA Cespedes Work Phone: [facility] 06-25-2022 15:38-0400 Systolic blood pressure 131 mm[Hg] KITA Cespedes Work Phone: [facility] 02-11-2022 12:11-0500 Body height 160 cm Marci Reyes DMD, MD Work Phone: [facility] 02-11-2022 12:11-0500 Body mass index (BMI) [Ratio] 22.14 kg/m2 Marci Reyes DMD, MD Work Phone: [facility] 02-11-2022 12:11-0500 Body weight 56.7 kg Marci Reyes DMD, MD Work Phone: [facility] 02-11-2022 12:11-0500 Diastolic blood pressure 63 mm[Hg] Marci Reyes DMD, MD Work Phone: [facility] 02-11-2022 12:11-0500 Heart rate 76 /min Marci Reyes DMD, MD Work Phone: [facility] 02-11-2022 12:11-0500 Systolic blood pressure 120 mm[Hg] Marci Reyes DMD, MD Work Phone: [facility] 01-25-2022 22:54-0500 Body height 162.56 cm KITA Venus West Work Phone: [facility] 01-25-2022 22:54-0500 Body temperature 98.1 [degF] FIRE POT OPERATOR Venus West Work Phone: [facility] 01-25-2022 22:54-0500 Body weight 58 kg FIRE POT OPERATOR Venus Coy Work Phone: [facility] 01-25-2022 22:54-0500 Diastolic blood pressure 62 mm[Hg] KITA Donovan Coy Work Phone: [facility] 01-25-2022 22:54-0500 Heart rate 82 /min KITA Donovan Coy Work Phone: [facility] 01-25-2022 22:54-0500 Respiratory rate 18 /min KITA Venus West Work Phone: [facility] 01-25-2022 22:54-0500 SaO2% (BldA) [Mass fraction] 100 % FIRE POT OPERATOR Venus Cespedes Work Phone: [facility] 01-25-2022 22:54-0500 Systolic blood pressure 113 mm[Hg] KITA Cespedes Work Phone: [facility] Encounters Encounter Date Encounter Type Care Provider Facility Start: 09-15-2023 End: 09-15-2023 Patient encounter procedure KITA Cespedes Work Phone: [facility] [place] Work Phone: Start: 09-15-2023 End: 09-15-2023 ambulatory KITA Cespedes Work Phone: [facility] Work Phone: Start: 09-06-2023 End: 09-06-2023 Emergency department patient visit FIRE POT OPERATOR Venus West Work Phone: [facility] Work Phone: Start: 08-21-2023 End: 08-21-2023 ambulatory VENUS CHRISTOVAL Facility:[facility] Start: 08-21-2023 End: 08-21-2023 Patient encounter procedure Leta Fuentes BERENICE Work Phone: [facility] Comment on above: Upper respiratory tr act infection, unspecified type (Primary Dx); Acute infection of right ear; Pulmonary emphysema, unspecified emphysema type (HCC) [J43.9] Start: 08-11-2023 E-mail encounter humberto m caregiver Fam Lauren MD Work Phone: [facility] Start: 08-11-2023 Patient encounter procedure Fam Lauren MD Work Phone: [facility] Comment on above: Schedule Appointment Start: 08-10-2023 Telephone encounter Fam hitchcock MD Work Phone: [facility] Comment on above: current cough (Patie nt called indicating she has had a cough that she cannot rid. She has seen PCP and they advised possibly having a CT chest and to contact Dr. Lauren's office to request. Patient indicated chest xray recently at [facility]. Patient can be reached at [phone]. Please contact, triage and advise.) Start: 07-12-2023 End: 07-12-2023 Emergency department patient visit KITA Cesepdes Work Phone: [facility] Work Phone: Start: 06-23-2023 End: 06-23-2023 ambulatory Jose Perez - [facility] Facility:[facility] Start: 06-23-2023 End: 06-23-2023 Patient encounter procedure KITA Cespedes Work Phone: [facility] [address] Work Phone: Start: 06-22-2023 End: 06-22-2023 ambulatory IZAIAH PINTO Facility:[facility] Start: 06-22-2023 End: 06-22-2023 Office outpatient visit 25 minutes Izaiah Pinto MD Work Phone: Hematology/Oncology Comment on above: Lymphadenopathy (Sulma francine Dx) Start: 06-13-2023 End: 06-13-2023 ambulatory [facility] Facility:[facility] Start: 06-02-2023 End: 06-02-2023 ambulatory KITA Cespedes Work Phone: [facility] Work Phone: Start: 06-02-2023 End: 06-02-2023 Patient encounter procedure KITA Cespedes Work Phone: [facility] [address] Work Phone: Start: 04-18-2023 End: 04-18-2023 ambulatory IZAIAH PINTO Pulmonary Lab Comment on above: Spirometry Start: 04-18-2023 End: 04-18-2023 Patient encounter procedure Pulm Lab Scroggins Work Phone: [facility] Comment on above: Lung nodules (Primar y Dx); Pulmonary emphysema, unspecified emphysema type (HCC) [J43.9] Start: 03-02-2023 End: 03-03-2023 ambulatory SCOTT MURILLOO Not Available Start: 02-23-2023 End: 02-23-2023 ambulatory THELMA JOSE Not Available Start: 02-10-2023 Orders Only Fam Lauren MD Work Phone: Pulmonary Medicine Comment on above: Pulmonary emphysema, unspecified emphysema type (HCC) (Primary Dx) Start: 02-02-2023 Telephone encounter Izaiah espinosa MD [facility] on above: Referral Information (Pulmonary) Start: 02-02-2023 End: 02-02-2023 ambulatory VENUS CHRISTOVAL Facility:[facility] Start: 02-02-2023 End: 02-02-2023 Office outpatient visit 15 minutes Izaiah Pinto MD Work Phone: Hematology/Oncology Comment on above: Pulmonary emphysema, unspecified emphysema type (HCC) (Primary Dx) Start: 01-26-2023 End: 01-26-2023 ambulatory VENUS CHRISTOVAL Facility:[facility] Start: 01-26-2023 End: 01-26-2023 Subsequent hospital visit by physician Arrival Time Radiology Work Phone: Radiology Pet CT Comment on above: Lymphadenopathy [R59 .1] Start: 01-15-2023 End: 01-16-2023 Emergency department patient visit FIRE POT OPERATORCliff MurphyVenus Coy Work Phone: [facility] Work Phone: Start: 01-12-2023 End: 01-12-2023 ambulatory IZAIAH PINTO Facility:[facility] Start: 01-12-2023 End: 01-12-2023 ambulatory VENUS WEST Facility:[facility] Start: 01-09-2023 End: 01-09-2023 ambulatory SCOTT MCINTOSH Not Available Start: 11-16-2022 ambulatory Facility:[facility] Start: 11-15-2022 End: 11-15-2022 Patient encounter procedure KITA Cespedes Work Phone: [facility] Work Phone: Start: 11-15-2022 End: 11-15-2022 ambulatory KITA Cespedes Work Phone: [facility] Work Phone: Start: 11-15-2022 ambulatory Facility:[id number] Start: 11-11-2022 End: 11-11-2022 ambulatory Venus Cespedes Facility:[facility] Start: 11-11-2022 End: 11-11-2022 Patient encounter procedure KITA Cespedes Work Phone: [facility] [place] Work Phone: Start: 09-27-2022 End: 09-27-2022 ambulatory Jose Perez - [facility] Facility:[facility] Start: 09-27-2022 Registered Recurring KITA Cespedes Work Phone: [facility] [address] Start: 09-18-2022 End: 09-18-2022 Emergency department patient visit KITA Cespedes Work Phone: [facility] Work Phone: Start: 09-14-2022 Registered Recurring KITA lewis [place] Work Phone: [facility] [address] Start: 08-12-2022 End: 08-12-2022 ambulatory Alireza Noland Other [employer] Other Start: 08-12-2022 Office outpatient vi sit 15 minutes Alireza Noland [facility] Start: 08-05-2022 End: 08-05-2022 Emergency department patient visit KITA Cespedes Work Phone: [facility] Work Phone: Start: 06-25-2022 End: 06-25-2022 Emergency department patient visit KITA Cespedes Work Phone: [facility] Work Phone: Start: 02-11-2022 ambulatory JM JOHN Facility:[facility] Start: 02-11-2022 End: 02-11-2022 Patient encounter procedure Marci Reyes DMD, MD Work Phone: [facility] Oral Surgery Comment on above: Caries (Primary Dx) Caries (Primary Dx); Body mass index (BMI) 22.0-22.9, adult Start: 01-25-2022 End: 01-25-2022 Emergency department patient visit KITA Cespedes Work Phone: [facility] Start: 01-03-2022 End: 01-03-2022 ambulatory KITA Venus Ildefonso [place] Work Phone: [facility] Work Phone: Start: 01-03-2022 End: 01-03-2022 Patient encounter procedure FIRE POT OPERATORCliff Cespedes [facility]: [facility] Start: 10-28-2020 Encounter for cervic al smear to confirm findings of recent normal smear following initial abnormal smear DR SCOTT MCINTOSH [facility] Start: 10-21-2020 End: 10-21-[address] SCOTT MCINTOSH Facility:[facility] Start: 04-27-2020 Encounter for preprocedural laboratory examination DR SCOTT MCINTOSH [facility] Start: 04-14-2020 Encounter for preprocedural laboratory examination DR SCOTT MCINTOSH [facility] Start: 04-10-2020 End: 04-12-2020 Evaluation and management of inpatient DR SCOTT MCINTSOH Facility:[facility] Start: 04-07-2020 End: 04-08-[address] SCOTT MCINTOSH Facility:[facility] Start: 04-07-2020 End: 04-08-2020 Encounter for preprocedural laboratory examination DR SCOTT MCINTOSH Facility:[facility] Start: 04-03-2020 Encounter for other preprocedural examination DR SCOTT MCINTOSH [facility] Start: 03-27-2020 End: 03-28-[address] DOCTOR [...] Date Procedure Procedure Detail Performing Clinician Start: 07-12-2023 Plain chest X-ray FIRE POT OPERATOR Venusramakrishna Cespedes Work Phone: Start: 04-18-2023 Brncdilat rspse spmt ry pre&post-brncdilat admn Fam Lauren MD Work Phone: Start: 01-26-2023 Ct abdomen & pelvis w/contrast material Izaiah Pinto MD Work Phone: Start: 01-26-2023 Ct soft tissue neck w/contrast material Izaiah Pinto MD Work Phone: Start: 01-26-2023 Ct thorax w/contrast material Izaiah Pinto MD Work Phone: Start: 01-26-2023 CREATININE BLD Izaiah landaverde MD Work Phone: Start: 11-11-2022 Plain chest X-ray KITA Cespedes Work Phone: Start: 09-18-2022 Plain chest X-ray KITA Cespedes Work Phone: Start: 08-05-2022 X-ray of cervical spine KITA Cespedes Work Phone: Start: 01-03-2022 Screening mammograph y of bilateral breasts KITA Cespedes Work Phone: Start: 04-10-2020 Resection of Uterus, Open Approach DR SCOTT MCINTOSH Plan of Treatment Date Care Activity Detail Author Start: 2038 Shingles (RZV) Vacci ne (1 of 2) Shingles (RZV) Vaccine (1 of 2) [facility] Start: 10-25-2025 Tetanus vaccination Tetanus (T d or Tdap) Booster [facility] Start: 10-25-2025 Urine microalbumin profile DTaP,Tdap,Td Vaccine (2 - Td or Tdap) [facility] Start: 2024 End: 2024 Follow-up encounter 2024 11:00 AM EDT Visit (SP) Office Hematology/Oncology [address] [place] [address] [place] [address] Izaiah Pinto MD [address] [place] [address] [place] [address] 1 year follow up Hematology/Oncology Comment on above: 1 year follow up Start: 04-19-2024 End: 04-19-2024 Patient encounter procedure 04/19/2024 10:00 AM EST Office Visit Pulmonary Medicine [address] [facility] [place] [place] [address] Fam Lauren MD [address] [facility] [address] [place] [place] [address] est copd f/u Pulmonary Medicine Comment on above: est copd f/u Start: 04-18-2024 End: 05-17-2024 CT Chest WO contrast CT CHEST WO IVCON Radiology Routine Lung nodules Expected: 04/18/2024, Expires: 05/17/2024 [facility] Work Phone: Comment on above: Expected: 04/18/2024 , Expires: 05/17/2024 Start: 04-18-2024 End: 04-18-2024 Patient encounter procedure 04/18/2024 8:20 AM EST Appointment Radiology [address] [facility] [place] [address] Lung nodules [R91.8], follow up with Dr. Lauren after Radiology Comment on above: Lung nodules [R91.8] , follow up with Dr. Lauren after Start: 10-29-2023 Covid-19 Vaccine ( season) Covid-19 Vaccine ( season) [facility] Start: 10-29-2023 Influenza vaccination Influenza Vacc ine (#1) [facility] Start: 02-27-2023 Behavioral Health Screening Behavioral Health Screening [facility] Start: 02-27-2023 Depression Assessment Depression Ass essment [facility] Start: 01-16-2023 Computed tomography of abdomen and pelvis with contrast CT abdomen pelvis w con [facility] Start: 01-16-2023 CT Abdomen and Pelvi s W contrast IV [facility] Start: 10-28-2022 Covid-19 Vaccine ( season) Covid-19 Vaccine ( season) [facility] Start: 10-28-2022 Influenza vaccination Influenza Vacc ine (#1) [facility] Start: 09-18-2022 Plain chest X-ray XR chest 2V* [facility] Start: 09-18-2022 XR Chest 2 Views [facility] Start: 02-27-2022 Depression Assessment Depression Ass essment [facility] Start: 10-26-2021 COVID-19 Vaccine (4 - Booster for Pfizer series) COVID-19 Vaccine (4 - Booster for Pfizer series) [facility] Start: 10-15-2021 Hepatitis B Vaccine (3 of 3 - 19+ 3-dose series) Hepatitis B Vaccine (3 of 3 - 19+ 3-dose series) [facility] Start: 2018 HPV Testing HPV Testing [facility] Start: 2018 Screening for malign ant neoplasm of cervix HPV Testing [facility] Start: 2018 Zoledronic acid therapy Alpha- 1 Antitrypsin Deficiency Screening [facility] Start: 2009 Pap Testing Pap Testing [facility] Start: 2009 Screening for malign ant neoplasm of cervix 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 Layer And Examiner deepak Disease Visit Annual PCP Team Chronic Disease Visit [facility] Start: 2006 Anxiety Screening Anxiety Screening [facility] Start: 2006 Depression Screening Depression Scre ening [facility] Start: 2006 Hepatitis C screening M [facility] Start: 2006 Hepatitis C Screening Hepatitis C Sc jose [facility] Start: 2006 HIV Screening HIV Screening [facility] Start: 2006 HIV screening HIV Screening [facility] Start: 06-21-2003 HIV screening HIV Test [facility] Start: 1994 Pneumococcal vaccination [facility] End: 03-11-2024 LUNG DIFFUSION CAPACITY (DLCO) LUNG DIFFUSION CAPACITY (DLCO) PFT Routine Pulmonary emphysema, unspecified emphysema type (HCC) 1 Occurrences starting 02/12/2023 until 03/11/2024 [facility] Work Phone: Comment on above: 1 Occurrences starti ng 02/12/2023 until 03/11/2024 Patient Education [facility] Work Phone: Patient referral [facility] Work Phone: End: 03-11-2024 SPIROMETRY WITH DILATOR IF OBSTRUCTED SPIROMETRY WITH DILATOR IF OBSTRUCTED PFT Routine Pulmonary emphysema, unspecified emphysema type (HCC) 1 Occurrences starting 02/12/2023 until 03/11/2024 [facility] Work Phone: Comment on above: 1 Occurrences starti ng 02/12/2023 until 03/11/2024 [facility] Immunizations Immunization Date Immunization Notes Care Provider Fa rory 04-17-2023 influenza virus vacc ine, unspecified formulation Arrival Radiology Work Phone: [facility] 11-29-2021 Seasonal, quadrivale nt, recombinant, injectable influenza vaccine, preservative free Marci Reyes DMD, MD Work Phone: [facility] 11-29-2021 influenza virus vacc ine, unspecified formulation Izaiah Pinto MD Work Phone: [facility] 08-20-2021 hepatitis B vaccine, adult dosage Marci Reyes DMD, MD Work Phone: [facility] 10-26-2015 tetanus toxoid, redu andreina diphtheria toxoid, and acellular pertussis vaccine, adsorbed Marci Reyes DMD, MD Work Phone: [facility] 12-11-2014 influenza, seasonal, injectable, preservative free Marci Reyes DMD, MD Work Phone: [facility] 07-16-2013 hepatitis B vaccine, adult dosage Marci Reyes DMD, MD Work Phone: [facility] Payers Date Payer Category Payer Worker's Compensation [id number] 2022 Self-pay [id number] 2022 Worker's Compensation [id number] 2022 Medicaid [id number] 2022 Medicaid [id number] 2022 Medicaid [id number] 1988 Unknown [id number] 2.16.84 0.1.640373.3.579.2.593 1988 Unknown [id number] 2.16.84 0.1.029259.3.579.2.593 1988 Unknown [id number] 2.16.84 0.1.370158.3.579.2.593 1988 Unknown [id number] 2.16.84 0.1.027047.3.579.2.593 1988 Unknown [id number] 2.16.84 0.1.269941.3.579.2.593 1988 Unknown [id number] 2.16.84 0.1.507705.3.579.2.593 1988 Unknown [id number] 2.16.84 0.1.951099.3.579.2.593 1988 Unknown [id number] 2.16.84 0.1.141761.3.579.2.593 1988 Unknown [id number] 2.16. 840.1.470261.3.579.2.732 1988 Unknown [id number] 2.16. 840.1.173051.3.579.2.356 1988 Unknown [id number] 2.16.840 .1.204017.3.579.2.1259 1988 Unknown [id number] 2.16.840 .1.632913.3.579.2.1259 1988 Unknown [id number] 2.16.840 .1.679608.3.579.2.1259 1988 Unknown [id number] 2.16.840. 1.901955.3.579.2.1259 1959 Unknown [id number] Unknown [id number] 2.16.8 40.1.583419.3.579.2.531 Unknown [id number] 2.16.8 40.1.307849.3.579.2.531 Unknown [id number] 2.16.8 40.1.309762.3.579.2.531 Unknown [id number] 2.16.8 40.1.864987.3.579.2.531 Unknown [id number] 2.16.8 40.1.017395.3.579.2.531 Unknown [id number] 2.16.8 40.1.264408.3.579.2.531 Unknown [id number] 2.16.8 40.1.423285.3.579.2.531 Unknown [id number] 2.16.8 40.1.345417.3.579.2.531 Unknown [id number] 2.16.8 40.1.032102.3.579.2.531 Social History Date Type Detail Facility Start: 05-11-2018 End: 09-06-2023 Tobacco smoking status ORIS Smoker (finding) [facility] Start: 1990 Sex Assigned At Female F [facility] Start: 01-12-2023 End: 02-02-2023 History of tobacco use [facility] Start: 05-06-2011 End: 02-11-2022 Tobacco smoking status [facility] Smokes tobacco daily [facility] History of tobacco use [facility] Start: 02-11-2022 Tobacco use and exposure Smokeless tobacco non-user [facility] Start: 1990 [facility] Start: 05-06-2011 End: 01-12-2023 Cigarettes smoked current (pack per day) - Reported 1 [facility] Start: 01-12-2023 End: 02-02-2023 Alcohol intake Current non-drinker of alcohol (finding) [facility] Adult Depression Screening Assessment 0 [facility] Start: 01-22-2023 Gender identity Identifies as female gender (finding) [facility] Clinical Notes 01-03-2020 to 08-21-2023 Patient InstructionsPeLeta morales APRN.CNP - 08/21/2023 9:14 AM EDTTelephone Encounter - Fam Lauren MD - 08/16/2023 12:00 PM EDTTelephone Encounter - Fam Lauren MD - 08/16/2023 12:00 PM EDT Note Date & Type Note Facility 08-21-2023 Instructions Leta Fuentes APRN.CNP - 08/21/2023 9:38 AM EDT Please clarify when to resume Della with dermatology. documented in this encounter [facility] 08-21-2023 Note HNO ID: [id number] Author: LETA FUENTES APRN.CNP Service: ? Author Type: Nurse Practitioner Type: Progress Notes Filed: 08/24/2023 11:19 Note Text: . [facility] PULMONARY DEPARTMENT Follow-Up Clinic Note Ms. Gill is a 33 year old female who presents to the [facility] [place] for follow up of pulmonary emphysema and lung nodules. Patient's primary para machine operator is Dr. Lauren. Last office visit was 04/18/23. INTERVAL HPI/ROS Today Ayana Gill is here regarding cough. Cough started at the end of May, dx as acute bronchitis. She gets chest/back pain with cough. Dyspnea at rest and with exertion. No wheezing. Cough is worst in AM and HS, and when exposed to cold air in walk-in cooler at work. Also had recurrent right ear infection. She was evaluated in ED at [facility] 07/12/23. Treatment notes not available in Care Everywhere. She was treated with Zpak and albuterol inhaler. Promethazine DM not helpful. She initially improved two weeks ago, then cough started to return again. She was referred to ENT on 07/28/23 by her PCP. Treatment notes not available in Care Everywhere. Continues to smoke 1 PPD. Current Treatment Plan Albuterol HFA PRN - no help No OTC medications Review of systems completed and is negative except as noted above. Social History Tobacco Use Smoking status: Every Day Packs/day: 1 Types: Cigarettes Vaping Use Vaping Use: Never used Substance Use Topics Alcohol use: No Drug use: No PAST MEDICAL HISTORY Diagnosis Date Cirrhosis (HCC) NEGATIVE MEDICAL HISTORY No CA, DM, Heart dis, pnuemonia, DM Polycystic ovary syndrome PAST SURGICAL HISTORY Procedure Laterality Date PAST SURGICAL HISTORY OF 02/27/2011 laparascopy x2 PAST SURGICAL HISTORY OF 2008, 2001 umbilical hernia and inguinal TOTAL ABDOM HYSTERECTOMY 03/2020 Allergies Patient has no known allergies. Home Medications TALTZ AUTOINJECTOR 80 mg/mL pen iv contrast [...] in the CT contrast administration guidelines link. (Patient not taking: Reported on 04/18/2023) enteric contrast (will be provided with radiology test) For CT CHESTABD/PEL W IVCON Routine order Administer, As Directed One Time Only, via Oral, Rectal, both Oral and Rectal, Enteric Tube, Stoma or Indwelling Catheter, Enteric Contrast as designated per enteric contrast guidelines (Patient not taking: Reported on 04/18/2023) PHYSICAL EXAM BP 103/59 Pulse 72 Ht 5' 4.016 (1.63m) Wt 130 lb 15.3 oz (59.4kg) SpO2 100[RA]% LMP 04/28/2011 BMI 22.47 kg/(m2). Physical Exam Vitals reviewed. Constitutional: General: She is awake. She is not in acute distress. Appearance: Normal appearance. She is well-developed. She is not ill-appearing. HENT: Head: Normocephalic and atraumatic. Right Ear: Ear canal and external ear normal. No decreased hearing noted. No drainage, swelling or tenderness. A middle ear effusion is present. There is no impacted cerumen. No foreign body. No mastoid tenderness. Tympanic membrane is not injected, perforated, erythematous, retracted or bulging. Left Ear: Ear canal and external ear normal. No decreased hearing noted. No drainage, swelling or tenderness. No middle ear effusion. There is no impacted cerumen. No foreign body. No mastoid tenderness. Tympanic membrane is not injected, perforated, erythematous, retracted or bulging. Nose: Nose normal. No congestion or rhinorrhea. Right Nostril: No epistaxis. Left Nostril: No epistaxis. Mouth/Throat: Lips: No lesions. Mouth: Mucous membranes are moist. No oral lesions. Tongue: No lesions. Tongue does not deviate from midline. Palate: No lesions. Pharynx: Oropharynx is clear. Eyes: General: No scleral icterus. Right eye: No discharge. Left eye: No discharge. Extraocular Movements: Extraocular movements intact. Conjunctiva/sclera: Conjunctivae normal. Cardiovascular: Rate and Rhythm: Normal rate and regular rhythm. Heart sounds: Normal heart sounds. No murmur heard. No gallop. Pulmonary: Effort: Pulmonary effort is normal. No tachypnea, bradypnea, accessory muscle usage, prolonged expiration, respiratory distress or retractions. Breath sounds: Normal breath sounds. No wheezing, rhonchi or rales. Musculoskeletal: Right lower leg: No edema. Left lower leg: No edema. Skin: General: Skin is warm and dry. Coloration: Skin is not cyanotic, jaundiced or mottled. Findings: No erythema or rash. Nails: There is (more content not included)... [facility] 08-21-2023 History of Presen t illness Narrative Images from the original note were not included. . [facility] PULMONARY [facility]PARTMENT Follow-Up Clinic Note Ms. Gill is a 33 year old female who presents to the [facility] [place] for follow up of pulmonary emphysema and lung nodules. Patient's primary para machine operator is Dr. Lauren. Last office visit was 04/18/23. INTERVAL HPI/ROS Today Ayana Gill is here regarding cough. Cough started at the end of May, dx as acute bronchitis. She gets chest/back pain with cough. Dyspnea at rest and with exertion. No wheezing. Cough is worst in AM and HS, and when exposed to cold air in walk-in cooler at work. Also had recurrent right ear infection. She was evaluated in ED at [facility] 07/12/23. Treatment notes not available in Care Everywhere. She was treated with Zpak and albuterol inhaler. Promethazine DM not helpful. She initially improved two weeks ago, then cough started to return again. She was referred to ENT on 07/28/23 by her PCP. Treatment notes not available in Care Everywhere. Continues to smoke 1 PPD. Current Treatment Plan Albuterol HFA PRN - no help No OTC medications Review of systems completed and is negative except as noted above. Social History Tobacco Use Smoking status: Every Day Packs/day: 1 Types: Cigarettes Vaping Use Vaping Use: Never used Substance Use Topics Alcohol use: No Drug use: No PAST MEDICAL HISTORY Diagnosis Date Cirrhosis (HCC) NEGATIVE MEDICAL HISTORY No CA, DM, Heart dis, pnuemonia, DM Polycystic ovary syndrome PAST SURGICAL HISTORY Procedure Laterality Date PAST SURGICAL HISTORY OF 02/27/2011 laparascopy x2 PAST SURGICAL HISTORY OF 2008, 2001 umbilical hernia and inguinal TOTAL ABDOM HYSTERECTOMY 03/2020 Allergies Patient has no known allergies. Home Medications TALTZ AUTOINJECTOR 80 mg/mL pen iv contrast [...] in the CT contrast administration guidelines link. (Patient not taking: Reported on 04/18/2023) enteric contrast (will be provided with radiology test) For CT CHESTABD/PEL W IVCON Routine order Administer, As Directed One Time Only, via Oral, Rectal, both Oral and Rectal, Enteric Tube, Stoma or Indwelling Catheter, Enteric Contrast as designated per enteric contrast guidelines (Patient not taking: Reported on 04/18/2023) PHYSICAL EXAM BP 103/59 Pulse 72 Ht 5' 4.016 (1.63m) Wt 130 lb 15.3 oz (59.4kg) SpO2 100[RA]% LMP 04/28/2011 BMI 22.47 kg/(m^2). Physical Exam Vitals reviewed. Constitutional: General: She is awake. She is not in acute distress. Appearance: Normal appearance. She is well-developed. She is not ill-appearing. HENT: Head: Normocephalic and atraumatic. Right Ear: Ear canal and external ear normal. No decreased hearing noted. No drainage, swelling or tenderness. A middle ear effusion is present. There is no impacted cerumen. No foreign body. No mastoid tenderness. Tympanic membrane is not injected, perforated, erythematous, retracted or bulging. Left Ear: Ear canal and external ear normal. No decreased hearing noted. No drainage, swelling or tenderness. No middle ear effusion. There is no impacted cerumen. No foreign body. No mastoid tenderness. Tympanic membrane is not injected, perforated, erythematous, retracted or bulging. Nose: Nose normal. No congestion or rhinorrhea. Right Nostril: No epistaxis. Left Nostril: No epistaxis. Mouth/Throat: Lips: No lesions. Mouth: Mucous membranes are moist. No oral lesions. Tongue: No lesions. Tongue does not deviate from midline. Palate: No lesions. Pharynx: Oropharynx is clear. Eyes: General: No scleral icterus. Right eye: No discharge. Left eye: No discharge. Extraocular Movements: Extraocular movements intact. Conjunctiva/sclera: Conjunctivae normal. Cardiovascular: Rate and Rhythm: Normal rate and regular rhythm. Heart sounds: Normal heart sounds. No murmur heard. No gallop. Pulmonary: Effort: Pulmonary effort is normal. No tachypnea, bradypnea, accessory muscle usage, prolonged expiration, respiratory distress or retractions. Breath sounds: Normal breath sounds. No wheezing, rhonchi or rales. Musculoskeletal: Right lower leg: No edema. Left lower leg: No edema. Skin: General: Skin is warm and dry. Coloration: Skin is not cyanotic, jaundiced or mottled. Findings: No erythema or rash. Nails: There is no clubbing. Neurological: General: No focal deficit present. Mental Status: She is alert. Mental status is at baseline. Psychiatric: Mood and Affect: Mood and affect normal. Behavior: Behavior normal. Behavior is cooperative. DIAGNOSTICS Testing I Reviewed Today: See Epic for all available results and images. PFT/Procedures No new results. Imaging No new results. Lab/Micro No new results. ASSESSMENT & PLAN Upper respiratory tract infection, unspecified type - ICD9: 465.9, ICD10: J06.9 (primary diagnosis) Acute infection of right ear - ICD9: 382.9, ICD10: H66.91 Pulmonary emphysema, unspecified emphysema type (HCC) [J43.9] - ICD9: 492.8, ICD10: J43.9 Recurrent pulmonary symptoms after treatment with Zpak two weeks ago. Serous effusion right middle ear with bulging TM. - Resume Flonase for serous ear effusion. - Symptomatic treatment with prn analgesia - Supportive care with fluids and rest - Let me know if you are not starting to improve over the next 48 hours. Rx sent to the pharmacy today: - PREDNISONE 10 MG TABLET - CEFDINIR 300 MG CAPSULE Follow up with Dr. Lauren in Mar 2024 as already scheduled after CT, and as needed. Patient instructed to call our office, PCP, or go to the emergency department for new or worsening problems or symptoms. I spent a total of 38 minutes on the date of the service which included preparing to see the patient, [id number] patient care, completing clinical documentation, obtaining and/or reviewing separately obtained history, performing a medically appropriate examination, counseling and educating the patient/family/caregiver, and ordering medications, tests, or procedures. Leta Fuentes DNP, FIRE POT OPERATOR-PATIENT CONSUMER MARKETER [facility] documented in this encounter [facility] 08-16-2023 Telephone encounter Note Noted. Thanks! [facility] Work Phone: 08-16-2023 Miscellaneous Notes Noted. Thanks! CXR imaging from 07/12/23 is now available to view in [employer]. 2nd attempt I called [facility] radiology department, I spoke with Spike and requested recent CXR images- 07/12/23 to be pushed Spike states she is sending images now. Also faxed ROBERT form. Confirmation received I called [facility] radiology department, I spoke with Bailey and requested recent CXR images- 07/12/23 to be pushed Bailey states she is sending images now. Dr. Lauren has responded to patient via [employer] message. Please see 08/11/23 [employer] message. August 11, 2023 Fam Lauren MD to Ayana Gill 08/11/23 8:49 AM Corrie Piña, I have received notice of your telephone call. There are many different reasons to be coughing and I dont see an immediate need for a CT chest given you just recently had one. I do recommend that you make an appointment with either myself or the nurse practitioner that I work with, Leta to discuss your symptoms. If you can, it would be very helpful to bring the results of the recent chest x ray you had. Dr. Lauren Last read by Ayana Gill at 9:01 AM on 08/11/2023. Patient called indicating she has had a cough that she cannot rid. She has seen PCP and they advised possibly having a CT chest and to contact Dr. Lauren's office to request. Patient indicated chest xray recently at [facility]. Patient can be reached at [phone]. Please contact, triage and advise. documented in this encounter [facility] 08-16-2023 Telephone encounter Note CXR imaging from 07/12/23 is now available to view in epic. [facility] 08-15-2023 Telephone encounter Note 2nd attempt I called [facility] radiology department, I spoke with Spike and requested recent CXR images- 07/12/23 to be pushed Spike states she is sending images now. Also faxed ROBERT form. Confirmation received [facility] 08-11-2023 Telephone encounter Note I called [facility] radiology department, I spoke with Bailey and requested recent CXR images- 07/12/23 to be pushed Bailey states she is sending images now. [facility] 08-11-2023 Telephone encounter Note 1st attempt LVM to schedule soonest available with Dr. Lauren or Leta Summers August 11, 2023 [facility] 08-11-2023 Miscellaneous Notes 1st attempt LVM to schedule soonest available with Dr. Lauren or Leta Summers August 11, 2023 documented in this encounter [facility] 08-11-[address] Lauren has responded to patient via [employer] message. Please see 08/11/23 [employer] message. August 11, 2023 Fam Lauren MD to Ayana Gill 08/11/23 8:49 AM Corrie Piña, I have received notice of your telephone call. There are many different reasons to be coughing and I dont see an immediate need for a CT chest given you just recently had one. I do recommend that you make an appointment with either myself or the nurse practitioner that I work with, Leta to discuss your symptoms. If you can, it would be very helpful to bring the results of the recent chest x ray you had. Dr. Lauren Last read by Ayana Gill at 9:01 AM on 08/11/2023. [facility] 08-10-2023 Telephone encounter Note Patient called indicating she has had a cough that she cannot rid. She has seen PCP and they advised possibly having a CT chest and to contact Dr. Lauren's office to request. Patient indicated chest xray recently at [facility]. Patient can be reached at [phone]. Please contact, triage and advise. [facility] 06-22-2023 Instructions Leesa Ross - 06/22/2023 11:35 AM EDT RTC in 1 year No labs Clinician to evaluate for additional lymphadenopathy Continue follow up with pulmonology documented in this encounter [facility] 06-22-2023 History of Presen t illness Narrative Images from the original note were not included. NAME: Ayana Gill CLINIC NO.: [id number] DATE OF SERVICE: June 22, 2023 (Gavin) Some elements in this clinic note that are critical to medical decision making have been carefully reviewed and included from a prior clinic note dated: February 02, 2023 (Gavin) Referring Provider: Venus Cespedes CNP Additional Clinicians involved in Ayana Gill's care: DIAGNOSIS: Lymphadenopthy ASSESSMENT: 33 year old woman with mild lymphadenopathy but has been having early satiety as well as soaking night sweats. CT scans unremarkable for lymphadenopathy. Other symptoms may be related to tobacco use and emphysema with chronic inflammation. All prior symptoms had resolved but she comes in today concerned with a right breast/axillary tail mass. I reassured her that there was no palpable lymphadenopathy and as she had preserved ovaries, she still has hormonal cycles that could cause changes in her breasts. PLAN: RTC in 1 year No labs Clinician to evaluate for additional lymphadenopathy Continue follow up with pulmonology HPI: CASE HISTORY: Reverse Chronological Order 03/02/2023 - Diagnostic Mammogram & US Breast: BIRADS 1 - Negative 01/26/2023 - CT Neck CAP: Neck: Scattered subcentimeter lymph nodes, none significantly enlarged by imaging size criteria. 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 Minimal Emphysema involving the imaged lung apices. Otherwise, unremarkable CT Neck with contrast. Chest: 4 mm noncalcified nodule along the left major fissure, likely related to a benign intrafissural lymph node. No substantial intrathoracic adenopathy is appreciated. Abd/Pelvis: Essentially unremarkable CT examination of the abdomen and pelvis. 01/02/2023 - US H&N soft tissue: There are multiple [...] tissue mass identified by radiography. 12/27/2022 - Noticed a bump on left arm 03/2020 - Hysterectomy at [facility] - found cervical cancer. Updated Visit, June 22, 2023: Ayana returns today to discuss a new problem - a painful lump in her right armpit. I explained to her that this lump is likely a result of her menstrual cycle, despite hysterectomy as she still has intact ovaries. Night sweats have improved, she notes she now gets cold chills more frequently. She is continuing follow up with pulmonology, next appointment in November. Chaperoned Breast Exam June 22, 2023 (Tangela Parikh) : Right breast is normal, Left breast is normal. Sondra exam is negative. 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 Worked at [employer]. Has 3 children REVIEW OF SYSTEMS Per HPI and otherwise negative by full review of organ systems. ECOG PERFORMANCE STATUS: 0 PHYSICAL EXAMINATION: Vitals: BP 122/72 Pulse 68 Temp (Src) 97.4 (Temporal) Resp 16 Ht 5' 4.016 (1.63m) Wt 130 lb 4.7 oz (59.1kg) SpO2 99% LMP 04/28/2011 BMI 22.35 kg/(m^2). Body surface area is 1.63 meters squared. Exam limited to gross visualization [...] skin without rash, lesions, wounds or petechiae. Chaperoned Breast Exam June 22, 2023 (Tangela Parikh) : Right breast is normal, Left breast is normal. Sondra exam is negative. ALLERGIES: ALLERGIES No Known Allergies MEDICATIONS: TALTZ [...] in the CT contrast administration guidelines link. (Patient not taking: Reported on 04/18/2023) enteric contrast (will be provided with radiology test) For CT CHESTABD/PEL W IVCON Routine order Administer, As Directed One Time Only, via Oral, Rectal, both Oral and Rectal, Enteric Tube, Stoma or Indwelling Catheter, Enteric Contrast as designated per enteric contrast guidelines (Patient not taking: Reported on 04/18/2023) LABORATORY VALUES: WBC (k/uL) Date Value 01/12/2023 [...] (U/L) Date Value 01/12/2023 27 DIAGNOSIS: (R59.1) Lymphadenopathy (primary encounter diagnosis) PAST MEDICAL HISTORY Diagnosis Date Cirrhosis (HCC) NEGATIVE MEDICAL HISTORY No CA, DM, Heart dis, pnuemonia, DM Polycystic ovary syndrome PAST SURGICAL HISTORY Procedure Laterality Date PAST SURGICAL HISTORY OF 02/27/2011 laparascopy x2 PAST SURGICAL HISTORY OF 2001 umbilical hernia and inguinal TOTAL ABDOM [...] Paternal Grandfather I spent a total of 30 minutes on the date of the service which included preparing to see the patient, [id number] patient care, completing clinical documentation, obtaining and/or reviewing separately obtained history, performing a medically appropriate examination, counseling and educating the patient/family/caregiver, ordering medications, tests, or procedures, independently interpreting results (not separately reported), communicating results to the patient/family/caregiver, and care coordination (not separately reported). Izaiah Pinto MD, CPE Hematology and Oncology Services Provided at: [facility], [place], [place] Scribe Attestation: This note was scribed by Leesa Ross on June 22, 2023 under the direction and supervision of Dr. Izaiah Pinto. I attest that all of the information documented is correct to the best of my knowledge. Provider Attestation: I, Izaiah Pinto MD, attest that all information documented by the above scribe is correct, and was supervised by me and under my direction. CC: Venus Cespedes [address] [place] [id number] Phoebe Nugentzio documented in this encounter [facility] 06-22-2023 Note HNO ID: [id number] Author: IZAIAH PINTO MD Service: ? Author Type: Physician Type: Progress Notes Filed: 06/22/2023 19:38 Note Text: NAME: Ayana Gill CLINIC NO.: [id number] DATE OF SERVICE: June 22, 2023 (Gavin) Some elements in this clinic note that are critical to medical decision making have been carefully reviewed and included from a prior clinic note dated: February 02, 2023 (Gavin) Referring Provider: Venus Cespedes CNP Additional Clinicians involved in Ayana Gill's care: DIAGNOSIS: Lymphadenopthy ASSESSMENT: 33 year old woman with mild lymphadenopathy but has been having early satiety as well as soaking night sweats. CT scans unremarkable for lymphadenopathy. Other symptoms may be related to tobacco use and emphysema with chronic inflammation. All prior symptoms had resolved but she comes in today concerned with a right breast/axillary tail mass. I reassured her that there was no palpable lymphadenopathy and as she had preserved ovaries, she still has hormonal cycles that could cause changes in her breasts. PLAN: RTC in 1 year No labs Clinician to evaluate for additional lymphadenopathy Continue follow up with pulmonology HPI: CASE HISTORY: Reverse Chronological Order 03/02/2023 - Diagnostic Mammogram AND US Breast: BIRADS 1 - Negative 01/26/2023 - CT Neck CAP: Neck: Scattered subcentimeter lymph nodes, none significantly enlarged by imaging size criteria. 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 Minimal Emphysema involving the imaged lung apices. Otherwise, unremarkable CT Neck with contrast. Chest: 4 mm noncalcified nodule along the left major fissure, likely related to a benign intrafissural lymph node. No substantial intrathoracic adenopathy is appreciated. Abd/Pelvis: Essentially unremarkable CT examination of the abdomen and pelvis. 01/02/2023 - US HANDN soft tissue: There are multiple [...] tissue mass identified by radiography. 12/27/2022 - Noticed a bump on left arm 03/2020 - Hysterectomy at [facility] - found cervical cancer. Updated Visit, June 22, 2023: Ayana returns today to discuss a new problem - a painful lump in her right armpit. I explained to her that this lump is likely a result of her menstrual cycle, despite hysterectomy as she still has intact ovaries. Night sweats have improved, she notes she now gets cold chills more frequently. She is continuing follow up with pulmonology, next appointment in November. Chaperoned Breast Exam June 22, 2023 (Tangela Parikh) : Right breast is normal, Left breast is normal. Sondra exam is negative. 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 Worked at [employer]. Has 3 children REVIEW OF SYSTEMS Per HPI and otherwise negative by full review of organ systems. ECOG PERFORMANCE STATUS: 0 PHYSICAL EXAMINATION: Vitals: BP 122/72 Pulse 68 Temp (Src) 97.4 (Temporal) Resp 16 Ht 5' 4.016 (1.63m) Wt 130 lb 4.7 oz (59.1kg) (more content not included)... [facility] 04-18-2023 Instructions Fam Lauren MD - 04/18/2023 8:55 AM EST Today we reviewed your CT chest as well as your breathing tests. Your lung function is excellent. I highly recommend quitting smoking and staying active. We will repeat your CT chest in one year with follow up. documented in this encounter [facility] 04-18-2023 History and physical note . [facility]piratory [place] Note Ms. Gill is a 32 year old female who presents to the [facility] [place]. Consultation requested by Dr. Izaiah Pinto for an opinion regarding emphysema. My final recommendations/evaluation will be communicated back to the requesting physician by way of shared medical record or letter via US mail. HPI: 32 year old female with a PMH of Ovarian cyst that presents for an eval of emphysema. Never diagnosed with lung problems in the past, had a previous albuterol inhaler when she had bronchitis. She feels like her breathing is not the greatest. She gets short of breath with activities and randomly hap to take a deep breath. She does cough, sporadic. No Wheezing. No activity recently. Never admitted to the hospital for breathing issues. Was having some chest pain. Past Medical History: PAST MEDICAL HISTORY Diagnosis Date Cirrhosis (HCC) NEGATIVE MEDICAL HISTORY No CA, DM, Heart dis, pnuemonia, DM Polycystic ovary syndrome Past Surgical History: PAST SURGICAL HISTORY Procedure Laterality Date PAST SURGICAL HISTORY OF 02/27/2011 laparascopy x2 PAST SURGICAL HISTORY OF 2001 umbilical hernia and inguinal TOTAL ABDOM HYSTERECTOMY 03/2020 Work and Social Histories: Social History Tobacco Use Smoking status: Every Day Packs/day: 1 Types: Cigarettes Vaping Use Vaping Use: Never used Substance Use Topics Alcohol use: No Drug use: No Tobacco: 1PPD x 18 yrs NO vaping or E ciagrettes use Occupation/Exposures: 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 Outpatient Medications: TALTZ AUTOINJECTOR 80 mg/mL pen iv contrast [...] Contrast as designated per enteric contrast guidelines PHYSICAL EXAM: BP 113/62 Pulse 84 Temp 98.2 Ht 5' 4 (1.63m) Wt 132 lb 4.5 oz (60.0kg) SpO2 97[RA]% LMP 04/28/2011 BMI 22.69 kg/(m^2). GEN: Alert, comfortable, sitting up in chair, no distress CV: RRR PULM: CTAB, no wheezing or crackles ABD: soft EXT: No LE edema Labs / Imaging / Diagnostic Studies: All radiography listed below personally reviewed by me [facility] (in addition to that noted in HPI, and Past histories above): CMP, CBC, PFT: 04/18/23: Slightly reduced ration but excellent lung function, mid flows normal, normal DLCO, no BD response CT Chest 01/26/23: Lung parenchyma , airways, and pleural space: [...] identified. Bones/Soft Tissues: No osseous destructive process. Assessment: Ms. Gill is a 32 year old female who presents to the [facility] for evaluation of emphysema Problems: Emphysema Tobacco Abuse Lung nodules Mateusz with excellent lung function, does not qualify for a diagnosis of COPD. No Need for inhalers. Counseled extensively to quit smoking. Given her lung nodule and smoking history, discussed repeating a CT chest in one year and she is agreable-ordered. Follow up in [address] chest Fma Lauren MD Pulmonary Critical Care Staff documented in this encounter [facility] 04-18-2023 Note HNO ID: [id number] Author: THELMA PLUMMER RRT Service: ? Author Type: Registered Resp Therapist Type: Progress Notes Filed: 04/18/2023 08:25 Note Text: PULM FUNCTION SMARTBLOCK: Provider: Fam Lauren MD Spirometry w/BD: 1 DLCO: 1 [facility] 04-18-2023 History of Presen t illness Narrative PULM FUNCTION SMARTBLOCK: Provider: Fam Lauren MD Spirometry w/BD: 1 DLCO: 1 documented in this encounter [facility] 02-10-2023 Note HNO ID: [id number] Author: Ruthie Oneil Service: ? Author Type: ? Type: Progress Notes Filed: 02/12/2023 10:02 AM Note Text: Orders pended [facility] 02-10-2023 History of Presen t illness Narrative Orders pended documented in this encounter [facility] 02-09-[address] Davey, I called and spoke with patient she was willing to go to [facility]. I called and got her scheduled with Dr Fam Lauren on 04/18/23. That was their first available [...] out!!! We should really send her to [facility] or [facility]! Called Pulmonary office spoke with Leeanna. Patient is scheduled 07/25/23 @ 9:30 with CLINICAL PHARMACY MANAGER Ghada Munson. Yuki Junior Records faxed. Alfreda: Information ready for you. Yuki Junior Refer to pulmonary Dx: Pumonary emphysema Alfreda/Chandrakant: Patient would prefer to stay locally within [place]. Can you please refer patient and follow up? Thanks! Albert Piper documented in this encounter [facility] 02-02-2023 Instructions Mary Hathaway - 02/02/2023 9:57 AM EST Refer to pulmonary Return PRN documented in this encounter [facility] 02-02-2023 History of Presen t illness Narrative Images from the original note were not included. 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 Worked at [employer]. Has 3 children REVIEW OF SYSTEMS Per [...] 02/27/2011 laparascopy x2 PAST SURGICAL HISTORY OF 2001 umbilical hernia and inguinal TOTAL ABDOM [...] which included preparing to see the patient, [id number] patient care, completing clinical documentation, obtaining and/or reviewing separately obtained history, performing a medically appropriate examination, counseling and educating the patient/family/caregiver, ordering medications, tests, or procedures, independently interpreting results (not separately reported), communicating results to the patient/family/caregiver, and care coordination (not separately reported). Izaiah Pinto MD, CPE Hematology and Oncology Services Provided at: [place], [place] Scribe Attestation: This note was scribed [...] me and under my direction. CC: Venus Cespedes [address] [place] [id number] Phoebe Mcintosh documented in this encounter [facility] 02-02-2023 Note HNO ID: [id number] Author: Izaiah Pinto MD Service: ? Author Type: Physician Type: Progress Notes Filed: 02/02/2023 7:05 PM Note Text: NAME: Ayana Gill CLINIC NO.: [id number] DATE OF SERVICE: February 02, 2023 (Gavin) Some elements in this clinic note that are critical to medical decision making have been carefully reviewed and included from a prior clinic note dated: January 12, 2023 (Gavin). 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 Minimal Emphysema involving the imaged lung [...] a bump on left arm 03/2020 at [facility] - hysterectomy - found cervical cancer. 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 Worked at [employer]. Has 3 children REVIEW OF SYSTEMS Per [...] wounds or petechiae. (more content not included)... [facility] 01-26-2023 History of Presen t illness Narrative Radiology Service Progress Note DATE OF SERVICE: [...] Value Ref Range Status 01/12/2023 115 >=60 mL/min/1.73m Final Comment: Estimated Glomerular Filtration Rate (eGFR) [...] DATE: January 26, 2023 TIME: 2:05 PM Radiology Service Progress Note PATIENT NAME: Ayana [...] Intact, Site disposition Discontinued SIGNED BY: RT William(Melany) January 26, 2023 2:59 PM documented in this encounter [facility] 01-26-2023 Note HNO ID: [id number] Author: Zuleima Tran RT(R) Service: ? Author [...] RT William(R) January 26, 2023 2:59 PM [facility] 01-26-2023 Note HNO ID: [id number] Author: Leeanna June RN Service: ? Author [...] DATE: January 26, 2023 TIME: 2:05 PM [facility] 01-12-2023 Note HNO ID: [id number] Author: Izaiah Pinto MD Service: ? 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 Worked at [employer] Has 3 children REVIEW OF SYSTEMS Per [...] DIAGNOSIS: (R59.1) Lymphadenop (more content not included)... [facility] 02-11-2022 Instructions Khalif Jackson DMD - [...] the system. 13. Do not wear: nail slovak, lipstick, heavy makeup, contact lenses, jewelry, wigs. Do wear: loose clothes with short sleeves, long pants, shoes (no high heals). 14. Please call our office to cancel your appointment if you feel sick. documented in this encounter [facility] 02-11-2022 Instructions Khalif Jackson, DMD - 02/11/2022 12:29 PM EST Oral [...] the system. 13. Do not wear: nail slovak, lipstick, heavy makeup, contact lenses, jewelry, wigs. Do wear: loose clothes with short sleeves, long pants, shoes (no high heals). 14. Please call our office to cancel your appointment if you feel sick. documented in this encounter [facility] 02-11-2022 History of Presen t illness Narrative Images from the original note were not included. [facility] [place] PATIENT VISIT CHIEF COMPLAINT: Pain HISTORY OF PRESENT ILLNESS: 31 year old female with no significant PMH presents to [facility] [place] clinic as a referral from an outside [...] Khalif Jackson DMD documented in this encounter [facility] 02-11-2022 History of Presen t illness Narrative Images from the original note were not included. [facility] PATIENT VISIT CHIEF COMPLAINT: Pain HISTORY OF PRESENT ILLNESS: 31 year old female with no significant PMH presents to [facility] [place] as a referral from an outside [...] Reyes DMD, MD documented in this encounter [facility] 04-10-2020 Note [place] NAME: AYANA GILL DATE OF : MEDICAL REC#: [id number] ARRANGER ASSEMBLER: [address] ADMIT DATE: 04/10/2020 07:36:00 TRAFFIC WORKFORCE REPRESENTATIVE DATE: 04/14/2020 08:00 DICTATING PHYSICIAN: SCOTT MCINTOSH DICTATION DATE: 04/10/2020 11:00 OPERATIVE NOTE OPERATION DATE: 04-10-20 ANESTHETIC: COMMERCIAL INTERN:FINESSE Maldonado PREOPERATIVE DIAGNOSIS: 1. Menorrhagia. 2. Pelvic [...] Scott Mcintosh DO on 04/14/2020 07:[address] [facility] Signed and Approved by: DR SCOTT MCINTOSH . 04/14/2020 19:07:00 [facility] 04-10-2020 Note DISCHARGE SUMMARY Discharge Date: 04/12/2020 [...] pain free and no longer on narcotics.. [facility] Signed and Approved by: DR SCOTT MCINTOSH . 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 COMMERCIAL INTERN:FINESSE Shields PREOPERATIVE DIAGNOSIS:Pelvic pain. POSTOPERATIVE DIAGNOSIS:Pelvic pain. [...] Scott Mcintosh DO on 01/06/2020 08:[address] [facility] Signed and Approved by: DR SCOTT MCINTOSH . 01/06/2020 08:56:00 [facility] Evaluation note No assessment inform [facility] Work Phone: Evaluation note Diagnosis Caries- Primary Unspecified dental caries [facility] Caries- Primary Unspecified dental caries Body mass index (BMI) 22.0-22.9, adult [facility] Other Evaluation note* Diagnosis Pulmonary emphysema, unspecified emphysema type (HCC)- Primary [facility] Diagnosis Pulmonary emphysema, unspecified emphysema type (HCC)- Primary [facility] Diagnosis Pulmonary emphysema, unspecified emphysema type (HCC)- Primary [facility]* Diagnosis Pulmonary emphysema, unspecified emphysema type (HCC) documented [facility]* Diagnosis Lung nodules- Primary Other nonspecific abnormal finding of lung field Pulmonary emphysema, unspecified emphysema type (HCC) [J43.9] documented [facility] this [facility]* Diagnosis Lymphadenopathy- Primary Enlargement of lymph nodes [facility]* Diagnosis Upper respiratory tract infection, unspecified type- Primary Acute infection of right ear Pulmonary emphysema, unspecified emphysema type (HCC) [J43.9] documented [facility]* Diagnosis Lymphadenopathy Enlargement of lymph nodes Localized enlarged lymph nodes Enlargement of lymph nodes [facility] Other [facility] Discharge instructions Additional Instructions [facility] Work Phone: Reason for referral (narrative)* Outpatient Procedure (Routine) - Pending Review Specialty Diagnoses / Procedures Referred By Contac t Referred To Contact [facility] Diagnoses Pulmonary emphysema, unspecified emphysema type (HCC) Procedures SPIROMETRY WITH DILATOR IF OBSTRUCTED BRNCDILAT RSPSE SPMTRY PRE&POST-BRNCDILAT ADMN Fam Lauren MD [address] [place] [address] [address] Referral ID Status Reason Start Date Expiration Date Visits Requested Visits Authorized [id number] Pending Review Auto-Generat ed Referral 3 03/11/2024 1 1 * Outpatient Procedure (Routine) - Pending Review Specialty Diagnoses / Procedures Referred By Contac t Referred To [facility] Diagnoses Pulmonary emphysema, unspecified emphysema type (HCC) Procedures LUNG DIFFUSION CAPACITY (DLCO) DIFFUSING CAPACITY Fam Lauren MD [address] [place] [address] [address] Referral ID Status Reason Start Date Expiration Date Visits Requested Visits Authorized [id number] Pending Review Auto-Generat ed Referral 3 03/11/2024 1 1 [facility] Summary Purpose Family History Relationship Condition Age at Onset Recorded Date/T ray Not Specified No pertinent family history Unknown Relationship Condition Age at Onset Recorded Date/T ray Not Specified No pertinent family history Unknown grandparent Family history of emphysema Unknown Unknown grandparent Malignant neoplasm Unknown grandparent Unknown Malignant neoplasm of lung Unknown Advance Directives Advance Directive Response Recorded Date/ Time Advance Directives No January 04, 2017 4:30pm Advance Directive Response Recorded Date/ Time Advance Directives No January 04, 2017 5:30pm Chief Complaint and Reason for Visit Chief Complaint Screening Chief Complaint Screening sore throat/fever/body aches Chief Complaint Cough rib pain Chief Complaint Cough rib pain neck injury, [employer] authority [facility];neck strain chest pains Chief Complaint chest pains [facility];neck strain R07.89 r07.89 Chief Complaint R07.89 r07.89 Chief Complaint R07.89 r07.89 Right side abd pain Chief Complaint S16.1XXA Chief Complaint S16.1XXA cough, stuffy nose upper back pain, SOB, chest pain Chief Complaint S16.1XXA cough, stuffy nose upper back pain, SOB, chest pain r10.10 Reason for Referral Specialty Diagnoses / Procedures Referred By Lisy lopez Referred To Contact Oral Surgery Diagnoses Caries Procedures EXTRACTION ERUPTED TOOTH/EXR Marci Reyes DMD, MD [address] [place] [address] Referral ID Status Reason Start Date Expiration Date V isits Requested Visits Authorized [id number] Pending Review 02/13/2022 02/13/2023 1 1 Scheduling [...] your procedure, you will be contacted with [id number] costs or next steps. All self-pay payments [...] the procedure: You also MUST have a seasonal delivery driver/escort >18yrs old present to take you [...] Which area is this procedure for? Clinic Specialty Diagnoses / Procedures Referred By [facility] Referred To Contact CT IMAGING Diagnoses Lung nodules Procedures CT CHEST WO IVCON DIAGNOSTIC COMPUTED TOMOGRAPHY THORAX W/O CNTRST Fam Lauren MD [address] [facility] [place] [address] [place] [address] Referral ID Status Reason Start Date Expiration Date Visits Requested Visits Authorized [id number] Authorized Auto-Generat ed Referral 04/18/2024 05/17/2024 1 1 Specialty Diagnoses / Procedures Referred By [facility] Referred To Contact CT IMAGING Diagnoses Lymphadenopathy Localized enlarged lymph nodes Procedures CT NECK SOFT TISSUE W IVCON CT SOFT TISSUE NECK W/CONTRAST MATERIAL Izaiah Pinto MD [address] [place] [address] [place] [address] [place] [address] Referral ID Status Reason Start Date Expiration Date V isits Requested Visits Authorized [id number] Closed Auto-Generate d Referral 01/19/2023 02/11/2024 1 1 Specialty Diagnoses / Procedures Referred By [facility] Referred To Contact CT IMAGING Diagnoses Lymphadenopathy Localized enlarged lymph nodes Procedures CT CHEST W IVCON DIAGNOSTIC COMPUTED TOMOGRAPHY THORAX W/CONTRAST Izaiah Pinto MD [address] [place] [address] [place] [address] [place] [address] Referral ID Status Reason Start Date Expiration Date V isits Requested Visits Authorized [id number] Closed Auto-Generate d Referral 01/19/2023 02/11/2024 1 1 Specialty Diagnoses / Procedures Referred By [facility] Referred To Contact CT IMAGING Diagnoses Lymphadenopathy Localized enlarged lymph nodes Procedures CT ABD/PEL W IVCON CT ABD & PELVIS W/CONTRAST Izaiah Pinto MD [address] [place] [address] [place] [address] [place] [address] Referral ID Status Reason Start Date Expiration Date V isits Requested Visits Authorized [id number] Closed Auto-Generate d Referral 01/19/2023 02/11/2024 1 1 Additional Source Comments INFORMATION SOURCE (unrecogn ized section and content) DATE CREATED AUTHOR 10/29/2020 [facility] DATE CREATED AUTHOR AUTHOR'S ORGANIZ ATION 02/18/2022 [facility] DATE CREATED AUTHOR AUTHOR'S ORGANIZ ATION 11/18/2022 [facility] DATE CREATED AUTHOR AUTHOR'S ORGANIZ ATION 03/06/2023 [facility] EPIC DATE CREATED AUTHOR AUTHOR'S ORGANIZ ATION 08/26/2023 [facility] DATE CREATED AUTHOR AUTHOR'S ORGANIZ ATION 09/22/2023 [facility] Care Teams (unrecognized sec tion and content) [...] Primary Care Provider Active Jose Perez DO [facility] Attending Provider Active Team Status: Inactive Member Role Status Dates Venus Cespedes APRN Primary Care Provider Active Abelino Arevalo DO Emergency Provider Active Team Status: Inactive Member Role Status Dates Venus Cespedes APRN Primary Care Provider Active Kane Crouch MD Emergency Provider Active Floor Assembler Relationship Specialty Start Date End Date Venus Cespedes CNP [address] [place], [place] [address] [address] PCP - General Family Medicine 01/12/23 Floor Assembler Relationship Specialty Start Date End Date Venus Cespedes CNP [facility] [place] [address] PCP - General Family Medicine 01/12/23 Floor Assembler Relationship Specialty Start Date End Date Venus Cespedes CNP [address] [place] [address] PCP - General Family Medicine 01/12/23 Floor Assembler Relationship Specialty Start Date End Date Venus Cespedes CNP [address] [place] [address] PCP - General Family Medicine 01/12/23 Floor Assembler Relationship Specialty Start Date End Date Venus Cespedes CNP [address] [place] [address] PCP - General Family Medicine 01/12/23 Team Status: Inactive Member Role Status Dates Venus Fregoso KITA Cespedes Primary Care Provider Active Start: June 02, 2023 End: June 02, 2023 Jose Perez DO Attending Provider Active Start: June 02, 2023 End: June 02, 2023 Floor Assembler Relationship Specialty Start Date End Date Venus Cespedes CNP [address] [place] [address] PCP - General Family Medicine 01/12/23 Floor Assembler Relationship Specialty Start Date End Date CoyVenus ISAURA [address] [place] [address] PCP - General Family Medicine 01/12/23 Floor Assembler Relationship Specialty Start Date End Date CoyVenus ISAURA [address] [place] [address] PCP - General Family Medicine 01/12/23 Floor Assembler Relationship Specialty Start Date End Date CoyVenus CNP [address] [place] [address] PCP - General Family Medicine 01/12/23 Team Status: Inactive Member Role Status Dates Venus Cespedes APRN Primary Care Provider Active Start: June 23, 2023 End: June 23, 2023 Jose LYNN , DO [facility] Attending Provider Active Start: June 23, 2023 End: June 23, 2023 Team Status: Inactive Member Role Status Dates Venus Cespedes APRN Primary Care Provider Active Start: July 12, 2023 End: July 12, 2023 Gerald Ryan APRN Emergency Provider Active Start: July 12, 2023 End: July 12, 2023 Team Status: Inactive Member Role Status Dates Vneus Cespedes APRN Primary Care Provider Active Start: September 06, 2023 End: September 06, 2023 Abelino Arevalo DO Emergency Provider Active St art: September 06, 2023 End: September 06, 2023 Team Status: Inactive Member Role Status Dates Venus Cespedes APRN Primary Care Prov ider, Attending Provider Active Start: September 15, 2023 End: September 15, 2023 Floor Assembler Relationship Specialty Start Date End Date Venus Cespedes CNP [address] [place] [address] PCP - General Family Medicine 01/12/23 Goals [...] Dental caries EXT 2,3,15,17,19,31 Jm Buenrostro, MARA [address] [place] [address] ORAL SURGERY [address] [place] [place] [address] Referral ID Status Reason Start Date Expiration Date Visits Requested Visits Authorized [id number] Authorized Transfer of Care-[facility] 09/23/2021 09/23/2022 3 3 Reason Comments Lymphadenopathy Reason Comments Referral Information Pulmonary Reason Comments Spirometry Specialty Diagnoses / Procedures Referred By Contac t Referred To Contact [facility] Diagnoses Pulmonary emphysema, unspecified emphysema type (HCC) Procedures SPIROMETRY WITH DILATOR IF OBSTRUCTED BRNCDILAT RSPSE SPMTRY PRE&POST-BRNCDILAT ADMN Fam Lauren MD [address] [place] [address] [address] Referral ID Status Reason Start Date Expiration Date V isits Requested Visits Authorized [id number] Closed Auto-Generate d Referral 02/12/2023 03/11/2024 1 1 Specialty Diagnoses / Procedures Referred By Contac t Referred To Contact [facility] Diagnoses Pulmonary emphysema, unspecified emphysema type (HCC) Procedures LUNG DIFFUSION CAPACITY (DLCO) DIFFUSING CAPACITY Fam Lauren MD [address] [place] [address] [address] Referral ID Status Reason Start Date Expiration Date V isits Requested Visits Authorized [id number] Closed Auto-Generate d Referral 02/12/2023 03/11/2024 1 1 Reason Comments Pulmonary emphysema, unspecified emphyse ma type (HCC) J43. Specialty Diagnoses / Procedures Referred By Contac t Referred To Contact [facility] Diagnoses Other nonspecific abnormal finding of lung field Pulmonary emphysema, unspecified emphysema type (HCC) J43, Lung Nodules Procedures OFFICE CONSULTATION NEW/ESTAB PATIENT 15 MIN Izaiah Pinto MD [address] [place] [address] [facility] [address] [place] [address] Referral ID Status Reason Start Date Expiration Date Visits Requested Visits Authorized [id number] Authorized Financial Clearance Required - Self Pay Clearance Not Met - Admin/Chairma n/Director Advise to Postpone/Resc hedule or Not Proceed Patient Cleared - Qualified 100% FAS 06/16/2023 09/14/2023 99 99 Reason Comments current cough Patient called indic ating she has had a cough that she cannot rid. She has seen PCP and they advised possibly having a CT chest and to contact Dr. Lauren's office to request. Patient indicated chest xray recently at [facility]. Patient can be reached at [phone]. Please contact, triage and advise. Reason Comments Cough lung nodules pulmonary emphysema Reason Comments Radiology CT Specialty Diagnoses / Procedures Referred By Contac t Referred To Contact CT IMAGING Diagnoses Lymphadenopathy Localized enlarged lymph nodes Procedures CT ABD/PEL W IVCON CT ABD & PELVIS W/CONTRAST Izaiah Pinto MD [address] [place] [address] [place] [address] [place] [address] Referral ID Status Reason Start Date Expiration Date V isits Requested Visits Authorized [id number] Closed Auto-Generate d Referral 01/19/2023 02/11/2024 1 1 Source Comments (unrecognize d section and content) In the event this informatio n is protected by the Federal Confidentiality of Alcohol and Drug Abuse Patient Records regulations: The Federal rules restrict any use of the information to criminally investigate or prosecute any alcohol or drug abuse patient.[facility] the event this information is protected by the Federal Confidentiality of Alcohol and Drug Abuse Patient Records regulations: The Federal rules restrict any use of the information to criminally investigate or prosecute any alcohol or drug abuse patient.[facility] the event this information is protected by the Federal Confidentiality of Alcohol and Drug Abuse Patient Records regulations: The Federal rules restrict any use of the information to criminally investigate or prosecute any alcohol or drug abuse patient.[facility] the event this information is protected by the Federal Confidentiality of Alcohol and Drug Abuse Patient Records regulations: The Federal rules restrict any use of the information to criminally investigate or prosecute any alcohol or drug abuse patient.[facility] the event this information is protected by the Federal Confidentiality of Alcohol and Drug Abuse Patient Records regulations: The Federal rules restrict any use of the information to criminally investigate or prosecute any alcohol or drug abuse patient.[facility] North[facility] the event this information is protected by the Federal Confidentiality of Alcohol and Drug Abuse Patient Records regulations: The Federal rules restrict any use of the information to criminally investigate or prosecute any alcohol or drug abuse patient.[facility] NorthIn the event this information is protected by the Federal Confidentiality of Alcohol and Drug Abuse Patient Records regulations: The Federal rules restrict any use of the information to criminally investigate or prosecute any alcohol or drug abuse patient.[facility] NorthIn the event this information is protected by the Federal Confidentiality of Alcohol and Drug Abuse Patient Records regulations: The Federal rules restrict any use of the information to criminally investigate or prosecute any alcohol or drug abuse patient.[facility] NorthIn the event this information is protected by the Federal Confidentiality of Alcohol and Drug Abuse Patient Records regulations: The Federal rules restrict any use of the information to criminally investigate or prosecute any alcohol or drug abuse patient.[facility] NorthIn the event this information is protected by the Federal Confidentiality of Alcohol and Drug Abuse Patient Records regulations: The Federal rules restrict any use of the information to criminally investigate or prosecute any alcohol or drug abuse patient.[facility] NorthIn the event this information is protected by the Federal Confidentiality of Alcohol and Drug Abuse Patient Records regulations: The Federal rules restrict any use of the information to criminally investigate or prosecute any alcohol or drug abuse patient.[facility] FOR RECORDS PERTAINING TO PATIENTS WHO ARE [...] BE BASED ON THE PRIMARY CLINICAL RECORDS. [facility] [employer] [facility]. provides no warranty or guarantee of the accuracy or completeness of information in this document.
== END 2024-01-18 12:55 | disposition home or self-care (01) ==
LOC: MAMMO 12:54
PROVIDERS: Visit Provider Physician Assistant
DX: N64.4 Mastodynia (principal); Z80.3 Family history of malignant neoplasm of breast
CPT/HCPCS: 76642; 77066; G0279